=== PATIENT | female | born 1940 | race Caucasian/White ===

== ENCOUNTER 2017-08-13 09:12 | Inpatient (IN) | payer MEDICARE ==
[2017-08-13] MEDS ORDERED: METHYLPREDNISOLONE INJ 125 MG/2 ML SDV IV ONE (09:30)
[2017-08-13] MEDS ORDERED: IPRATROPIUM/ALBUTEROL 0.5-2.5 MG/3 ML AMPUL NEB ONE (09:30)
--- NOTE | 2017-08-13 09:30 | ER Document Report ---
ED General <CELINE GUERRA - Last Filed: 08/13/17 12:53> - General Mode of Arrival: Medic TRAVEL OUTSIDE OF THE [place] IN LAST 30 DAYS: No - HPI Onset: This morning Associated symptoms: Other - see above <JEFFRYROME CASPERVU - Last Filed: 08/13/17 12:55> - General Stated Complaint: SHORTNESS OF BREATH Time Seen by Provider: 08/13/17 09:19 Notes: Patient is a 77 year old female who presents to the ED via EMS with complaints of nausea and vomiting. When EMS arrived they state she appeared dyspneic, she was 70% on room air. She was placed on CPAP by EMS and was 90%. She is believed to have aspirated on her emesis causing the dyspnea. She denies any abdominal pain. She was placed on bipap upon arrival to the ED. (VU TERAN) - Related Data Allergies/Adverse Reactions: No Known Allergies Allergy (Unverified 08/13/17 09:54) Past Medical History - General Information source: Patient - Social History Smoking Status: Unknown if Ever Smoked Family History: Reviewed & Not Pertinent <VU TERAN - Last Filed: 08/13/17 12:55> Review of Systems - Review of Systems Constitutional: No symptoms reported EENT: No symptoms reported Cardiovascular: No symptoms reported Respiratory: See HPI, Short of breath Gastrointestinal: See HPI, Nausea, Vomiting. denies: Abdominal pain Genitourinary: No symptoms reported Female Genitourinary: No symptoms reported Musculoskeletal: No symptoms reported Skin: No symptoms reported Hematologic/Lymphatic: No symptoms reported Neurological/Psychological: No symptoms reported <VU TERAN - Last Filed: 08/13/17 12:55> Physical Exam - General General appearance: Alert - HEENT Head: Normocephalic, Atraumatic Eyes: Normal Extraocular movements intact: Yes Pupils: PERRL - Respiratory Respiratory status: Tachypnea, Other - improved on bipap Breath sounds: Rhonchi, Wheezing - Cardiovascular Rhythm: Regular Heart sounds: Normal auscultation Murmur: No - Abdominal Inspection: Normal Distension: No distension Bowel sounds: Normal Tenderness: Nontender - Back Back: Normal, Other - severe kyphosis - Extremities General upper extremity: Normal inspection, Normal ROM General lower extremity: Normal inspection, Edema - mild, Normal ROM - Neurological Neuro grossly intact: Yes - Psychological Associated symptoms: Normal affect, Normal mood - Skin Skin Temperature: Warm Skin Moisture: Dry Skin Color: Normal <ROME TERANANDRA - Last Filed: 08/13/17 12:55> - Vital signs Vitals: BP 134/80 H 08/13/17 09:17 Course - Laboratory Result Diagrams: 08/13/17 09:23 08/13/17 09:23 - Diagnostic Test Radiology reviewed: Image reviewed, Reports reviewed - Chest x-ray is quite rotated, but there is no acute process. - EKG Interpretation by Me EKG shows normal: Sinus rhythm, [place], Intervals, QRS Complexes, ST-T Waves Rate: Normal - 70 Rhythm: NSR When compared to previous EKG there are: Previous EKG unavailable - Consults Dr. Quesada Consulted provider: will see as inpatient <CELINE GUERRA - Last Filed: 08/13/17 12:53> - Laboratory Result Diagrams: 08/13/17 09:23 08/13/17 09:23 <JEFFRYVU - Last Filed: 08/13/17 12:55> - Vital Signs Vital signs: Temp Pulse Resp BP Pulse Ox 99.1 F 93 25 H 115/82 93 08/13/17 10:13 08/13/17 10:13 08/13/17 12:47 08/13/17 10:19 08/13/17 12:47 - Laboratory Laboratory results interpreted by mt: 08/13/17 08/13/17 08/13/17 09:23 09:23 09:23 MCHC 31.7 L RDW 16.1 H Seg Neutrophils % 85.9 H Lymphocytes % 6.3 L Absolute Neutrophils 8.6 H PT 17.1 H Carbonic Acid ABG pCO2 ABG pO2 ABG HCO3 ABG Total CO2 ABG O2 Saturation VBG pCO2 VBG HCO3 Chloride 95 L Carbon Dioxide 33 H BUN 42 H Creatinine 2.01 H Est GFR ( Amer) 29 L Est GFR (Non-Af Amer) 24 L Glucose 156 H Lactic Acid Direct Bilirubin 0.6 H AST 2309 H ALT 1599 H Creatine Kinase Urine Protein Urine Blood Urine Urobilinogen 08/13/17 08/13/17 08/13/17 09:23 09:25 09:25 MCHC RDW Seg Neutrophils % Lymphocytes % Absolute Neutrophils PT Carbonic Acid ABG pCO2 ABG pO2 ABG HCO3 ABG Total CO2 ABG O2 Saturation VBG pCO2 70.0 H* VBG HCO3 33.9 H Chloride Carbon Dioxide BUN Creatinine Est GFR ( Amer) Est GFR (Non-Af Amer) Glucose Lactic Acid 3.5 H Direct Bilirubin AST ALT Creatine Kinase 739 H Urine Protein Urine Blood Urine Urobilinogen 08/13/17 08/13/17 09:50 12:00 MCHC RDW Seg Neutrophils % Lymphocytes % Absolute Neutrophils PT Carbonic Acid 1.60 H ABG pCO2 53.3 H ABG pO2 57.2 L ABG HCO3 29.0 H ABG Total CO2 30.7 H ABG O2 Saturation 88.1 L VBG pCO2 VBG HCO3 Chloride Carbon Dioxide BUN Creatinine Est GFR ( Amer) Est GFR (Non-Af Amer) Glucose Lactic Acid Direct Bilirubin AST ALT Creatine Kinase Urine Protein 100 H Urine Blood SMALL H Urine Urobilinogen 2.0 H Critical Care Note - Critical Care Note Total time excluding time spent on procedures (mins): 40 <CELINE GUERRA - Last Filed: 08/13/17 12:53> Discharge - Discharge Admitting Provider: [facility] Unit Admitted: IMCU <CELINE GUERRA - Last Filed: 08/13/17 12:53> <VU TERAN - Last Filed: 08/13/17 12:55> - Discharge Clinical Impression: Acute exacerbation of chronic obstructive pulmonary disease (COPD), Hypoxemia, Hepatitis, Dehydration, Elevated liver enzymes Nausea & vomiting Qualifiers: Vomiting type: unspecified Vomiting Intractability: non-intractable Qualified Code(s): R11.2 - Nausea with vomiting, unspecified Rhabdomyolysis Qualifiers: Rhabdomyolysis type: non-traumatic Qualified Code(s): M62.82 - Rhabdomyolysis Condition: Fair Disposition: ADMITTED INPATIENT Referrals: EVANGELINA QUESADA MD [Primary Care Provider] - Follow up as needed Scribe Attestation: 08/13/17 11:27 I personally performed the services described in the documentation, reviewed and edited the documentation which was dictated to the scribe in my presence, and it accurately records my words and actions. (CELINE GUERRA) Scribe Documentation - Scribe Written by Scribe:: dashawn Padilla, 08/13/2017, 09 acting as scribe for :: Denys <VU TERAN - Last Filed: 08/13/17 12:55>
[2017-08-13 09:42] LABS: ABSOLUTE LYMPHOCYTES (AUTO) 0.6 10^3/uL (0.5-4.7); ABSOLUTE MONOCYTES (AUTO) 0.7 10^3/uL (0.1-1.4); ABSOLUTE NEUT (AUTO) 8.6 10^3/uL (1.7-8.2); BASOPHILS % (AUTO) 0.5 % (0-2); HEMATOCRIT 44.9 % (36.0-47.0); HEMOGLOBIN 14.2 g/dL (12.0-15.5); HGB HCT DIFFERENCE -2.3; LYMPHOCYTES % (AUTO) 6.3 % (13-45); MEAN CORPUSCULAR HEMOGLOBIN 29.2 pg (27.0-33.4); MEAN CORPUSCULAR HGB CONC 31.7 g/dL (32.0-36.0); MEAN CORPUSCULAR VOLUME 92 fl (80-97); MONOCYTES % (AUTO) 7.3 % (3-13); RED BLOOD COUNT 4.87 10^6/uL (3.72-5.28); RED CELL DISTRIBUTION WIDTH 16.1 % (11.5-14.0); SEGMENTED NEUTROPHILS % (AUTO) 85.9 % (42-78)
[2017-08-13 09:54] LABS: VENOUS BLOOD BASE EXCESS 5.1 mmol/L; VENOUS BLOOD HCO3 33.9 mmol/L (20-32); VENOUS BLOOD PH 7.3 (7.30-7.42)
[2017-08-13 10:13] LABS: AMORPHOUS SEDIMENT,URINE TRACE /HPF; APPEARANCE,URINE SLIGHTLY-CLOUDY; BILIRUBIN,URINE NEGATIVE (NEGATIVE); GLUCOSE, URINE NEGATIVE (NEGATIVE); KETONES,URINE NEGATIVE (NEGATIVE); LEUKOCYTE ESTERASE,URINE NEGATIVE (NEGATIVE); NITRITE,URINE NEGATIVE (NEGATIVE); PROTEIN,URINE 100 mg/dL (NEGATIVE); URINE SPECIFIC GRAVITY 1.027
[2017-08-13 10:22] LABS: ALBUMIN 3.8 g/dL (3.5-5.0); ALKALINE PHOSPHATASE 87 U/L (38-126); ANION GAP 15 (5-19); BILIRUBIN,DIRECT 0.6 mg/dL (0.0-0.4); BILIRUBIN,TOTAL 1.1 mg/dL (0.2-1.3); BLOOD UREA NITROGEN 42 mg/dL (7-20); CALCIUM 9.1 mg/dL (8.4-10.2); CARBON DIOXIDE 33 mmol/L (22-30); CHLORIDE 95 mmol/L (98-107); CREATININE RESULT 2.01 mg/dL (0.52-1.25); GLUCOSE 156 mg/dL (75-110); POTASSIUM 4.8 mmol/L (3.6-5.0); SODIUM 142.7 mmol/L (137-145); TOTAL PROTEIN 6.3 g/dL (6.3-8.2)
[2017-08-13 10:25] LABS: PROTHROMBIN TIME 17.1 SEC (11.4-15.4)
[2017-08-13] MEDS ORDERED: CEFTRIAXONE 1 GM/D5W RTU 1 GM/50 ML RTUPB IV ONE (10:33)
[2017-08-13] MEDS ORDERED: LEVOFLOXACIN 750 MG/D5W RTU 750 MG/150 ML RTUPB IV ONE (10:33)
[2017-08-13] MEDS ORDERED: ALBUTEROL SULFATE 0.083% NEB 2.5 MG/3 ML AMPUL NEB ONE ×2 (10:35→12:53)
[2017-08-13 10:45] LABS: ALANINE AMINOTRANSFERASE 1599 U/L (9-52)
--- NOTE | 2017-08-13 10:53 | RADIOLOGY REPORT (SQ) ---
EXAM DESCRIPTION: CHEST SINGLE VIEW COMPLETED DATE/TIME: 08/13/2017 10:43 am REASON FOR STUDY: bed 3 sepsis protocol COMPARISON: None. EXAM PARAMETERS: NUMBER OF VIEWS: One view. TECHNIQUE: Single frontal radiographic view of the chest acquired. RADIATION DOSE: NA LIMITATIONS: Limited portable view, patient rotated to the right. FINDINGS: LUNGS AND PLEURA: Lungs generally clear. No obvious confluent infiltrates or pleural effu stormy. MEDIASTINUM AND HILAR STRUCTURES: Distorted by rotation and ectatic aorta. HEART AND VASCULAR STRUCTURES: Cardiomegaly. No overt CHF. BONES: No acute findings. HARDWARE: None in the chest. OTHER: No other significant finding. IMPRESSION: Limited filming. Cardiomegaly. Lungs generally clear. TECHNICAL DOCUMENTATION: JOB ID: [id number]
[2017-08-13] MEDS ORDERED: NORMAL SALINE 1000 ML 1,000 ML IV ONE ×2 (10:58→12:53)
[2017-08-13 11:02] LABS: ASPARTATE AMINO TRANSFERASE 2309 U/L (14-36)
[2017-08-13 11:11] LABS: ADD ON TESTING BLD IN LAB ACKNOWLEDGE
[2017-08-13 11:24] LABS: CREATINE KINASE 739 U/L (30-135)
[2017-08-13 12:12] LABS: ARTERIAL BLOOD BASE EXCESS 2.3 mmol/L; ARTERIAL BLOOD O2 SATURATION 88.1 % (94-98)
--- NOTE | 2017-08-13 17:03 | RADIOLOGY REPORT (SQ) ---
EXAM DESCRIPTION: NM LUNG PERFUSION SCAN COMPLETED DATE/TIME: 08/13/2017 4:49 pm REASON FOR STUDY: HYPOXEMIA R/O PE COMPARISON: Radiographs from earlier today. RADIONUCLIDE AND DOSE: 5.2 millicuries TC-99m MAA The route of agent administration: Intravenous TECHNIQUE: Eight views of the lungs acquired following injection of MAA. LIMITATIONS: None. FINDINGS: PERFUSION: Perfusion images with normal homogenous activity and no wedge-shaped or segment al defects. OTHER: No other significant finding. IMPRESSION: NORMAL PERFUSION LUNG SCAN. TECHNICAL DOCUMENTATION: JOB ID: [id number] [employer]- All Rights Reserved
--- NOTE | 2017-08-13 17:23 | RADIOLOGY REPORT (SQ) ---
EXAM DESCRIPTION: U/S RETROPERITON LTD COMPLETED DATE/TIME: 08/13/2017 5:14 pm REASON FOR STUDY: ACUTE KIDNEY INJURY COMPARISON: None. TECHNIQUE: Dynamic and static grayscale images acquired of the kidneys and bladder and recorded on P ACS. Additional selected color Doppler and spectral images recorded. LIMITATIONS: None. FINDINGS: RIGHT KIDNEY: Normal size, 9.9 cm. Normal echogenicity. No solid or suspicious masses . No hydronephrosis. No calcifications. LEFT KIDNEY: Normal size, 10.4 cm. Normal echogenicity. No solid or suspicious masses. No hydr onephrosis. No calcifications. BLADDER: There is a small amount of slightly echogenic material in the dependent portion of the bladd er. OTHER FINDINGS: No other significant finding. IMPRESSION: The kidneys are normal. There appears to be a small amount debris in the bladder. Is t here manjinder hematuria? TECHNICAL DOCUMENTATION: JOB ID: [id number] [employer]- All Rights Reserved
--- NOTE | 2017-08-13 17:48 | RADIOLOGY REPORT (SQ) ---
EXAM DESCRIPTION: CT CHEST WITHOUT COMPLETED DATE/TIME: 08/13/2017 5:20 pm REASON FOR STUDY: PNEUMONIA COMPARISON: None. TECHNIQUE: CT scan performed of the chest without intravenous contrast. Images reviewed with lung, soft tissue and bone windows. Reconstructed coronal and sagittal MPR images reviewed. All images st ored on PACS. All CT scanners at this facility use dose modulation, iterative reconstruction, and/or weight based d osing when appropriate to reduce radiation dose to as low as reasonably achievable (ALARA). [facility]: Dose Right [facility]: CareDose [facility]: Dose Right [facility]: Teradose 4D [facility]: Smart [employer] RADIATION DOSE: Up-to-date CT equipment and radiation dose reduction techniques were employed. CTDIv ol: 7.3 mGy. DLP: 256 mGy-cm. mGy. LIMITATIONS: No technical limitations. FINDINGS: LUNGS AND PLEURA: There is significant right perihilar opacification and opacification in the right lower lobe. Is subsegmental atelectasis in the left lower lobe medially. HILAR AND MEDIASTINAL STRUCTURES: A right hilar mass cannot be excluded. Large hiatal hernia is pres ent. HEART AND VASCULAR STRUCTURES: No aneurysm. No pericardial effusion. Enlarged heart. Coronary athe rosclerosis. The descending aorta is quite tortuous. UPPER ABDOMEN: No significant findings. Limited exam. THYROID AND OTHER SOFT TISSUES: No masses. No adenopathy. BONES: There is markedly increased dorsal kyphosis. There appears to have been an old fracture of th e sternum. HARDWARE: None in the chest. OTHER: No other significant findings. IMPRESSION: 1. Cardiomegaly. 2. Questionable right hilar mass. 3. Right perihilar and right lower lobe atelectasis versus consolidation. 4. Left lower lobe subsegmental atelectasis. 5. Other findings are as described. TECHNICAL DOCUMENTATION: JOB ID: [id number] Quality ID # [id number]: Final reports with documentation of one or more dose reduction techniques (e.g., Au tomated exposure control, adjustment of the mA and/or kV according to patient size, use of iterative reconstruction technique) 2010 [employer]- All Rights Reserved
[2017-08-13] MEDS ORDERED: FUROSEMIDE INJ/PF 40 MG/4 ML SDV IV ONE (18:00)
[2017-08-13] MEDS ORDERED: NORMAL SALINE 1000 ML 1,000 ML IV PRN (18:26)
[2017-08-13] MEDS ORDERED: BUTALB/ACETAMINOPHEN/CAFFEINE 1 TAB EACH PO PRN (18:35)
[2017-08-13] MEDS ORDERED: (PENDING PHARMACY ID) (Omeprazole Magnesium [Prilosec Otc] 40 MG) PO SCH (18:45)
[2017-08-13] MEDS ORDERED: (PENDING PHARMACY ID) (Losartan/Hydrochlorothiazide [Hyzaar 50-12.5 Tablet] 1 TAB) PO SCH (18:45)
[2017-08-13] MEDS ORDERED: VANCOMYCIN HCL 0 MG in DEXTROSE 5%-WATER 250 ML IV NR (18:45)
[2017-08-13] MEDS ORDERED: LEVOFLOXACIN 500 MG/D5W RTU 500 MG/100 ML RTUPB IV SCH (19:00)
--- NOTE | 2017-08-13 19:09 | PDOC H&P ---
History of Present Illness Admission Date/PCP: 08/13/17 13:06 EVANGELINA QUESADA MD History of Present Illness: BRYAN MOY is a 77 year old female, Patient is a resident of [facility] assisted living facility, she was transferred from the facility to the emergency room for evaluation of nausea and vomiting EMS was called to the facility because patient was vomiting when EMS arrived it was stated that she appeared dyspneic the oxygen saturation was 70% on room air she was then started on a noninvasive positive pressure ventilation device, CPAP by EMS and the oxygen saturation increased to 90%. When she arrived in the emergency room she was evaluated, the initial blood pressure recorded was 134/80 the initial blood work showed serum creatinine 2.01, BUN 42, bicarbonate 33, chloride 95 she had grossly abnormal liver enzymes the aminotransaminases were elevated, AST 2309, ALT 1599, there was lactic acidosis the arterial blood gas that was done showed PO2 57.2, PCO2 33.3, bicarbonate 29.0 she had grossly abnormal lab data. Patient is well-known to me she was seen in the office back in May and at that time she had comprehensive blood work, the kidney function, the liver enzymes were all normal at the time so clearly she now have acute kidney injury and also acute liver injury. When I saw patient on the floor she could not tell me how her symptoms started all she said was that she did not remember what really happened but she remember vomiting. I requested for BNP it was elevated as well ,the initial chest x-ray that was done in the emergency room was a poor image was quite rotated but it was stated as negative chest x-ray I requested for CT chest without contrast,showed right perihilar opacification AND opacification in the right lower lobe and right hilar mass cannot be excluded. The CAT scan was done without contrast because of the acute kidney injury ,kidney ultrasound was done there was no hydronephrosis ,because of the hypoxemia a VQ scan was done it was a normal perfusion study. She also had elevated serum troponin. Past Medical History Pulmonary Medical History: Reports: Asthma, Chronic Obstructive Pulmonary Disease (COPD) Endocrine Medical History: Reports: Diabetes Mellitus Type 2 Musculoskeltal Medical History: Reports: Arthritis Social History Smoking Status: Current Every Day Smoker Cigarettes Packs Per Day: 0 Number of Years Smokin Frequency of Alcohol Use: None Hx Recreational Drug Use: No Hx Prescription Drug Abuse: No - Advance Directive Resuscitation Status: Full Code Family History Family History: Reviewed & Not Pertinent Parental Family History Reviewed: Yes Children Family History Reviewed: Yes Sibling(s) Family History Reviewed.: Yes Medication/Allergy Home Medications: Albuterol Sulfate [Ventolin Hfa] 2 puff IH Q4 PRN 08/13/17 Butalb/Acetaminophen/Caffeine [Fioricet (50-325-40 mg) Tablet] 1 tab PO Q4HP PRN 08/13/17 Dexamethasone [Dexpak] 1.5 mg PO ASDIR PRN 08/13/17 Eszopiclone [Lunesta] 3 mg PO QHS 08/13/17 Gabapentin [Neurontin 300 mg Capsule] 300 mg PO QHS 08/13/17 Insulin Lispro [Humalog Kwikpen] 0 unit SQ .SLIDING SCALE 08/13/17 Losartan/Hydrochlorothiazide [Hyzaar 50-12.5 Tablet] 1 tab PO DAILY 08/13/17 Mag Hydrox/Al Hydrox/Simeth [Maalox Plus Susp 30 Udcup] 10 ml PO Q6 PRN Metformin HCl [Glucophage] 1,000 mg PO BID 08/13/17 Metoprolol Tartrate [Lopressor 25 mg Tablet] 25 mg PO Q12 08/13/17 Omeprazole 40 mg PO DAILY 08/13/17 Omeprazole Magnesium [Prilosec Otc] 40 mg PO DAILY 08/13/17 Tramadol HCl [Ultram 50 mg Tablet] 50 mg PO Q8HP PRN 08/13/17 Allergies/Adverse Reactions: No Known Allergies Allergy (Unverified 08/13/17 09:54) Review of Systems Constitutional: PRESENT: anorexia, fever(s) Eyes: ABSENT: visual disturbances Ears: ABSENT: hearing changes Cardiovascular: PRESENT: dyspnea on exertion Respiratory: PRESENT: cough, dyspnea Gastrointestinal: PRESENT: nausea, vomiting Genitourinary: ABSENT: as per HPI, difficulty urinating, dysuria, hematuria, nocturia, other Musculoskeletal: ABSENT: joint swelling Integumentary: ABSENT: rash, wounds Neurological: ABSENT: abnormal gait, abnormal speech, confusion, dizziness, focal weakness, syncope Psychiatric: ABSENT: anxiety, depression, homidical ideation, suicidal ideation Endocrine: ABSENT: cold intolerance, heat intolerance, menstrual abnormalities, polydipsia, polyuria Hematologic/Lymphatic: ABSENT: easy bleeding, easy bruising, lymphadenopathy Physical Exam Vital Signs: Temp Pulse Resp BP Pulse Ox 98.7 F 79 30 H 188/90 H 97 08/13/17 14:39 08/13/17 14:39 08/13/17 14:39 08/13/17 14:39 08/13/17 14:39 Intake & Output 08/12/17 08/13/17 08/14/17 06:59 06:59 06:59 Intake Total 50 Balance 50 General appearance: PRESENT: severe distress Head exam: PRESENT: atraumatic, normocephalic Eye exam: PRESENT: PERRLA Mouth exam: PRESENT: moist, tongue midline Neck exam: PRESENT: full ROM Respiratory exam: PRESENT: wheezes, other - Dorsal kyphosis Cardiovascular exam: PRESENT: RRR, +S1, +S2 Vascular exam: PRESENT: normal capillary refill GI/Abdominal exam: PRESENT: normal bowel sounds, soft Rectal exam: PRESENT: deferred Neurological exam: PRESENT: alert, awake, oriented to person, oriented to place , oriented to time, oriented to situation, CN II-XII grossly intact Skin exam: PRESENT: dry, intact, warm. ABSENT: cyanosis, rash Results Laboratory Results: 08/13/17 13:57 Lactic Acid 2.1 08/13/17 15:50 NT-Pro-B Natriuret Pep 14114 H Impressions: Chest CT 08/13/17 00:00 IMPRESSION: 1. Cardiomegaly. 2. Questionable right hilar mass. 3. Right perihilar and right lower lobe atelectasis versus consolidation. 4. Left lower lobe subsegmental atelectasis. 5. Other findings are as described. Lung Scan-VQ NM 08/13/17 00:00 IMPRESSION: NORMAL PERFUSION LUNG SCAN. Renal Ultrasound 08/13/17 00:00 IMPRESSION: The kidneys are normal. There appears to be a small amount debris in the bladder. Is there manjinder hematuria? Chest X-Ray 08/13/17 09:14 IMPRESSION: Limited filming. Cardiomegaly. Lungs generally clear. Assessment & Plan - Diagnosis (1) Acute hypoxemic respiratory failure Is this a current diagnosis for this admission?: Yes Plan: The differential diagnoses include pneumonia, acute systolic heart failure, pulmonary embolism. The VQ scan showed a normal perfusion which virtually rule out pulmonary embolism a 2D echo was done, it showed preserved ejection fraction of left ventricle though the BNP was elevated suggesting acute diastolic heart failure. CT chest that was done suggest opacification in the right lower lobe and right hilar mass could not be ruled out unfortunately patient could not be given contrast because of the acute kidney injury she has risk factor for lung cancer, she smokes cigarettes. She is also requiring a noninvasive positive pressure ventilation with BiPAP this to be continued in IMCU floor she be treated with antibiotic (2) Right lower lobe pneumonia Qualifiers: Pneumonia type: due to unspecified organism Qualified Code(s): J18.1 - Lobar pneumonia, unspecified organism Is this a current diagnosis for this admission?: Yes Plan: The CAT scan showed right lower lobe opacification suggesting right lower lobe pneumonia she will be treated with antibiotic to cover community-acquired pathogen and also MRSA she is from assisted living facility she we meet the criteria for healthcare associated pneumonia the antibiotic will cover MRSA and gram-negative organisms and gram-positive organisms she will be treated with cefepime, vancomycin and Levaquin (3) Hilar mass Is this a current diagnosis for this admission?: Yes Plan: A right hilar mass cannot be excluded, patient be treated with antibiotic she may require CT scan of the lung with contrast once kidney function improves (4) Acute kidney injury Is this a current diagnosis for this admission?: Yes Plan: The kidney function was normal in May 2017, the kidney ultrasound did not show any hydronephrosis, this is rule out post renal etiology for the acute kidney injury the blood pressure is normal The urinalysis showed hyaline casts with positive proteinuria suggesting ATN (5) Elevated troponin Is this a current diagnosis for this admission?: Yes (6) Non-ST elevated myocardial infarction Is this a current diagnosis for this admission?: Yes Plan: The troponin is elevated as well as the BNP 2D echo is ordered (7) Elevated liver enzymes Is this a current diagnosis for this admission?: Yes Plan: CT scan of the abdomen and pelvis will be ordered to rule out metastatic disease
[2017-08-13] MEDS ORDERED: DEXTROSE 50%-WATER 25 GM/50 ML DISP.SYRIN IV PRN ×2 (19:13)
[2017-08-13] MEDS ORDERED: DEXTROSE 40% GEL 15 GM TUBE PO PRN ×2 (19:13)
[2017-08-13] MEDS ORDERED: GLUCAGON,HUMAN RECOMB 1 MG INJ IM PRN (19:13)
[2017-08-13 19:33] LABS: PARTIAL THROMBOPLASTIN TIME 28.1 SEC (23.5-35.8); PROTHROMBIN TIME 16.6 SEC (11.4-15.4)
[2017-08-13 19:44] LABS: LIPASE 58.5 U/L (23-300); PHOSPHORUS 3.3 mg/dL (2.5-4.5)
--- NOTE | 2017-08-13 19:50 | RADIOLOGY REPORT (SQ) ---
EXAM DESCRIPTION: CT ABD/PELVIS NO ORAL OR IV COMPLETED DATE/TIME: 08/13/2017 7:42 pm REASON FOR STUDY: ELEVATED LIVER ENZYMES,r/O METASTATIC DISEASE COMPARISON: None. TECHNIQUE: CT scan of the abdomen and pelvis performed without intravenous or oral contrast. Images reviewed with lung, soft tissue, and bone windows. Reconstructed coronal and sagittal MPR images revi ewed. All images stored on PACS. All CT scanners at this facility use dose modulation, iterative reconstruction, and/or weight based d osing when appropriate to reduce radiation dose to as low as reasonably achievable (ALARA). [facility]: Dose Right [facility]: CareDose [facility]: Dose Right [facility]: Teradose 4D [facility]: Smart [employer] RADIATION DOSE: Up-to-date CT equipment and radiation dose reduction techniques were employed. CTDIv ol: 9.1 mGy. DLP: 414 mGy-cm.mGy. LIMITATIONS: None. FINDINGS: LOWER CHEST: There is right lower lobe pneumonia and bibasilar pleural thickening. There is a moderate size hiatal hernia. NON-CONTRASTED LIVER, SPLEEN, ADRENALS: Evaluation limited by lack of IV contrast. No identified sign ificant masses. PANCREAS: No masses. No peripancreatic inflammatory changes. GALLBLADDER: There is a gallstone. No surrounding edema. RIGHT KIDNEY AND URETER: No suspicious masses. Assessment limited by lack of IV contrast. No signif icant calcifications. No hydronephrosis or hydroureter. LEFT KIDNEY AND URETER: No suspicious masses. Assessment limited by lack of IV contrast. No signifi cant calcifications. No hydronephrosis or hydroureter. AORTA AND RETROPERITONEUM: No aneurysm. No retroperitoneal masses or adenopathy. BOWEL AND PERITONEAL CAVITY: No obvious masses or inflammatory changes. No free fluid. APPENDIX: Not visualized. PELVIS, BLADDER, AND ABDOMINAL WALL:The bladder is distended. BONES: No significant findings. OTHER: No other significant finding. IMPRESSION: 1. No obvious hepatic lesions. The study is limited by lack of IV contrast. 2. Markedly distended bladder. 3. Right lower lobe pneumonia along with a small right pleural effusion. COMMENT: Quality ID # [id number]: Final reports with documentation of one or more dose reduction techniques (e.g., Automated exposure control, adjustment of the mA and/or kV according to patient size, use of iterative reconstruction technique) TECHNICAL DOCUMENTATION: JOB ID: [id number] [employer]- All Rights Reserved
[2017-08-13 19:54] LABS: CREATINE KINASE MB 18.6 ng/mL (<4.55)
[2017-08-13 19:57] LABS: MAGNESIUM 1.2 mg/dL (1.6-2.3)
[2017-08-13] MEDS ORDERED: ASPIRIN 81 MG TABLET, CHEWABLE PO ONE (20:00)
[2017-08-13] MEDS ORDERED: METOPROLOL TARTRATE 25 MG TABLET PO ONE (20:00)
[2017-08-13] MEDS ORDERED: CLOPIDOGREL BISULFATE 75 MG TABLET PO ONE (20:00)
[2017-08-13 20:03] LABS: TROPONIN I 1.79 ng/mL
[2017-08-13 20:12] LABS: THYROID STIMULATING HORMONE 0.7 uIU/mL (0.47-4.68)
[2017-08-13] MEDS: IPRATROPIUM/ALBUTEROL 0.5-2.5 MG/3 ML AMPUL NEB SCH ×2 (20:18→22:36)
[2017-08-13 20:36] LABS: APPEARANCE,URINE SLIGHTLY-CLOUDY; BILIRUBIN,URINE NEGATIVE (NEGATIVE); GLUCOSE, URINE NEGATIVE (NEGATIVE); KETONES,URINE NEGATIVE (NEGATIVE); LEUKOCYTE ESTERASE,URINE NEGATIVE (NEGATIVE); NITRITE,URINE NEGATIVE (NEGATIVE); PROTEIN,URINE NEGATIVE (NEGATIVE); URINE SPECIFIC GRAVITY 1.008; UROBILINOGEN,URINE NEGATIVE mg/dL (<2.0)
[2017-08-13 20:45] LABS: URINE BARBITURATES SCREEN NEGATIVE; URINE METHADONE SCREEN NEGATIVE; URINE OPIATES LOW NEGATIVE; URINE PHENCYCLIDINE SCREEN NEGATIVE
[2017-08-13] MEDS ORDERED: MAGNESIUM OXIDE 400 MG TABLET PO ONE (21:00)
[2017-08-13] MEDS ORDERED: CEFEPIME 1 GM/D5W RTU 1 GM/50 ML RTUPB IV SCH (21:00)
[2017-08-13] MEDS ORDERED: VANCOMYCIN HCL 500 MG in DEXTROSE 5%-WATER 100 ML IV SCH (22:00)
[2017-08-13] MEDS: HEPARIN SOD (PORCINE) 5,000 UNIT/ML 1 ML SYRINGE SUBCUT SCH (22:26)
--- NOTE | 2017-08-13 22:56 | EKG REPORT ---
SEVERITY:- ABNORMAL ECG - SINUS RHYTHM BIATRIAL ABNORMALITIES LVH WITH SECONDARY REPOLARIZATION ABNORMALITY CONSIDER INFERIOR INFARCT BORDERLINE PROLONGED QT INTERVAL : Confirmed by: Alice Warner 13-Aug-2017 22:55:14
--- NOTE | 2017-08-13 22:57 | EKG REPORT ---
SEVERITY:- ABNORMAL ECG - BASELINE ARTIFACTS PREVENTS ACCURATE INTERPRETATION NONSPECIFIC INTRAVENTRICULAR CONDUCTION DELAY PROBABLE LVH WITH SECONDARY REPOL ABNRM VS ISCHEMIA : Confirmed by: Alice Warner 13-Aug-2017 22:57:10
[2017-08-14 01:40] LABS: CREATINE KINASE MB 12.5 ng/mL (<4.55)
[2017-08-14 02:21] LABS: TROPONIN I 1.61 ng/mL
[2017-08-14] MEDS: IPRATROPIUM/ALBUTEROL 0.5-2.5 MG/3 ML AMPUL NEB SCH ×8 (02:32→23:13)
[2017-08-14] MEDS: HEPARIN SOD (PORCINE) 5,000 UNIT/ML 1 ML SYRINGE SUBCUT SCH ×3 (06:54→21:48)
[2017-08-14] MEDS: LANSOPRAZOLE 30 MG TAB.RAP.DR PO SCH (06:54)
[2017-08-14 07:43] LABS: ABSOLUTE LYMPHOCYTES (AUTO) 0.6 10^3/uL (0.5-4.7); ABSOLUTE MONOCYTES (AUTO) 0.8 10^3/uL (0.1-1.4); ABSOLUTE NEUT (AUTO) 9.3 10^3/uL (1.7-8.2); BASOPHILS % (AUTO) 0.4 % (0-2); HEMATOCRIT 40.6 % (36.0-47.0); HEMOGLOBIN 13.5 g/dL (12.0-15.5); HGB HCT DIFFERENCE -0.1; LYMPHOCYTES % (AUTO) 5.7 % (13-45); MEAN CORPUSCULAR HEMOGLOBIN 29.6 pg (27.0-33.4); MEAN CORPUSCULAR HGB CONC 33.3 g/dL (32.0-36.0); MEAN CORPUSCULAR VOLUME 89 fl (80-97); MONOCYTES % (AUTO) 7.4 % (3-13); RED BLOOD COUNT 4.56 10^6/uL (3.72-5.28); RED CELL DISTRIBUTION WIDTH 16.1 % (11.5-14.0); SEGMENTED NEUTROPHILS % (AUTO) 86.5 % (42-78); WHITE BLOOD COUNT 10.7 10^3/uL (4.0-10.5)
[2017-08-14 07:45] LABS: ALANINE AMINOTRANSFERASE 864 U/L (9-52); ALBUMIN 3.4 g/dL (3.5-5.0); ALKALINE PHOSPHATASE 80 U/L (38-126); ANION GAP 12 (5-19); ASPARTATE AMINO TRANSFERASE 375 U/L (14-36); BILIRUBIN,DIRECT 0.5 mg/dL (0.0-0.4); BILIRUBIN,TOTAL 0.9 mg/dL (0.2-1.3); BLOOD UREA NITROGEN 33 mg/dL (7-20); CALCIUM 8.2 mg/dL (8.4-10.2); CARBON DIOXIDE 31 mmol/L (22-30); CHLORIDE 100 mmol/L (98-107); CHOLESTEROL 133.54 mg/dL (0-200); CREATINE KINASE 1068 U/L (30-135); CREATININE RESULT 0.88 mg/dL (0.52-1.25); Direct HDL 25 mg/dL (>40); GLUCOSE 120 mg/dL (75-110); SODIUM 143.2 mmol/L (137-145); TOTAL PROTEIN 5.3 g/dL (6.3-8.2); TRIGLYCERIDES 160 mg/dL (<150)
[2017-08-14 07:56] LABS: DIRECT LDL 67 mg/dL (<100)
[2017-08-14 07:57] LABS: CREATINE KINASE MB 11.1 ng/mL (<4.55); TROPONIN I 1.28 ng/mL
[2017-08-14 08:06] LABS: POTASSIUM 3.5 mmol/L (3.6-5.0)
[2017-08-14] MEDS: FUROSEMIDE INJ/PF 40 MG/4 ML SDV IV SCH (08:34)
[2017-08-14] MEDS: HYDROCHLOROTHIAZIDE 12.5 MG CAPSULE PO SCH (09:42)
[2017-08-14] MEDS: ASPIRIN 81 MG TABLET, CHEWABLE PO SCH (09:42)
[2017-08-14] MEDS: CLOPIDOGREL BISULFATE 75 MG TABLET PO SCH (09:42)
[2017-08-14] MEDS: LOSARTAN POTASSIUM 50 MG TABLET PO SCH (09:43)
[2017-08-14] MEDS: METOPROLOL TARTRATE 25 MG TABLET PO SCH ×2 (09:43→21:54)
[2017-08-14] MEDS: MAGNESIUM OXIDE 400 MG TABLET PO SCH (09:44)
[2017-08-14] MEDS: VANCOMYCIN HCL 1,000 MG in DEXTROSE 5%-WATER 250 ML IV SCH (09:44)
--- NOTE | 2017-08-14 20:12 | PDOC PROGRESS REPORT ---
Subjective Progress Note for:: 08/14/17 Subjective:: Patient was admitted yesterday with multiple organ dysfunction including acute kidney injury, acute hypoxemic respiratory failure, left lower lobe pneumonia, a suspicious hilar mass, elevated liver enzymes, elevated troponin does suggest NON-ST elevated IL. She seems to be getting better today the kidney function is back to baseline, hopefully a CT scan of the lung with contrast will be obtained to further define the suspicious abnormalities that was found on a noncontrasted study Physical Exam Vital Signs: Temp Pulse Resp BP Pulse Ox 98.4 F 98 20 152/79 H 96 08/14/17 14:57 08/14/17 19:00 08/14/17 16:46 08/14/17 14:57 08/14/17 16:46 Intake & Output 08/13/17 08/14/17 08/15/17 06:59 06:59 06:59 Intake Total 840 1488 Output Total 200 600 Balance 640 888 Weight 56 kg General appearance: PRESENT: no acute distress Eye exam: PRESENT: PERRLA Respiratory exam: PRESENT: clear to auscultation jackson Cardiovascular exam: PRESENT: +S1, +S2 GI/Abdominal exam: PRESENT: soft Neurological exam: PRESENT: alert Results Laboratory Results: 08/14/17 07:17 08/14/17 07:17 08/13/17 08/13/17 08/14/17 19:15 20:12 07:17 WBC 10.7 H RBC 4.56 Hgb 13.5 Hct 40.6 MCV 89 MCH 29.6 MCHC 33.3 RDW 16.1 H Plt Count 119 L Seg Neutrophils % 86.5 H Lymphocytes % 5.7 L Monocytes % 7.4 Eosinophils % 0.0 Basophils % 0.4 Absolute Neutrophils 9.3 H Absolute Lymphocytes 0.6 Absolute Monocytes 0.8 Absolute Eosinophils 0.0 Absolute Basophils 0.0 Sodium Potassium Chloride Carbon Dioxide Anion Gap BUN Creatinine Est GFR ( Amer) Est GFR (Non-Af Amer) Glucose Calcium Total Bilirubin AST ALT Alkaline Phosphatase Total Protein Albumin Triglycerides Cholesterol LDL Cholesterol Direct VLDL Cholesterol HDL Cholesterol TSH 0.70 Free T4 1.57 Urine Color YELLOW Urine Appearance SLIGHTLY-CLOUDY Urine pH 5.0 Ur Specific Jarrell 1.008 Urine Protein NEGATIVE Urine Glucose (UA) NEGATIVE Urine Ketones NEGATIVE Urine Blood LARGE H Urine Nitrite NEGATIVE Ur Leukocyte Esterase NEGATIVE Urine WBC (Auto) 3 Urine RBC (Auto) 1 08/14/17 07:17 WBC RBC Hgb Hct MCV MCH MCHC RDW Plt Count Seg Neutrophils % Lymphocytes % Monocytes % Eosinophils % Basophils % Absolute Neutrophils Absolute Lymphocytes Absolute Monocytes Absolute Eosinophils Absolute Basophils Sodium 143.2 Potassium 3.5 L D Chloride 100 Carbon Dioxide 31 H Anion Gap 12 BUN 33 H Creatinine 0.88 Est GFR ( Amer) > 60 Est GFR (Non-Af Amer) > 60 Glucose 120 H Calcium 8.2 L Total Bilirubin 0.9 AST 375 H ALT 864 H Alkaline Phosphatase 80 Total Protein 5.3 L Albumin 3.4 L Triglycerides 160 H Cholesterol 133.54 LDL Cholesterol Direct 67 VLDL Cholesterol 32.0 H HDL Cholesterol 25 L TSH Free T4 Urine Color Urine Appearance Urine pH Ur Specific Jarrell Urine Protein Urine Glucose (UA) Urine Ketones Urine Blood Urine Nitrite Ur Leukocyte Esterase Urine WBC (Auto) Urine RBC (Auto) 08/13/17 08/13/17 08/14/17 19:15 19:15 01:05 Creatine Kinase 1548 H 1089 H CK-MB (CK-2) 18.60 H Troponin I 1.790 NT-Pro-B Natriuret Pep 08/14/17 08/14/17 08/14/17 01:05 07:17 07:17 Creatine Kinase 1068 H CK-MB (CK-2) 12.50 H 11.10 H Troponin I 1.610 1.280 NT-Pro-B Natriuret Pep 8820 H Impressions: Abdomen/Pelvis CT 08/13/17 00:00 IMPRESSION: 1. No obvious hepatic lesions. The study is limited by lack of IV contrast. 2. Markedly distended bladder. 3. Right lower lobe pneumonia along with a small right pleural effusion. Chest CT 08/13/17 00:00 IMPRESSION: 1. Cardiomegaly. 2. Questionable right hilar mass. 3. Right perihilar and right lower lobe atelectasis versus consolidation. 4. Left lower lobe subsegmental atelectasis. 5. Other findings are as described. Lung Scan-VQ NM 08/13/17 00:00 IMPRESSION: NORMAL PERFUSION LUNG SCAN. Renal Ultrasound 08/13/17 00:00 IMPRESSION: The kidneys are normal. There appears to be a small amount debris in the bladder. Is there manjinder hematuria? Chest X-Ray 09/13/17 09:14 IMPRESSION: Limited filming. Cardiomegaly. Lungs generally clear. Assessment & Plan - Diagnosis (1) Acute hypoxemic respiratory failure Is this a current diagnosis for this admission?: Yes (2) Right lower lobe pneumonia Qualifiers: Pneumonia type: due to unspecified organism Qualified Code(s): J18.1 - Lobar pneumonia, unspecified organism Is this a current diagnosis for this admission?: Yes (3) Hilar mass Is this a current diagnosis for this admission?: Yes Plan: CT chest with contrast is ordered (4) Acute kidney injury Is this a current diagnosis for this admission?: Yes Plan: The acute kidney injury is resolved (5) Elevated troponin Is this a current diagnosis for this admission?: Yes (6) Non-ST elevated myocardial infarction Is this a current diagnosis for this admission?: Yes (7) Elevated liver enzymes Is this a current diagnosis for this admission?: Yes
[2017-08-14] MEDS: CEFEPIME 2 GM/D5W RTU 2 GM/50 ML RTUPB IV SCH (20:39)
[2017-08-14] MEDS: NORMAL SALINE 1000 ML 1,000 ML IV PRN (20:40)
--- NOTE | 2017-08-14 20:53 | RADIOLOGY REPORT (SQ) ---
EXAM DESCRIPTION: CT CHEST WITH COMPLETED DATE/TIME: 08/14/2017 8:36 pm REASON FOR STUDY: suspicious hilar mass COMPARISON: CT chest dated 08/13/2017 TECHNIQUE: CT scan of the chest performed using helical scanning technique with dynamic intravenous contrast injection. Images reviewed with lung, soft tissue and bone windows. Reconstructed coronal and sagittal MPR images reviewed. All images stored on PACS. All CT scanners at this facility use dose modulation, iterative reconstruction, and/or weight based d osing when appropriate to reduce radiation dose to as low as reasonably achievable (ALARA). [facility]: Dose Right [facility]: CareDose [facility]: Dose Right [facility]: Teradose 4D [facility]: Specialty [employer] CONTRAST TYPE AND DOSE: contrast/concentration: Isovue 370.00 mg/ml; Total Contrast Delivered: 80.0 ml; Total Saline Delivered: 55.0 ml RENAL FUNCTION: BUN 33, creatinine 0.88 RADIATION DOSE: Up-to-date CT equipment and radiation dose reduction techniques were employed. CTDIv ol: 10.5 mGy. DLP: 332 mGy-cm. . LIMITATIONS: None. FINDINGS: LUNGS AND PLEURA: There is volume loss on the right. There is right lower lobe pneumonia. Overall this is slightly improved from prior study. There is a moderate size hiatal hernia. There is minimal lingular atelectasis. HILAR AND MEDIASTINAL STRUCTURES: There is right hilar adenopathy most likely reactive. No focal hil ar mass. HEART AND VASCULAR STRUCTURES: No aneurysm or dissection. No central pulmonary emboli. No pericardi al effusion. HARDWARE: None in the chest. UPPER ABDOMEN: No significant findings. Limited exam. THYROID AND OTHER SOFT TISSUES: No masses. No adenopathy. BONES: No significant finding. OTHER: No other significant finding. IMPRESSION: 1. Right lower lobe pneumonia slightly improved from prior study. 2. Right hilar adenopathy is noted most likely reactive. 3. Moderate size hiatal hernia grossly unchanged. TECHNICAL DOCUMENTATION: JOB ID: [id number] Quality ID # [id number]: Final reports with documentation of one or more dose reduction techniques (e.g., Au tomated exposure control, adjustment of the mA and/or kV according to patient size, use of iterative reconstruction technique) 2010 [employer]- All Rights Reserved
[2017-08-14] MEDS ORDERED: ALPRAZOLAM 0.5 MG TABLET PO ONE (23:15)
[2017-08-15] MEDS: TRAMADOL HCL 50 MG TABLET PO PRN (00:30)
[2017-08-15] MEDS: IPRATROPIUM/ALBUTEROL 0.5-2.5 MG/3 ML AMPUL NEB SCH ×7 (02:13→20:33)
[2017-08-15] MEDS: LANSOPRAZOLE 30 MG TAB.RAP.DR PO SCH (05:28)
[2017-08-15] MEDS: HEPARIN SOD (PORCINE) 5,000 UNIT/ML 1 ML SYRINGE SUBCUT SCH ×3 (05:28→22:33)
[2017-08-15 05:33] LABS: ABSOLUTE LYMPHOCYTES (AUTO) 0.6 10^3/uL (0.5-4.7); ABSOLUTE MONOCYTES (AUTO) 0.8 10^3/uL (0.1-1.4); ABSOLUTE NEUT (AUTO) 7.1 10^3/uL (1.7-8.2); BASOPHILS % (AUTO) 0.4 % (0-2); EOSINOPHILS % (AUTO) 0.2 % (0-6); HEMATOCRIT 40.1 % (36.0-47.0); HEMOGLOBIN 13.5 g/dL (12.0-15.5); HGB HCT DIFFERENCE 0.4; LYMPHOCYTES % (AUTO) 6.6 % (13-45); MEAN CORPUSCULAR HEMOGLOBIN 29.7 pg (27.0-33.4); MEAN CORPUSCULAR HGB CONC 33.6 g/dL (32.0-36.0); MEAN CORPUSCULAR VOLUME 88 fl (80-97); MONOCYTES % (AUTO) 9.3 % (3-13); RED BLOOD COUNT 4.54 10^6/uL (3.72-5.28); RED CELL DISTRIBUTION WIDTH 15.8 % (11.5-14.0); SEGMENTED NEUTROPHILS % (AUTO) 83.5 % (42-78); WHITE BLOOD COUNT 8.4 10^3/uL (4.0-10.5)
[2017-08-15 05:54] LABS: ALANINE AMINOTRANSFERASE 508 U/L (9-52); ALBUMIN 2.9 g/dL (3.5-5.0); ALKALINE PHOSPHATASE 67 U/L (38-126); ANION GAP 9 (5-19); ASPARTATE AMINO TRANSFERASE 136 U/L (14-36); BILIRUBIN,DIRECT 0.5 mg/dL (0.0-0.4); BLOOD UREA NITROGEN 28 mg/dL (7-20); CALCIUM 8.5 mg/dL (8.4-10.2); CARBON DIOXIDE 34 mmol/L (22-30); CHLORIDE 99 mmol/L (98-107); CREATININE RESULT 0.69 mg/dL (0.52-1.25); GLUCOSE 122 mg/dL (75-110); POTASSIUM 3.2 mmol/L (3.6-5.0); SODIUM 141.8 mmol/L (137-145); TOTAL PROTEIN 5.2 g/dL (6.3-8.2)
[2017-08-15] MEDS: FUROSEMIDE INJ/PF 40 MG/4 ML SDV IV SCH (07:47)
[2017-08-15] MEDS: CLOPIDOGREL BISULFATE 75 MG TABLET PO SCH (09:31)
[2017-08-15] MEDS: VANCOMYCIN HCL 1,000 MG in DEXTROSE 5%-WATER 250 ML IV SCH (09:31)
[2017-08-15] MEDS: ASPIRIN 81 MG TABLET, CHEWABLE PO SCH (09:32)
[2017-08-15] MEDS: HYDROCHLOROTHIAZIDE 12.5 MG CAPSULE PO SCH (09:32)
[2017-08-15] MEDS: MAGNESIUM OXIDE 400 MG TABLET PO SCH (09:32)
[2017-08-15] MEDS: LOSARTAN POTASSIUM 50 MG TABLET PO SCH (09:32)
[2017-08-15] MEDS: POTASSIUM CHLORIDE 10 MEQ TABLET.SA PO SCH (09:33)
[2017-08-15] MEDS: METOPROLOL TARTRATE 25 MG TABLET PO SCH ×2 (09:33→22:31)
[2017-08-15] MEDS ORDERED: LEVOFLOXACIN 250 MG/D5W RTU 250 MG/50 ML RTUPB IV SCH (10:00)
--- NOTE | 2017-08-15 10:02 | XCELERA REPORT ---
[address] [address] Transthoracic Echocardiogram Report Name: BRYAN MOY Age: 77 yrs Gender: Female : 1940 Patient Status: Inpatient Patient Location: [address] [place] [address] Study Date: 08/13/2017 03:43 PM Height: 62 in Weight: 120 lb BSA: 1.5 m2 Procedure: A complete two-dimensional transthoracic echocardiogram was performed (2D, M-mode, spectral and color flow Doppler). The study was technically difficult with many images being suboptimal in quality. Reason For Study: ELEVATED TROPONIN Ordering Physician: EVANGELINA QUESADA Performed By: Stephani East Interpretation Summary The study was technically difficult with many images being suboptimal in quality. Left ventricular systolic function is low normal. Doppler measurements suggest pseudonormalized left ventricular relaxation, which is associated with grade II/IV or mild to moderate diastolic dysfunction There is borderline concentric left ventricular hypertrophy. The left ventricle is grossly normal size. Not all wall segments were well visualized. Regional wall motion abnormalities cannot be excluded due to limited visualization. The right ventricular systolic function is normal. The right ventricle is mildly dilated. The right atrium is normal in size The left atrium is mildly dilated. There is no mitral valve stenosis. There is a mild to moderate amount of mitral regurgitation There is a mild amount of aortic regurgitation There is no aortic valve stenosis There is a trace or physiologic amount of tricuspid regurgitation Tricuspid regurgitation jet envelope not well defined to measure RV systolic pressure accurately. The aortic root is not well visualized. The inferior vena cava appeared normal and decreased < 50% with respiration (RAP 10-15 mmHg) There is no pericardial effusion. MMode/2D Measurements & Calculations RVDd: 3.4 cm LVIDd: 3.9 cm FS: 26.3 % Ao root diam: 3.0 cm IVSd: 1.2 cm LVIDs: 2.8 cm EDV(Teich): 64.5 ml LVPWd: 1.2 cm ESV(Teich): 30.8 ml Ao root area: 7.2 cm2 EF(Teich): 52.1 % LA dimension: 4.2 cm LVOT diam: 1.9 cm LVOT area: 2.7 cm2 Doppler Measurements & Calculations MV E max marlen: MV P1/2t max marlen: Ao V2 max: AI max marlen: 96.9 cm/sec 96.9 cm/sec 160.5 cm/sec 536.4 cm/sec MV A max marlen: MV P1/2t: 59.3 msec Ao max PG: AI max P.9 cm/sec MVA(P1/2t): 3.7 cm2 10.3 mmHg 115.1 mmHg MV E/A: 0.53 MV dec slope: ALEJA(V,D): 2.2 cm2 AI dec slope: 478.7 cm/sec2 261.5 cm/sec2 AI P1/2t: 600.9 msec LV V1 max PG: PA V2 max: TR max marlen: 7.1 mmHg 91.3 cm/sec 276.3 cm/sec LV V1 max: PA max P.3 mmHg TR max P.3 cm/sec 30.5 mmHg Left Ventricle The left ventricle is grossly normal size. There is borderline concentric left ventricular hypertrophy. Left ventricular systolic function is low normal. Doppler measurements suggest pseudonormalized left ventricular relaxation, which is associated with grade II/IV or mild to moderate diastolic dysfunction. Not all wall segments were well visualized. Regional wall motion abnormalities cannot be excluded due to limited visualization. Right Ventricle The right ventricle is mildly dilated. There is normal right ventricular wall thickness. The right ventricular systolic function is normal. Atria The right atrium is normal in size. The left atrium is mildly dilated. Interarterial septum not well visualized and not well dopplered. Cannot comment on ASD/PFO presence. Mitral Valve There is mild to moderate mitral annular calcification. There is no mitral valve stenosis. There is a mild to moderate amount of mitral regurgitation. Aortic Valve The aortic valve is not well visualized secondary to technical limitations. There is no aortic valve stenosis. There is a mild amount of aortic regurgitation. Tricuspid Valve The tricuspid valve is not well visualized secondary to technical limitations. There is no tricuspid stenosis. There is a trace or physiologic amount of tricuspid regurgitation. Tricuspid regurgitation jet envelope not well defined to measure RV systolic pressure accurately. Pulmonic Valve The pulmonic valve is not well visualized. Great Vessels The aortic root is not well visualized. The inferior vena cava appeared normal and decreased < 50% with respiration (RAP 10-15 mmHg). Effusions There is no pericardial effusion. : EVANGELINA QUESADA > Alice Warner
[2017-08-15] MEDS: LEVOFLOXACIN 750 MG/D5W RTU 750 MG/150 ML RTUPB IV SCH (12:18)
[2017-08-15] MEDS: NORMAL SALINE 1000 ML 1,000 ML IV PRN (15:00)
[2017-08-15] MEDS: CEFEPIME 2 GM/D5W RTU 2 GM/50 ML RTUPB IV SCH (17:52)
[2017-08-15] MEDS ORDERED: NA PHOS,M-B/NA PHOS,DI-BA (ADULT) 133 ML ENEMA PR ONE (19:00)
[2017-08-15] MEDS ORDERED: FUROSEMIDE INJ/PF 20 MG/2 ML SDV IV ONE (19:08)
[2017-08-15] MEDS ORDERED: NORMAL SALINE 1000 ML 1,000 ML IV PRN (19:08)
--- NOTE | 2017-08-15 19:14 | PDOC PROGRESS REPORT ---
Subjective Progress Note for:: 08/15/17 Subjective:: Patient was seen by the bedside, she is somewhat confused, she is requiring a sitter to watch over, she is obviously short of breath, yesterday she has CT chest with contrast because of a suspicious abnormalities the CT chest showed loss of volume on the right there is right lower lobe pneumonia overall this is slightly improved from prior study. There is a moderate size hiatal hernia, there is right hilar adenopathy most likely reactive no focal hilar mass was found. Yesterday she was treated with IV fluid to prevent contrast induced nephropathy, the isotonic saline to be reduced to 30 cc/h from 100 cc because that could also be contributing to the shortness of breath. Physical Exam Vital Signs: Temp Pulse Resp BP Pulse Ox 97.6 F 67 20 168/75 H 90 L 08/15/17 14:13 08/15/17 14:13 08/15/17 14:13 08/15/17 14:13 08/15/17 17:03 Intake & Output 08/14/17 08/15/17 08/16/17 06:59 06:59 06:59 Intake Total 840 3188 1851 Output Total 000 193 5264 Balance 640 2288 451 Weight 56 kg General appearance: PRESENT: other - Mild to moderate distress Eye exam: PRESENT: PERRLA Respiratory exam: PRESENT: accessory muscle use, rales, other - Kyphosis Cardiovascular exam: PRESENT: +S1, +S2 GI/Abdominal exam: PRESENT: soft Neurological exam: PRESENT: alert Results Laboratory Results: 08/15/17 05:00 08/15/17 05:00 08/15/17 08/15/17 05:00 05:00 WBC 8.4 RBC 4.54 Hgb 13.5 Hct 40.1 MCV 88 MCH 29.7 MCHC 33.6 RDW 15.8 H Plt Count 127 L Seg Neutrophils % 83.5 H Lymphocytes % 6.6 L Monocytes % 9.3 Eosinophils % 0.2 Basophils % 0.4 Absolute Neutrophils 7.1 Absolute Lymphocytes 0.6 Absolute Monocytes 0.8 Absolute Eosinophils 0.0 Absolute Basophils 0.0 Sodium 141.8 Potassium 3.2 L Chloride 99 Carbon Dioxide 34 H Anion Gap 9 BUN 28 H Creatinine 0.69 Est GFR ( Amer) > 60 Est GFR (Non-Af Amer) > 60 Glucose 122 H Calcium 8.5 Total Bilirubin 1.0 AST 136 H ALT 508 H Alkaline Phosphatase 67 Total Protein 5.2 L Albumin 2.9 L 08/13/17 08/13/17 08/14/17 19:15 19:15 01:05 Creatine Kinase 1548 H 1089 H CK-MB (CK-2) 18.60 H Troponin I 1.790 NT-Pro-B Natriuret Pep 08/14/17 08/14/17 08/14/17 01:05 07:17 07:17 Creatine Kinase 1068 H CK-MB (CK-2) 12.50 H 11.10 H Troponin I 1.610 1.280 NT-Pro-B Natriuret Pep 8820 H 08/15/17 05:00 Creatine Kinase CK-MB (CK-2) Troponin I NT-Pro-B Natriuret Pep 7910 H Impressions: Abdomen/Pelvis CT 08/13/17 00:00 IMPRESSION: 1. No obvious hepatic lesions. The study is limited by lack of IV contrast. 2. Markedly distended bladder. 3. Right lower lobe pneumonia along with a small right pleural effusion. Lung Scan-VQ NM 08/13/17 00:00 IMPRESSION: NORMAL PERFUSION LUNG SCAN. Renal Ultrasound 08/13/17 00:00 IMPRESSION: The kidneys are normal. There appears to be a small amount debris in the bladder. Is there manjinder hematuria? Chest X-Ray 08/13/17 09:14 IMPRESSION: Limited filming. Cardiomegaly. Lungs generally clear. Chest CT 08/14/17 00:00 IMPRESSION: 1. Right lower lobe pneumonia slightly improved from prior study. 2. Right hilar adenopathy is noted most likely reactive. 3. Moderate size hiatal hernia grossly unchanged. Assessment & Plan - Diagnosis (1) Acute hypoxemic respiratory failure Is this a current diagnosis for this admission?: Yes Plan: The acute hypoxemic respiratory failure is probably due to pneumonia,hiatal hernia and COPD (2) Right lower lobe pneumonia Qualifiers: Pneumonia type: due to unspecified organism Qualified Code(s): J18.1 - Lobar pneumonia, unspecified organism Is this a current diagnosis for this admission?: Yes Plan: She will continue IV antibiotic (3) Hilar mass Is this a current diagnosis for this admission?: Yes Plan: DLM mass is from hilar adenopathy not from neoplasm (4) Acute kidney injury Is this a current diagnosis for this admission?: Yes (5) Elevated troponin Is this a current diagnosis for this admission?: Yes (6) Non-ST elevated myocardial infarction Is this a current diagnosis for this admission?: Yes (7) Elevated liver enzymes Is this a current diagnosis for this admission?: Yes - Plan Summary Plan Summary: She will continue IV antibiotic, anti-ischemic drug, reduce IV fluids to KVO infusion rate continued device therapy with BiPAP machine.
[2017-08-15] MEDS: ALPRAZOLAM 0.5 MG TABLET PO PRN (22:31)
[2017-08-16] MEDS: IPRATROPIUM/ALBUTEROL 0.5-2.5 MG/3 ML AMPUL NEB SCH ×6 (00:20→14:29)
[2017-08-16 05:59] LABS: ABSOLUTE LYMPHOCYTES (AUTO) 0.6 10^3/uL (0.5-4.7); ABSOLUTE MONOCYTES (AUTO) 0.9 10^3/uL (0.1-1.4); ABSOLUTE NEUT (AUTO) 7.2 10^3/uL (1.7-8.2); BASOPHILS % (AUTO) 0.4 % (0-2); EOSINOPHILS % (AUTO) 0.5 % (0-6); LYMPHOCYTES % (AUTO) 7.2 % (13-45); MEAN CORPUSCULAR HEMOGLOBIN 29.6 pg (27.0-33.4); MEAN CORPUSCULAR HGB CONC 33.3 g/dL (32.0-36.0); MEAN CORPUSCULAR VOLUME 89 fl (80-97); MONOCYTES % (AUTO) 9.9 % (3-13); RED BLOOD COUNT 5.06 10^6/uL (3.72-5.28); RED CELL DISTRIBUTION WIDTH 15.5 % (11.5-14.0); WHITE BLOOD COUNT 8.8 10^3/uL (4.0-10.5)
[2017-08-16] MEDS: LANSOPRAZOLE 30 MG TAB.RAP.DR PO SCH (06:13)
[2017-08-16] MEDS: HEPARIN SOD (PORCINE) 5,000 UNIT/ML 1 ML SYRINGE SUBCUT SCH ×3 (06:14→21:47)
[2017-08-16 06:18] LABS: ALANINE AMINOTRANSFERASE 403 U/L (9-52); ALBUMIN 3.4 g/dL (3.5-5.0); ALKALINE PHOSPHATASE 80 U/L (38-126); ANION GAP 11 (5-19); ASPARTATE AMINO TRANSFERASE 98 U/L (14-36); BILIRUBIN,DIRECT 0.6 mg/dL (0.0-0.4); BILIRUBIN,TOTAL 1.3 mg/dL (0.2-1.3); BLOOD UREA NITROGEN 22 mg/dL (7-20); CALCIUM 9.3 mg/dL (8.4-10.2); CARBON DIOXIDE 36 mmol/L (22-30); CHLORIDE 96 mmol/L (98-107); CREATININE RESULT 0.78 mg/dL (0.52-1.25); GLUCOSE 132 mg/dL (75-110); POTASSIUM 3.8 mmol/L (3.6-5.0); SODIUM 143.4 mmol/L (137-145); TOTAL PROTEIN 5.8 g/dL (6.3-8.2)
[2017-08-16] MEDS: POTASSIUM CHLORIDE 10 MEQ TABLET.SA PO SCH (10:21)
[2017-08-16] MEDS: METOPROLOL TARTRATE 25 MG TABLET PO SCH ×2 (10:21→22:18)
[2017-08-16] MEDS: CLOPIDOGREL BISULFATE 75 MG TABLET PO SCH (10:22)
[2017-08-16] MEDS: LOSARTAN POTASSIUM 50 MG TABLET PO SCH (10:22)
[2017-08-16] MEDS: HYDROCHLOROTHIAZIDE 12.5 MG CAPSULE PO SCH (10:22)
[2017-08-16] MEDS: MAGNESIUM OXIDE 400 MG TABLET PO SCH (10:22)
[2017-08-16] MEDS: ASPIRIN 81 MG TABLET, CHEWABLE PO SCH (10:22)
[2017-08-16] MEDS: FUROSEMIDE INJ/PF 40 MG/4 ML SDV IV SCH (10:22)
[2017-08-16] MEDS: VANCOMYCIN HCL 1,000 MG in DEXTROSE 5%-WATER 250 ML IV SCH (10:28)
[2017-08-16] MEDS ORDERED: IPRATROPIUM/ALBUTEROL 0.5-2.5 MG/3 ML AMPUL NEB PRN (14:27)
--- NOTE | 2017-08-16 14:45 | PDOC PROGRESS REPORT ---
Subjective Progress Note for:: 08/16/17 Subjective:: Patient denied any chest pain or difficulty with breathing but there is some degree of baseline dementia and confusion with need for a sitter in her room to prevent fall. No observe chest pain. No reported vomiting, fever or chills. Physical Exam Vital Signs: Temp Pulse Resp BP Pulse Ox 97.9 F 84 22 H 162/98 H 99 08/16/17 11:16 08/16/17 11:16 08/16/17 11:16 08/16/17 11:16 08/16/17 11:16 Intake & Output 08/15/17 08/16/17 08/17/17 06:59 06:59 06:59 Intake Total 3188 2701 240 Output Total 900 3125 700 Balance 5418 -424 -425 Weight 52.6 kg General appearance: PRESENT: no acute distress, cooperative Head exam: PRESENT: atraumatic, normocephalic Mouth exam: PRESENT: moist Respiratory exam: PRESENT: clear to auscultation jackson, decreased breath sounds - at lung bases Cardiovascular exam: PRESENT: RRR. ABSENT: diastolic murmur, rubs, systolic murmur Vascular exam: PRESENT: normal capillary refill. ABSENT: pallor GI/Abdominal exam: PRESENT: normal bowel sounds. ABSENT: mass, tenderness Musculoskeletal exam: PRESENT: deformity - related to multiple joints involvement with arthritis Neurological exam: PRESENT: alert, awake Psychiatric exam: PRESENT: appropriate affect, normal mood. ABSENT: homicidal ideation, suicidal ideation Skin exam: PRESENT: dry, intact, warm. ABSENT: cyanosis, rash Results Laboratory Results: 08/16/17 05:13 08/16/17 05:13 08/16/17 08/16/17 05:13 05:13 WBC 8.8 RBC 5.06 Hgb 15.0 Hct 45.0 MCV 89 MCH 29.6 MCHC 33.3 RDW 15.5 H Plt Count 139 L Seg Neutrophils % 82.0 H Lymphocytes % 7.2 L Monocytes % 9.9 Eosinophils % 0.5 Basophils % 0.4 Absolute Neutrophils 7.2 Absolute Lymphocytes 0.6 Absolute Monocytes 0.9 Absolute Eosinophils 0.0 Absolute Basophils 0.0 Sodium 143.4 Potassium 3.8 Chloride 96 L Carbon Dioxide 36 H Anion Gap 11 BUN 22 H Creatinine 0.78 Est GFR ( Amer) > 60 Est GFR (Non-Af Amer) > 60 Glucose 132 H Calcium 9.3 Total Bilirubin 1.3 AST 98 H ALT 403 H Alkaline Phosphatase 80 Total Protein 5.8 L Albumin 3.4 L 08/13/17 08/13/17 08/14/17 19:15 19:15 01:05 Creatine Kinase 1548 H 1089 H CK-MB (CK-2) 18.60 H Troponin I 1.790 NT-Pro-B Natriuret Pep 08/14/17 08/14/17 08/14/17 01:05 07:17 07:17 Creatine Kinase 1068 H CK-MB (CK-2) 12.50 H 11.10 H Troponin I 1.610 1.280 NT-Pro-B Natriuret Pep 8820 H 08/15/17 08/16/17 05:00 05:13 Creatine Kinase CK-MB (CK-2) Troponin I NT-Pro-B Natriuret Pep 7910 H 4570 H Impressions: Abdomen/Pelvis CT 08/13/17 00:00 IMPRESSION: 1. No obvious hepatic lesions. The study is limited by lack of IV contrast. 2. Markedly distended bladder. 3. Right lower lobe pneumonia along with a small right pleural effusion. Lung Scan-VQ NM 08/13/17 00:00 IMPRESSION: NORMAL PERFUSION LUNG SCAN. Renal Ultrasound 08/13/17 00:00 IMPRESSION: The kidneys are normal. There appears to be a small amount debris in the bladder. Is there manjinder hematuria? Chest X-Ray 08/13/17 09:14 IMPRESSION: Limited filming. Cardiomegaly. Lungs generally clear. Chest CT 08/14/17 00:00 IMPRESSION: 1. Right lower lobe pneumonia slightly improved from prior study. 2. Right hilar adenopathy is noted most likely reactive. 3. Moderate size hiatal hernia grossly unchanged. Assessment & Plan - Diagnosis (1) Acute exacerbation of chronic obstructive pulmonary disease (COPD) Is this a current diagnosis for this admission?: Yes Plan: See covering attending physician orders. (2) Right lower lobe pneumonia Qualifiers: Pneumonia type: due to unspecified organism Qualified Code(s): J18.1 - Lobar pneumonia, unspecified organism Is this a current diagnosis for this admission?: Yes Plan: See covering attending physician orders. (3) Rhabdomyolysis Qualifiers: Rhabdomyolysis type: non-traumatic Qualified Code(s): M62.82 - Rhabdomyolysis Is this a current diagnosis for this admission?: Yes Plan: See covering attending physician orders. Probably related to her acute renal injury. (4) Acute kidney injury Is this a current diagnosis for this admission?: Yes Plan: See covering attending physician orders. Probable related to her rhabdomyolysis. (5) Elevated troponin Is this a current diagnosis for this admission?: Yes Plan: See covering attending physician orders. - Time Time Spent with patient: 25-34 minutes Medications reviewed and adjusted accordingly: Yes Anticipated discharge: Home with Homehealth Within: Other - Inpatient Certification Based on my medical assessment, after consideration of the patient's comorbidities, presenting symptoms, or acuity I expect that the services needed warrant INPATIENT care.: Yes I certify that my determination is in accordance with my understanding of Medicare's requirements for reasonable and necessary INPATIENT services [42 CFR 412.3e].: Yes Medical Necessity: Need Close Monitoring Due to Risk of Patient Decompensation, Need For IV Fluids, Need For Continuous Telemetry Monitoring, Need for Nebulizer Therapy and Monitoring of Response, Need for IV Antibiotics, Risk of Complication if Not Cared For in Hospital Post Hospital Care: D/C [facility]icker Documentation - Plan Summary Plan Summary: See covering attending physician orders.
[2017-08-16] MEDS: CEFEPIME 2 GM/D5W RTU 2 GM/50 ML RTUPB IV SCH (17:15)
[2017-08-16] MEDS: ALPRAZOLAM 0.5 MG TABLET PO PRN (20:08)
[2017-08-17] MEDS: LANSOPRAZOLE 30 MG TAB.RAP.DR PO SCH (06:33)
[2017-08-17] MEDS: HEPARIN SOD (PORCINE) 5,000 UNIT/ML 1 ML SYRINGE SUBCUT SCH ×3 (06:33→22:00)
[2017-08-17] MEDS: HYDROCHLOROTHIAZIDE 12.5 MG CAPSULE PO SCH (10:06)
[2017-08-17] MEDS: CLOPIDOGREL BISULFATE 75 MG TABLET PO SCH (10:06)
[2017-08-17] MEDS: POTASSIUM CHLORIDE 10 MEQ TABLET.SA PO SCH (10:06)
[2017-08-17] MEDS: METOPROLOL TARTRATE 25 MG TABLET PO SCH ×2 (10:07→22:00)
[2017-08-17] MEDS: ALPRAZOLAM 0.5 MG TABLET PO PRN ×2 (10:07→20:46)
[2017-08-17] MEDS: ASPIRIN 81 MG TABLET, CHEWABLE PO SCH (10:07)
[2017-08-17] MEDS: MAGNESIUM OXIDE 400 MG TABLET PO SCH (10:07)
[2017-08-17] MEDS: LOSARTAN POTASSIUM 50 MG TABLET PO SCH (10:07)
[2017-08-17] MEDS: FUROSEMIDE INJ/PF 40 MG/4 ML SDV IV SCH (10:07)
[2017-08-17] MEDS: VANCOMYCIN HCL 1,000 MG in DEXTROSE 5%-WATER 250 ML IV SCH (10:10)
[2017-08-17 10:36] LABS: CREATININE RESULT 0.63 mg/dL (0.52-1.25)
[2017-08-17] MEDS: LEVOFLOXACIN 750 MG/D5W RTU 750 MG/150 ML RTUPB IV SCH (12:49)
--- NOTE | 2017-08-17 13:55 | PDOC PROGRESS REPORT ---
Subjective Progress Note for:: 08/17/17 Subjective:: Patient denied any chest pain or difficulty with breathing. No reported vomiting , fever or chills. Out of bed in chair. Physical Exam Vital Signs: Temp Pulse Resp BP Pulse Ox 98.2 F 70 24 H 144/79 H 98 08/17/17 12:13 08/17/17 12:13 08/17/17 12:13 08/17/17 12:13 08/17/17 12:13 Intake & Output 08/16/17 08/17/17 08/18/17 06:59 06:59 06:59 Intake Total 2701 1533 120 Output Total 3125 1550 600 Balance -424 -80 -269 Weight 52.6 kg 52.1 kg Physical Exam: General appearance: PRESENT: no acute distress, cooperative Head exam: PRESENT: atraumatic, normocephalic Mouth exam: PRESENT: moist Respiratory exam: PRESENT: clear to auscultation jackson, decreased breath sounds - at lung bases Cardiovascular exam: PRESENT: RRR. ABSENT: diastolic murmur, rubs, systolic murmur Vascular exam: PRESENT: normal capillary refill. ABSENT: pallor GI/Abdominal exam: PRESENT: normal bowel sounds. ABSENT: mass, tenderness Musculoskeletal exam: PRESENT: deformity - related to multiple joints involvement with arthritis Neurological exam: PRESENT: alert, awake Psychiatric exam: PRESENT: appropriate affect, normal mood. ABSENT: homicidal ideation, suicidal ideation Skin exam: PRESENT: dry, intact, warm. ABSENT: cyanosis, rash Results Laboratory Results: 08/16/17 05:13 08/17/17 09:50 08/17/17 09:50 Creatinine 0.63 Est GFR ( Amer) > 60 Est GFR (Non-Af Amer) > 60 08/13/17 08/13/17 08/14/17 19:15 19:15 01:05 Creatine Kinase 1548 H 1089 H CK-MB (CK-2) 18.60 H Troponin I 1.790 NT-Pro-B Natriuret Pep 08/14/17 08/14/17 08/14/17 01:05 07:17 07:17 Creatine Kinase 1068 H CK-MB (CK-2) 12.50 H 11.10 H Troponin I 1.610 1.280 NT-Pro-B Natriuret Pep 8820 H 08/15/17 08/16/17 05:00 05:13 Creatine Kinase CK-MB (CK-2) Troponin I NT-Pro-B Natriuret Pep 7910 H 4570 H Impressions: Abdomen/Pelvis CT 08/13/17 00:00 IMPRESSION: 1. No obvious hepatic lesions. The study is limited by lack of IV contrast. 2. Markedly distended bladder. 3. Right lower lobe pneumonia along with a small right pleural effusion. Lung Scan-VQ NM 08/13/17 00:00 IMPRESSION: NORMAL PERFUSION LUNG SCAN. Renal Ultrasound 08/13/17 00:00 IMPRESSION: The kidneys are normal. There appears to be a small amount debris in the bladder. Is there manjinder hematuria? Chest X-Ray 08/13/17 09:14 IMPRESSION: Limited filming. Cardiomegaly. Lungs generally clear. Chest CT 08/14/17 00:00 IMPRESSION: 1. Right lower lobe pneumonia slightly improved from prior study. 2. Right hilar adenopathy is noted most likely reactive. 3. Moderate size hiatal hernia grossly unchanged. Assessment & Plan - Diagnosis (1) Acute exacerbation of chronic obstructive pulmonary disease (COPD) Is this a current diagnosis for this admission?: Yes (2) Right lower lobe pneumonia Qualifiers: Pneumonia type: due to unspecified organism Qualified Code(s): J18.1 - Lobar pneumonia, unspecified organism Is this a current diagnosis for this admission?: Yes (3) Rhabdomyolysis Qualifiers: Rhabdomyolysis type: non-traumatic Qualified Code(s): M62.82 - Rhabdomyolysis Is this a current diagnosis for this admission?: Yes (4) Acute kidney injury Is this a current diagnosis for this admission?: Yes (5) Elevated troponin Is this a current diagnosis for this admission?: Yes - Time Time Spent with patient: 25-34 minutes Anticipated discharge: SNF Within: Other - Inpatient Certification Based on my medical assessment, after consideration of the patient's comorbidities, presenting symptoms, or acuity I expect that the services needed warrant INPATIENT care.: Yes I certify that my determination is in accordance with my understanding of Medicare's requirements for reasonable and necessary INPATIENT services [42 CFR 412.3e].: Yes Medical Necessity: Need Close Monitoring Due to Risk of Patient Decompensation, Need For IV Fluids, Risk of Complication if Not Cared For in Hospital Post Hospital Care: D/C or Transfer Summary - Plan Summary Plan Summary: See covering physician orders.
[2017-08-17] MEDS: CEFEPIME 2 GM/D5W RTU 2 GM/50 ML RTUPB IV SCH (17:42)
[2017-08-17] MEDS ORDERED: VANCOMYCIN HCL 750 MG in DEXTROSE 5%-WATER 250 ML IV SCH (22:00)
[2017-08-18] MEDS: TRAMADOL HCL 50 MG TABLET PO PRN ×2 (02:02→22:19)
[2017-08-18] MEDS: HEPARIN SOD (PORCINE) 5,000 UNIT/ML 1 ML SYRINGE SUBCUT SCH ×3 (05:38→22:04)
[2017-08-18] MEDS: LANSOPRAZOLE 30 MG TAB.RAP.DR PO SCH (05:38)
[2017-08-18] MEDS: FUROSEMIDE INJ/PF 40 MG/4 ML SDV IV SCH (07:50)
[2017-08-18] MEDS: INSULIN LISPRO 100 UNIT/ML 3 ML VIAL SUBCUT PRN (07:52)
[2017-08-18] MEDS: LOSARTAN POTASSIUM 50 MG TABLET PO SCH (09:30)
[2017-08-18] MEDS: HYDROCHLOROTHIAZIDE 12.5 MG CAPSULE PO SCH (09:30)
[2017-08-18] MEDS: METOPROLOL TARTRATE 25 MG TABLET PO SCH ×2 (09:30→22:20)
[2017-08-18] MEDS: CLOPIDOGREL BISULFATE 75 MG TABLET PO SCH (09:30)
[2017-08-18] MEDS: ASPIRIN 81 MG TABLET, CHEWABLE PO SCH (09:30)
[2017-08-18] MEDS: MAGNESIUM OXIDE 400 MG TABLET PO SCH (09:30)
[2017-08-18] MEDS: POTASSIUM CHLORIDE 10 MEQ TABLET.SA PO SCH (09:30)
[2017-08-18] MEDS: ALPRAZOLAM 0.5 MG TABLET PO PRN ×2 (10:07→18:16)
[2017-08-18] MEDS: CEFEPIME 2 GM/D5W RTU 2 GM/50 ML RTUPB IV SCH (17:08)
--- NOTE | 2017-08-18 21:35 | PDOC PROGRESS REPORT ---
Subjective Progress Note for:: 08/18/17 Subjective:: Patient was seen by the bedside she is still continues to require a sitter because she experiences occasional confusion, she is otherwise doing well Physical Exam Vital Signs: Temp Pulse Resp BP Pulse Ox 98.2 F 77 16 111/58 L 94 08/18/17 15:11 08/18/17 15:11 08/18/17 15:11 08/18/17 15:11 08/18/17 15:11 Intake & Output 08/17/17 08/18/17 08/19/17 06:59 06:59 06:59 Intake Total 1533 2333 1658 Output Total 1550 1175 800 Balance -17 1158 858 Weight 52.1 kg 52.4 kg General appearance: PRESENT: no acute distress, well-developed, well-nourished Head exam: PRESENT: atraumatic, normocephalic Eye exam: PRESENT: conjunctiva pink, EOMI, PERRLA Mouth exam: PRESENT: moist, tongue midline Neck exam: PRESENT: full ROM Respiratory exam: PRESENT: clear to auscultation jackson Cardiovascular exam: PRESENT: RRR, +S1, +S2 Pulses: PRESENT: normal dorsalis pedis pul, +2 pedal pulses bilateral Vascular exam: PRESENT: normal capillary refill GI/Abdominal exam: PRESENT: normal bowel sounds, soft Rectal exam: PRESENT: deferred Neurological exam: PRESENT: alert Skin exam: PRESENT: dry, intact, warm Results Laboratory Results: 08/16/17 05:13 08/17/17 09:50 08/13/17 08/13/17 08/14/17 19:15 19:15 01:05 Creatine Kinase 1548 H 1089 H CK-MB (CK-2) 18.60 H Troponin I 1.790 NT-Pro-B Natriuret Pep 08/14/17 08/14/17 08/14/17 01:05 07:17 07:17 Creatine Kinase 1068 H CK-MB (CK-2) 12.50 H 11.10 H Troponin I 1.610 1.280 NT-Pro-B Natriuret Pep 8820 H 08/15/17 08/16/17 05:00 05:13 Creatine Kinase CK-MB (CK-2) Troponin I NT-Pro-B Natriuret Pep 7910 H 4570 H Impressions: Abdomen/Pelvis CT 08/13/17 00:00 IMPRESSION: 1. No obvious hepatic lesions. The study is limited by lack of IV contrast. 2. Markedly distended bladder. 3. Right lower lobe pneumonia along with a small right pleural effusion. Lung Scan-VQ NM 08/13/17 00:00 IMPRESSION: NORMAL PERFUSION LUNG SCAN. Renal Ultrasound 08/13/17 00:00 IMPRESSION: The kidneys are normal. There appears to be a small amount debris in the bladder. Is there manjinder hematuria? Chest X-Ray 08/13/17 09:14 IMPRESSION: Limited filming. Cardiomegaly. Lungs generally clear. Chest CT 08/14/17 00:00 IMPRESSION: 1. Right lower lobe pneumonia slightly improved from prior study. 2. Right hilar adenopathy is noted most likely reactive. 3. Moderate size hiatal hernia grossly unchanged. Assessment & Plan - Diagnosis (1) Acute hypoxemic respiratory failure Is this a current diagnosis for this admission?: Yes (2) Right lower lobe pneumonia Qualifiers: Pneumonia type: due to unspecified organism Qualified Code(s): J18.1 - Lobar pneumonia, unspecified organism Is this a current diagnosis for this admission?: Yes (3) Hilar mass Is this a current diagnosis for this admission?: Yes (4) Acute kidney injury Is this a current diagnosis for this admission?: Yes (5) Elevated troponin Is this a current diagnosis for this admission?: Yes (6) Non-ST elevated myocardial infarction Is this a current diagnosis for this admission?: Yes (7) Elevated liver enzymes Is this a current diagnosis for this admission?: Yes - Plan Summary Plan Summary: Continue IV antibiotic, discontinue IV fluids and Lasix
[2017-08-18] MEDS ORDERED: NICOTINE 21 MG/24 HR PATCH.TD24 TD ONE (22:00)
[2017-08-19] MEDS: ALPRAZOLAM 0.5 MG TABLET PO PRN (03:08)
[2017-08-19] MEDS: LANSOPRAZOLE 30 MG TAB.RAP.DR PO SCH (06:43)
[2017-08-19] MEDS: TRAMADOL HCL 50 MG TABLET PO PRN (06:43)
[2017-08-19] MEDS: HEPARIN SOD (PORCINE) 5,000 UNIT/ML 1 ML SYRINGE SUBCUT SCH ×3 (07:14→22:12)
[2017-08-19] MEDS: POTASSIUM CHLORIDE 10 MEQ TABLET.SA PO SCH (09:17)
[2017-08-19] MEDS: MAGNESIUM OXIDE 400 MG TABLET PO SCH (09:17)
[2017-08-19] MEDS: NICOTINE 21 MG/24 HR PATCH.TD24 TD SCH (09:18)
[2017-08-19] MEDS: LEVOFLOXACIN 750 MG TABLET PO SCH (09:18)
[2017-08-19] MEDS: ASPIRIN 81 MG TABLET, CHEWABLE PO SCH (09:18)
[2017-08-19] MEDS: CLOPIDOGREL BISULFATE 75 MG TABLET PO SCH (09:18)
[2017-08-19] MEDS: METOPROLOL TARTRATE 25 MG TABLET PO SCH ×2 (09:18→22:21)
[2017-08-19] MEDS: LOSARTAN POTASSIUM 50 MG TABLET PO SCH (11:51)
[2017-08-19] MEDS: HYDROCHLOROTHIAZIDE 12.5 MG CAPSULE PO SCH (11:51)
[2017-08-19] MEDS: CEFEPIME 2 GM/D5W RTU 2 GM/50 ML RTUPB IV SCH (19:12)
--- NOTE | 2017-08-19 20:40 | PDOC PROGRESS REPORT ---
Subjective Progress Note for:: 08/19/17 Subjective:: She was seen by the bedside she has episode of shortness of breath, confusion, the nurses said she gets more confused at night. She is a resident of assisted living facility, [facility], she probably need to go to a correction home for rehabilitation on discharge Physical Exam Vital Signs: Temp Pulse Resp BP Pulse Ox 97.7 F 65 24 H 116/55 L 99 08/19/17 15:16 08/19/17 15:16 08/19/17 15:16 08/19/17 15:16 08/19/17 15:16 Intake & Output 08/18/17 08/19/17 08/20/17 06:59 06:59 06:59 Intake Total 2333 2558 654 Output Total 1175 1150 450 Balance 1158 1408 204 Weight 52.4 kg 53 kg General appearance: PRESENT: no acute distress Eye exam: PRESENT: PERRLA Respiratory exam: PRESENT: rhonchi Cardiovascular exam: PRESENT: +S1, +S2 GI/Abdominal exam: PRESENT: soft Neurological exam: PRESENT: alert, CN II-XII grossly intact Results Laboratory Results: 08/16/17 05:13 08/17/17 09:50 08/13/17 08/13/17 08/14/17 19:15 19:15 01:05 Creatine Kinase 1548 H 1089 H CK-MB (CK-2) 18.60 H Troponin I 1.790 NT-Pro-B Natriuret Pep 08/14/17 08/14/17 08/14/17 01:05 07:17 07:17 Creatine Kinase 1068 H CK-MB (CK-2) 12.50 H 11.10 H Troponin I 1.610 1.280 NT-Pro-B Natriuret Pep 8820 H 08/15/17 08/16/17 05:00 05:13 Creatine Kinase CK-MB (CK-2) Troponin I NT-Pro-B Natriuret Pep 7910 H 4570 H Impressions: Abdomen/Pelvis CT 08/13/17 00:00 IMPRESSION: 1. No obvious hepatic lesions. The study is limited by lack of IV contrast. 2. Markedly distended bladder. 3. Right lower lobe pneumonia along with a small right pleural effusion. Lung Scan-VQ NM 08/13/17 00:00 IMPRESSION: NORMAL PERFUSION LUNG SCAN. Renal Ultrasound 08/13/17 00:00 IMPRESSION: The kidneys are normal. There appears to be a small amount debris in the bladder. Is there manjinder hematuria? Chest X-Ray 08/13/17 09:14 IMPRESSION: Limited filming. Cardiomegaly. Lungs generally clear. Chest CT 08/14/17 00:00 IMPRESSION: 1. Right lower lobe pneumonia slightly improved from prior study. 2. Right hilar adenopathy is noted most likely reactive. 3. Moderate size hiatal hernia grossly unchanged. Assessment & Plan - Diagnosis (1) Acute hypoxemic respiratory failure Is this a current diagnosis for this admission?: Yes (2) Right lower lobe pneumonia Qualifiers: Pneumonia type: due to unspecified organism Qualified Code(s): J18.1 - Lobar pneumonia, unspecified organism Is this a current diagnosis for this admission?: Yes (3) Hilar mass Is this a current diagnosis for this admission?: Yes (4) Acute kidney injury Is this a current diagnosis for this admission?: Yes (5) Elevated troponin Is this a current diagnosis for this admission?: Yes (6) Non-ST elevated myocardial infarction Is this a current diagnosis for this admission?: Yes (7) Elevated liver enzymes Is this a current diagnosis for this admission?: Yes - Plan Summary Plan Summary: continue present antibiotic,and present treatment
[2017-08-20] MEDS: ALPRAZOLAM 0.5 MG TABLET PO PRN ×2 (00:24→18:34)
[2017-08-20] MEDS: TRAMADOL HCL 50 MG TABLET PO PRN (01:09)
[2017-08-20] MEDS: HEPARIN SOD (PORCINE) 5,000 UNIT/ML 1 ML SYRINGE SUBCUT SCH ×3 (05:19→21:39)
[2017-08-20] MEDS: LANSOPRAZOLE 30 MG TAB.RAP.DR PO SCH (06:38)
[2017-08-20] MEDS: METOPROLOL TARTRATE 25 MG TABLET PO SCH ×2 (10:36→21:42)
[2017-08-20] MEDS: HYDROCHLOROTHIAZIDE 12.5 MG CAPSULE PO SCH (10:40)
[2017-08-20] MEDS: ASPIRIN 81 MG TABLET, CHEWABLE PO SCH (10:40)
[2017-08-20] MEDS: LOSARTAN POTASSIUM 50 MG TABLET PO SCH (10:40)
[2017-08-20] MEDS: MAGNESIUM OXIDE 400 MG TABLET PO SCH (10:40)
[2017-08-20] MEDS: CLOPIDOGREL BISULFATE 75 MG TABLET PO SCH (10:40)
[2017-08-20] MEDS: POTASSIUM CHLORIDE 10 MEQ TABLET.SA PO SCH (10:40)
[2017-08-20] MEDS: NICOTINE 21 MG/24 HR PATCH.TD24 TD SCH (10:41)
[2017-08-20 14:04] LABS: HEMATOCRIT 43.1 % (36.0-47.0); HEMOGLOBIN 14.1 g/dL (12.0-15.5); HGB HCT DIFFERENCE -0.8; MEAN CORPUSCULAR HEMOGLOBIN 29.2 pg (27.0-33.4); MEAN CORPUSCULAR HGB CONC 32.8 g/dL (32.0-36.0); MEAN CORPUSCULAR VOLUME 89 fl (80-97); RED BLOOD COUNT 4.84 10^6/uL (3.72-5.28); RED CELL DISTRIBUTION WIDTH 15.8 % (11.5-14.0); WHITE BLOOD COUNT 9.9 10^3/uL (4.0-10.5)
[2017-08-20 14:21] LABS: ALANINE AMINOTRANSFERASE 88 U/L (9-52); ALBUMIN 3.3 g/dL (3.5-5.0); ALKALINE PHOSPHATASE 59 U/L (38-126); ANION GAP 10 (5-19); ASPARTATE AMINO TRANSFERASE 21 U/L (14-36); BILIRUBIN,DIRECT 0.3 mg/dL (0.0-0.4); BILIRUBIN,TOTAL 0.8 mg/dL (0.2-1.3); BLOOD UREA NITROGEN 35 mg/dL (7-20); CARBON DIOXIDE 31 mmol/L (22-30); CHLORIDE 99 mmol/L (98-107); CREATININE RESULT 0.78 mg/dL (0.52-1.25); GLUCOSE 171 mg/dL (75-110); POTASSIUM 4.9 mmol/L (3.6-5.0); SODIUM 139.7 mmol/L (137-145); TOTAL PROTEIN 5.7 g/dL (6.3-8.2)
[2017-08-20 14:33] LABS: BASOPHILS % (MANUAL) 0 % (0-2); EOSINOPHILS % (MANUAL) 5 % (0-6); LYMPHOCYTES % (MANUAL) 13 % (13-45); TOTAL CELLS COUNTED 100
[2017-08-20 14:35] LABS: TOXIC GRANULATION SLIGHT; TOXIC VACUOLATION PRESENT
[2017-08-20 14:36] LABS: HYPOCHROMASIA SLIGHT; POLYCHROMASIA SLIGHT
--- NOTE | 2017-08-20 15:57 | PDOC PROGRESS REPORT ---
Subjective Progress Note for:: 08/20/17 Subjective:: Patient was seen by the bedside, she would need to go to a long term home for rehabilitation, the urinary catheter to be discontinued, consultation will be requested from discharge planning to arrange for rehabilitation in a long term home. Physical Exam Vital Signs: Temp Pulse Resp BP Pulse Ox 97.5 F 73 18 142/76 H 95 08/20/17 11:12 08/20/17 11:12 08/20/17 11:12 08/20/17 11:12 08/20/17 11:12 Intake & Output 08/19/17 08/20/17 08/21/17 06:59 06:59 06:59 Intake Total 2558 1328 Output Total 1150 1100 Balance 1408 228 Weight 53 kg 54.4 kg Head exam: PRESENT: atraumatic, normocephalic Eye exam: PRESENT: PERRLA Neck exam: PRESENT: full ROM Respiratory exam: PRESENT: clear to auscultation jackson Cardiovascular exam: PRESENT: RRR, +S1, +S2 Vascular exam: PRESENT: normal capillary refill Rectal exam: PRESENT: deferred Neurological exam: PRESENT: alert Psychiatric exam: PRESENT: appropriate affect, normal mood Results Laboratory Results: 08/20/17 13:53 08/20/17 13:53 08/20/17 08/20/17 13:53 13:53 WBC 9.9 RBC 4.84 Hgb 14.1 Hct 43.1 MCV 89 MCH 29.2 MCHC 32.8 RDW 15.8 H Plt Count 179 Seg Neutrophils % Not Reportable Lymphocytes % Not Reportable Monocytes % Not Reportable Eosinophils % Not Reportable Basophils % Not Reportable Absolute Neutrophils Not Reportable Absolute Lymphocytes Not Reportable Absolute Monocytes Not Reportable Absolute Eosinophils Not Reportable Absolute Basophils Not Reportable Sodium 139.7 Potassium 4.9 Chloride 99 Carbon Dioxide 31 H Anion Gap 10 BUN 35 H Creatinine 0.78 Est GFR ( Amer) > 60 Est GFR (Non-Af Amer) > 60 Glucose 171 H Calcium 10.0 Total Bilirubin 0.8 AST 21 ALT 88 H Alkaline Phosphatase 59 Total Protein 5.7 L Albumin 3.3 L 08/13/17 08/13/17 08/14/17 19:15 19:15 01:05 Creatine Kinase 1548 H 1089 H CK-MB (CK-2) 18.60 H Troponin I 1.790 NT-Pro-B Natriuret Pep 08/14/17 08/14/17 08/14/17 01:05 07:17 07:17 Creatine Kinase 1068 H CK-MB (CK-2) 12.50 H 11.10 H Troponin I 1.610 1.280 NT-Pro-B Natriuret Pep 8820 H 08/15/17 08/16/17 05:00 05:13 Creatine Kinase CK-MB (CK-2) Troponin I NT-Pro-B Natriuret Pep 7910 H 4570 H Impressions: Abdomen/Pelvis CT 08/13/17 00:00 IMPRESSION: 1. No obvious hepatic lesions. The study is limited by lack of IV contrast. 2. Markedly distended bladder. 3. Right lower lobe pneumonia along with a small right pleural effusion. Lung Scan-VQ NM 08/13/17 00:00 IMPRESSION: NORMAL PERFUSION LUNG SCAN. Renal Ultrasound 08/13/17 00:00 IMPRESSION: The kidneys are normal. There appears to be a small amount debris in the bladder. Is there manjinder hematuria? Chest X-Ray 08/13/17 09:14 IMPRESSION: Limited filming. Cardiomegaly. Lungs generally clear. Chest CT 08/14/17 00:00 IMPRESSION: 1. Right lower lobe pneumonia slightly improved from prior study. 2. Right hilar adenopathy is noted most likely reactive. 3. Moderate size hiatal hernia grossly unchanged. Assessment & Plan - Diagnosis (1) Acute hypoxemic respiratory failure Is this a current diagnosis for this admission?: Yes (2) Right lower lobe pneumonia Qualifiers: Pneumonia type: due to unspecified organism Qualified Code(s): J18.1 - Lobar pneumonia, unspecified organism Is this a current diagnosis for this admission?: Yes (3) Hilar mass Is this a current diagnosis for this admission?: Yes (4) Acute kidney injury Is this a current diagnosis for this admission?: Yes (5) Elevated troponin Is this a current diagnosis for this admission?: Yes (6) Non-ST elevated myocardial infarction Is this a current diagnosis for this admission?: Yes (7) Elevated liver enzymes Is this a current diagnosis for this admission?: Yes - Plan Summary Plan Summary: Continue present treatment
[2017-08-20] MEDS: CEFEPIME 2 GM/D5W RTU 2 GM/50 ML RTUPB IV SCH (17:10)
[2017-08-20] MEDS: DOXEPIN HCL 10 MG CAPSULE PO SCH (21:40)
[2017-08-21] MEDS: ALPRAZOLAM 0.5 MG TABLET PO PRN ×2 (03:22→23:57)
[2017-08-21] MEDS: HEPARIN SOD (PORCINE) 5,000 UNIT/ML 1 ML SYRINGE SUBCUT SCH ×3 (07:22→22:58)
[2017-08-21] MEDS: LANSOPRAZOLE 30 MG TAB.RAP.DR PO SCH (07:23)
[2017-08-21] MEDS: CLOPIDOGREL BISULFATE 75 MG TABLET PO SCH (09:48)
[2017-08-21] MEDS: METOPROLOL TARTRATE 25 MG TABLET PO SCH ×2 (09:48→22:59)
[2017-08-21] MEDS: HYDROCHLOROTHIAZIDE 12.5 MG CAPSULE PO SCH (09:48)
[2017-08-21] MEDS: LOSARTAN POTASSIUM 50 MG TABLET PO SCH (09:48)
[2017-08-21] MEDS: ASPIRIN 81 MG TABLET, CHEWABLE PO SCH (09:48)
[2017-08-21] MEDS: LEVOFLOXACIN 750 MG TABLET PO SCH (09:48)
[2017-08-21] MEDS: MAGNESIUM OXIDE 400 MG TABLET PO SCH (09:49)
[2017-08-21] MEDS: NICOTINE 21 MG/24 HR PATCH.TD24 TD SCH (09:49)
[2017-08-21] MEDS: POTASSIUM CHLORIDE 10 MEQ TABLET.SA PO SCH (09:56)
[2017-08-21] MEDS: CEFEPIME 2 GM/D5W RTU 2 GM/50 ML RTUPB IV SCH (18:07)
--- NOTE | 2017-08-21 20:55 | PDOC PROGRESS REPORT ---
Subjective Progress Note for:: 08/21/17 Subjective:: Patient was seen by the bedside, she has no new complaints, she is probably ready to be discharged Physical Exam Vital Signs: Temp Pulse Resp BP Pulse Ox 99.0 F 84 22 H 132/68 H 98 08/21/17 20:27 08/21/17 20:27 08/21/17 20:27 08/21/17 20:27 08/21/17 20:27 Intake & Output 08/20/17 08/21/17 08/22/17 06:59 06:59 06:59 Intake Total 1328 1911 724 Output Total 1100 600 700 Balance 228 1311 24 Weight 54.4 kg 53.6 kg General appearance: PRESENT: no acute distress Eye exam: PRESENT: PERRLA Respiratory exam: PRESENT: decreased breath sounds Cardiovascular exam: PRESENT: +S1, +S2 GI/Abdominal exam: PRESENT: soft Neurological exam: PRESENT: alert Results Laboratory Results: 08/20/17 13:53 08/20/17 13:53 08/13/17 08/13/17 08/14/17 19:15 19:15 01:05 Creatine Kinase 1548 H 1089 H CK-MB (CK-2) 18.60 H Troponin I 1.790 NT-Pro-B Natriuret Pep 08/14/17 08/14/17 08/14/17 01:05 07:17 07:17 Creatine Kinase 1068 H CK-MB (CK-2) 12.50 H 11.10 H Troponin I 1.610 1.280 NT-Pro-B Natriuret Pep 8820 H 08/15/17 08/16/17 05:00 05:13 Creatine Kinase CK-MB (CK-2) Troponin I NT-Pro-B Natriuret Pep 7910 H 4570 H Impressions: Abdomen/Pelvis CT 08/13/17 00:00 IMPRESSION: 1. No obvious hepatic lesions. The study is limited by lack of IV contrast. 2. Markedly distended bladder. 3. Right lower lobe pneumonia along with a small right pleural effusion. Lung Scan-VQ NM 08/13/17 00:00 IMPRESSION: NORMAL PERFUSION LUNG SCAN. Renal Ultrasound 08/13/17 00:00 IMPRESSION: The kidneys are normal. There appears to be a small amount debris in the bladder. Is there manjinder hematuria? Chest X-Ray 08/13/17 09:14 IMPRESSION: Limited filming. Cardiomegaly. Lungs generally clear. Chest CT 08/14/17 00:00 IMPRESSION: 1. Right lower lobe pneumonia slightly improved from prior study. 2. Right hilar adenopathy is noted most likely reactive. 3. Moderate size hiatal hernia grossly unchanged. Assessment & Plan - Diagnosis (1) Acute hypoxemic respiratory failure Is this a current diagnosis for this admission?: Yes (2) Right lower lobe pneumonia Qualifiers: Pneumonia type: due to unspecified organism Qualified Code(s): J18.1 - Lobar pneumonia, unspecified organism Is this a current diagnosis for this admission?: Yes (3) Hilar mass Is this a current diagnosis for this admission?: Yes (4) Acute kidney injury Is this a current diagnosis for this admission?: Yes (5) Elevated troponin Is this a current diagnosis for this admission?: Yes (6) Non-ST elevated myocardial infarction Is this a current diagnosis for this admission?: Yes (7) Elevated liver enzymes Is this a current diagnosis for this admission?: Yes
[2017-08-21] MEDS: DOXEPIN HCL 10 MG CAPSULE PO SCH (22:58)
[2017-08-21] MEDS: BUTALB/ACETAMINOPHEN/CAFFEINE 1 TAB EACH PO PRN (23:57)
[2017-08-22] MEDS: LANSOPRAZOLE 30 MG TAB.RAP.DR PO SCH (07:09)
[2017-08-22] MEDS: HEPARIN SOD (PORCINE) 5,000 UNIT/ML 1 ML SYRINGE SUBCUT SCH ×3 (07:10→23:06)
[2017-08-22] MEDS: POTASSIUM CHLORIDE 10 MEQ TABLET.SA PO SCH (11:27)
[2017-08-22] MEDS: NICOTINE 21 MG/24 HR PATCH.TD24 TD SCH (11:27)
[2017-08-22] MEDS: CLOPIDOGREL BISULFATE 75 MG TABLET PO SCH (11:28)
[2017-08-22] MEDS: ASPIRIN 81 MG TABLET, CHEWABLE PO SCH (11:28)
[2017-08-22] MEDS: HYDROCHLOROTHIAZIDE 12.5 MG CAPSULE PO SCH (11:28)
[2017-08-22] MEDS: LOSARTAN POTASSIUM 50 MG TABLET PO SCH (11:29)
[2017-08-22] MEDS: MAGNESIUM OXIDE 400 MG TABLET PO SCH (11:29)
[2017-08-22] MEDS: METOPROLOL TARTRATE 25 MG TABLET PO SCH ×2 (11:29→23:05)
--- NOTE | 2017-08-22 17:29 | PDOC TRANSFER SUMMARY ---
General - Admit/Disc Date/PCP Admission Date/Primary Care Provider: 08/13/17 18:26 EVANGELINA QUESADA MD Discharge Date: 08/22/17 - Discharge Diagnosis (1) Acute hypoxemic respiratory failure Is this a current diagnosis for this admission?: Yes (2) Right lower lobe pneumonia Is this a current diagnosis for this admission?: Yes (3) Acute kidney injury Is this a current diagnosis for this admission?: Yes (4) Elevated troponin Is this a current diagnosis for this admission?: Yes (5) Non-ST elevated myocardial infarction Is this a current diagnosis for this admission?: Yes (6) Elevated liver enzymes Is this a current diagnosis for this admission?: Yes (7) Sepsis Is this a current diagnosis for this admission?: Yes - Additional Information Resuscitation Status: Full Code Discharge Diet: Diabetic Home Medications: Albuterol Sulfate [Ventolin Hfa] 2 puff IH Q4 PRN 08/13/17 Butalb/Acetaminophen/Caffeine [Fioricet (50-325-40 mg) Tablet] 1 tab PO Q4HP PRN 08/13/17 Gabapentin [Neurontin 300 mg Capsule] 300 mg PO QHS 08/13/17 Insulin Lispro [Humalog Kwikpen U-100] 0 unit SQ .SLIDING SCALE 08/13/17 Losartan/Hydrochlorothiazide [Hyzaar 50-12.5 Tablet] 1 tab PO DAILY 08/13/17 Metformin HCl [Glucophage] 1,000 mg PO BID 08/13/17 Metoprolol Tartrate [Lopressor 25 mg Tablet] 25 mg PO Q12 08/13/17 Omeprazole 40 mg PO DAILY 08/13/17 Omeprazole Magnesium [Prilosec Otc] 40 mg PO DAILY 08/13/17 Alprazolam [Xanax 0.5 mg Tablet] 0.5 mg PO TID 08/14/17 Aspirin [Aspirin 81 mg Chewable Tablet] 81 mg PO DAILY tab.chew 08/22/17 Atorvastatin Calcium 10 mg PO DAILY #30 tablet 08/22/17 Hydrochlorothiazide [Hydrodiuril 12.5 mg Capsule] 12.5 mg PO DAILY capsule Levofloxacin [Levaquin 750 mg Tablet] 750 mg PO Q2D@1000 tablet 08/22/17 Losartan Potassium [Cozaar 50 mg Tablet] 50 mg PO DAILY tablet 08/22/17 Metoprolol Tartrate [Lopressor 25 mg Tablet] 25 mg PO Q12 tablet 08/22/17 History of Present Illness Admission Date/PCP: 08/13/17 18:26 EVANGELINA QUESADA MD History of Present Illness: BRYAN MOY is a 77 year old female, Patient is a resident of [facility], she was transferred from the facility to the emergency room for evaluation of nausea and vomiting EMS was called to the facility because patient was vomiting when EMS arrived it was stated that she appeared dyspneic the oxygen saturation was 70% on room air she was then started on a noninvasive positive pressure ventilation device, CPAP by EMS and the oxygen saturation increased to 90%. When she arrived in the emergency room she was evaluated, the initial blood pressure recorded was 134/80 the initial blood work showed serum creatinine 2.01, BUN 42, bicarbonate 33, chloride 95 she had grossly abnormal liver enzymes the aminotransaminases were elevated, AST 2309, ALT 1599, there was lactic acidosis the arterial blood gas that was done showed PO2 57.2, PCO2 33.3, bicarbonate 29.0 she had grossly abnormal lab data. Patient is well-known to me she was seen in the office back in May and at that time she had comprehensive blood work, the kidney function, the liver enzymes were all normal at the time so clearly she now have acute kidney injury and also acute liver injury. When I saw patient on the floor she could not tell me how her symptoms started all she said was that she did not remember what really happened but she remember vomiting. I requested for BNP it was elevated as well ,the initial chest x-ray that was done in the emergency room was a poor image was quite rotated but it was stated as negative chest x-ray I requested for CT chest without contrast,showed right perihilar opacification AND opacification in the right lower lobe and right hilar mass cannot be excluded. The CAT scan was done without contrast because of the acute kidney injury ,kidney ultrasound was done there was no hydronephrosis ,because of the hypoxemia a VQ scan was done it was a normal perfusion study. She also had elevated serum troponin. Hospital Course Hospital Course: Patient was admitted on 08/13/2017 when she presented with acute hypoxemic respiratory failure, right lower lobe pneumonia, acute kidney injury, non-ST elevated myocardial infarction. CT chest was done without contrast showed opacification in the right lower lobe consistent with pneumonia. It also showed a right hilar mass subsequent CT scan of the chest with contrast was done there was no mass in the area, it was enlarged hilar lymph nodes. She also had elevated liver enzymes, troponin in the setting of sepsis, a 2D echo was done today echo showed preserved ejection fraction of left ventricle there was no regional wall motion abnormalities, she was treated with anti-ischemic drug. She had acute kidney injury that respond very well to fluid suggesting that it is probably prerenal acute kidney injury. She was treated empirically with IV antibiotic including Levaquin and cefepime. She had episode of confusion in the hospital, she required a sitter to watch over on admission she had elevated liver enzymes but the liver enzymes have normalized Physical Exam Vital Signs: Temp Pulse Resp BP Pulse Ox 98.6 F 69 20 123/59 L 97 08/22/17 15:46 08/22/17 15:46 08/22/17 15:46 08/22/17 15:46 08/22/17 15:46 Intake & Output 08/21/17 08/22/17 08/23/17 06:59 06:59 06:59 Intake Total 1911 1382 300 Output Total 600 1350 Balance 1311 32 300 Weight 53.6 kg 53.1 kg General appearance: PRESENT: no acute distress Head exam: PRESENT: atraumatic, normocephalic Eye exam: PRESENT: conjunctiva pink, EOMI, PERRLA Ear exam: PRESENT: normal external ear exam Mouth exam: PRESENT: moist, tongue midline Respiratory exam: PRESENT: clear to auscultation jackson Cardiovascular exam: PRESENT: RRR, +S1, +S2 Pulses: PRESENT: normal dorsalis pedis pul Vascular exam: PRESENT: normal capillary refill GI/Abdominal exam: PRESENT: normal bowel sounds, soft Rectal exam: PRESENT: deferred Extremities exam: PRESENT: full ROM Neurological exam: PRESENT: alert, awake, oriented to person, oriented to place , oriented to time, oriented to situation, CN II-XII grossly intact Psychiatric exam: PRESENT: appropriate affect, normal mood Skin exam: PRESENT: dry, intact, warm Results Laboratory Results: 08/20/17 13:53 08/20/17 13:53 08/13/17 08/13/17 08/14/17 19:15 19:15 01:05 Creatine Kinase 1548 H 1089 H CK-MB (CK-2) 18.60 H Troponin I 1.790 NT-Pro-B Natriuret Pep 08/14/17 08/14/17 08/14/17 01:05 07:17 07:17 Creatine Kinase 1068 H CK-MB (CK-2) 12.50 H 11.10 H Troponin I 1.610 1.280 NT-Pro-B Natriuret Pep 8820 H 08/15/17 08/16/17 05:00 05:13 Creatine Kinase CK-MB (CK-2) Troponin I NT-Pro-B Natriuret Pep 7910 H 4570 H Impressions: Abdomen/Pelvis CT 08/13/17 00:00 IMPRESSION: 1. No obvious hepatic lesions. The study is limited by lack of IV contrast. 2. Markedly distended bladder. 3. Right lower lobe pneumonia along with a small right pleural effusion. Lung Scan-VQ NM 08/13/17 00:00 IMPRESSION: NORMAL PERFUSION LUNG SCAN. Renal Ultrasound 08/13/17 00:00 IMPRESSION: The kidneys are normal. There appears to be a small amount debris in the bladder. Is there manjinder hematuria? Chest X-Ray 08/13/17 09:14 IMPRESSION: Limited filming. Cardiomegaly. Lungs generally clear. Chest CT 08/14/17 00:00 IMPRESSION: 1. Right lower lobe pneumonia slightly improved from prior study. 2. Right hilar adenopathy is noted most likely reactive. 3. Moderate size hiatal hernia grossly unchanged.
[2017-08-22] MEDS: CEFEPIME 2 GM/D5W RTU 2 GM/50 ML RTUPB IV SCH (19:00)
[2017-08-22] MEDS: DOXEPIN HCL 10 MG CAPSULE PO SCH (23:05)
[2017-08-23] MEDS: LANSOPRAZOLE 30 MG TAB.RAP.DR PO SCH (06:26)
[2017-08-23] MEDS: HEPARIN SOD (PORCINE) 5,000 UNIT/ML 1 ML SYRINGE SUBCUT SCH ×3 (06:28→22:43)
[2017-08-23] MEDS: ASPIRIN 81 MG TABLET, CHEWABLE PO SCH (09:40)
[2017-08-23] MEDS: LOSARTAN POTASSIUM 50 MG TABLET PO SCH (09:41)
[2017-08-23] MEDS: CLOPIDOGREL BISULFATE 75 MG TABLET PO SCH (09:42)
[2017-08-23] MEDS: LEVOFLOXACIN 750 MG TABLET PO SCH (09:42)
[2017-08-23] MEDS: METOPROLOL TARTRATE 25 MG TABLET PO SCH ×2 (09:42→22:44)
[2017-08-23] MEDS: HYDROCHLOROTHIAZIDE 12.5 MG CAPSULE PO SCH (09:43)
[2017-08-23] MEDS: MAGNESIUM OXIDE 400 MG TABLET PO SCH (09:43)
[2017-08-23] MEDS: POTASSIUM CHLORIDE 10 MEQ TABLET.SA PO SCH (09:43)
[2017-08-23] MEDS: NICOTINE 21 MG/24 HR PATCH.TD24 TD SCH (09:44)
[2017-08-23] MEDS: BUTALB/ACETAMINOPHEN/CAFFEINE 1 TAB EACH PO PRN (17:25)
[2017-08-23] MEDS: CEFEPIME 2 GM/D5W RTU 2 GM/50 ML RTUPB IV SCH (18:29)
[2017-08-23] MEDS: DOXEPIN HCL 10 MG CAPSULE PO SCH (22:43)
[2017-08-24] MEDS: LANSOPRAZOLE 30 MG TAB.RAP.DR PO SCH (06:45)
[2017-08-24] MEDS: HEPARIN SOD (PORCINE) 5,000 UNIT/ML 1 ML SYRINGE SUBCUT SCH ×2 (06:45→15:13)
[2017-08-24] MEDS: BUTALB/ACETAMINOPHEN/CAFFEINE 1 TAB EACH PO PRN (06:58)
[2017-08-24] MEDS: INSULIN LISPRO 100 UNIT/ML 3 ML VIAL SUBCUT PRN (07:33)
[2017-08-24] MEDS: MAGNESIUM OXIDE 400 MG TABLET PO SCH (09:29)
[2017-08-24] MEDS: POTASSIUM CHLORIDE 10 MEQ TABLET.SA PO SCH (09:29)
[2017-08-24] MEDS: HYDROCHLOROTHIAZIDE 12.5 MG CAPSULE PO SCH (09:30)
[2017-08-24] MEDS: METOPROLOL TARTRATE 25 MG TABLET PO SCH (09:30)
[2017-08-24] MEDS: LOSARTAN POTASSIUM 50 MG TABLET PO SCH (09:30)
[2017-08-24] MEDS: CLOPIDOGREL BISULFATE 75 MG TABLET PO SCH (09:30)
[2017-08-24] MEDS: ASPIRIN 81 MG TABLET, CHEWABLE PO SCH (09:30)
[2017-08-24] MEDS: NICOTINE 21 MG/24 HR PATCH.TD24 TD SCH (09:31)
[2017-08-24 17:41] VITALS: BP 152/89
[2017-08-24] MEDS: CEFEPIME 2 GM/D5W RTU 2 GM/50 ML RTUPB IV SCH (17:51)
== END 2017-08-24 18:27 | DRG 189 ==
LOC: ER 09:12 → UNDOADMIN 13:06 → EH 13:06 → 3W 14:24 → EH 18:26
PROVIDERS: ADMIT Internal Medicine; ATTEND Internal Medicine
DX: J96.01 Acute respiratory failure with hypoxia (principal); J18.1 Lobar pneumonia, unspecified organism; I21.4 Non-ST elevation (NSTEMI) myocardial infarction; J44.0 Chronic obstructive pulmonary disease with (acute) lower respiratory infection; N17.9 Acute kidney failure, unspecified; M62.82 Rhabdomyolysis; E11.9 Type 2 diabetes mellitus without complications; R59.9 Enlarged lymph nodes, unspecified; Z79.899 Other long term (current) drug therapy; Z79.4 Long term (current) use of insulin; F17.200 Nicotine dependence, unspecified, uncomplicated
CPT/HCPCS: 36415; 71010; 71250; 71260; 74176; 76775; 78580; 80048; 80053; 80061; 80076; 80202; 80307; 81001; 82140; 82150; 82550; 82553; 82565; 82803; 82962; 83036; 83605; 83690; 83735; 83880; 84100; 84439; 84443; 84484; 85025; 85610; 85730; 87040; 87077; 87086; 87186; 93005; 93010; 93306; 94640; 94660; 96365; 96366; 96368; 96375; 99291; A9540; G8978-GP; G8979-GP; J0692; J0696; J1644; J1815; J1940; J1956; J2930; J3370; J3490; J7030; J7060; J7620; Q9969

== ENCOUNTER 2017-12-18 22:25 | Inpatient (IN) | payer MEDICARE ==
[2017-12-19] MEDS ORDERED: LIDOCAINE 5% (700 MG) TRANSDERMAL ADH..PATCH TP ONE (01:32)
[2017-12-19] MEDS ORDERED: MORPHINE SULFATE IR 15 MG TABLET PO ONE (01:32)
[2017-12-19] MEDS ORDERED: ACETAMINOPHEN 325 MG TABLET PO ONE (01:32)
--- NOTE | 2017-12-19 01:34 | ER Document Report ---
ED General - General Chief Complaint: Back Pain Stated Complaint: BACK PAIN Time Seen by Provider: 12/19/17 00:28 Notes: Patient is a 77 year old female who currently lives in [facility] who presents after having a fall out of bed 2 days ago landing onto her left ribs. The patient has had a constant, throbbing pain to the left lower ribs since that time. She denies hitting her head or neck or sustaining any other area of injury. She denies any other areas of pain. The pain to her left ribs is a constant, throbbing, aching pain that is worsened by deep breathing or coughing. Nothing improves the pain. She denies any history of similar symptoms in the past. She has staff at the facility wanted the patient evaluated as her pain was ongoing since that time. TRAVEL OUTSIDE OF THE [place] IN LAST 30 DAYS: No - Related Data Allergies/Adverse Reactions: No Known Allergies Allergy (Unverified 08/13/17 09:54) Past Medical History - General Information source: Patient - Social History Smoking Status: Never Smoker Frequency of alcohol use: None Drug Abuse: None Lives with: Detention Family History: Reviewed & Not Pertinent Patient has suicidal ideation: No Patient has homicidal ideation: No Pulmonary Medical History: Reports: Hx Asthma, Hx COPD Endocrine Medical History: Reports: Hx Diabetes Mellitus Type 2 Renal/ Medical History: Denies: Hx Peritoneal Dialysis Musculoskeltal Medical History: Reports Hx Arthritis - Immunizations Hx Diphtheria, Pertussis, Tetanus Vaccination: Yes Review of Systems - Review of Systems Notes: Constitutional: Negative for fever. Eyes: Negative for visual changes. ENT: Negative for facial injury Cardiovascular: Positive for chest wall injury Respiratory: Positive for shortness of breath. Gastrointestinal: Negative for abdominal injury. Genitourinary: Negative for genital injury Musculoskeletal: Negative for back injury. Skin: Negative for laceration/abrasions. Neurological: Negative for head injury. Physical Exam - Vital signs Vitals: Temp Pulse Resp BP Pulse Ox 98.6 F 67 20 159/88 H 96 12/18/17 22:37 12/18/17 22:37 12/18/17 22:37 12/18/17 22:37 12/18/17 22:37 Interpretation: Normal Notes: PHYSICAL EXAMINATION: GENERAL: Appears moderately uncomfortable but in no acute distress HEAD: Atraumatic, normocephalic. EYES: Pupils equal round and reactive to light, extraocular movements intact, sclera anicteric, conjunctiva are normal. ENT: nares patent, no oral pharyngeal trauma. No hemotympanum, no Ocampo's sign , no raccoon eyes. NECK: No midline cervical spine tenderness. Patient able to move their head to 45 bilaterally without any discomfort. LUNGS: Breath sounds clear to auscultation bilaterally and equal. No wheezes rales or rhonchi. HEART: Regular rate and rhythm without murmurs. CHEST WALL: N pain on palpation of the left lower ribs with palpable crunching with palpation ABDOMEN: Soft, nontender, normoactive bowel sounds. No guarding, no rebound. No abdominal bruising EXTREMITIES: Normal range of motion, no pitting or edema. No long bone deformities. BACK: No midline spinal tenderness, step-offs, or deformities. NEUROLOGICAL: Face symmetric. Tongue protrudes midline. Extraocular motions intact. Pupils are 2 mm and equally reactive. Normal speech. 5 out of 5 strength in both the distal and proximal upper and lower extremities bilaterally. Sensation is grossly intact throughout. PSYCH: Normal mood, normal affect. SKIN: Warm, Dry, normal turgor, no rashes or lesions noted. Course - Re-evaluation Re-evalutation: 12/19/17 01:33 Patient presents after having a mechanical fall 2 days ago landing onto her left ribs arriving complaining of ongoing left lower rib pain. There is a palpable crunch on palpation of this area. She has exquisite pain on palpation of the lower lateral and posterior ribs on the left. She denies any additional trauma to any other area of pain to any other location. She was saturating 91% on room air at time of EMS arrival per report. She has a history of COPD but does not normally use oxygen. Will proceed with x-rays, labs, pain control and reassess 12/19/17 03:13 Labs unremarkable. Chest x-ray without any evidence of an acute rib fracture. However patient continues to have an oxygen dependence saturating between 88 and 89% on room air. She does not normally have an oxygen dependency. I have discussed with her primary care doctor Dr. Quesada was agreed to accept her for admission to the hospital given her oxygen dependence and pain control needs at this time. - Vital Signs Vital signs: Temp Pulse Resp BP Pulse Ox 98.6 F 67 20 159/88 H 88 L 12/18/17 22:37 12/18/17 22:37 12/18/17 22:37 12/18/17 22:37 12/19/17 01:47 - Laboratory Result Diagrams: 12/19/17 01:35 12/19/17 01:35 Laboratory results interpreted by me: 12/19/17 12/19/17 01:35 01:35 RDW 15.7 H Carbon Dioxide 32 H BUN 24 H Glucose 116 H - Diagnostic Test Radiology reviewed: Image reviewed, Reports reviewed Radiology results interpreted by me: 12/19/17 03:02 CXR: No acute fractures visualized. No pulmonary contusions. Discharge - Discharge Clinical Impression: Hypoxemia, Left rib injury Fall Qualifiers: Encounter type: initial encounter Qualified Code(s): W19.XXXA - Unspecified fall, initial encounter Condition: Fair Disposition: ADMITTED INPATIENT Admitting Provider: [facility] Admitted: Telemetry Referrals: EVANGELINA QUESADA MD [Primary Care Provider] - Follow up as needed
[2017-12-19 01:49] LABS: ABSOLUTE BASOPHILS # (AUTO) 0.1 10^3/uL (0.0-0.2); ABSOLUTE EOSINOPHILS # (AUTO) 0.4 10^3/uL (0.0-0.6); ABSOLUTE LYMPHOCYTES (AUTO) 1.5 10^3/uL (0.5-4.7); ABSOLUTE MONOCYTES (AUTO) 0.7 10^3/uL (0.1-1.4); ABSOLUTE NEUT (AUTO) 4.5 10^3/uL (1.7-8.2); EOSINOPHILS % (AUTO) 5.1 % (0-6); HEMATOCRIT 41.4 % (36.0-47.0); HEMOGLOBIN 13.6 g/dL (12.0-15.5); LYMPHOCYTES % (AUTO) 21.3 % (13-45); MEAN CORPUSCULAR HEMOGLOBIN 29.2 pg (27.0-33.4); MEAN CORPUSCULAR VOLUME 89 fl (80-97); MONOCYTES % (AUTO) 9.7 % (3-13); PLATELET COUNT 180 10^3/uL (150-450); RED BLOOD COUNT 4.67 10^6/uL (3.72-5.28); RED CELL DISTRIBUTION WIDTH 15.7 % (11.5-14.0); SEGMENTED NEUTROPHILS % (AUTO) 62.9 % (42-78); TOTAL CELLS COUNTED % (AUTO) 100 %; WHITE BLOOD COUNT 7.1 10^3/uL (4.0-10.5)
[2017-12-19 02:01] LABS: ANION GAP 9 (5-19); BLOOD UREA NITROGEN 24 mg/dL (7-20); CARBON DIOXIDE 32 mmol/L (22-30); CHLORIDE 102 mmol/L (98-107); GLUCOSE 116 mg/dL (75-110); POTASSIUM 4.2 mmol/L (3.6-5.0); SODIUM 143.3 mmol/L (137-145)
--- NOTE | 2017-12-19 03:00 | RADIOLOGY REPORT (SQ) ---
EXAM DESCRIPTION: CHEST PA/LAT CLINICAL HISTORY: 77 years, Female, left lower rib injury COMPARISON: 08/13/2017. CT, 08/14/2017, report only. NUMBER OF VIEWS: 2 LIMITATIONS: None. FINDINGS: Right hilar opacity, moderate hiatal hernia/retrocardiac opacity, mild interstitial markings, moderate lung volume, and exaggerated kyphotic curvature of the thoracic spine, bony demineralization, chronic right rib deformity with nonspecific bony opacity overlying the right paracentral and upper mid hemithorax,, moderate dextroconvexity of the thoracic spine. Findings are consistent with CT report, 08/14/2017. IMPRESSION: Chronic abnormalities of the chest chest include right hilar fullness and retrocardiac opacity/hiatal hernia consistent with prior CT report, 08/14/2017. 2011 [employer]- All Rights Reserved
[2017-12-19] MEDS: OXYCODONE-ACETAMINOPHEN 5-325 MG TABLET PO PRN ×3 (09:12→19:35)
[2017-12-19 09:32] LABS: CREATINE KINASE MB 0.75 ng/mL (<4.55)
[2017-12-19 09:36] LABS: TROPONIN I < 0.012 ng/mL
[2017-12-19] MEDS: ENOXAPARIN SODIUM INJ 30 MG/0.3 ML DISP.SYRIN SUBCUT SCH (09:53)
[2017-12-19 10:11] LABS: ARTERIAL BLOOD BASE EXCESS 7.6 mmol/L; ARTERIAL BLOOD H2CO3 1.76 mmol/L (1.05-1.35); ARTERIAL BLOOD HCO3 34.6 mmol/L (20-26); ARTERIAL BLOOD O2 SATURATION 89.7 % (94-98); ARTERIAL BLOOD PCO2 58.6 mmHg (35-45); ARTERIAL BLOOD PH 7.39 (7.35-7.45); ARTERIAL BLOOD PO2 58.9 mmHg (80-100); ARTERIAL BLOOD TOTAL CO2 36.4 mmol/L (21-25)
[2017-12-19 10:13] LABS: ARTERIAL BLOOD FIO2 2L
[2017-12-19] MEDS ORDERED: LEVALBUTEROL HCL NEB 0.63 MG/3 ML AMPUL NEB SCH (11:00)
[2017-12-19] MEDS ORDERED: LEVALBUTEROL HCL NEB 0.63 MG/3 ML AMPUL NEB PRN (11:30)
[2017-12-19] MEDS ORDERED: DEXTROSE 40% GEL 15 GM TUBE X 2 PO PRN (13:58)
[2017-12-19] MEDS ORDERED: GLUCAGON,HUMAN RECOMB 1 MG INJ IM PRN (13:58)
[2017-12-19] MEDS ORDERED: DEXTROSE 50%-WATER SYRINGE 12.5 GM/25 ML DOSE IV PRN (13:58)
[2017-12-19] MEDS ORDERED: DEXTROSE 50%-WATER SYRINGE 25 GM/50 ML DOSE IV PRN (13:58)
[2017-12-19] MEDS ORDERED: DEXTROSE 40% GEL 15 GM TUBE PO PRN (13:58)
[2017-12-19 15:50] LABS: CREATINE KINASE MB 0.72 ng/mL (<4.55)
[2017-12-19 15:54] LABS: TROPONIN I < 0.012 ng/mL
--- NOTE | 2017-12-19 18:50 | RADIOLOGY REPORT (SQ) ---
EXAM DESCRIPTION: CT CHEST WITHOUT COMPLETED DATE/TIME: 12/19/2017 6:38 pm REASON FOR STUDY: hypoxemia J18.1 LOBAR PNEUMONIA, UNSPECIFIED ORGANISM COMPARISON: None. TECHNIQUE: CT scan performed of the chest without intravenous contrast. Images reviewed with lung, soft tissue and bone windows. Reconstructed coronal and sagittal MPR images reviewed. All images st ored on PACS. All CT scanners at this facility use dose modulation, iterative reconstruction, and/or weight based d osing when appropriate to reduce radiation dose to as low as reasonably achievable (ALARA). [facility]: Dose Right [facility]: CareDose [facility]: Dose Right [facility]: Teradose 4D [facility]: [employer] RADIATION DOSE: mGy. LIMITATIONS: No technical limitations. FINDINGS: LUNGS AND PLEURA: Right lower lobe consolidation and atelectasis with volume loss. Soft t issue density projecting within the distal right main stem bronchus 6 dancing into the bronchus inter medius. There is a trace left pleural effusion minimal subsegmental atelectasis. No pneumothorax. HILAR AND MEDIASTINAL STRUCTURES: No identified masses or abnormal nodes. No obvious aneurysm. HEART AND VASCULAR STRUCTURES: Stable cardiomegaly. Atherosclerotic calcifications including coronar y artery calcifications. No aneurysm. No pericardial effusion. UPPER ABDOMEN: Stable moderate to large hiatal hernia. No significant findings. Limited exam. THYROID AND OTHER SOFT TISSUES: No masses. No adenopathy. BONES: No significant finding. HARDWARE: None in the chest. OTHER: No other significant findings. IMPRESSION: RIGHT LOWER LOBE CONSOLIDATION WITH ATELECTASIS AND VOLUME LOSS WITH SOFT TISSUE ATTENUA TION IN THE DISTAL RIGHT MAIN STEM BRONCHUS EXTENDING INTO DISTAL BRANCHES. FINDINGS MAY REPRESENT P NEUMONIA IN THE SETTING OF ASPIRATION HOWEVER CENTRAL OBSTRUCTING LESION CANNOT BE EXCLUDED. RECOMME ND CORRELATION WITH BRONCHOSCOPY. TRACE PRIOR SMALL RIGHT PLEURAL EFFUSION AND TRACE LEFT PLEURAL EFFUSION LIKELY REACTIVE. STABLE HIATAL HERNIA. TECHNICAL DOCUMENTATION: JOB ID: [id number] Quality ID # [id number]: Final reports with documentation of one or more dose reduction techniques (e.g., Au tomated exposure control, adjustment of the mA and/or kV according to patient size, use of iterative reconstruction technique) 2010 [employer]- All Rights Reserved
[2017-12-19] MEDS ORDERED: ACETAMINOPHEN 325 MG TABLET PO PRN (19:18)
[2017-12-19] MEDS ORDERED: ATORVASTATIN CALCIUM 10 MG TABLET PO SCH (19:30)
[2017-12-19] MEDS ORDERED: (PENDING PHARMACY ID) (Losartan/Hydrochlorothiazide [Losartan-Hctz 50-12.5 Mg Tab] 1 TAB) PO SCH (19:30)
[2017-12-19] MEDS ORDERED: (PENDING PHARMACY ID) (Metformin Hcl [Metformin Hcl] 1,000 MG) PO SCH (19:30)
[2017-12-19] MEDS ORDERED: CEFEPIME 2 GM/D5W RTU 2 GM/50 ML RTUPB IV SCH (19:30)
--- NOTE | 2017-12-19 19:30 | PDOC H&P ---
History of Present Illness Admission Date/PCP: 12/19/17 03:19 EVANGELINA QUESADA MD History of Present Illness: BRYAN MOY is a 77 year old female, she has a history of chronic obstructive pulmonary disease, a recalcitrant smoker, resident of assisted living facility she fell off the bed onto the floor earlier this morning, she had severe chest pain and she was referred to the emergency room. In the emergency room she was evaluated, chest x-ray was done and there was no fracture of bones but the oxygen saturation was low in the 80s. The emergency room they could not get the oxygen saturation back to normal and they thought she needed to be admitted for observation for pain control. When I saw patient on the floor she was audibly wheezing, ABG was done that showed pH 7.39, PCO2 58.6, PO2 58.9, bicarbonate 34.9 on FiO2 of 2 L, the PO2/FiO2 ratio is less than 200 suggesting severe hypoxemia because of these findings CT chest was done without contrast, it showed a right lower lobe consolidation and atelectasis with volume loss. Soft tissue density projecting within the distal right mainstem bronchus into the bronchus intermedius because of this new findings patient is now been admitted into the hospital for management. Past Medical History Pulmonary Medical History: Reports: Asthma, Chronic Obstructive Pulmonary Disease (COPD) Endocrine Medical History: Reports: Diabetes Mellitus Type 2 Musculoskeltal Medical History: Reports: Arthritis Social History Lives with: Longterm Smoking Status: Current Every Day Smoker Frequency of Alcohol Use: None Hx Recreational Drug Use: No Hx Prescription Drug Abuse: No - Advance Directive Resuscitation Status: Full Code Family History Family History: Reviewed & Not Pertinent Parental Family History Reviewed: Yes Children Family History Reviewed: Yes Sibling(s) Family History Reviewed.: Yes Medication/Allergy Home Medications: Acetaminophen [Tylenol 325 mg Tablet] 650 mg PO Q4HP PRN 12/19/17 Albuterol Sulfate [Ventolin Hfa] 2 puff IH Q4HP PRN 12/19/17 Alprazolam [Xanax] 0.5 mg PO Q8 12/19/17 Aspirin [Aspirin 81 mg Chewable Tablet] 81 mg PO DAILY 12/19/17 Atorvastatin Calcium 10 mg PO DAILY 12/19/17 Butalb/Acetaminophen/Caffeine [Fioricet (50-325-40 mg) Tablet] 1 tab PO Q4HP PRN 12/19/17 Eszopiclone [Lunesta] 3 mg PO QHS 12/19/17 Losartan/Hydrochlorothiazide [Losartan-Hctz 50-12.5 mg Tab] 1 tab PO DAILY 12/19 Metformin HCl 1,000 mg PO Q12 12/19/17 Metoprolol Tartrate 25 mg PO Q12 12/19/17 Omeprazole 40 mg PO DAILY 12/19/17 Tramadol HCl 50 mg PO Q8HP PRN 12/19/17 Allergies/Adverse Reactions: No Known Allergies Allergy (Unverified 08/13/17 09:54) Review of Systems Eyes: ABSENT: visual disturbances Ears: ABSENT: hearing changes Cardiovascular: PRESENT: chest pain, dyspnea on exertion Respiratory: ABSENT: cough, hemoptysis Gastrointestinal: ABSENT: abdominal pain, constipation, diarrhea, hematemesis, hematochezia, nausea, vomiting Genitourinary: ABSENT: dysuria, hematuria Musculoskeletal: ABSENT: joint swelling Integumentary: ABSENT: rash, wounds Neurological: ABSENT: abnormal gait, abnormal speech, confusion, dizziness, focal weakness, syncope Psychiatric: ABSENT: anxiety, depression, homidical ideation, suicidal ideation Endocrine: ABSENT: cold intolerance, heat intolerance, menstrual abnormalities, polydipsia, polyuria Hematologic/Lymphatic: ABSENT: easy bleeding, easy bruising, lymphadenopathy Physical Exam Vital Signs: Temp Pulse Resp BP Pulse Ox 98.0 F 74 22 H 182/78 H 91 L 12/19/17 15:20 12/19/17 15:20 12/19/17 15:20 12/19/17 15:20 12/19/17 15:20 General appearance: PRESENT: severe distress Head exam: PRESENT: atraumatic, normocephalic Eye exam: PRESENT: conjunctiva pink, EOMI, PERRLA Ear exam: PRESENT: normal external ear exam Mouth exam: PRESENT: moist, tongue midline Neck exam: PRESENT: full ROM Respiratory exam: PRESENT: chest wall tenderness, wheezes Cardiovascular exam: PRESENT: RRR, +S1, +S2 Vascular exam: PRESENT: normal capillary refill GI/Abdominal exam: PRESENT: normal bowel sounds, soft Rectal exam: PRESENT: deferred Neurological exam: PRESENT: alert, CN II-XII grossly intact. ABSENT: motor sensory deficit Psychiatric exam: PRESENT: appropriate affect, normal mood Skin exam: PRESENT: dry, intact, warm. ABSENT: cyanosis, rash Results Laboratory Results: 12/19/17 09:46 Carbonic Acid 1.76 H HCO3/H2CO3 Ratio 19:1 ABG pH 7.39 ABG pCO2 58.6 H ABG pO2 58.9 L ABG HCO3 34.6 H ABG O2 Saturation 89.7 L ABG Base Excess 7.6 FiO2 2L 12/19/17 12/19/17 12/19/17 08:49 08:49 14:45 Creatine Kinase 23 L < 20 L CK-MB (CK-2) 0.75 Troponin I < 0.012 12/19/17 14:45 Creatine Kinase CK-MB (CK-2) 0.72 Troponin I < 0.012 Impressions: Chest CT 12/19/17 00:00 IMPRESSION: RIGHT LOWER LOBE CONSOLIDATION WITH ATELECTASIS AND VOLUME LOSS WITH SOFT TISSUE ATTENUATION IN THE DISTAL RIGHT MAIN STEM BRONCHUS EXTENDING INTO DISTAL BRANCHES. FINDINGS MAY REPRESENT PNEUMONIA IN THE SETTING OF ASPIRATION HOWEVER CENTRAL OBSTRUCTING LESION CANNOT BE EXCLUDED. RECOMMEND CORRELATION WITH BRONCHOSCOPY. TRACE PRIOR SMALL RIGHT PLEURAL EFFUSION AND TRACE LEFT PLEURAL EFFUSION LIKELY REACTIVE. STABLE HIATAL HERNIA. Chest X-Ray 12/19/17 01:32 IMPRESSION: Chronic abnormalities of the chest chest include right hilar fullness and retrocardiac opacity/hiatal hernia consistent with prior CT report, 08/14/2017. 2010 [employer]- All Rights Reserved Assessment & Plan - Diagnosis (1) Acute hypoxemic respiratory failure Is this a current diagnosis for this admission?: Yes Plan: Patient on 2 L not maintaining adequate oxygenation, with increase to 4 L with transferred to [facility] (2) Right lower lobe pneumonia Qualifiers: Pneumonia type: due to unspecified organism Qualified Code(s): J18.1 - Lobar pneumonia, unspecified organism Is this a current diagnosis for this admission?: Yes Plan: This could be postobstructive pneumonia, CT chest suggests endobronchial lesion , consultation will be obtained from pulmonary for bronchoscopy, she was started on antibiotic, cefepime and Levaquin
[2017-12-19] MEDS ORDERED: LEVOFLOXACIN 750 MG/D5W RTU 750 MG/150 ML RTUPB IV ONE (20:00)
[2017-12-19] MEDS ORDERED: ASPIRIN 81 MG TABLET, CHEWABLE PO ONE (20:00)
[2017-12-19 20:47] LABS: CREATINE KINASE MB 0.69 ng/mL (<4.55)
[2017-12-19 20:50] LABS: TROPONIN I < 0.012 ng/mL
[2017-12-19] MEDS: ALPRAZOLAM 0.5 MG TABLET PO SCH (21:41)
[2017-12-19] MEDS: ZOLPIDEM TARTRATE 5 MG TABLET PO SCH (21:41)
[2017-12-19] MEDS: METOPROLOL TARTRATE 25 MG TABLET PO SCH (21:41)
[2017-12-19] MEDS: TRAMADOL HCL 50 MG TABLET PO PRN (21:42)
[2017-12-19] MEDS: ATORVASTATIN CALCIUM 10 MG TABLET PO SCH (21:42)
[2017-12-20] MEDS: CEFEPIME HCL 2 GM in DEXTROSE 5%-WATER 50 ML IV SCH ×3 (00:16→22:20)
[2017-12-20] MEDS: OXYCODONE-ACETAMINOPHEN 5-325 MG TABLET PO PRN ×4 (00:33→22:21)
[2017-12-20] MEDS: ALPRAZOLAM 0.5 MG TABLET PO SCH ×3 (05:50→22:21)
[2017-12-20] MEDS: LANSOPRAZOLE 30 MG TAB.RAP.DR PO SCH (05:50)
[2017-12-20] MEDS ORDERED: INFLUENZA ADLT QUAD (36MOS+) 2017-18 VAC 0.5 ML SYR IM PRN (06:25)
[2017-12-20] MEDS: METFORMIN HCL 500 MG TABLET PO SCH ×3 (07:45→18:45)
[2017-12-20] MEDS: ENOXAPARIN SODIUM INJ 30 MG/0.3 ML DISP.SYRIN SUBCUT SCH (09:31)
[2017-12-20] MEDS: LOSARTAN POTASSIUM 50 MG TABLET PO SCH (09:31)
[2017-12-20] MEDS: HYDROCHLOROTHIAZIDE 12.5 MG CAPSULE PO SCH (09:32)
[2017-12-20] MEDS: ASPIRIN 81 MG TABLET, CHEWABLE PO SCH (09:32)
[2017-12-20] MEDS: METOPROLOL TARTRATE 25 MG TABLET PO SCH ×2 (09:32→22:21)
--- NOTE | 2017-12-20 17:49 | PDOC PROGRESS REPORT ---
Subjective Progress Note for:: 12/20/17 Subjective:: Nursing staff reported significant agitation. There is left lateral aspect chest wall pain s/p fall. Remain on supplemental oxygen. No observed chest pain. No nausea, vomiting, or abdominal pain. Reason For Visit: ACUTE HYPOXEMIC RESPIRATORY FAILURE, RT LOWER LOBE Physical Exam Vital Signs: Temp Pulse Resp BP Pulse Ox 97.4 F 77 22 H 138/63 H 95 12/20/17 16:30 12/20/17 16:30 12/20/17 16:30 12/20/17 16:30 12/20/17 16:30 Intake & Output 12/19/17 12/20/17 12/21/17 06:59 06:59 06:59 Intake Total 391 Balance 391 Weight 51.4 kg General appearance: PRESENT: no acute distress Head exam: PRESENT: atraumatic, normocephalic Mouth exam: PRESENT: moist Respiratory exam: PRESENT: clear to auscultation jackson, decreased breath sounds Cardiovascular exam: PRESENT: RRR. ABSENT: diastolic murmur, rubs, systolic murmur Vascular exam: PRESENT: normal capillary refill. ABSENT: pallor GI/Abdominal exam: PRESENT: normal bowel sounds, soft. ABSENT: distended, guarding, mass, organolmegaly, rebound, tenderness Extremities exam: ABSENT: pedal edema Musculoskeletal exam: PRESENT: deformity - related to multiple joints involvment with arthritis Neurological exam: PRESENT: alert, awake Psychiatric exam: PRESENT: agitated Skin exam: PRESENT: dry, warm Results Laboratory Results: 12/19/17 12/19/17 12/19/17 08:49 08:49 14:45 Creatine Kinase 23 L < 20 L CK-MB (CK-2) 0.75 Troponin I < 0.012 12/19/17 12/19/17 12/19/17 14:45 20:00 20:10 Creatine Kinase 24 L CK-MB (CK-2) 0.72 0.69 Troponin I < 0.012 < 0.012 Impressions: Chest CT 12/19/17 00:00 IMPRESSION: RIGHT LOWER LOBE CONSOLIDATION WITH ATELECTASIS AND VOLUME LOSS WITH SOFT TISSUE ATTENUATION IN THE DISTAL RIGHT MAIN STEM BRONCHUS EXTENDING INTO DISTAL BRANCHES. FINDINGS MAY REPRESENT PNEUMONIA IN THE SETTING OF ASPIRATION HOWEVER CENTRAL OBSTRUCTING LESION CANNOT BE EXCLUDED. RECOMMEND CORRELATION WITH BRONCHOSCOPY. TRACE PRIOR SMALL RIGHT PLEURAL EFFUSION AND TRACE LEFT PLEURAL EFFUSION LIKELY REACTIVE. STABLE HIATAL HERNIA. Chest X-Ray 12/19/17 01:32 IMPRESSION: Chronic abnormalities of the chest chest include right hilar fullness and retrocardiac opacity/hiatal hernia consistent with prior CT report, 08/14/2017. 2010 [employer]- All Rights Reserved Assessment & Plan - Diagnosis (1) Acute hypoxemic respiratory failure Is this a current diagnosis for this admission?: Yes Plan: See covering attending physician orders. (2) Right lower lobe pneumonia Qualifiers: Pneumonia type: due to unspecified organism Qualified Code(s): J18.1 - Lobar pneumonia, unspecified organism Is this a current diagnosis for this admission?: Yes Plan: See covering attending physician orders. (3) COPD (chronic obstructive pulmonary disease) Qualifiers: COPD type: unspecified COPD Qualified Code(s): J44.9 - Chronic obstructive pulmonary disease, unspecified Is this a current diagnosis for this admission?: Yes Plan: See covering attending physician orders. (4) Diabetes mellitus type 2 in nonobese Is this a current diagnosis for this admission?: Yes Plan: See covering attending physician orders. - Time Time Spent with patient: 25-34 minutes Medications reviewed and adjusted accordingly: Yes Anticipated discharge: Other Within: Other - Inpatient Certification Medical Necessity: Need Close Monitoring Due to Risk of Patient Decompensation, Need For IV Fluids, Need For Continuous Telemetry Monitoring, Need for Nebulizer Therapy and Monitoring of Response, Need for IV Antibiotics, Risk of Complication if Not Cared For in Hospital Post Hospital Care: D/C [employer] Documentation - Plan Summary Plan Summary: See covering attending physician orders.
[2017-12-20] MEDS: LEVOFLOXACIN 750 MG/D5W RTU 750 MG/150 ML RTUPB IV SCH (18:03)
[2017-12-20] MEDS: TRAMADOL HCL 50 MG TABLET PO PRN (18:45)
[2017-12-20] MEDS: ZOLPIDEM TARTRATE 5 MG TABLET PO SCH (22:21)
[2017-12-20] MEDS: ATORVASTATIN CALCIUM 10 MG TABLET PO SCH (22:21)
[2017-12-21] MEDS: OXYCODONE-ACETAMINOPHEN 5-325 MG TABLET PO PRN ×2 (03:30→13:42)
[2017-12-21] MEDS: LANSOPRAZOLE 30 MG TAB.RAP.DR PO SCH (05:29)
[2017-12-21] MEDS: ALPRAZOLAM 0.5 MG TABLET PO SCH ×3 (05:29→22:01)
[2017-12-21 05:31] LABS: ABSOLUTE BASOPHILS # (AUTO) 0.1 10^3/uL (0.0-0.2); ABSOLUTE EOSINOPHILS # (AUTO) 0.2 10^3/uL (0.0-0.6); ABSOLUTE LYMPHOCYTES (AUTO) 1.1 10^3/uL (0.5-4.7); ABSOLUTE MONOCYTES (AUTO) 0.7 10^3/uL (0.1-1.4); ABSOLUTE NEUT (AUTO) 7.2 10^3/uL (1.7-8.2); BASOPHILS % (AUTO) 0.6 % (0-2); EOSINOPHILS % (AUTO) 1.7 % (0-6); HEMATOCRIT 40.6 % (36.0-47.0); HEMOGLOBIN 13.4 g/dL (12.0-15.5); LYMPHOCYTES % (AUTO) 11.5 % (13-45); MEAN CORPUSCULAR HEMOGLOBIN 29.1 pg (27.0-33.4); MEAN CORPUSCULAR VOLUME 88 fl (80-97); MONOCYTES % (AUTO) 8.1 % (3-13); PLATELET COUNT 188 10^3/uL (150-450); RED BLOOD COUNT 4.59 10^6/uL (3.72-5.28); RED CELL DISTRIBUTION WIDTH 16.3 % (11.5-14.0); SEGMENTED NEUTROPHILS % (AUTO) 78.1 % (42-78); TOTAL CELLS COUNTED % (AUTO) 100 %; WHITE BLOOD COUNT 9.2 10^3/uL (4.0-10.5)
[2017-12-21 05:37] LABS: INTERNATIONAL RATION (INR) 1.06; PROTHROMBIN TIME 14.5 SEC (11.4-15.4)
[2017-12-21 05:50] LABS: ARTERIAL BLOOD BASE EXCESS 4.3 mmol/L; ARTERIAL BLOOD H2CO3 1.53 mmol/L (1.05-1.35); ARTERIAL BLOOD HCO3 30.3 mmol/L (20-26); ARTERIAL BLOOD O2 SATURATION 91.7 % (94-98); ARTERIAL BLOOD PCO2 50.8 mmHg (35-45); ARTERIAL BLOOD PH 7.39 (7.35-7.45); ARTERIAL BLOOD PO2 62.9 mmHg (80-100); ARTERIAL BLOOD TOTAL CO2 31.9 mmol/L (21-25)
[2017-12-21 05:52] LABS: ARTERIAL BLOOD FIO2 2L
[2017-12-21 05:55] LABS: ALANINE AMINOTRANSFERASE 29 U/L (9-52); ALBUMIN 3.6 g/dL (3.5-5.0); ALKALINE PHOSPHATASE 61 U/L (38-126); ANION GAP 10 (5-19); ASPARTATE AMINO TRANSFERASE 11 U/L (14-36); BILIRUBIN,DIRECT 0.2 mg/dL (0.0-0.4); BILIRUBIN,TOTAL 0.5 mg/dL (0.2-1.3); BLOOD UREA NITROGEN 31 mg/dL (7-20); CALCIUM 9.7 mg/dL (8.4-10.2); CARBON DIOXIDE 30 mmol/L (22-30); CHLORIDE 99 mmol/L (98-107); CHOLESTEROL 100.23 mg/dL (0-200); GLUCOSE 100 mg/dL (75-110); PHOSPHORUS 3.8 mg/dL (2.5-4.5); POTASSIUM 4.1 mmol/L (3.6-5.0); SODIUM 139.4 mmol/L (137-145); TOTAL PROTEIN 5.9 g/dL (6.3-8.2); TRIGLYCERIDES 90 mg/dL (<150)
[2017-12-21 06:32] LABS: DIRECT LDL 45 mg/dL (<100)
[2017-12-21 06:33] LABS: MAGNESIUM 1.3 mg/dL (1.6-2.3)
[2017-12-21] MEDS: CEFEPIME HCL 2 GM in DEXTROSE 5%-WATER 50 ML IV SCH (11:14)
[2017-12-21] MEDS: ENOXAPARIN SODIUM INJ 30 MG/0.3 ML DISP.SYRIN SUBCUT SCH (11:19)
[2017-12-21] MEDS: METFORMIN HCL 500 MG TABLET PO SCH ×2 (12:22→17:52)
[2017-12-21] MEDS: METOPROLOL TARTRATE 25 MG TABLET PO SCH ×2 (13:33→22:01)
[2017-12-21] MEDS: LOSARTAN POTASSIUM 50 MG TABLET PO SCH (13:42)
[2017-12-21] MEDS: HYDROCHLOROTHIAZIDE 12.5 MG CAPSULE PO SCH (13:42)
--- NOTE | 2017-12-21 13:50 | PDOC PROGRESS REPORT ---
Subjective Progress Note for:: 12/21/17 Subjective:: She denied chest pain. Remain on supplemental oxygen via nasal cannula. No nausea, vomiting, or abdominal pain. Tolerating oral feeding. Continue to demonstrate episodes of agitation and confusion with attempts at leaving the hospital last night as per nursing report. Reason For Visit: ACUTE HYPOXEMIC RESPIRATORY FAILURE, RT LOWER LOBE Physical Exam Vital Signs: Temp Pulse Resp BP Pulse Ox 98.7 F 79 22 H 145/68 H 97 12/21/17 11:38 12/21/17 11:38 12/21/17 11:38 12/21/17 11:38 12/21/17 11:38 Intake & Output 12/20/17 12/21/17 12/22/17 06:59 06:59 06:59 Intake Total 391 537 Balance 391 537 Weight 51.4 kg 55.2 kg Physical Exam: General appearance: PRESENT: no acute distress Head exam: PRESENT: atraumatic, normocephalic Mouth exam: PRESENT: moist Respiratory exam: PRESENT: clear to auscultation jackson, decreased breath sounds Cardiovascular exam: PRESENT: RRR. ABSENT: diastolic murmur, rubs, systolic murmur Vascular exam: PRESENT: normal capillary refill. ABSENT: pallor GI/Abdominal exam: PRESENT: normal bowel sounds, soft. ABSENT: distended, guarding, mass, organomegaly, rebound, tenderness Extremities exam: ABSENT: pedal edema Musculoskeletal exam: PRESENT: deformity - related to multiple joints involvement with arthritis Neurological exam: PRESENT: alert, awake Psychiatric exam: PRESENT: agitated Skin exam: PRESENT: dry, warm Results Laboratory Results: 12/21/17 05:00 12/21/17 05:00 12/21/17 12/21/17 12/21/17 05:00 05:00 05:24 WBC 9.2 RBC 4.59 Hgb 13.4 Hct 40.6 MCV 88 MCH 29.1 MCHC 33.0 RDW 16.3 H Plt Count 188 Seg Neutrophils % 78.1 H Lymphocytes % 11.5 L Monocytes % 8.1 Eosinophils % 1.7 Basophils % 0.6 Absolute Neutrophils 7.2 Absolute Lymphocytes 1.1 Absolute Monocytes 0.7 Absolute Eosinophils 0.2 Absolute Basophils 0.1 Carbonic Acid 1.53 H HCO3/H2CO3 Ratio 19:1 ABG pH 7.39 ABG pCO2 50.8 H ABG pO2 62.9 L ABG HCO3 30.3 H ABG O2 Saturation 91.7 L ABG Base Excess 4.3 FiO2 2L Sodium 139.4 Potassium 4.1 Chloride 99 Carbon Dioxide 30 Anion Gap 10 BUN 31 H Creatinine 1.13 Est GFR ( Amer) 57 L Est GFR (Non-Af Amer) 47 L Glucose 100 Calcium 9.7 Phosphorus 3.8 Magnesium 1.3 L Total Bilirubin 0.5 AST 11 L ALT 29 Alkaline Phosphatase 61 Total Protein 5.9 L Albumin 3.6 Triglycerides 90 Cholesterol 100.23 LDL Cholesterol Direct 45 VLDL Cholesterol 18.0 HDL Cholesterol 39 L 12/19/17 12/19/17 12/19/17 08:49 08:49 14:45 Creatine Kinase 23 L < 20 L CK-MB (CK-2) 0.75 Troponin I < 0.012 12/19/17 12/19/17 12/19/17 14:45 20:00 20:10 Creatine Kinase 24 L CK-MB (CK-2) 0.72 0.69 Troponin I < 0.012 < 0.012 Impressions: Chest CT 12/19/17 00:00 IMPRESSION: RIGHT LOWER LOBE CONSOLIDATION WITH ATELECTASIS AND VOLUME LOSS WITH SOFT TISSUE ATTENUATION IN THE DISTAL RIGHT MAIN STEM BRONCHUS EXTENDING INTO DISTAL BRANCHES. FINDINGS MAY REPRESENT PNEUMONIA IN THE SETTING OF ASPIRATION HOWEVER CENTRAL OBSTRUCTING LESION CANNOT BE EXCLUDED. RECOMMEND CORRELATION WITH BRONCHOSCOPY. TRACE PRIOR SMALL RIGHT PLEURAL EFFUSION AND TRACE LEFT PLEURAL EFFUSION LIKELY REACTIVE. STABLE HIATAL HERNIA. Chest X-Ray 12/19/17 01:32 IMPRESSION: Chronic abnormalities of the chest chest include right hilar fullness and retrocardiac opacity/hiatal hernia consistent with prior CT report, 08/14/2017. 2010 [employer]- All Rights Reserved Assessment & Plan - Diagnosis (1) Acute hypoxemic respiratory failure Is this a current diagnosis for this admission?: Yes (2) Right lower lobe pneumonia Qualifiers: Pneumonia type: due to unspecified organism Qualified Code(s): J18.1 - Lobar pneumonia, unspecified organism Is this a current diagnosis for this admission?: Yes (3) COPD (chronic obstructive pulmonary disease) Qualifiers: COPD type: unspecified COPD Qualified Code(s): J44.9 - Chronic obstructive pulmonary disease, unspecified Is this a current diagnosis for this admission?: Yes (4) Diabetes mellitus type 2 in nonobese Is this a current diagnosis for this admission?: Yes - Time Time Spent with patient: 25-34 minutes Medications reviewed and adjusted accordingly: Yes Anticipated discharge: Other Within: Other - Inpatient Certification Based on my medical assessment, after consideration of the patient's comorbidities, presenting symptoms, or acuity I expect that the services needed warrant INPATIENT care.: Yes I certify that my determination is in accordance with my understanding of Medicare's requirements for reasonable and necessary INPATIENT services [42 CFR 412.3e].: Yes Medical Necessity: Need Close Monitoring Due to Risk of Patient Decompensation, Need For Continuous Telemetry Monitoring, Need for Nebulizer Therapy and Monitoring of Response, Need for IV Antibiotics, Risk of Complication if Not Cared For in Hospital Post Hospital Care: D/C [employer] Documentation - Plan Summary Plan Summary: see covering attending physician orders.
[2017-12-21] MEDS: INSULIN LISPRO 100 UNIT/ML 3 ML VIAL SUBCUT PRN (17:52)
[2017-12-21] MEDS: LEVOFLOXACIN 750 MG/D5W RTU 750 MG/150 ML RTUPB IV SCH (17:52)
[2017-12-21] MEDS: TRAMADOL HCL 50 MG TABLET PO PRN (17:54)
[2017-12-21] MEDS: MAGNESIUM SULFATE/D5W 1 GM/100 ML RTUPB IV SCH ×3 (20:47→23:12)
[2017-12-21] MEDS: ATORVASTATIN CALCIUM 10 MG TABLET PO SCH (22:01)
[2017-12-21] MEDS: ZOLPIDEM TARTRATE 5 MG TABLET PO SCH (22:01)
[2017-12-22] MEDS: CEFEPIME HCL 2 GM in DEXTROSE 5%-WATER 50 ML IV SCH ×3 (00:53→21:26)
[2017-12-22] MEDS: OXYCODONE-ACETAMINOPHEN 5-325 MG TABLET PO PRN ×4 (02:42→18:34)
[2017-12-22] MEDS: LANSOPRAZOLE 30 MG TAB.RAP.DR PO SCH (05:14)
[2017-12-22] MEDS: TRAMADOL HCL 50 MG TABLET PO PRN ×2 (05:14→21:24)
[2017-12-22] MEDS: ALPRAZOLAM 0.5 MG TABLET PO SCH ×3 (05:14→21:20)
[2017-12-22 07:01] LABS: ANION GAP 10 (5-19); BLOOD UREA NITROGEN 30 mg/dL (7-20); CALCIUM 9.7 mg/dL (8.4-10.2); CARBON DIOXIDE 27 mmol/L (22-30); CHLORIDE 101 mmol/L (98-107); GLUCOSE 113 mg/dL (75-110); MAGNESIUM 2.2 mg/dL (1.6-2.3); POTASSIUM 3.9 mmol/L (3.6-5.0); SODIUM 137.8 mmol/L (137-145)
[2017-12-22] MEDS: METFORMIN HCL 500 MG TABLET PO SCH ×2 (08:08→15:05)
[2017-12-22] MEDS: METOPROLOL TARTRATE 25 MG TABLET PO SCH ×2 (10:20→21:19)
[2017-12-22] MEDS: HYDROCHLOROTHIAZIDE 12.5 MG CAPSULE PO SCH (10:21)
[2017-12-22] MEDS: LOSARTAN POTASSIUM 50 MG TABLET PO SCH (10:22)
[2017-12-22] MEDS: ENOXAPARIN SODIUM INJ 30 MG/0.3 ML DISP.SYRIN SUBCUT SCH (10:22)
[2017-12-22] MEDS ORDERED: GLUCAGON,HUMAN RECOMB 1 MG INJ SUBCUT PRN (11:37)
[2017-12-22] MEDS ORDERED: DEXTROSE 40% GEL 15 GM TUBE PO PRN (11:37)
[2017-12-22] MEDS ORDERED: DEXTROSE 50%-WATER 25 GM/50 ML DISP.SYRIN IV PRN ×2 (11:37)
--- NOTE | 2017-12-22 16:01 | PDOC CONSULTATION ---
Consultation Consult Date: 12/20/17 Attending physician:: EVANGELINA QUESADA Consult reason:: r lung mass copd hypoxia History of Present Illness Admission Date/PCP: 12/19/17 03:19 EVANGELINA QUESADA MD History of Present Illness: 77-year-old female presented to the emergency room due to shortness of breath after she fell and hurt her ribs however subsequent chest x-ray revealed a pneumonia as well as a right lower lobe density. She denies shortness of breath or dips and exertion at home. She does have occasional cough clear phlegm no hemoptysis her PPD was negative approximately 1 year ago. She denies any history of chronic lung disease as a child or adolescent. She admits to exposure to passive smoke as a child as well as an adult. She is smoked a pack a day for 54 years up until the time of admission. She denies any significant occupational exposure to potential respiratory toxins. She has 1 dog and denies any recent travel. She denies angina-like chest pain sleeps on 2 pillows admits to PND as well as occasional nocturnal cough and occasional edema. She is unaware of any snoring but admits to restless sleep nocturia 1-2 times per night unrestful sleep and excessive daytime somnolence. Past Medical History Cardiac Medical History: Reports: Hypertension Pulmonary Medical History: Reports: Asthma, Chronic Obstructive Pulmonary Disease (COPD) EENT Medical History: Denies: Cataracts, Ears, Nose, Throat Neurological Medical History: Denies: Multiple Sclerosis, Seizures Endocrine Medical History: Reports: Diabetes Mellitus Type 2 Denies: Hyperthyroidism, Hypothyroidism, Obesity Renal/ Medical History: Denies: Nephrolithiasis Malignancy Medical History: Reports: None GI Medical History: Reports: Gastroesophageal Reflux Disease Denies: Crohn's Disease, Peptic Ulcer Disease, Ulcerative Colitis Musculoskeltal Medical History: Reports: Arthritis Skin Medical History: Denies: Psoriasis Psychiatric Medical History: Reports: Tobacco Dependency Traumatic Medical History: Denies: Traumatic Brain Injury Hematology: Denies: Sickle Cell Disease Infectious Medical History: Denies: Hepatitis B, Hepatitis C Past Surgical History Past Surgical History: Reports: Appendectomy Social History Information Source: [facility] Records Lives with: Skilled Nursing Smoking Status: Current Every Day Smoker Cigarettes Packs Per Day: 1 Number of Years Smokin Passive smoke exposure as: Both Frequency of Alcohol Use: None Hx Recreational Drug Use: No Hx Prescription Drug Abuse: No Do you have pets?: No Have you had any respiratory illnesses as a child?: No Have you been exposed to any sick contacts recently?: No Have you had any recent respiratory illnesses?: Yes Have you travelled outside of [place] in the past 12 months?: No - Advance Directive Resuscitation Status: Full Code Family History Family History: CAD, DM, Hypertension, Malignancy Parental Family History Reviewed: Yes Children Family History Reviewed: Yes Sibling(s) Family History Reviewed.: Yes Medication/Allergy Home Medications: Acetaminophen [Tylenol 325 mg Tablet] 650 mg PO Q4HP PRN 12/19/17 Albuterol Sulfate [Ventolin Hfa] 2 puff IH Q4HP PRN 12/19/17 Alprazolam [Xanax] 0.5 mg PO Q8 12/19/17 Aspirin [Aspirin 81 mg Chewable Tablet] 81 mg PO DAILY 12/19/17 Atorvastatin Calcium 10 mg PO DAILY 12/19/17 Butalb/Acetaminophen/Caffeine [Fioricet (50-325-40 mg) Tablet] 1 tab PO Q4HP PRN 12/19/17 Eszopiclone [Lunesta] 3 mg PO QHS 12/19/17 Losartan/Hydrochlorothiazide [Losartan-Hctz 50-12.5 mg Tab] 1 tab PO DAILY 12/19 Metformin HCl 1,000 mg PO Q12 12/19/17 Metoprolol Tartrate 25 mg PO Q12 12/19/17 Omeprazole 40 mg PO DAILY 12/19/17 Tramadol HCl 50 mg PO Q8HP PRN 12/19/17 Allergies/Adverse Reactions: No Known Allergies Allergy (Unverified 08/13/17 09:54) Review of Systems Constitutional: PRESENT: anorexia, fatigue, weakness. ABSENT: chills, fever(s) , headache(s), night sweats Eyes: ABSENT: visual disturbances Ears: ABSENT: hearing changes Nose, Mouth, and Throat: ABSENT: mouth pain, sore throat Cardiovascular: PRESENT: orthropnea. ABSENT: chest pain, dyspnea on exertion, palpitations Respiratory: ABSENT: cough, hemoptysis Gastrointestinal: PRESENT: heartburn. ABSENT: abdominal pain, bloating, coffee ground emesis, dysphagia, hematemesis, hematochezia Genitourinary: ABSENT: difficulty urinating, dysuria, hematuria Musculoskeletal: ABSENT: deformity, joint swelling Integumentary: ABSENT: pruritus, rash Neurological: ABSENT: abnormal gait, abnormal movements, abnormal speech, confusion, convulsions, syncope Psychiatric: ABSENT: hallucinations, homidical ideation, suicidal ideation Endocrine: PRESENT: polydipsia, polyuria. ABSENT: cold intolerance, heat intolerance, menstrual abnormalities Hematologic/Lymphatic: ABSENT: easy bruising Physical Exam Vital Signs: Temp Pulse Resp BP Pulse Ox 97.4 F 90 22 H 138/63 H 95 12/20/17 16:30 12/20/17 19:00 12/20/17 16:30 12/20/17 16:30 12/20/17 16:30 Intake & Output 12/19/17 12/20/17 12/21/17 06:59 06:59 06:59 Intake Total 391 100 Balance 391 100 Weight 51.4 kg General appearance: PRESENT: no acute distress, cooperative, disheveled, thin, well-developed. ABSENT: mild distress, morbidly obese, obese, severe distress Head exam: PRESENT: atraumatic, normocephalic Eye exam: PRESENT: conjunctiva pale, EOMI. ABSENT: conjunctival injection, conjunctiva pink, nystagmus, periorbital swelling, scleral icterus Mouth exam: PRESENT: dry mucosa, neck supple, tongue midline. ABSENT: laceration, moist Teeth exam: PRESENT: poor dentation Neck exam: ABSENT: carotid bruit, JVD, lymphadenopathy, thyromegaly, tracheal deviation, tracheostomy Respiratory exam: PRESENT: decreased breath sounds, prolonged expiratory phas, rhonchi, symmetrical, unlabored, wheezes - scattered. ABSENT: accessory muscle use, chest wall tenderness, clear to auscultation jackson, crackles, rales, retraction, stridor, tachypnea Cardiovascular exam: PRESENT: RRR, +S1, +S2 Pulses: PRESENT: normal radial pulses GI/Abdominal exam: PRESENT: diminished bowel sounds, soft Extremities exam: ABSENT: calf tenderness, clubbing, joint swelling Musculoskeletal exam: ABSENT: deformity, dislocation Neurological exam: PRESENT: alert, awake Psychiatric exam: PRESENT: flat affect Skin exam: PRESENT: dry, warm Results Laboratory Results: 12/19/17 12/19/17 12/19/17 08:49 08:49 14:45 Creatine Kinase 23 L < 20 L CK-MB (CK-2) 0.75 Troponin I < 0.012 12/19/17 12/19/17 12/19/17 14:45 20:00 20:10 Creatine Kinase 24 L CK-MB (CK-2) 0.72 0.69 Troponin I < 0.012 < 0.012 Impressions: Chest CT 12/19/17 00:00 IMPRESSION: RIGHT LOWER LOBE CONSOLIDATION WITH ATELECTASIS AND VOLUME LOSS WITH SOFT TISSUE ATTENUATION IN THE DISTAL RIGHT MAIN STEM BRONCHUS EXTENDING INTO DISTAL BRANCHES. FINDINGS MAY REPRESENT PNEUMONIA IN THE SETTING OF ASPIRATION HOWEVER CENTRAL OBSTRUCTING LESION CANNOT BE EXCLUDED. RECOMMEND CORRELATION WITH BRONCHOSCOPY. TRACE PRIOR SMALL RIGHT PLEURAL EFFUSION AND TRACE LEFT PLEURAL EFFUSION LIKELY REACTIVE. STABLE HIATAL HERNIA. Chest X-Ray 12/19/17 01:32 IMPRESSION: Chronic abnormalities of the chest chest include right hilar fullness and retrocardiac opacity/hiatal hernia consistent with prior CT report, 08/14/2017. 2010 [employer]- All Rights Reserved Assessment & Plan - Diagnosis (1) Acute hypoxemic respiratory failure Is this a current diagnosis for this admission?: Yes Plan: Supplemental oxygen as needed (2) COPD (chronic obstructive pulmonary disease) Qualifiers: COPD type: unspecified COPD Qualified Code(s): J44.9 - Chronic obstructive pulmonary disease, unspecified Is this a current diagnosis for this admission?: Yes Plan: Clinically stable at this time Generic Name Dose Route Start Last Admin Trade Name Freq PRN Reason Stop Dose Admin Levalbuterol HCl 0.63 mg 12/19/17 11:30 Xopenex Neb 0.63 Mg/3 Ml Ampul NEB 01/18/18 10:59 [id number] PRN WHEEZING (3) Right lower lobe pneumonia Qualifiers: Pneumonia type: due to unspecified organism Qualified Code(s): J18.1 - Lobar pneumonia, unspecified organism Is this a current diagnosis for this admission?: Yes Plan: Antibiotics prescribed consistent with CAP (4) Hilar mass Is this a current diagnosis for this admission?: Yes Plan: Discussed fiberoptic bronchoscopy with bronchoalveolar lavage and transbronchial biopsy we discussed the risk as well as the benefits of this procedure patient has elected to proceed Bronchoscopy is scheduled for December 23 at 9:15 AM
[2017-12-22 17:02] LABS: SODIUM 138.7 mmol/L (137-145)
[2017-12-22] MEDS: LEVOFLOXACIN 750 MG TABLET PO SCH (18:34)
--- NOTE | 2017-12-22 20:04 | PDOC PROGRESS REPORT ---
Subjective Progress Note for:: 12/22/17 Subjective:: Patient was seen by the bedside, she was admitted for the management of pneumonia, there was a suspicious lesion in the bronchus, she is scheduled for bronchoscopy tomorrow, she is on antibiotic to cover community-acquired pathogens Reason For Visit: ACUTE HYPOXEMIC RESPIRATORY FAILURE, RT LOWER LOBE Physical Exam Vital Signs: Temp Pulse Resp BP Pulse Ox 98.4 F 66 19 132/63 H 95 12/22/17 16:59 12/22/17 16:59 12/22/17 16:59 12/22/17 16:59 12/22/17 17:04 Intake & Output 12/21/17 12/22/17 12/23/17 06:59 06:59 06:59 Intake Total 537 534 515 Balance 537 534 515 Weight 55.2 kg 55.3 kg General appearance: PRESENT: no acute distress Eye exam: PRESENT: PERRLA Respiratory exam: PRESENT: rhonchi Cardiovascular exam: PRESENT: +S1, +S2 GI/Abdominal exam: PRESENT: soft Neurological exam: PRESENT: alert Results Laboratory Results: 12/21/17 05:00 12/22/17 16:23 12/22/17 12/22/17 05:27 16:23 Sodium 137.8 138.7 Potassium 3.9 4.0 Chloride 101 102 Carbon Dioxide 27 24 Anion Gap 10 13 BUN 30 H Creatinine 0.81 Est GFR ( Amer) > 60 Est GFR (Non-Af Amer) > 60 Glucose 113 H Calcium 9.7 Magnesium 2.2 12/19/17 12/19/17 12/19/17 08:49 08:49 14:45 Creatine Kinase 23 L < 20 L CK-MB (CK-2) 0.75 Troponin I < 0.012 12/19/17 12/19/17 12/19/17 14:45 20:00 20:10 Creatine Kinase 24 L CK-MB (CK-2) 0.72 0.69 Troponin I < 0.012 < 0.012 Impressions: Chest CT 12/19/17 00:00 IMPRESSION: RIGHT LOWER LOBE CONSOLIDATION WITH ATELECTASIS AND VOLUME LOSS WITH SOFT TISSUE ATTENUATION IN THE DISTAL RIGHT MAIN STEM BRONCHUS EXTENDING INTO DISTAL BRANCHES. FINDINGS MAY REPRESENT PNEUMONIA IN THE SETTING OF ASPIRATION HOWEVER CENTRAL OBSTRUCTING LESION CANNOT BE EXCLUDED. RECOMMEND CORRELATION WITH BRONCHOSCOPY. TRACE PRIOR SMALL RIGHT PLEURAL EFFUSION AND TRACE LEFT PLEURAL EFFUSION LIKELY REACTIVE. STABLE HIATAL HERNIA. Chest X-Ray 12/19/17 01:32 IMPRESSION: Chronic abnormalities of the chest chest include right hilar fullness and retrocardiac opacity/hiatal hernia consistent with prior CT report, 08/14/2017. 2010 [employer]- All Rights Reserved Assessment & Plan - Diagnosis (1) Acute hypoxemic respiratory failure Is this a current diagnosis for this admission?: Yes (2) Right lower lobe pneumonia Qualifiers: Pneumonia type: due to unspecified organism Qualified Code(s): J18.1 - Lobar pneumonia, unspecified organism Is this a current diagnosis for this admission?: Yes - Plan Summary Plan Summary: She will continue IV antibiotic, oxygen through nasal cannula
[2017-12-22] MEDS: ATORVASTATIN CALCIUM 10 MG TABLET PO SCH (21:20)
[2017-12-22] MEDS: ZOLPIDEM TARTRATE 5 MG TABLET PO SCH (22:59)
[2017-12-23] MEDS: OXYCODONE-ACETAMINOPHEN 5-325 MG TABLET PO PRN ×4 (01:55→22:21)
[2017-12-23] MEDS: LANSOPRAZOLE 30 MG TAB.RAP.DR PO SCH (05:33)
[2017-12-23] MEDS: ALPRAZOLAM 0.5 MG TABLET PO SCH ×3 (05:33→22:21)
[2017-12-23] MEDS: METFORMIN HCL 500 MG TABLET PO SCH ×2 (08:39→15:24)
[2017-12-23] MEDS ORDERED: FENTANYL CITRATE INJ/PF 100 MCG/2 ML AMPUL ONE (08:41)
[2017-12-23] MEDS ORDERED: DEXMEDETOMIDINE INJ 80 MCG/20 ML VIAL IV ONE (08:41)
[2017-12-23] MEDS ORDERED: MIDAZOLAM 2 MG/2 ML INJ ONE (08:41)
[2017-12-23] MEDS ORDERED: PROPOFOL INJ 200 MG/20 ML VIAL IV ONE (08:41)
[2017-12-23] MEDS: ENOXAPARIN SODIUM INJ 30 MG/0.3 ML DISP.SYRIN SUBCUT SCH (09:29)
--- NOTE | 2017-12-23 11:21 | RADIOLOGY REPORT (SQ) ---
EXAM DESCRIPTION: CHEST SINGLE VIEW; NO CHG FLUORO COMPLETED DATE/TIME: 12/23/2017 10:53 am REASON FOR STUDY: RLL BX; RT LLL BX J18.1 LOBAR PNEUMONIA, UNSPECIFIED ORGANISM COMPARISON: CT chest 12/19/2017 Two-view chest 12/19/2017 FLUOROSCOPY TIME: 0.7 minutes 8 digital fluoroscopic radiographic images saved to PACS. TECHNIQUE: Intra-operative images acquired during surgical procedure to evaluate progress. NUMBER OF IMAGES: 8 digital radiographs LIMITATIONS: None. FINDINGS: Intra procedural imaging and fluoroscopy during bronchoscopic evaluation right lower lobe. Please see the operative report for further details IMPRESSION: Intra procedural imaging and fluoro COMMENT: Quality ID [id number]: Final reports for procedures using fluoroscopy that document radiation exp osure indices, or exposure time and number of fluorographic images (if radiation exposure indices are not available) Please consult full operative report of the attending physician for description of the procedure. TECHNICAL DOCUMENTATION: JOB ID: [id number] [employer]- All Rights Reserved
[2017-12-23] MEDS: CEFEPIME HCL 2 GM in DEXTROSE 5%-WATER 50 ML IV SCH ×2 (11:22→22:20)
--- NOTE | 2017-12-23 11:55 | RADIOLOGY REPORT (SQ) ---
EXAM DESCRIPTION: CHEST SINGLE VIEW COMPLETED DATE/TIME: 12/23/2017 11:26 am REASON FOR STUDY: S/P [facility] [employer] COMPARISON: CT chest 08/14/2017, 12/19/2017 Two-view chest 12/19/2017 EXAM PARAMETERS: NUMBER OF VIEWS: One view. TECHNIQUE: Single frontal radiographic view of the chest acquired. RADIATION DOSE: NA LIMITATIONS: None. FINDINGS: LUNGS AND PLEURA: Post right bronchoscopy. No pneumothorax. There is consolidation in the right lower lobe atelectasis versus pneumonia. Minimal left basilar and left perihilar atelectasis. No gross pleural effusions MEDIASTINUM AND HILAR STRUCTURES: No masses. Contour normal. HEART AND VASCULAR STRUCTURES: Stable cardiomegaly BONES: No acute findings. HARDWARE: None in the chest. OTHER: No other significant finding. IMPRESSION: No pneumothorax post bronchoscopy Stable consolidation right lung TECHNICAL DOCUMENTATION: JOB ID: [id number] [employer]- All Rights Reserved
[2017-12-23] MEDS: METOPROLOL TARTRATE 25 MG TABLET PO SCH ×2 (12:06→22:21)
[2017-12-23] MEDS: HYDROCHLOROTHIAZIDE 12.5 MG CAPSULE PO SCH (12:06)
[2017-12-23] MEDS: LOSARTAN POTASSIUM 50 MG TABLET PO SCH (12:06)
--- NOTE | 2017-12-23 17:15 | PDOC PROGRESS REPORT ---
Subjective Progress Note for:: 12/23/17 Subjective:: She was seen by the bedside, she had bronchoscopy done today, purulent secretion was found, Reason For Visit: ACUTE HYPOXEMIC RESPIRATORY FAILURE, RT LOWER LOBE Physical Exam Vital Signs: Temp Pulse Resp BP Pulse Ox 97.4 F 66 18 142/69 H 93 12/23/17 16:02 12/23/17 16:02 12/23/17 16:02 12/23/17 16:02 12/23/17 16:02 Intake & Output 12/22/17 12/23/17 12/24/17 06:59 06:59 06:59 Intake Total 534 1192 870 Balance 534 1192 870 Weight 55.3 kg 55.9 kg General appearance: PRESENT: no acute distress Eye exam: PRESENT: PERRLA Respiratory exam: PRESENT: decreased breath sounds Cardiovascular exam: PRESENT: +S1, +S2 GI/Abdominal exam: PRESENT: soft Neurological exam: PRESENT: alert, CN II-XII grossly intact Results Laboratory Results: 12/21/17 05:00 12/22/17 16:23 12/23/17 09:46 Fluid Type Cancelled Fluid Source Cancelled Fluid Color Cancelled Fluid Appearance Cancelled Fluid Viscosity Cancelled Fluid WBC Cancelled Fluid RBC Cancelled 12/19/17 12/19/17 12/19/17 08:49 08:49 14:45 Creatine Kinase 23 L < 20 L CK-MB (CK-2) 0.75 Troponin I < 0.012 12/19/17 12/19/17 12/19/17 14:45 20:00 20:10 Creatine Kinase 24 L CK-MB (CK-2) 0.72 0.69 Troponin I < 0.012 < 0.012 Impressions: Chest CT 12/19/17 00:00 IMPRESSION: RIGHT LOWER LOBE CONSOLIDATION WITH ATELECTASIS AND VOLUME LOSS WITH SOFT TISSUE ATTENUATION IN THE DISTAL RIGHT MAIN STEM BRONCHUS EXTENDING INTO DISTAL BRANCHES. FINDINGS MAY REPRESENT PNEUMONIA IN THE SETTING OF ASPIRATION HOWEVER CENTRAL OBSTRUCTING LESION CANNOT BE EXCLUDED. RECOMMEND CORRELATION WITH BRONCHOSCOPY. TRACE PRIOR SMALL RIGHT PLEURAL EFFUSION AND TRACE LEFT PLEURAL EFFUSION LIKELY REACTIVE. STABLE HIATAL HERNIA. Fluoroscopy 12/23/17 00:00 IMPRESSION: Intra procedural imaging and fluoro Chest X-Ray 12/23/17 10:00 IMPRESSION: No pneumothorax post bronchoscopy Stable consolidation right lung Assessment & Plan - Diagnosis (1) Acute hypoxemic respiratory failure Is this a current diagnosis for this admission?: Yes (2) Right lower lobe pneumonia Qualifiers: Pneumonia type: due to unspecified organism Qualified Code(s): J18.1 - Lobar pneumonia, unspecified organism Is this a current diagnosis for this admission?: Yes Plan: She will continue antibiotic
[2017-12-23] MEDS: LEVOFLOXACIN 750 MG TABLET PO SCH (17:30)
[2017-12-23] MEDS: TRAMADOL HCL 50 MG TABLET PO PRN (18:50)
[2017-12-23] MEDS: ZOLPIDEM TARTRATE 5 MG TABLET PO SCH (22:20)
[2017-12-23] MEDS: ATORVASTATIN CALCIUM 10 MG TABLET PO SCH (22:20)
[2017-12-24] MEDS: OXYCODONE-ACETAMINOPHEN 5-325 MG TABLET PO PRN ×4 (04:53→18:25)
[2017-12-24] MEDS: LANSOPRAZOLE 30 MG TAB.RAP.DR PO SCH (05:21)
[2017-12-24] MEDS: ALPRAZOLAM 0.5 MG TABLET PO SCH ×3 (05:21→21:47)
[2017-12-24] MEDS: METFORMIN HCL 500 MG TABLET PO SCH ×2 (08:19→18:26)
[2017-12-24] MEDS: HYDROCHLOROTHIAZIDE 12.5 MG CAPSULE PO SCH (10:22)
[2017-12-24] MEDS: METOPROLOL TARTRATE 25 MG TABLET PO SCH ×2 (10:22→21:47)
[2017-12-24] MEDS: LOSARTAN POTASSIUM 50 MG TABLET PO SCH (10:23)
[2017-12-24] MEDS: CEFEPIME HCL 2 GM in DEXTROSE 5%-WATER 50 ML IV SCH ×2 (10:24→21:48)
[2017-12-24] MEDS: ENOXAPARIN SODIUM INJ 30 MG/0.3 ML DISP.SYRIN SUBCUT SCH (10:24)
--- NOTE | 2017-12-24 16:06 | PDOC PROGRESS REPORT ---
Subjective Progress Note for:: 12/24/17 Subjective:: She was seen by the bedside, on IV antibiotic for pneumonia Reason For Visit: ACUTE HYPOXEMIC RESPIRATORY FAILURE, RT LOWER LOBE Physical Exam Vital Signs: Temp Pulse Resp BP Pulse Ox 97.8 F 70 18 148/60 H 94 12/24/17 11:51 12/24/17 11:51 12/24/17 11:51 12/24/17 11:51 12/24/17 12:21 Intake & Output 12/23/17 12/24/17 12/25/17 06:59 06:59 06:59 Intake Total 1192 1860 Balance 1192 1860 Weight 55.9 kg 60.3 kg General appearance: PRESENT: no acute distress Head exam: PRESENT: atraumatic, normocephalic Eye exam: PRESENT: PERRLA Neck exam: PRESENT: full ROM Respiratory exam: PRESENT: rhonchi Cardiovascular exam: PRESENT: RRR, +S1, +S2 Vascular exam: PRESENT: normal capillary refill GI/Abdominal exam: PRESENT: normal bowel sounds, soft Rectal exam: PRESENT: deferred Neurological exam: PRESENT: alert Psychiatric exam: PRESENT: appropriate affect, normal mood Skin exam: PRESENT: dry, intact, warm Results Laboratory Results: 12/21/17 05:00 12/22/17 16:23 12/19/17 12/19/17 12/19/17 08:49 08:49 14:45 Creatine Kinase 23 L < 20 L CK-MB (CK-2) 0.75 Troponin I < 0.012 12/19/17 12/19/17 12/19/17 14:45 20:00 20:10 Creatine Kinase 24 L CK-MB (CK-2) 0.72 0.69 Troponin I < 0.012 < 0.012 Impressions: Chest CT 12/19/17 00:00 IMPRESSION: RIGHT LOWER LOBE CONSOLIDATION WITH ATELECTASIS AND VOLUME LOSS WITH SOFT TISSUE ATTENUATION IN THE DISTAL RIGHT MAIN STEM BRONCHUS EXTENDING INTO DISTAL BRANCHES. FINDINGS MAY REPRESENT PNEUMONIA IN THE SETTING OF ASPIRATION HOWEVER CENTRAL OBSTRUCTING LESION CANNOT BE EXCLUDED. RECOMMEND CORRELATION WITH BRONCHOSCOPY. TRACE PRIOR SMALL RIGHT PLEURAL EFFUSION AND TRACE LEFT PLEURAL EFFUSION LIKELY REACTIVE. STABLE HIATAL HERNIA. Fluoroscopy 12/23/17 00:00 IMPRESSION: Intra procedural imaging and fluoro Chest X-Ray 12/23/17 10:00 IMPRESSION: No pneumothorax post bronchoscopy Stable consolidation right lung Assessment & Plan - Diagnosis (1) Acute hypoxemic respiratory failure Is this a current diagnosis for this admission?: Yes (2) Right lower lobe pneumonia Qualifiers: Pneumonia type: due to unspecified organism Qualified Code(s): J18.1 - Lobar pneumonia, unspecified organism Is this a current diagnosis for this admission?: Yes - Plan Summary Plan Summary: Continue IV antibiotic
[2017-12-24] MEDS: LEVOFLOXACIN 750 MG TABLET PO SCH (18:26)
[2017-12-24] MEDS: ZOLPIDEM TARTRATE 5 MG TABLET PO SCH (21:47)
[2017-12-24] MEDS: ATORVASTATIN CALCIUM 10 MG TABLET PO SCH (21:48)
[2017-12-25 01:18] LABS: APPEARANCE,URINE SLIGHTLY-CLOUDY; BILIRUBIN,URINE NEGATIVE (NEGATIVE); COLOR,URINE YELLOW; GLUCOSE, URINE NEGATIVE (NEGATIVE); KETONES,URINE NEGATIVE (NEGATIVE); LEUKOCYTE ESTERASE,URINE MODERATE (NEGATIVE); NITRITE,URINE NEGATIVE (NEGATIVE); PROTEIN,URINE NEGATIVE (NEGATIVE); URINE SPECIFIC GRAVITY 1.032; UROBILINOGEN,URINE NEGATIVE mg/dL (<2.0)
[2017-12-25] MEDS: LANSOPRAZOLE 30 MG TAB.RAP.DR PO SCH (05:06)
[2017-12-25] MEDS: ALPRAZOLAM 0.5 MG TABLET PO SCH ×3 (05:07→21:33)
[2017-12-25] MEDS: METFORMIN HCL 500 MG TABLET PO SCH ×2 (09:47→16:04)
[2017-12-25] MEDS: ENOXAPARIN SODIUM INJ 30 MG/0.3 ML DISP.SYRIN SUBCUT SCH (09:47)
[2017-12-25] MEDS: HYDROCHLOROTHIAZIDE 12.5 MG CAPSULE PO SCH (09:48)
[2017-12-25] MEDS: METOPROLOL TARTRATE 25 MG TABLET PO SCH ×2 (09:48→21:34)
[2017-12-25] MEDS: LOSARTAN POTASSIUM 50 MG TABLET PO SCH (09:49)
[2017-12-25] MEDS: ASPIRIN 81 MG TABLET, CHEWABLE PO SCH (09:49)
[2017-12-25] MEDS: OXYCODONE-ACETAMINOPHEN 5-325 MG TABLET PO PRN ×2 (09:50→19:30)
[2017-12-25] MEDS: CEFEPIME HCL 2 GM in DEXTROSE 5%-WATER 50 ML IV SCH ×2 (09:55→21:39)
--- NOTE | 2017-12-25 12:21 | RADIOLOGY REPORT (SQ) ---
EXAM DESCRIPTION: CHEST PA/LAT COMPLETED DATE/TIME: 12/25/2017 12:11 pm REASON FOR STUDY: pna COMPARISON: 12/23/2017. EXAM PARAMETERS: NUMBER OF VIEWS: two views TECHNIQUE: Digital Frontal and Lateral radiographic views of the chest acquired. RADIATION DOSE: NA LIMITATIONS: none FINDINGS: LUNGS AND PLEURA: Persistent airspace disease in both right and left lower lobes. Left pl eural effusion and probable right pleural effusion. MEDIASTINUM AND HILAR STRUCTURES: No masses or contour abnormalities. HEART AND VASCULAR STRUCTURES: Heart normal size. No evidence for failure. BONES: No acute findings. Chronic changes in the spine. HARDWARE: None in the chest. OTHER: No other significant finding. IMPRESSION: NO SIGNIFICANT CHANGE IN APPEARANCE OF THE CHEST. CONTINUED BASILAR DENSITIES AND LEFT PLEURAL EFFUSION. TECHNICAL DOCUMENTATION: JOB ID: [id number] [employer]- All Rights Reserved
[2017-12-25] MEDS: INSULIN LISPRO 100 UNIT/ML 3 ML VIAL SUBCUT PRN ×2 (13:48→21:34)
[2017-12-25] MEDS ORDERED: MAGNESIUM OXIDE 400 MG TABLET PO ONE (15:30)
--- NOTE | 2017-12-25 16:17 | Operative Report ---
Operative Report DATE OF SURGERY: 12/23/17 Operative Report: Patient was kept n.p.o. 12 hours prior to procedure taking the preop area where the consents were reviewed and IV access was established she was then taken to the bronchoscopy suite where she was intubated by anesthesiology. Then using a T size [place] scope her trachea bronchus she was explored there is a gross thick purulent material at the end of the tracheobronchial tree all the way into the right bronchus intermedius as well as down into the left mainstem bronchus and extended period time this was aspirated and his lung anatomy was reviewed there is no splaying of the prudencio is right upper lobe still some minimal erythema in the right mainstem bronchus within normal limits as was the right bronchus intermedius there was some submucosal holes swelling and in the right middle lobe orifices as well as the right lower lobe orifices these areas were biopsied and needle biopsies were taken as well patient tolerated these well left mainstem bronchus as stated above also had a large amount of purulent material which was aspirated and no there were no mucosal abnormalities noted in the left mainstem bronchus the left upper lobe lingula or left lower lobe the patient tolerated procedure well her postprocedure SaO2 was 99% lavage fluid and tissue has been sent for appropriate cultures and studies PREOPERATIVE DIAGNOSIS: Right lung mass POSTOPERATIVE DIAGNOSIS: Right middle and lower lobe pneumonia OPERATION: Fiberoptic bronchoscopy with bronchoalveolar lavage transbronchial biopsy and Guerrier needle biopsy SURGEON: KATE KRAMER ANESTHESIA: GA TISSUE REMOVED OR ALTERED: Transbronchial biopsies right lower lobe my needle biopsies right lower lobe right middle lobe bronchoalveolar lavage COMPLICATIONS: None ESTIMATED BLOOD LOSS: None
[2017-12-25] MEDS: MAGNESIUM SULFATE/D5W 1 GM/100 ML RTUPB IV SCH ×3 (17:22→20:59)
[2017-12-25] MEDS: LEVOFLOXACIN 750 MG TABLET PO SCH (17:54)
[2017-12-25] MEDS ORDERED: MAGNESIUM SULFATE/D5W 1 GM/100 ML RTUPB IV ONE ×3 (18:15→23:17)
[2017-12-25] MEDS ORDERED: MAGNESIUM SULFATE 1 GM in D5W 100 ML IV ONE (18:15)
[2017-12-25] MEDS: ZOLPIDEM TARTRATE 5 MG TABLET PO SCH (21:34)
[2017-12-25] MEDS: ATORVASTATIN CALCIUM 10 MG TABLET PO SCH (21:34)
--- NOTE | 2017-12-25 23:17 | PDOC PROGRESS REPORT ---
Subjective Progress Note for:: 12/25/17 Subjective:: Patient was admitted for the management of pneumonia. She has improved Reason For Visit: ACUTE HYPOXEMIC RESPIRATORY FAILURE, RT LOWER LOBE Physical Exam Vital Signs: Temp Pulse Resp BP Pulse Ox 98.0 F 82 18 142/58 H 93 12/25/17 20:29 12/25/17 20:29 12/25/17 20:29 12/25/17 20:29 12/25/17 20:29 Intake & Output 12/24/17 12/25/17 12/26/17 06:59 06:59 06:59 Intake Total 1860 1091 1065 Balance 1860 1091 1065 Weight 60.3 kg 56.1 kg General appearance: PRESENT: mild distress Head exam: PRESENT: atraumatic, normocephalic Eye exam: PRESENT: PERRLA Ear exam: PRESENT: normal external ear exam Mouth exam: PRESENT: moist, tongue midline Neck exam: PRESENT: full ROM Respiratory exam: PRESENT: wheezes Cardiovascular exam: PRESENT: RRR, +S1, +S2 Pulses: PRESENT: normal dorsalis pedis pul, +2 pedal pulses bilateral Vascular exam: PRESENT: normal capillary refill GI/Abdominal exam: PRESENT: normal bowel sounds, soft Rectal exam: PRESENT: deferred Neurological exam: PRESENT: alert Skin exam: PRESENT: dry, intact, warm. ABSENT: cyanosis, rash Results Laboratory Results: 12/21/17 05:00 12/22/17 16:23 12/25/17 12/25/17 00:40 13:57 Magnesium 1.2 L* Urine Color YELLOW Urine Appearance SLIGHTLY-CLOUDY Urine pH 5.0 Ur Specific [place] 1.032 Urine Protein NEGATIVE Urine Glucose (UA) NEGATIVE Urine Ketones NEGATIVE Urine Blood NEGATIVE Urine Nitrite NEGATIVE Ur Leukocyte Esterase MODERATE H Urine WBC (Auto) 2 Urine RBC (Auto) 2 12/23/17 09:46 Bronchial Washings AFB Smear Concentration - Final 12/23/17 09:46 Bronchial Washings Acid Fast Bacilli Smear - Final 12/23/17 09:46 Bronchial Washings Gram Stain - Final 12/23/17 09:46 Bronchial Washings Bronchial Washings Culture - Final NO GROWTH 2 DAYS 12/19/17 12/19/17 12/19/17 08:49 08:49 14:45 Creatine Kinase 23 L < 20 L CK-MB (CK-2) 0.75 Troponin I < 0.012 12/19/17 12/19/17 12/19/17 14:45 20:00 20:10 Creatine Kinase 24 L CK-MB (CK-2) 0.72 0.69 Troponin I < 0.012 < 0.012 Impressions: Chest CT 12/19/17 00:00 IMPRESSION: RIGHT LOWER LOBE CONSOLIDATION WITH ATELECTASIS AND VOLUME LOSS WITH SOFT TISSUE ATTENUATION IN THE DISTAL RIGHT MAIN STEM BRONCHUS EXTENDING INTO DISTAL BRANCHES. FINDINGS MAY REPRESENT PNEUMONIA IN THE SETTING OF ASPIRATION HOWEVER CENTRAL OBSTRUCTING LESION CANNOT BE EXCLUDED. RECOMMEND CORRELATION WITH BRONCHOSCOPY. TRACE PRIOR SMALL RIGHT PLEURAL EFFUSION AND TRACE LEFT PLEURAL EFFUSION LIKELY REACTIVE. STABLE HIATAL HERNIA. Fluoroscopy 12/23/17 00:00 IMPRESSION: Intra procedural imaging and fluoro Chest X-Ray 12/25/17 00:00 IMPRESSION: NO SIGNIFICANT CHANGE IN APPEARANCE OF THE CHEST. CONTINUED BASILAR DENSITIES AND LEFT PLEURAL EFFUSION. Assessment & Plan - Diagnosis (1) Acute hypoxemic respiratory failure Is this a current diagnosis for this admission?: Yes (2) Right lower lobe pneumonia Qualifiers: Pneumonia type: due to unspecified organism Qualified Code(s): J18.1 - Lobar pneumonia, unspecified organism Is this a current diagnosis for this admission?: Yes - Plan Summary Plan Summary: Continue present treatment
[2017-12-26 05:18] LABS: ABSOLUTE BASOPHILS # (AUTO) 0.1 10^3/uL (0.0-0.2); ABSOLUTE EOSINOPHILS # (AUTO) 0.4 10^3/uL (0.0-0.6); ABSOLUTE LYMPHOCYTES (AUTO) 1.5 10^3/uL (0.5-4.7); ABSOLUTE MONOCYTES (AUTO) 0.6 10^3/uL (0.1-1.4); ABSOLUTE NEUT (AUTO) 4.1 10^3/uL (1.7-8.2); BASOPHILS % (AUTO) 0.9 % (0-2); EOSINOPHILS % (AUTO) 6.2 % (0-6); HEMATOCRIT 39.5 % (36.0-47.0); HEMOGLOBIN 13.1 g/dL (12.0-15.5); LYMPHOCYTES % (AUTO) 22.1 % (13-45); MEAN CORPUSCULAR HEMOGLOBIN 29.3 pg (27.0-33.4); MEAN CORPUSCULAR HGB CONC 33.3 g/dL (32.0-36.0); MEAN CORPUSCULAR VOLUME 88 fl (80-97); MONOCYTES % (AUTO) 9.1 % (3-13); PLATELET COUNT 181 10^3/uL (150-450); RED BLOOD COUNT 4.49 10^6/uL (3.72-5.28); SEGMENTED NEUTROPHILS % (AUTO) 61.7 % (42-78); TOTAL CELLS COUNTED % (AUTO) 100 %; WHITE BLOOD COUNT 6.7 10^3/uL (4.0-10.5)
[2017-12-26] MEDS: LANSOPRAZOLE 30 MG TAB.RAP.DR PO SCH (05:28)
[2017-12-26] MEDS: ALPRAZOLAM 0.5 MG TABLET PO SCH ×3 (05:28→21:53)
[2017-12-26 05:50] LABS: ANION GAP 9 (5-19); BLOOD UREA NITROGEN 32 mg/dL (7-20); CALCIUM 9.7 mg/dL (8.4-10.2); CARBON DIOXIDE 28 mmol/L (22-30); CHLORIDE 104 mmol/L (98-107); GLUCOSE 95 mg/dL (75-110); MAGNESIUM 2.1 mg/dL (1.6-2.3); POTASSIUM 4.3 mmol/L (3.6-5.0); SODIUM 140.8 mmol/L (137-145)
[2017-12-26] MEDS: METFORMIN HCL 500 MG TABLET PO SCH ×2 (07:59→18:17)
[2017-12-26] MEDS: OXYCODONE-ACETAMINOPHEN 5-325 MG TABLET PO PRN ×3 (08:00→18:18)
[2017-12-26] MEDS: LOSARTAN POTASSIUM 50 MG TABLET PO SCH (09:44)
[2017-12-26] MEDS: HYDROCHLOROTHIAZIDE 12.5 MG CAPSULE PO SCH (09:44)
[2017-12-26] MEDS: ASPIRIN 81 MG TABLET, CHEWABLE PO SCH (09:44)
[2017-12-26] MEDS: MAGNESIUM OXIDE 400 MG TABLET PO SCH (09:45)
[2017-12-26] MEDS: METOPROLOL TARTRATE 25 MG TABLET PO SCH ×2 (09:45→21:52)
[2017-12-26] MEDS: ENOXAPARIN SODIUM INJ 30 MG/0.3 ML DISP.SYRIN SUBCUT SCH (09:45)
[2017-12-26] MEDS: CEFEPIME HCL 2 GM in DEXTROSE 5%-WATER 50 ML IV SCH (09:46)
[2017-12-26] MEDS: LEVOFLOXACIN 750 MG TABLET PO SCH (18:17)
--- NOTE | 2017-12-26 21:22 | PDOC PROGRESS REPORT ---
Subjective Progress Note for:: 12/26/17 Subjective:: Patient is much improved, resident of assisted living facility at [facility] Reason For Visit: ACUTE HYPOXEMIC RESPIRATORY FAILURE, RT LOWER LOBE Physical Exam Vital Signs: Temp Pulse Resp BP Pulse Ox 98.6 F 75 18 147/58 H 90 L 12/26/17 15:52 12/26/17 15:52 12/26/17 15:52 12/26/17 15:52 12/26/17 15:52 Intake & Output 12/25/17 12/26/17 12/27/17 06:59 06:59 06:59 Intake Total 1091 1765 900 Balance 1091 1765 900 Weight 56.1 kg 55.2 kg General appearance: PRESENT: no acute distress Head exam: PRESENT: atraumatic, normocephalic Eye exam: PRESENT: conjunctiva pink, EOMI, PERRLA Ear exam: PRESENT: normal external ear exam Mouth exam: PRESENT: moist, tongue midline Neck exam: PRESENT: full ROM Respiratory exam: PRESENT: rhonchi Cardiovascular exam: PRESENT: RRR, +S1, +S2 Vascular exam: PRESENT: normal capillary refill GI/Abdominal exam: PRESENT: normal bowel sounds, soft Rectal exam: PRESENT: deferred Neurological exam: PRESENT: alert. ABSENT: motor sensory deficit Psychiatric exam: PRESENT: appropriate affect, normal mood. ABSENT: homicidal ideation, suicidal ideation Skin exam: PRESENT: dry, intact, warm. ABSENT: cyanosis, rash Results Laboratory Results: 12/26/17 04:42 12/26/17 04:42 12/26/17 12/26/17 04:42 04:42 WBC 6.7 RBC 4.49 Hgb 13.1 Hct 39.5 MCV 88 MCH 29.3 MCHC 33.3 RDW 16.0 H Plt Count 181 Seg Neutrophils % 61.7 Lymphocytes % 22.1 Monocytes % 9.1 Eosinophils % 6.2 H Basophils % 0.9 Absolute Neutrophils 4.1 Absolute Lymphocytes 1.5 Absolute Monocytes 0.6 Absolute Eosinophils 0.4 Absolute Basophils 0.1 Sodium 140.8 Potassium 4.3 Chloride 104 Carbon Dioxide 28 Anion Gap 9 BUN 32 H Creatinine 0.72 Est GFR ( Amer) > 60 Est GFR (Non-Af Amer) > 60 Glucose 95 Calcium 9.7 Magnesium 2.1 12/23/17 09:46 Bronchial Washings Fungal Smear - Final 12/23/17 09:46 Bronchial Washings Fungal Smear - Final 12/19/17 12/19/17 12/19/17 08:49 08:49 14:45 Creatine Kinase 23 L < 20 L CK-MB (CK-2) 0.75 Troponin I < 0.012 12/19/17 12/19/17 12/19/17 14:45 20:00 20:10 Creatine Kinase 24 L CK-MB (CK-2) 0.72 0.69 Troponin I < 0.012 < 0.012 Impressions: Chest CT 12/19/17 00:00 IMPRESSION: RIGHT LOWER LOBE CONSOLIDATION WITH ATELECTASIS AND VOLUME LOSS WITH SOFT TISSUE ATTENUATION IN THE DISTAL RIGHT MAIN STEM BRONCHUS EXTENDING INTO DISTAL BRANCHES. FINDINGS MAY REPRESENT PNEUMONIA IN THE SETTING OF ASPIRATION HOWEVER CENTRAL OBSTRUCTING LESION CANNOT BE EXCLUDED. RECOMMEND CORRELATION WITH BRONCHOSCOPY. TRACE PRIOR SMALL RIGHT PLEURAL EFFUSION AND TRACE LEFT PLEURAL EFFUSION LIKELY REACTIVE. STABLE HIATAL HERNIA. Fluoroscopy 12/23/17 00:00 IMPRESSION: Intra procedural imaging and fluoro Chest X-Ray 12/25/17 00:00 IMPRESSION: NO SIGNIFICANT CHANGE IN APPEARANCE OF THE CHEST. CONTINUED BASILAR DENSITIES AND LEFT PLEURAL EFFUSION. Assessment & Plan - Diagnosis (1) Acute hypoxemic respiratory failure Is this a current diagnosis for this admission?: Yes (2) Right lower lobe pneumonia Qualifiers: Pneumonia type: due to unspecified organism Qualified Code(s): J18.1 - Lobar pneumonia, unspecified organism Is this a current diagnosis for this admission?: Yes (3) Diabetes mellitus type 2 in nonobese Is this a current diagnosis for this admission?: Yes
[2017-12-26] MEDS: ATORVASTATIN CALCIUM 10 MG TABLET PO SCH (21:52)
[2017-12-26] MEDS: ZOLPIDEM TARTRATE 5 MG TABLET PO SCH (21:53)
[2017-12-27] MEDS: ALPRAZOLAM 0.5 MG TABLET PO SCH (05:13)
[2017-12-27] MEDS: LANSOPRAZOLE 30 MG TAB.RAP.DR PO SCH (05:13)
[2017-12-27] MEDS ORDERED: CEFEPIME HCL 2 GM in DEXTROSE 5%-WATER 50 ML IV SCH (10:00)
[2017-12-27] MEDS: MAGNESIUM OXIDE 400 MG TABLET PO SCH (10:14)
[2017-12-27] MEDS: ASPIRIN 81 MG TABLET, CHEWABLE PO SCH (10:14)
[2017-12-27] MEDS: LOSARTAN POTASSIUM 50 MG TABLET PO SCH (10:15)
[2017-12-27] MEDS: METFORMIN HCL 500 MG TABLET PO SCH (10:15)
[2017-12-27] MEDS: HYDROCHLOROTHIAZIDE 12.5 MG CAPSULE PO SCH (10:15)
[2017-12-27] MEDS: ENOXAPARIN SODIUM INJ 30 MG/0.3 ML DISP.SYRIN SUBCUT SCH (10:16)
[2017-12-27] MEDS: METOPROLOL TARTRATE 25 MG TABLET PO SCH (10:16)
--- NOTE | 2017-12-27 12:44 | PDOC TRANSFER SUMMARY ---
General - Admit/Disc Date/PCP Admission Date/Primary Care Provider: 12/19/17 03:19 EVANGELINA QUESADA MD Discharge Date: 12/27/17 - Discharge Diagnosis (1) Acute hypoxemic respiratory failure Is this a current diagnosis for this admission?: Yes (2) Right lower lobe pneumonia Is this a current diagnosis for this admission?: Yes (3) Diabetes mellitus type 2 in nonobese Is this a current diagnosis for this admission?: Yes - Additional Information Resuscitation Status: Full Code Discharge Diet: Diabetic Prescriptions: Levofloxacin [Levaquin 750 mg Tablet] 750 mg PO QPM #14 tablet Varenicline Tartrate [Chantix 0.5 Mg Tablet] 0.5 mg PO BID #60 tablet Home Medications: Acetaminophen [Tylenol 325 mg Tablet] 650 mg PO Q4HP PRN 12/19/17 Albuterol Sulfate [Ventolin Hfa] 2 puff IH Q4HP PRN 12/19/17 Alprazolam [Xanax] 0.5 mg PO Q8 12/19/17 Aspirin [Aspirin 81 mg Chewable Tablet] 81 mg PO DAILY 12/19/17 Atorvastatin Calcium 10 mg PO DAILY 12/19/17 Butalb/Acetaminophen/Caffeine [Fioricet (50-325-40 mg) Tablet] 1 tab PO Q4HP PRN 12/19/17 Eszopiclone [Lunesta] 3 mg PO QHS 12/19/17 Losartan/Hydrochlorothiazide [Losartan-Hctz 50-12.5 mg Tab] 1 tab PO DAILY 12/19 Metformin HCl 1,000 mg PO Q12 12/19/17 Metoprolol Tartrate 25 mg PO Q12 12/19/17 Omeprazole 40 mg PO DAILY 12/19/17 Tramadol HCl 50 mg PO Q8HP PRN 12/19/17 Levofloxacin [Levaquin 750 mg Tablet] 750 mg PO QPM #14 tablet 12/26/17 Varenicline Tartrate [Chantix 0.5 Mg Tablet] 0.5 mg PO BID #60 tablet 12/26/17 History of Present Illness Admission Date/PCP: 12/19/17 03:19 EVANGELINA QUESADA MD History of Present Illness: Patient 77-year-old female with a history of chronic obstructive pulmonary disease she fell out of the bed she subsequently developed severe chest pain, she was referred to the emergency room from the assisted living facility. In the emergency room she was evaluated, chest x-ray was done there was no fracture bones but the oxygen saturation was low in the 80s she was admitted for further evaluation in the hospital. The blood gas on FiO2 of 2 L the PO2/ FiO2 ratio was less than 200 suggesting severe hypoxemia because of these findings CT chest was done without contrast is suggested a right lower lobe consolidation on a soft tissue density within the right mainstem bronchus into the bronchus intermedius Hospital Course Hospital Course: Patient was admitted and treated for pneumonia with IV antibiotic consultation was obtained from pulmonary because of concern for endobronchial lesion, malignancy was suspected she underwent bronchoscopy, she was found to have purulent secretion in the right main bronchus this was suctioned out she also had biopsy done, the pathology was negative for malignancy, no specific organism was cultured. She was empirically treated with IV antibiotic cefepime and Levaquin patient improved significantly, she is being discharged back to the assisted living facility this morning Physical Exam Vital Signs: Temp Pulse Resp BP Pulse Ox 98.2 F 62 16 118/81 92 12/27/17 11:34 12/27/17 11:34 12/27/17 11:34 12/27/17 11:34 12/27/17 11:34 Intake & Output 12/26/17 12/27/17 12/28/17 06:59 06:59 06:59 Intake Total 1765 1344 Output Total 0 Balance 1765 1344 Weight 55.2 kg 56.8 kg General appearance: PRESENT: no acute distress, well-developed, well-nourished Head exam: PRESENT: atraumatic, normocephalic Eye exam: PRESENT: conjunctiva pink, EOMI, PERRLA Ear exam: PRESENT: normal external ear exam Mouth exam: PRESENT: moist, tongue midline Respiratory exam: PRESENT: clear to auscultation [place]son Cardiovascular exam: PRESENT: RRR, +S1, +S2 Pulses: PRESENT: normal dorsalis pedis pul Vascular exam: PRESENT: normal capillary refill GI/Abdominal exam: PRESENT: normal bowel sounds, soft Rectal exam: PRESENT: deferred Extremities exam: PRESENT: full ROM Neurological exam: PRESENT: alert, awake, oriented to person, oriented to place , oriented to time, oriented to situation, CN II-XII grossly intact Psychiatric exam: PRESENT: appropriate affect, normal mood Skin exam: PRESENT: dry, intact, warm Results Laboratory Results: 12/26/17 04:42 12/26/17 04:42 12/23/17 09:46 Bronchial Washings Fungal Smear - Final 12/23/17 09:46 Bronchial Washings Fungal Smear - Final 12/19/17 12/19/17 12/19/17 08:49 08:49 14:45 Creatine Kinase 23 L < 20 L CK-MB (CK-2) 0.75 Troponin I < 0.012 12/19/17 12/19/17 12/19/17 14:45 20:00 20:10 Creatine Kinase 24 L CK-MB (CK-2) 0.72 0.69 Troponin I < 0.012 < 0.012 Impressions: Chest CT 12/19/17 00:00 IMPRESSION: RIGHT LOWER LOBE CONSOLIDATION WITH ATELECTASIS AND VOLUME LOSS WITH SOFT TISSUE ATTENUATION IN THE DISTAL RIGHT MAIN STEM BRONCHUS EXTENDING INTO DISTAL BRANCHES. FINDINGS MAY REPRESENT PNEUMONIA IN THE SETTING OF ASPIRATION HOWEVER CENTRAL OBSTRUCTING LESION CANNOT BE EXCLUDED. RECOMMEND CORRELATION WITH BRONCHOSCOPY. TRACE PRIOR SMALL RIGHT PLEURAL EFFUSION AND TRACE LEFT PLEURAL EFFUSION LIKELY REACTIVE. STABLE HIATAL HERNIA. Fluoroscopy 12/23/17 00:00 IMPRESSION: Intra procedural imaging and fluoro Chest X-Ray 12/25/17 00:00 IMPRESSION: NO SIGNIFICANT CHANGE IN APPEARANCE OF THE CHEST. CONTINUED BASILAR DENSITIES AND LEFT PLEURAL EFFUSION.
[2017-12-27 12:51] VITALS: BP 175/93
== END 2017-12-27 13:50 | DRG 166 ==
LOC: ER 22:25 → OBSVTOIN 12-19 03:19 → INTOOBSV 12-19 03:19 → EH 12-19 03:19 → 4S 12-19 11:02 → 3W 12-19 20:56
PROVIDERS: ADMIT Internal Medicine; ATTEND Internal Medicine
PROC: 0B9F8ZX Drainage of Right Lower Lung Lobe, Via Natural or Artificial Opening Endoscopic, Diagnostic (ICD-10-PCS; principal; 2017-12-23 09:15)
PROC: 0BD68ZX Extraction of Right Lower Lobe Bronchus, Via Natural or Artificial Opening Endoscopic, Diagnostic (ICD-10-PCS; 2017-12-23 09:15)
PROC: 0BD58ZX Extraction of Right Middle Lobe Bronchus, Via Natural or Artificial Opening Endoscopic, Diagnostic (ICD-10-PCS; 2017-12-23 09:15)
DX: J18.1 Lobar pneumonia, unspecified organism (principal); J96.01 Acute respiratory failure with hypoxia; J44.0 Chronic obstructive pulmonary disease with (acute) lower respiratory infection; J44.9 Chronic obstructive pulmonary disease, unspecified; I10 Essential (primary) hypertension; E11.9 Type 2 diabetes mellitus without complications; R91.8 Other nonspecific abnormal finding of lung field; K21.9 Gastro-esophageal reflux disease without esophagitis; F17.210 Nicotine dependence, cigarettes, uncomplicated; M19.90 Unspecified osteoarthritis, unspecified site; Z90.49 Acquired absence of other specified parts of digestive tract; Z82.49 Family history of ischemic heart disease and other diseases of the circulatory system; Z83.3 Family history of diabetes mellitus; Z80.9 Family history of malignant neoplasm, unspecified; Z79.82 Long term (current) use of aspirin; Z79.84 Long term (current) use of oral hypoglycemic drugs; Z79.899 Other long term (current) drug therapy; Z91.81 History of falling
CPT/HCPCS: 31624; 31625; 31629; 36415; 36600; 520; 71045; 71046; 71250; 80048; 80051; 80053; 80061; 81001; 82550; 82553; 82803; 82962; 83036; 83735; 84100; 84484; 85025; 85610; 85730; 87015; 87070; 87101; 87116; 87205; 87206; 88104; 88305; 94640; 99285; G0378; J0692; J1650; J1815; J1956; J2250; J2704; J3010; J3475; J3490; J7614

== ENCOUNTER 2019-02-10 10:53 | Inpatient (IN) | payer MEDICARE ==
[2019-02-10 11:32] LABS: VENOUS BLOOD BASE EXCESS 7.4 mmol/L; VENOUS BLOOD HCO3 34.7 mmol/L (20-32); VENOUS BLOOD PCO2 60.4 mmHg (35-63); VENOUS BLOOD PH 7.38 (7.30-7.42)
[2019-02-10 11:35] LABS: ABSOLUTE BASOPHILS # (AUTO) 0.1 10^3/uL (0.0-0.2); ABSOLUTE LYMPHOCYTES (AUTO) 0.9 10^3/uL (0.5-4.7); ABSOLUTE MONOCYTES (AUTO) 1.2 10^3/uL (0.1-1.4); ABSOLUTE NEUT (AUTO) 14.8 10^3/uL (1.7-8.2); BASOPHILS % (AUTO) 0.5 % (0-2); EOSINOPHILS % (AUTO) 0.2 % (0-6); HEMATOCRIT 42.3 % (36.0-47.0); HEMOGLOBIN 13.7 g/dL (12.0-15.5); LYMPHOCYTES % (AUTO) 5.2 % (13-45); MEAN CORPUSCULAR HGB CONC 32.5 g/dL (32.0-36.0); MEAN CORPUSCULAR VOLUME 89 fl (80-97); PLATELET COUNT 316 10^3/uL (150-450); RED BLOOD COUNT 4.74 10^6/uL (3.72-5.28); RED CELL DISTRIBUTION WIDTH 16.4 % (11.5-14.0); SEGMENTED NEUTROPHILS % (AUTO) 87.1 % (42-78); TOTAL CELLS COUNTED % (AUTO) 100 %
[2019-02-10 11:44] LABS: ALANINE AMINOTRANSFERASE 48 U/L (9-52); ALBUMIN 3.4 g/dL (3.5-5.0); ALKALINE PHOSPHATASE 146 U/L (38-126); ANION GAP 9 (5-19); ASPARTATE AMINO TRANSFERASE 28 U/L (14-36); BILIRUBIN,DIRECT 0.4 mg/dL (0.0-0.4); BILIRUBIN,TOTAL 0.9 mg/dL (0.2-1.3); BLOOD UREA NITROGEN 23 mg/dL (7-20); CALCIUM 9.2 mg/dL (8.4-10.2); CARBON DIOXIDE 32 mmol/L (22-30); CHLORIDE 98 mmol/L (98-107); CREATINE KINASE 96 U/L (30-135); GLUCOSE 120 mg/dL (75-110); SODIUM 139.4 mmol/L (137-145); TOTAL PROTEIN 5.4 g/dL (6.3-8.2)
--- NOTE | 2019-02-10 11:47 | ER Document Report ---
ED Cardiac - General Stated Complaint: SHORTNESS OF BREATH Time Seen by Provider: 02/10/19 11:10 Primary Care Provider: EVANGELINA QUESADA MD [Primary Care Provider] - Follow up as needed Notes: Patient brought in by EMS for difficulty breathing and shortness of breath. Patient says that she has been congested with a cough over the past week. Not producing a lot of phlegm. When EMS got to the scene, patient's O2 sat varied between 84 and 78% on room air. Patient has an albuterol inhaler, but is not on oxygen and does not use nebulizers. She lives at a assisted living facility, [facility]. Denies history of pulmonary disease such as asthma or COPD, even though, at the age of 79 years, patient is still a cigarette smoker. Not aware of any recent fever. EMS gave patient a nebulizer treatment with albuterol and Atrovent on the way here. TRAVEL OUTSIDE OF THE [place] IN LAST 30 DAYS: No - Related Data Allergies/Adverse Reactions: No Known Allergies Allergy (Unverified 08/13/17 09:54) Past Medical History - Social History Smoking Status: Current Every Day Smoker Chew tobacco use (# tins/day): No Frequency of alcohol use: None Drug Abuse: None Family History: Reviewed & Not Pertinent, CAD, DM, Hypertension, Malignancy Patient has suicidal ideation: No Patient has homicidal ideation: No - Past Medical History Cardiac Medical History: Reports: Hx Hypercholesterolemia, Hx Hypertension Denies: Hx Congestive Heart Failure Pulmonary Medical History: Reports: Hx Asthma, Hx COPD Neurological Medical History: Denies: Hx Seizures Endocrine Medical History: Reports: Hx Diabetes Mellitus Type 2. Denies: Hx Hyperthyroidism, Hx Hypothyroidism Renal/ Medical History: Denies: Hx Peritoneal Dialysis GI Medical History: Reports: Hx Gastroesophageal Reflux Disease Musculoskeletal Medical History: Reports Hx Arthritis Skin Medical History: Denies Hx Psoriasis Past Surgical History: Reports: Hx Appendectomy - Immunizations Hx Diphtheria, Pertussis, Tetanus Vaccination: Yes Review of Systems - Review of Systems Notes: REVIEW OF SYSTEMS: CONSTITUTIONAL : Denies fever. Vital signs are all essentially normal. Afebrile. EENT: Denies eye, ear, nose or mouth or throat pain or other symptoms. CARDIOVASCULAR: Denies chest pain. Some mild swelling of both lower extremities. RESPIRATORY: Has a cough and congestion, but not producing a lot of phlegm. See HPI. GASTROINTESTINAL: Denies abdominal pain or nausea, vomiting, or diarrhea. GENITOURINARY: Denies difficulty or painful urinating, urinary frequency, blood in urine. MUSCULOSKELETAL: Denies back or neck pain. Denies joint pain or swelling. SKIN: Denies rash or skin lesions. NEUROLOGICAL: Denies LOC or altered mental status. Denies headache. Denies sensory loss or motor deficits. ALL OTHER SYSTEMS REVIEWED AND NEGATIVE. Physical Exam - Vital signs Vitals: Resp Pulse Ox 21 H 91 L 02/10/19 11:08 02/10/19 11:08 Interpretation: No: Febrile Notes: PHYSICAL EXAMINATION: GENERAL: Well-appearing, in no acute distress. Patient seems to understand what is being said to her and answers questions appropriately. Vital signs are all essentially normal. O2 sat 91% on room air. HEAD: Atraumatic, normocephalic. EYES: Pupils equal round and reactive to light, extraocular movements intact. ENT: oropharynx clear without exudates. Moist mucous membranes. NECK: Normal range of motion, supple. LUNGS: Breath sounds decreased, but equal bilaterally. No wheezes heard at this time. HEART: Regular rate and rhythm without murmurs. ABDOMEN: Soft, nontender. No guarding or rebound. No masses. BACK: No tenderness throughout entire back. EXTREMITIES: Normal range of motion without pain. +1 to may be +2 pitting edema of the lower extremities. Possibly slightly more on the right side. No signs of DVT. NEUROLOGICAL: Normal speech, gait not tested. Patient normally walks with a walker. Normal sensory, motor, and reflex exams. Awake, alert, and oriented x3. PSYCH: Normal mood, normal affect. SKIN: Warm, dry, no rashes. Course - Re-evaluation Re-evalutation: 02/10/19 12:[address] Vazquez patient will be admitted to [facility]. She is been given a gram of Rocephin IV. Also an VICKI nebulizer to here. Also Solu-Medrol 125 mg IV. PCO2 is 60. Jamesbusarwat did not feel she needed to be on BiPAP at this time. - Vital Signs Vital signs: Temp Pulse Resp BP Pulse Ox 98.8 F 62 25 H 113/58 L 92 02/10/19 11:15 02/10/19 11:15 02/10/19 11:20 02/10/19 11:20 02/10/19 11:20 - Laboratory Result Diagrams: 02/10/19 11:15 02/10/19 11:15 Laboratory results interpreted by me: 02/10/19 02/10/19 02/10/19 11:15 11:15 11:15 WBC 17.0 H RDW 16.4 H Seg Neutrophils % 87.1 H Lymphocytes % 5.2 L Absolute Neutrophils 14.8 H VBG HCO3 Carbon Dioxide 32 H BUN 23 H Glucose 120 H Alkaline Phosphatase 146 H NT-Pro-B Natriuret Pep 7770 H Total Protein 5.4 L Albumin 3.4 L 02/10/19 11:15 WBC RDW Seg Neutrophils % Lymphocytes % Absolute Neutrophils VBG HCO3 34.7 H Carbon Dioxide BUN Glucose Alkaline Phosphatase NT-Pro-B Natriuret Pep Total Protein Albumin - Diagnostic Test Radiology reviewed: Image reviewed, Reports reviewed - Chest x-ray shows bilateral infiltrates - EKG Interpretation by Me EKG shows normal: Sinus rhythm Rate: Normal Voltage: Consistant with LVH Additional EKG results interpreted by me: 02/10/19 12:40 Patient's T waves across the precordium are inverted as is the QRS complex, unlike a prior EKG that was done in August,. However, her troponin is negative.. Discharge - Discharge Clinical Impression: Pneumonia, COPD exacerbation, Acute exacerbation of chronic obstructive pulmonary disease (COPD) Condition: Serious Disposition: ADMITTED INPATIENT Admitting Provider: [facility] Unit Admitted: IMCU Referrals: EVANGELINA QUESADA MD [Primary Care Provider] - Follow up as needed
[2019-02-10 11:56] LABS: CREATINE KINASE MB 1.73 ng/mL (<4.55); TROPONIN I 0.031 ng/mL
--- NOTE | 2019-02-10 12:12 | RADIOLOGY REPORT (SQ) ---
EXAM DESCRIPTION: CHEST SINGLE VIEW COMPLETED DATE/TIME: 02/10/2019 11:36 am REASON FOR STUDY: Short of breath COMPARISON: 12/25/2017 EXAM PARAMETERS: NUMBER OF VIEWS: One view. TECHNIQUE: Single frontal radiographic view of the chest acquired. RADIATION DOSE: NA LIMITATIONS: None. FINDINGS: LUNGS AND PLEURA: Since the previous chest x-ray there has been interval development of pa tchy airspace disease left mid lower lung zones as well as right upper lobe and to lesser degree righ t lung base. Possible small left pleural effusion. MEDIASTINUM AND HILAR STRUCTURES: No masses. Contour normal. HEART AND VASCULAR STRUCTURES: Heart normal in size. Normal vasculature. BONES: No acute findings. HARDWARE: None in the chest. OTHER: No other significant finding. IMPRESSION: Interval development of patchy bilateral infiltrates. Most likely infectious etiology. Possible small left pleural effusion. See above discussion. TECHNICAL DOCUMENTATION: JOB ID: [id number] [employer]- All Rights Reserved Reading location - IP/workstation name: [email or web address]
[2019-02-10] MEDS ORDERED: CEFTRIAXONE 1 GM/D5W RTU 1 GM/50 ML RTUPB IV ONE (12:17)
[2019-02-10] MEDS ORDERED: IPRATROPIUM/ALBUTEROL 0.5-2.5 MG/3 ML AMPUL NEB ONE (12:29)
[2019-02-10] MEDS ORDERED: METHYLPREDNISOLONE INJ 125 MG/2 ML SDV IV ONE (12:29)
[2019-02-10 12:41] LABS: APPEARANCE,URINE SLIGHTLY-CLOUDY; BILIRUBIN,URINE NEGATIVE (NEGATIVE); COLOR,URINE YELLOW; GLUCOSE, URINE NEGATIVE (NEGATIVE); KETONES,URINE NEGATIVE (NEGATIVE); LEUKOCYTE ESTERASE,URINE NEGATIVE (NEGATIVE); NITRITE,URINE NEGATIVE (NEGATIVE); PROTEIN,URINE 100 mg/dL (NEGATIVE); URINE SPECIFIC GRAVITY 1.025; UROBILINOGEN,URINE NEGATIVE mg/dL (<2.0)
[2019-02-10] MEDS ORDERED: NORMAL SALINE 500 ML IV ONE (12:59)
--- NOTE | 2019-02-10 13:18 | EKG REPORT ---
SEVERITY:- ABNORMAL ECG - SINUS RHYTHM LEFT VENTRICULAR HYPERTROPHY INFERIOR INFARCT, AGE INDETERMINATE CONSIDER ANTERIOR INFARCT , NEW SINCE 08/13/17 : Confirmed by: Lowell Stratton MD 10-Feb-2019 13:17:17
[2019-02-10] MEDS ORDERED: CEFEPIME 2 GM/D5W RTU 50 ML IV SCH (16:30)
[2019-02-10 16:53] LABS: ARTERIAL BLOOD BASE EXCESS 5.7 mmol/L; ARTERIAL BLOOD FIO2 35%; ARTERIAL BLOOD H2CO3 1.39 mmol/L (1.05-1.35); ARTERIAL BLOOD HCO3 30.7 mmol/L (20-24); ARTERIAL BLOOD O2 SATURATION 92.7 % (94-98); ARTERIAL BLOOD PCO2 46.3 mmHg (35-45); ARTERIAL BLOOD PH 7.44 (7.35-7.45); ARTERIAL BLOOD PO2 62.9 mmHg (80-100); ARTERIAL BLOOD TOTAL CO2 32.2 mmol/L (21-25)
--- NOTE | 2019-02-10 17:28 | PDOC H&P ---
History of Present Illness Admission Date/PCP: 02/10/19 13:26 EVANGELINA QUESADA MD History of Present Illness: BRYAN MOY is a 79 year old female,She has a history of very severe chronic obstructive lung disease, resident of [facility] assisted living facility she was transferred from the assisted living facility to the hospital for evaluation of shortness of breath, cough. A chest x-ray was done that suggest pneumonia subsequent CT chest was done that demonstrated diffuse opacity in both lung field consistent with pneumonia. The blood gas that was done demonstrated hypoxemia.She was treated in the emergency room with noninvasive positive pressure ventilation, BiPAP Past Medical History Cardiac Medical History: Reports: Hyperlipidema, Hypertension Pulmonary Medical History: Reports: Asthma, Chronic Obstructive Pulmonary Disease (COPD) Endocrine Medical History: Reports: Diabetes Mellitus Type 2 GI Medical History: Reports: Gastroesophageal Reflux Disease Musculoskeltal Medical History: Reports: Arthritis Past Surgical History Past Surgical History: Reports: Appendectomy Social History Smoking Status: Current Every Day Smoker Frequency of Alcohol Use: None Hx Recreational Drug Use: No Hx Prescription Drug Abuse: No - Advance Directive Resuscitation Status: Full Code Family History Family History: Reviewed & Not Pertinent, CAD, DM, Hypertension, Malignancy Parental Family History Reviewed: Yes Children Family History Reviewed: Yes Sibling(s) Family History Reviewed.: Yes Medication/Allergy Home Medications: Acetaminophen [Tylenol] 650 mg PO Q4HP PRN 02/11/19 Albuterol Sulfate [Ventolin Hfa 8 gm Mdi (1 Mdi/ER Disp)] 2 puff IH ASDIR PRN 02/11/19 Aspirin [Aspirin 81 mg Chewable Tablet] 81 mg PO DAILY 02/11/19 Atorvastatin Calcium [Lipitor 10 mg Tablet] 10 mg PO QHS 02/11/19 Butalb/Acetaminophen/Caffeine [Fioricet (50-325-40 mg) Tablet] 1 tab PO Q4HP PRN 02/11/19 Cyanocobalamin (Vitamin B-12) [Vitamin B-12] 500 mcg SL MOFR@1000 02/11/19 Melatonin [Melatonin 3 mg Tablet] 6 mg PO QHS 02/11/19 Metformin HCl [Glucophage] 1,000 mg PO Q12 02/11/19 Metoprolol Tartrate [Lopressor 25 mg Tablet] 25 mg PO Q12 02/11/19 Mylanta Liquid 30 ml PO Q4HP PRN 02/11/19 Omeprazole 40 mg PO DAILY 02/11/19 Polymyxin B Sulf/Trimethoprim [Polytrim Eye Drops] 2 drop OU BID 02/11/19 Tramadol HCl [Ultram 50 mg Tablet] 50 mg PO Q8HP PRN 02/11/19 Allergies/Adverse Reactions: No Known Allergies Allergy (Unverified 08/13/17 09:54) Review of Systems Eyes: ABSENT: visual disturbances Ears: ABSENT: hearing changes Cardiovascular: PRESENT: dyspnea on exertion Respiratory: PRESENT: cough, dyspnea Gastrointestinal: ABSENT: abdominal pain, constipation, diarrhea, hematemesis, hematochezia, nausea, vomiting Genitourinary: ABSENT: dysuria, hematuria Musculoskeletal: ABSENT: joint swelling Integumentary: ABSENT: rash, wounds Neurological: ABSENT: abnormal gait, abnormal speech, confusion, dizziness, focal weakness, syncope Psychiatric: ABSENT: anxiety, depression, homidical ideation, suicidal ideation Endocrine: ABSENT: cold intolerance, heat intolerance, menstrual abnormalities, polydipsia, polyuria Hematologic/Lymphatic: ABSENT: easy bleeding, easy bruising, lymphadenopathy Physical Exam Vital Signs: Temp Pulse Resp BP Pulse Ox 98.8 F 62 23 H 102/58 L 93 02/10/19 11:15 02/10/19 11:15 02/10/19 13:52 02/10/19 13:01 02/10/19 17:03 Intake & Output 02/09/19 02/10/19 02/11/19 06:59 06:59 06:59 Intake Total 550 Output Total 75 Balance 475 Weight 56.699 kg General appearance: PRESENT: severe distress Head exam: PRESENT: atraumatic, normocephalic Eye exam: PRESENT: PERRLA Ear exam: PRESENT: normal external ear exam Mouth exam: PRESENT: moist, tongue midline Neck exam: PRESENT: full ROM Respiratory exam: PRESENT: wheezes Cardiovascular exam: PRESENT: irregular rhythm, RRR, +S1, +S2 Vascular exam: PRESENT: normal capillary refill GI/Abdominal exam: PRESENT: normal bowel sounds, soft Rectal exam: PRESENT: deferred Neurological exam: PRESENT: alert, CN II-XII grossly intact Psychiatric exam: PRESENT: appropriate affect, normal mood Skin exam: PRESENT: dry, intact, warm Results Laboratory Results: 02/10/19 11:15 02/10/19 11:15 03/02/10/19 02/10/19 11:15 11:15 11:15 WBC 17.0 H RBC 4.74 Hgb 13.7 Hct 42.3 MCV 89 MCH 29.0 MCHC 32.5 RDW 16.4 H Plt Count 316 Seg Neutrophils % 87.1 H Lymphocytes % 5.2 L Monocytes % 7.0 Eosinophils % 0.2 Basophils % 0.5 Absolute Neutrophils 14.8 H Absolute Lymphocytes 0.9 Absolute Monocytes 1.2 Absolute Eosinophils 0.0 Absolute Basophils 0.1 Carbonic Acid HCO3/H2CO3 Ratio ABG pH ABG pCO2 ABG pO2 ABG HCO3 ABG O2 Saturation ABG Base Excess VBG pH 7.38 VBG pCO2 60.4 VBG HCO3 34.7 H VBG Base Excess 7.4 FiO2 Sodium 139.4 Potassium 4.0 Chloride 98 Carbon Dioxide 32 H Anion Gap 9 BUN 23 H Creatinine 0.78 Est GFR ( Amer) > 60 Est GFR (Non-Af Amer) > 60 Glucose 120 H Calcium 9.2 Total Bilirubin 0.9 AST 28 ALT 48 Alkaline Phosphatase 146 H Total Protein 5.4 L Albumin 3.4 L Urine Color Urine Appearance Urine pH Ur Specific [place] Urine Protein Urine Glucose (UA) Urine Ketones Urine Blood Urine Nitrite Ur Leukocyte Esterase Urine WBC (Auto) Urine RBC (Auto) 02/10/19 02/10/19 12:20 16:34 WBC RBC Hgb Hct MCV MCH MCHC RDW Plt Count Seg Neutrophils % Lymphocytes % Monocytes % Eosinophils % Basophils % Absolute Neutrophils Absolute Lymphocytes Absolute Monocytes Absolute Eosinophils Absolute Basophils Carbonic Acid 1.39 H HCO3/H2CO3 Ratio 22:1 ABG pH 7.44 ABG pCO2 46.3 H ABG pO2 62.9 L ABG HCO3 30.7 H ABG O2 Saturation 92.7 L ABG Base Excess 5.7 VBG pH VBG pCO2 VBG HCO3 VBG Base Excess FiO2 35% Sodium Potassium Chloride Carbon Dioxide Anion Gap BUN Creatinine Est GFR ( Amer) Est GFR (Non-Af Amer) Glucose Calcium Total Bilirubin AST ALT Alkaline Phosphatase Total Protein Albumin Urine Color YELLOW Urine Appearance SLIGHTLY-CLOUDY Urine pH 5.0 Ur Specific [place] 1.025 Urine Protein 100 H Urine Glucose (UA) NEGATIVE Urine Ketones NEGATIVE Urine Blood NEGATIVE Urine Nitrite NEGATIVE Ur Leukocyte Esterase NEGATIVE Urine WBC (Auto) 1 Urine RBC (Auto) 1 02/10/19 02/10/19 11:15 11:15 Creatine Kinase 96 CK-MB (CK-2) 1.73 Troponin I 0.031 NT-Pro-B Natriuret Pep 7770 H Impressions: Chest X-Ray 02/10/19 11:11 IMPRESSION: Interval development of patchy bilateral infiltrates. Most likely infectious etiology. Possible small left pleural effusion. See above discussion. Assessment & Plan - Diagnosis (1) Acute hypoxemic respiratory failure Is this a current diagnosis for this admission?: Yes Plan: Patient was treated with noninvasive positive pressure ventilation, BiPAP she will continue the device. (2) Bilateral pneumonia Qualifiers: Pneumonia type: due to unspecified organism Lung location: unspecified part of lung Qualified Code(s): J18.9 - Pneumonia, unspecified organism Is this a current diagnosis for this admission?: Yes Plan: Start IV antibiotic to cover potential pathology including Pseudomonas especially in the patient with very severe COPD, will start patient on IV cefepime and Levaquin (3) COPD (chronic obstructive pulmonary disease) Qualifiers: COPD type: unspecified COPD Qualified Code(s): J44.9 - Chronic obstructive pulmonary disease, unspecified Is this a current diagnosis for this admission?: Yes Plan: She has diffuse bilateral wheezing, history of COPD, she will be treated with bronchodilators, I would not initiate corticosteroids at this time because of the diffuse infiltrate that suggest pneumonia
[2019-02-10] MEDS ORDERED: CEFEPIME HCL 2 GM in DEXTROSE 5%-WATER 50 ML IV SCH (18:00)
--- NOTE | 2019-02-10 18:21 | RADIOLOGY REPORT (SQ) ---
EXAM DESCRIPTION: CT CHEST WITHOUT COMPLETED DATE/TIME: 02/10/2019 5:07 pm REASON FOR STUDY: pneumonia COMPARISON: CT 10/19/2018 chest x-ray 02/10/2019 TECHNIQUE: CT scan performed of the chest without intravenous contrast. Images reviewed with lung, soft tissue and bone windows. Reconstructed coronal and sagittal MPR images reviewed. All images st ored on PACS. All CT scanners at this facility use dose modulation, iterative reconstruction, and/or weight based d osing when appropriate to reduce radiation dose to as low as reasonably achievable (ALARA). [facility]: Dose Right [facility]: CareDose [facility]: Dose Right [facility]: Teradose 4D [facility]: [employer] RADIATION DOSE: CT Rad equipment meets quality standard of care and radiation dose reduction techniq ues were employed. CTDIvol: 8.7 mGy. DLP: 319 mGy-cm. mGy. LIMITATIONS: No technical limitations. FINDINGS: LUNGS AND PLEURA: There is scattered patchy opacification the left upper lobe, right upper lobe inferiorly, right middle lobe, right lower lobe, left lower lobe. HILAR AND MEDIASTINAL STRUCTURES: No identified masses or abnormal nodes. No obvious aneurysm. Hiat al hernia. HEART AND VASCULAR STRUCTURES: Cardiomegaly. No aneurysm. No pericardial effusion. UPPER ABDOMEN: No significant findings. Limited exam. THYROID AND OTHER SOFT TISSUES: No masses. No adenopathy. BONES: Scoliosis. Increased dorsal kyphosis. Motion artifact creates the illusion of sternal fractu re. HARDWARE: None in the chest. OTHER: No other significant findings. IMPRESSION: 1. Multicentric pneumonias. 2. Cardiomegaly. 3. Hiatal hernia. 4. Cannot entirely exclude sternal fractures. Correlate clinically. TECHNICAL DOCUMENTATION: JOB ID: [id number] Quality ID # [id number]: Final reports with documentation of one or more dose reduction techniques (e.g., Au tomated exposure control, adjustment of the mA and/or kV according to patient size, use of iterative reconstruction technique) 2010 [email or web address]- All Rights Reserved Reading location - IP/workstation name: [email or web address]
[2019-02-10 18:56] LABS: CREATINE KINASE MB 1.27 ng/mL (<4.55); TROPONIN I 0.017 ng/mL
--- NOTE | 2019-02-10 19:31 | EKG REPORT ---
SEVERITY:- ABNORMAL ECG - SINUS RHYTHM LEFT VENTRICULAR HYPERTROPHY PROBABLE INFERIOR INFARCT, AGE INDETERMINATE : Confirmed by: Lwoell Stratton MD 10-Feb-2019 19:30:44
[2019-02-10] MEDS: ENOXAPARIN SODIUM INJ 40 MG/0.4 ML DISP.SYRIN SUBCUT SCH (20:04)
[2019-02-10] MEDS: LEVOFLOXACIN 750 MG/D5W RTU 750 MG/150 ML RTUPB IV SCH (20:10)
[2019-02-10] MEDS: LEVALBUTEROL HCL NEB 1.25 MG/3 ML AMPUL NEB SCH (20:28)
[2019-02-10 21:06] LABS: APPEARANCE,URINE SLIGHTLY-CLOUDY; BILIRUBIN,URINE NEGATIVE (NEGATIVE); COLOR,URINE YELLOW; GLUCOSE, URINE NEGATIVE (NEGATIVE); KETONES,URINE TRACE mg/dL (NEGATIVE); LEUKOCYTE ESTERASE,URINE NEGATIVE (NEGATIVE); NITRITE,URINE NEGATIVE (NEGATIVE); PROTEIN,URINE 100 mg/dL (NEGATIVE); URINE SPECIFIC GRAVITY 1.027; UROBILINOGEN,URINE NEGATIVE mg/dL (<2.0)
[2019-02-10] MEDS: CEFEPIME HCL 2 GM in DEXTROSE 5%-WATER 50 ML IV SCH (21:48)
[2019-02-10] MEDS ORDERED: DEXTROSE 50%-WATER SYRINGE 25 GM/50 ML DOSE IV PRN (23:00)
[2019-02-10] MEDS ORDERED: DEXTROSE 40% GEL 15 GM TUBE X 2 PO PRN (23:00)
[2019-02-10] MEDS ORDERED: DEXTROSE 40% GEL 15 GM TUBE PO PRN (23:00)
[2019-02-10] MEDS ORDERED: DEXTROSE 50%-WATER SYRINGE 12.5 GM/25 ML DOSE IV PRN (23:00)
[2019-02-10] MEDS ORDERED: GLUCAGON,HUMAN RECOMB 1 MG INJ IM PRN (23:00)
[2019-02-10] MEDS ORDERED: INSULIN LISPRO 100 UNIT/ML 3 ML VIAL SUBCUT ONE (23:30)
[2019-02-11] MEDS: LEVALBUTEROL HCL NEB 1.25 MG/3 ML AMPUL NEB SCH ×6 (00:28→20:25)
[2019-02-11] MEDS: ACETAMINOPHEN 325 MG TABLET PO PRN (00:36)
--- NOTE | 2019-02-11 02:55 | RADIOLOGY REPORT (SQ) ---
EXAM DESCRIPTION: CT HEAD WITHOUT IV CONTRAST COMPLETED DATE/TME: 02/11/2019 00:00 CLINICAL HISTORY: 79 years Female, 5/5 headache pain COMPARISON: None. TECHNIQUE: No contrast. Coronal and sagittal reformat. This exam was performed according to our departmental dose-optimization program, which includes automated exposure control, adjustment of the mA and/or kV according to patient size and/or use of iterative reconstruction technique. FINDINGS: No hemorrhage. Small right frontoparietal encephalomalacia/infarct. No mass, mass effect, or midline shift. White matter microangiopathy. Parenchymal volume loss. Moderate left maxillary and left sphenoid fluid. Moderate right maxillary mucosal thickening. Mild ethmoid mucus. Brain and extra-axial structures appear otherwise intact. IMPRESSION: Moderate left maxillary and left sphenoid sinusitis with acute inflammatory component. Small right frontoparietal infarct/encephalomalacia. Else, no acute findings.
[2019-02-11] MEDS: BUTALB/ACETAMINOPHEN/CAFFEINE 1 TAB EACH PO PRN (03:05)
[2019-02-11 06:52] LABS: HEMATOCRIT 37.6 % (36.0-47.0); HEMOGLOBIN 12.4 g/dL (12.0-15.5); MEAN CORPUSCULAR HEMOGLOBIN 29.3 pg (27.0-33.4); MEAN CORPUSCULAR VOLUME 89 fl (80-97); PLATELET COUNT 269 10^3/uL (150-450); RED BLOOD COUNT 4.24 10^6/uL (3.72-5.28); RED CELL DISTRIBUTION WIDTH 16.6 % (11.5-14.0); WHITE BLOOD COUNT 16.1 10^3/uL (4.0-10.5)
[2019-02-11 07:20] LABS: ALANINE AMINOTRANSFERASE 40 U/L (9-52); ALKALINE PHOSPHATASE 122 U/L (38-126); ANION GAP 14 (5-19); ASPARTATE AMINO TRANSFERASE 21 U/L (14-36); BILIRUBIN,DIRECT 0.3 mg/dL (0.0-0.4); BILIRUBIN,TOTAL 0.6 mg/dL (0.2-1.3); BLOOD UREA NITROGEN 29 mg/dL (7-20); CALCIUM 8.6 mg/dL (8.4-10.2); CARBON DIOXIDE 28 mmol/L (22-30); CHLORIDE 98 mmol/L (98-107); GLUCOSE 231 mg/dL (75-110); POTASSIUM 3.5 mmol/L (3.6-5.0); SODIUM 140.3 mmol/L (137-145); TOTAL PROTEIN 5.6 g/dL (6.3-8.2)
[2019-02-11 07:53] LABS: ABSOLUTE LYMPHOCYTES# (MANUAL) 1.1 10^3/uL (0.5-4.7); ABSOLUTE MONOCYTES # (MANUAL) 1.1 10^3/uL (0.1-1.4); ABSOLUTE NEUTROPHILS# (MANUAL) 13.8 10^3/uL (1.7-8.2); BASOPHILS % (MANUAL) 0 % (0-2); EOSINOPHILS % (MANUAL) 0 % (0-6); LYMPHOCYTES % (MANUAL) 7 % (13-45); MONOCYTES % (MANUAL) 7 % (3-13); SEGMENTED NEUTROPHILS % (MAN) 86 % (42-78); TOTAL CELLS COUNTED 100
[2019-02-11 07:54] LABS: OVALOCYTES SLIGHT; PLATELET COMMENT ADEQUATE; POIKILOCYTOSIS SLIGHT; POLYCHROMASIA SLIGHT
[2019-02-11] MEDS: INSULIN LISPRO 100 UNIT/ML 3 ML VIAL SUBCUT SCH ×4 (09:24→21:12)
[2019-02-11] MEDS: ENOXAPARIN SODIUM INJ 40 MG/0.4 ML DISP.SYRIN SUBCUT SCH (09:24)
[2019-02-11] MEDS ORDERED: ASPIRIN 81 MG TABLET, CHEWABLE PO SCH (18:15)
[2019-02-11] MEDS ORDERED: METOPROLOL TARTRATE 25 MG TABLET PO SCH (18:15)
--- NOTE | 2019-02-11 20:22 | PDOC PROGRESS REPORT ---
Subjective Progress Note for:: 02/11/19 Subjective:: Patient was seen today by the bedside, she is presently not requiring noninvasive positive pressure ventilation, BiPAP she is on oxygen via nasal cannula Reason For Visit: BILATERAL PLEURAL EFFUSION,ACUTE HYPOXEMIA, Physical Exam Vital Signs: Temp Pulse Resp BP Pulse Ox 98.0 F 84 18 153/79 H 99 02/11/19 19:47 02/11/19 19:47 02/11/19 19:47 02/11/19 19:47 02/11/19 19:47 Intake & Output 02/10/19 02/11/19 02/12/19 06:59 06:59 06:59 Intake Total 750 1260 Output Total 435 600 Balance 315 660 Weight 55.2 kg General appearance: PRESENT: no acute distress Eye exam: PRESENT: PERRLA Respiratory exam: PRESENT: wheezes Cardiovascular exam: PRESENT: +S1, +S2 GI/Abdominal exam: PRESENT: soft Neurological exam: PRESENT: alert Results Laboratory Results: 02/11/19 05:55 02/11/19 05:55 02/10/19 02/11/19 02/11/19 20:43 05:55 05:55 WBC 16.1 H RBC 4.24 Hgb 12.4 Hct 37.6 MCV 89 MCH 29.3 MCHC 33.0 RDW 16.6 H Plt Count 269 Seg Neutrophils % Not Reportable Lymphocytes % Not Reportable Monocytes % Not Reportable Eosinophils % Not Reportable Basophils % Not Reportable Absolute Neutrophils Not Reportable Absolute Lymphocytes Not Reportable Absolute Monocytes Not Reportable Absolute Eosinophils Not Reportable Absolute Basophils Not Reportable Sodium 140.3 Potassium 3.5 L Chloride 98 Carbon Dioxide 28 Anion Gap 14 BUN 29 H Creatinine 0.73 Est GFR ( Amer) > 60 Est GFR (Non-Af Amer) > 60 Glucose 231 H Calcium 8.6 Total Bilirubin 0.6 AST 21 ALT 40 Alkaline Phosphatase 122 Total Protein 5.6 L Albumin 3.0 L Urine Color YELLOW Urine Appearance SLIGHTLY-CLOUDY Urine pH 5.0 Ur Specific [place] 1.027 Urine Protein 100 H Urine Glucose (UA) NEGATIVE Urine Ketones TRACE H Urine Blood MODERATE H Urine Nitrite NEGATIVE Ur Leukocyte Esterase NEGATIVE Urine WBC (Auto) 5 Urine RBC (Auto) 41 02/10/19 02/10/19 02/10/19 11:15 11:15 18:13 Creatine Kinase 96 77 CK-MB (CK-2) 1.73 Troponin I 0.031 NT-Pro-B Natriuret Pep 7770 H 02/10/19 18:13 Creatine Kinase CK-MB (CK-2) 1.27 Troponin I 0.017 NT-Pro-B Natriuret Pep Impressions: Chest CT 02/10/19 00:00 IMPRESSION: 1. Multicentric pneumonias. 2. Cardiomegaly. 3. Hiatal hernia. 4. Cannot entirely exclude sternal fractures. Correlate clinically. Chest X-Ray 02/10/19 11:11 IMPRESSION: Interval development of patchy bilateral infiltrates. Most likely infectious etiology. Possible small left pleural effusion. See above discussion. Head CT 02/11/19 00:00 IMPRESSION: Moderate left maxillary and left sphenoid sinusitis with acute inflammatory component. Small right frontoparietal infarct/encephalomalacia. Else, no acute findings. Assessment & Plan - Diagnosis (1) Acute hypoxemic respiratory failure Is this a current diagnosis for this admission?: Yes Plan: Continue oxygen via nasal cannula (2) Bilateral pneumonia Qualifiers: Pneumonia type: due to unspecified organism Lung location: unspecified part of lung Qualified Code(s): J18.9 - Pneumonia, unspecified organism Is this a current diagnosis for this admission?: Yes Plan: Continue antibiotic (3) COPD (chronic obstructive pulmonary disease) Qualifiers: COPD type: unspecified COPD Qualified Code(s): J44.9 - Chronic obstructive pulmonary disease, unspecified Is this a current diagnosis for this admission?: Yes Plan: Continue bronchodilators
[2019-02-11] MEDS: ASPIRIN 81 MG TABLET, CHEWABLE PO SCH (21:06)
[2019-02-11] MEDS: METOPROLOL TARTRATE 25 MG TABLET PO SCH (21:06)
[2019-02-11] MEDS: ATORVASTATIN CALCIUM 10 MG TABLET PO SCH (21:06)
[2019-02-11] MEDS: MELATONIN 3 MG TABLET PO SCH (21:06)
[2019-02-11] MEDS: METFORMIN HCL 500 MG TABLET PO SCH (21:06)
[2019-02-11] MEDS: CEFEPIME HCL 2 GM in DEXTROSE 5%-WATER 50 ML IV SCH (21:08)
[2019-02-11] MEDS: POLYMYXIN B SULFATE/TMP OPH SOLN 10 ML OU SCH (21:45)
[2019-02-11] MEDS ORDERED: (PENDING PHARMACY ID) (Cyanocobalamin (Vitamin B-12) [Vitamin B-12] 500 MCG) SL SCH (22:00)
[2019-02-12] MEDS: LEVALBUTEROL HCL NEB 1.25 MG/3 ML AMPUL NEB SCH ×6 (00:18→21:17)
[2019-02-12] MEDS: PANTOPRAZOLE SODIUM 40 MG TABLET.DR PO SCH (05:21)
[2019-02-12 06:11] LABS: ABSOLUTE EOSINOPHILS # (AUTO) 0.1 10^3/uL (0.0-0.6); ABSOLUTE LYMPHOCYTES (AUTO) 0.8 10^3/uL (0.5-4.7); ABSOLUTE MONOCYTES (AUTO) 0.7 10^3/uL (0.1-1.4); ABSOLUTE NEUT (AUTO) 8.3 10^3/uL (1.7-8.2); BASOPHILS % (AUTO) 0.4 % (0-2); EOSINOPHILS % (AUTO) 0.5 % (0-6); HEMATOCRIT 37.4 % (36.0-47.0); HEMOGLOBIN 12.2 g/dL (12.0-15.5); LYMPHOCYTES % (AUTO) 8.6 % (13-45); MEAN CORPUSCULAR HGB CONC 32.7 g/dL (32.0-36.0); MEAN CORPUSCULAR VOLUME 89 fl (80-97); MONOCYTES % (AUTO) 6.8 % (3-13); PLATELET COUNT 255 10^3/uL (150-450); RED BLOOD COUNT 4.22 10^6/uL (3.72-5.28); RED CELL DISTRIBUTION WIDTH 16.3 % (11.5-14.0); SEGMENTED NEUTROPHILS % (AUTO) 83.7 % (42-78); TOTAL CELLS COUNTED % (AUTO) 100 %; WHITE BLOOD COUNT 9.9 10^3/uL (4.0-10.5)
[2019-02-12 06:35] LABS: ALANINE AMINOTRANSFERASE 35 U/L (9-52); ALBUMIN 2.8 g/dL (3.5-5.0); ALKALINE PHOSPHATASE 100 U/L (38-126); ANION GAP 10 (5-19); ASPARTATE AMINO TRANSFERASE 19 U/L (14-36); BILIRUBIN,DIRECT 0.3 mg/dL (0.0-0.4); BILIRUBIN,TOTAL 0.6 mg/dL (0.2-1.3); BLOOD UREA NITROGEN 24 mg/dL (7-20); CALCIUM 8.8 mg/dL (8.4-10.2); CARBON DIOXIDE 31 mmol/L (22-30); CHLORIDE 103 mmol/L (98-107); GLUCOSE 127 mg/dL (75-110); POTASSIUM 3.7 mmol/L (3.6-5.0); SODIUM 143.6 mmol/L (137-145); TOTAL PROTEIN 5.2 g/dL (6.3-8.2)
[2019-02-12] MEDS: INSULIN LISPRO 100 UNIT/ML 3 ML VIAL SUBCUT SCH ×4 (09:01→21:44)
[2019-02-12] MEDS: METOPROLOL TARTRATE 25 MG TABLET PO SCH ×2 (09:02→21:43)
[2019-02-12] MEDS: ASPIRIN 81 MG TABLET, CHEWABLE PO SCH (09:02)
[2019-02-12] MEDS: ENOXAPARIN SODIUM INJ 40 MG/0.4 ML DISP.SYRIN SUBCUT SCH (09:02)
[2019-02-12] MEDS: METFORMIN HCL 500 MG TABLET PO SCH ×2 (09:02→21:43)
[2019-02-12] MEDS: LEVOFLOXACIN 750 MG/D5W RTU 750 MG/150 ML RTUPB IV SCH (09:06)
[2019-02-12] MEDS ORDERED: (PENDING PHARMACY ID) (Cyanocobalamin (Vitamin B-12) [Vitamin B-12] 500 MCG) SL SCH (10:00)
[2019-02-12] MEDS: POLYMYXIN B SULFATE/TMP OPH SOLN 10 ML OU SCH ×2 (10:54→21:45)
[2019-02-12] MEDS: CYANOCOBALAMIN (VITAMIN B-12) 1,000 MCG TABLET PO SCH (10:55)
[2019-02-12] MEDS: ACETAMINOPHEN 325 MG TABLET PO PRN (19:57)
[2019-02-12] MEDS: CEFEPIME HCL 2 GM in DEXTROSE 5%-WATER 50 ML IV SCH (21:44)
[2019-02-12] MEDS: MELATONIN 3 MG TABLET PO SCH (21:44)
[2019-02-12] MEDS: ATORVASTATIN CALCIUM 10 MG TABLET PO SCH (21:44)
[2019-02-12] MEDS ORDERED: ZOLPIDEM TARTRATE 5 MG TABLET PO SCH (22:00)
--- NOTE | 2019-02-12 22:05 | PDOC PROGRESS REPORT ---
Subjective Progress Note for:: 02/12/19 Subjective:: She complains of insomnia she is unable to sleep, she is improving from respiratory standpoint Reason For Visit: BILATERAL PLEURAL EFFUSION,ACUTE HYPOXEMIA, Physical Exam Vital Signs: Temp Pulse Resp BP Pulse Ox 97.2 F 81 28 H 151/74 H 90 L 02/12/19 19:44 02/12/19 19:44 02/12/19 19:44 02/12/19 19:44 02/12/19 19:44 Intake & Output 02/11/19 02/12/19 02/13/19 06:59 06:59 06:59 Intake Total 750 1310 530 Output Total 435 900 600 Balance 315 410 -70 Weight 55.2 kg 55 kg General appearance: PRESENT: no acute distress Eye exam: PRESENT: PERRLA Respiratory exam: PRESENT: rhonchi, wheezes Cardiovascular exam: PRESENT: +S1, +S2 GI/Abdominal exam: PRESENT: soft Neurological exam: PRESENT: alert Results Laboratory Results: 02/12/19 05:27 02/12/19 05:27 02/12/19 02/12/19 05:27 05:27 WBC 9.9 RBC 4.22 Hgb 12.2 Hct 37.4 MCV 89 MCH 29.0 MCHC 32.7 RDW 16.3 H Plt Count 255 Seg Neutrophils % 83.7 H Lymphocytes % 8.6 L Monocytes % 6.8 Eosinophils % 0.5 Basophils % 0.4 Absolute Neutrophils 8.3 H Absolute Lymphocytes 0.8 Absolute Monocytes 0.7 Absolute Eosinophils 0.1 Absolute Basophils 0.0 Sodium 143.6 Potassium 3.7 Chloride 103 Carbon Dioxide 31 H Anion Gap 10 BUN 24 H Creatinine 0.63 Est GFR ( Amer) > 60 Est GFR (Non-Af Amer) > 60 Glucose 127 H Calcium 8.8 Total Bilirubin 0.6 AST 19 ALT 35 Alkaline Phosphatase 100 Total Protein 5.2 L Albumin 2.8 L 02/10/19 02/10/19 02/10/19 11:15 11:15 18:13 Creatine Kinase 96 77 CK-MB (CK-2) 1.73 Troponin I 0.031 NT-Pro-B Natriuret Pep 7770 H 02/10/19 18:13 Creatine Kinase CK-MB (CK-2) 1.27 Troponin I 0.017 NT-Pro-B Natriuret Pep Impressions: Chest CT 02/10/19 00:00 IMPRESSION: 1. Multicentric pneumonias. 2. Cardiomegaly. 3. Hiatal hernia. 4. Cannot entirely exclude sternal fractures. Correlate clinically. Chest X-Ray 02/10/19 11:11 IMPRESSION: Interval development of patchy bilateral infiltrates. Most likely infectious etiology. Possible small left pleural effusion. See above discussion. Head CT 02/11/19 00:00 IMPRESSION: Moderate left maxillary and left sphenoid sinusitis with acute inflammatory component. Small right frontoparietal infarct/encephalomalacia. Else, no acute findings. Assessment & Plan - Diagnosis (1) Acute hypoxemic respiratory failure Is this a current diagnosis for this admission?: Yes (2) Bilateral pneumonia Qualifiers: Pneumonia type: due to unspecified organism Lung location: unspecified part of lung Qualified Code(s): J18.9 - Pneumonia, unspecified organism Is this a current diagnosis for this admission?: Yes Plan: Continue antibiotic (3) COPD (chronic obstructive pulmonary disease) Qualifiers: COPD type: unspecified COPD Qualified Code(s): J44.9 - Chronic obstructive pulmonary disease, unspecified Is this a current diagnosis for this admission?: Yes (4) Insomnia Qualifiers: Insomnia type: unspecified Qualified Code(s): G47.00 - Insomnia, unspecified Is this a current diagnosis for this admission?: Yes Plan: Start Ambien 5 mg p.o. nightly
[2019-02-12] MEDS ORDERED: ZOLPIDEM TARTRATE 5 MG TABLET PO ONE (23:15)
[2019-02-12] MEDS ORDERED: LORAZEPAM INJ 2 MG/1 ML VIAL IV ONE (23:30)
[2019-02-13] MEDS: LEVALBUTEROL HCL NEB 1.25 MG/3 ML AMPUL NEB SCH ×6 (00:22→20:42)
[2019-02-13 05:01] LABS: ABSOLUTE EOSINOPHILS # (AUTO) 0.1 10^3/uL (0.0-0.6); ABSOLUTE LYMPHOCYTES (AUTO) 0.8 10^3/uL (0.5-4.7); ABSOLUTE MONOCYTES (AUTO) 0.6 10^3/uL (0.1-1.4); ABSOLUTE NEUT (AUTO) 5.4 10^3/uL (1.7-8.2); BASOPHILS % (AUTO) 0.5 % (0-2); EOSINOPHILS % (AUTO) 1.6 % (0-6); HEMOGLOBIN 12.1 g/dL (12.0-15.5); LYMPHOCYTES % (AUTO) 11.2 % (13-45); MEAN CORPUSCULAR HEMOGLOBIN 28.9 pg (27.0-33.4); MEAN CORPUSCULAR HGB CONC 32.6 g/dL (32.0-36.0); MEAN CORPUSCULAR VOLUME 89 fl (80-97); MONOCYTES % (AUTO) 8.4 % (3-13); PLATELET COUNT 248 10^3/uL (150-450); RED BLOOD COUNT 4.18 10^6/uL (3.72-5.28); RED CELL DISTRIBUTION WIDTH 16.7 % (11.5-14.0); SEGMENTED NEUTROPHILS % (AUTO) 78.3 % (42-78); TOTAL CELLS COUNTED % (AUTO) 100 %; WHITE BLOOD COUNT 6.9 10^3/uL (4.0-10.5)
[2019-02-13 05:21] LABS: ALANINE AMINOTRANSFERASE 24 U/L (9-52); ALBUMIN 2.9 g/dL (3.5-5.0); ALKALINE PHOSPHATASE 89 U/L (38-126); ANION GAP 9 (5-19); ASPARTATE AMINO TRANSFERASE 19 U/L (14-36); BILIRUBIN,DIRECT 0.4 mg/dL (0.0-0.4); BILIRUBIN,TOTAL 0.7 mg/dL (0.2-1.3); BLOOD UREA NITROGEN 21 mg/dL (7-20); CALCIUM 9.1 mg/dL (8.4-10.2); CARBON DIOXIDE 32 mmol/L (22-30); CHLORIDE 103 mmol/L (98-107); GLUCOSE 101 mg/dL (75-110); POTASSIUM 3.8 mmol/L (3.6-5.0); SODIUM 144.2 mmol/L (137-145); TOTAL PROTEIN 5.2 g/dL (6.3-8.2)
[2019-02-13] MEDS: PANTOPRAZOLE SODIUM 40 MG TABLET.DR PO SCH (05:45)
[2019-02-13] MEDS: INSULIN LISPRO 100 UNIT/ML 3 ML VIAL SUBCUT SCH ×4 (08:10→21:35)
[2019-02-13] MEDS: METOPROLOL TARTRATE 25 MG TABLET PO SCH ×2 (10:43→21:35)
[2019-02-13] MEDS: ASPIRIN 81 MG TABLET, CHEWABLE PO SCH (10:43)
[2019-02-13] MEDS: ENOXAPARIN SODIUM INJ 40 MG/0.4 ML DISP.SYRIN SUBCUT SCH (10:43)
[2019-02-13] MEDS: METFORMIN HCL 500 MG TABLET PO SCH ×2 (10:43→21:35)
[2019-02-13] MEDS: POLYMYXIN B SULFATE/TMP OPH SOLN 10 ML OU SCH ×2 (10:44→21:38)
--- NOTE | 2019-02-13 11:28 | PDOC PROGRESS REPORT ---
Subjective Progress Note for:: 02/13/19 Subjective:: Patients currently doing fair no chest pain no short of breath except the same complaint unable to sleep Patient was given Ambien and Ativan last night still not helping No fever no chills Reason For Visit: BILATERAL PLEURAL EFFUSION,ACUTE HYPOXEMIA, Physical Exam Vital Signs: Temp Pulse Resp BP Pulse Ox 97.6 F 80 18 145/84 H 91 L 02/13/19 07:32 02/13/19 09:36 02/13/19 09:36 02/13/19 07:32 02/13/19 09:36 Intake & Output 02/12/19 02/13/19 02/14/19 06:59 06:59 06:59 Intake Total 1310 580 Output Total 900 925 Balance 410 -345 Weight 55 kg 56.1 kg General appearance: PRESENT: no acute distress, well-developed, well-nourished Head exam: PRESENT: atraumatic, normocephalic Eye exam: PRESENT: conjunctiva pink, EOMI, PERRLA. ABSENT: scleral icterus Ear exam: PRESENT: normal external ear exam Mouth exam: PRESENT: moist, tongue midline Neck exam: PRESENT: full ROM. ABSENT: carotid bruit, JVD, lymphadenopathy, thyromegaly Respiratory exam: PRESENT: clear to auscultation jackson Cardiovascular exam: PRESENT: RRR. ABSENT: diastolic murmur, rubs, systolic murmur Vascular exam: PRESENT: normal capillary refill GI/Abdominal exam: PRESENT: normal bowel sounds, soft. ABSENT: distended, guarding, mass, organolmegaly, rebound, tenderness Rectal exam: PRESENT: deferred Neurological exam: PRESENT: alert, awake, oriented to person, oriented to place, oriented to time, oriented to situation, CN II-XII grossly intact. ABSENT: mot or sensory deficit Psychiatric exam: PRESENT: appropriate affect, normal mood. ABSENT: homicidal ideation, suicidal ideation Skin exam: PRESENT: dry, intact, warm. ABSENT: cyanosis, rash Results Laboratory Results: 02/13/19 04:36 02/13/19 04:36 02/13/19 02/13/19 04:36 04:36 WBC 6.9 RBC 4.18 Hgb 12.1 Hct 37.0 MCV 89 MCH 28.9 MCHC 32.6 RDW 16.7 H Plt Count 248 Seg Neutrophils % 78.3 H Lymphocytes % 11.2 L Monocytes % 8.4 Eosinophils % 1.6 Basophils % 0.5 Absolute Neutrophils 5.4 Absolute Lymphocytes 0.8 Absolute Monocytes 0.6 Absolute Eosinophils 0.1 Absolute Basophils 0.0 Sodium 144.2 Potassium 3.8 Chloride 103 Carbon Dioxide 32 H Anion Gap 9 BUN 21 H Creatinine 0.60 Est GFR ( Amer) > 60 Est GFR (Non-Af Amer) > 60 Glucose 101 Calcium 9.1 Total Bilirubin 0.7 AST 19 ALT 24 Alkaline Phosphatase 89 Total Protein 5.2 L Albumin 2.9 L 02/11/19 09:27 Catheterized Urine Urine Culture - Final NO GROWTH 2 DAYS 02/10/19 02/10/19 02/10/19 11:15 11:15 18:13 Creatine Kinase 96 77 CK-MB (CK-2) 1.73 Troponin I 0.031 NT-Pro-B Natriuret Pep 7770 H 02/10/19 18:13 Creatine Kinase CK-MB (CK-2) 1.27 Troponin I 0.017 NT-Pro-B Natriuret Pep Impressions: Chest CT 02/10/19 00:00 IMPRESSION: 1. Multicentric pneumonias. 2. Cardiomegaly. 3. Hiatal hernia. 4. Cannot entirely exclude sternal fractures. Correlate clinically. Chest X-Ray 02/10/19 11:11 IMPRESSION: Interval development of patchy bilateral infiltrates. Most likely infectious etiology. Possible small left pleural effusion. See above discussion. Head CT 02/11/19 00:00 IMPRESSION: Moderate left maxillary and left sphenoid sinusitis with acute inflammatory component. Small right frontoparietal infarct/encephalomalacia. Else, no acute findings. Assessment & Plan - Diagnosis (1) Acute exacerbation of chronic obstructive pulmonary disease (COPD) Is this a current diagnosis for this admission?: Yes Plan: Continues to nebulizer treatments (2) Acute hypoxemic respiratory failure Is this a current diagnosis for this admission?: Yes Plan: Currently getting improved stable (3) Bilateral pneumonia Qualifiers: Pneumonia type: due to unspecified organism Lung location: unspecified part of lung Qualified Code(s): J18.9 - Pneumonia, unspecified organism Is this a current diagnosis for this admission?: Yes Plan: Continues to antibiotic (4) Insomnia Qualifiers: Insomnia type: unspecified Qualified Code(s): G47.00 - Insomnia, unspecified Is this a current diagnosis for this admission?: Yes Plan: Will try the trazodone 50 mg p.o. daily - Time Time Spent with patient: 15-24 minutes Medications reviewed and adjusted accordingly: Yes Anticipated discharge: Other Within: Other - Plan Summary Plan Summary: Continues to current medications
[2019-02-13] MEDS: ATORVASTATIN CALCIUM 10 MG TABLET PO SCH (21:35)
[2019-02-13] MEDS: TRAZODONE HCL 50 MG TABLET PO SCH (21:35)
[2019-02-13] MEDS: MELATONIN 3 MG TABLET PO SCH (21:38)
[2019-02-13] MEDS: CEFEPIME HCL 2 GM in DEXTROSE 5%-WATER 50 ML IV SCH (21:38)
[2019-02-13] MEDS: TRAMADOL HCL 50 MG TABLET PO PRN (23:22)
[2019-02-14] MEDS: LEVALBUTEROL HCL NEB 1.25 MG/3 ML AMPUL NEB SCH ×4 (00:27→12:24)
[2019-02-14] MEDS: PANTOPRAZOLE SODIUM 40 MG TABLET.DR PO SCH (06:47)
[2019-02-14] MEDS: INSULIN LISPRO 100 UNIT/ML 3 ML VIAL SUBCUT SCH ×4 (09:01→22:00)
[2019-02-14] MEDS: METFORMIN HCL 500 MG TABLET PO SCH ×2 (09:06→21:58)
[2019-02-14] MEDS: ENOXAPARIN SODIUM INJ 40 MG/0.4 ML DISP.SYRIN SUBCUT SCH (09:06)
[2019-02-14] MEDS: LEVOFLOXACIN 750 MG/D5W RTU 750 MG/150 ML RTUPB IV SCH (09:06)
[2019-02-14] MEDS: ASPIRIN 81 MG TABLET, CHEWABLE PO SCH (09:07)
[2019-02-14] MEDS: METOPROLOL TARTRATE 25 MG TABLET PO SCH ×2 (09:07→21:58)
[2019-02-14] MEDS: POLYMYXIN B SULFATE/TMP OPH SOLN 10 ML OU SCH ×2 (09:08→22:04)
--- NOTE | 2019-02-14 10:19 | PDOC PROGRESS REPORT ---
Subjective Progress Note for:: 02/14/19 Subjective:: Patient slept with the trazodone last night patient is denied any chest pain to than any shortness of the breath Patient's wants to take the Escalante catheter out Reason For Visit: BILATERAL PLEURAL EFFUSION,ACUTE HYPOXEMIA, Physical Exam Vital Signs: Temp Pulse Resp BP Pulse Ox 97.9 F 81 16 155/75 H 89 L 02/14/19 07:12 02/14/19 08:43 02/14/19 08:43 02/14/19 07:12 02/14/19 08:43 Intake & Output 02/13/19 02/14/19 02/15/19 06:59 06:59 06:59 Intake Total 580 550 Output Total 925 900 Balance -345 -350 Weight 56.1 kg 56.9 kg General appearance: PRESENT: no acute distress, well-developed, well-nourished Head exam: PRESENT: atraumatic, normocephalic Eye exam: PRESENT: conjunctiva pink, EOMI, PERRLA. ABSENT: scleral icterus Ear exam: PRESENT: normal external ear exam Mouth exam: PRESENT: moist, tongue midline Neck exam: PRESENT: full ROM. ABSENT: carotid bruit, JVD, lymphadenopathy, thyromegaly Respiratory exam: PRESENT: clear to auscultation jackson Cardiovascular exam: ABSENT: diastolic murmur, rubs, systolic murmur Vascular exam: PRESENT: normal capillary refill GI/Abdominal exam: PRESENT: normal bowel sounds, soft. ABSENT: distended, guarding, mass, organolmegaly, rebound, tenderness Rectal exam: PRESENT: deferred Extremities exam: ABSENT: pedal edema Neurological exam: PRESENT: alert, awake, oriented to person, oriented to place, oriented to time, oriented to situation, CN II-XII grossly intact. ABSENT: motor sensory deficit Psychiatric exam: PRESENT: appropriate affect, normal mood. ABSENT: homicidal ideation, suicidal ideation Skin exam: PRESENT: dry, intact, warm. ABSENT: cyanosis, rash Results Laboratory Results: 02/13/19 04:36 02/13/19 04:36 02/11/19 09:27 Catheterized Urine Urine Culture - Final NO GROWTH 2 DAYS 02/10/19 02/10/19 02/10/19 11:15 11:15 18:13 Creatine Kinase 96 77 CK-MB (CK-2) 1.73 Troponin I 0.031 NT-Pro-B Natriuret Pep 7770 H 02/10/19 18:13 Creatine Kinase CK-MB (CK-2) 1.27 Troponin I 0.017 NT-Pro-B Natriuret Pep Impressions: Chest CT 02/10/19 00:00 IMPRESSION: 1. Multicentric pneumonias. 2. Cardiomegaly. 3. Hiatal hernia. 4. Cannot entirely exclude sternal fractures. Correlate clinically. Chest X-Ray 02/10/19 11:11 IMPRESSION: Interval development of patchy bilateral infiltrates. Most likely infectious etiology. Possible small left pleural effusion. See above discussion. Head CT 02/11/19 00:00 IMPRESSION: Moderate left maxillary and left sphenoid sinusitis with acute inflammatory component. Small right frontoparietal infarct/encephalomalacia. Else, no acute findings. Assessment & Plan - Diagnosis (1) Acute exacerbation of chronic obstructive pulmonary disease (COPD) Is this a current diagnosis for this admission?: Yes Plan: Continues to nebulizer treatments (2) Acute hypoxemic respiratory failure Is this a current diagnosis for this admission?: Yes Plan: Currently getting improved stable (3) Bilateral pneumonia Qualifiers: Pneumonia type: due to unspecified organism Lung location: unspecified part of lung Qualified Code(s): J18.9 - Pneumonia, unspecified organism Is this a current diagnosis for this admission?: Yes Plan: Continues to antibiotic (4) Insomnia Qualifiers: Insomnia type: unspecified Qualified Code(s): G47.00 - Insomnia, unspecified Is this a current diagnosis for this admission?: Yes Plan: Continues with trazodone - Time Time Spent with patient: 15-24 minutes Medications reviewed and adjusted accordingly: Yes Anticipated discharge: Home Within: Other - Plan Summary Plan Summary: We will take the Escalante catheter out
[2019-02-14] MEDS ORDERED: LEVALBUTEROL HCL NEB 1.25 MG/3 ML AMPUL NEB PRN (12:39)
[2019-02-14] MEDS: TRAMADOL HCL 50 MG TABLET PO PRN (13:18)
[2019-02-14] MEDS: MELATONIN 3 MG TABLET PO SCH (21:57)
[2019-02-14] MEDS: TRAZODONE HCL 50 MG TABLET PO SCH (21:57)
[2019-02-14] MEDS: CEFEPIME 2 GM/D5W RTU 2 GM/50 ML RTUPB IV SCH (22:00)
[2019-02-14] MEDS: ATORVASTATIN CALCIUM 10 MG TABLET PO SCH (22:04)
[2019-02-15] MEDS: BUTALB/ACETAMINOPHEN/CAFFEINE 1 TAB EACH PO PRN (01:40)
[2019-02-15] MEDS: PANTOPRAZOLE SODIUM 40 MG TABLET.DR PO SCH (06:08)
[2019-02-15] MEDS: INSULIN LISPRO 100 UNIT/ML 3 ML VIAL SUBCUT SCH ×4 (08:20→22:50)
[2019-02-15] MEDS: ASPIRIN 81 MG TABLET, CHEWABLE PO SCH (10:47)
[2019-02-15] MEDS: CYANOCOBALAMIN (VITAMIN B-12) 1,000 MCG TABLET PO SCH (10:47)
[2019-02-15] MEDS: METOPROLOL TARTRATE 25 MG TABLET PO SCH ×2 (10:48→22:55)
[2019-02-15] MEDS: ENOXAPARIN SODIUM INJ 40 MG/0.4 ML DISP.SYRIN SUBCUT SCH (10:48)
[2019-02-15] MEDS: METFORMIN HCL 500 MG TABLET PO SCH ×2 (10:48→22:49)
[2019-02-15] MEDS: POLYMYXIN B SULFATE/TMP OPH SOLN 10 ML OU SCH ×2 (10:48→22:55)
--- NOTE | 2019-02-15 19:48 | PDOC PROGRESS REPORT ---
Subjective Progress Note for:: 02/15/19 Subjective:: Patient was seen by the bedside, she has bilateral pneumonia with hypoxemia, she continues to require oxygen in the hospital, she will need oxygen therapy on discharge to assisted living facility, [facility]. I am not sure that [facility] will allow oxygen therapy, discharge planning need to inquire about getting oxygen therapy in the facility and also needs to arrange for oxygen therapy on discharge all this was explained to the patient. She is very eager to go home, so she wants to go home and smoke again Reason For Visit: BILATERAL PLEURAL EFFUSION,ACUTE HYPOXEMIA, Physical Exam Vital Signs: Temp Pulse Resp BP Pulse Ox 98.9 F 70 18 187/90 H 93 02/15/19 10:48 02/15/19 18:15 02/15/19 18:15 02/15/19 10:48 02/15/19 18:15 Intake & Output 02/14/19 02/15/19 02/16/19 06:59 06:59 06:59 Intake Total 550 855 681 Output Total 900 275 Balance -350 580 681 Weight 56.9 kg 55.7 kg 55 kg General appearance: PRESENT: mild distress Eye exam: PRESENT: PERRLA Respiratory exam: PRESENT: wheezes, other - Kyphosis Cardiovascular exam: PRESENT: +S1, +S2 GI/Abdominal exam: PRESENT: soft Neurological exam: PRESENT: alert Results Laboratory Results: 02/13/19 04:36 02/13/19 04:36 02/10/19 13:36 Blood Blood Culture - Final NO GROWTH IN 5 DAYS 02/10/19 11:15 Blood Blood Culture - Final NO GROWTH IN 5 DAYS 02/10/19 02/10/19 02/10/19 11:15 11:15 18:13 Creatine Kinase 96 77 CK-MB (CK-2) 1.73 Troponin I 0.031 NT-Pro-B Natriuret Pep 7770 H 02/10/19 18:13 Creatine Kinase CK-MB (CK-2) 1.27 Troponin I 0.017 NT-Pro-B Natriuret Pep Impressions: Chest CT 02/10/19 00:00 IMPRESSION: 1. Multicentric pneumonias. 2. Cardiomegaly. 3. Hiatal hernia. 4. Cannot entirely exclude sternal fractures. Correlate clinically. Chest X-Ray 03/13/19 11:11 IMPRESSION: Interval development of patchy bilateral infiltrates. Most likely infectious etiology. Possible small left pleural effusion. See above discussion. Head CT 02/11/19 00:00 IMPRESSION: Moderate left maxillary and left sphenoid sinusitis with acute inflammatory component. Small right frontoparietal infarct/encephalomalacia. Else, no acute findings. Assessment & Plan - Diagnosis (1) Acute hypoxemic respiratory failure Is this a current diagnosis for this admission?: Yes (2) Bilateral pneumonia Qualifiers: Pneumonia type: due to unspecified organism Lung location: unspecified part of lung Qualified Code(s): J18.9 - Pneumonia, unspecified organism Is this a current diagnosis for this admission?: Yes Plan: Continue antibiotic (3) COPD (chronic obstructive pulmonary disease) Qualifiers: COPD type: unspecified COPD Qualified Code(s): J44.9 - Chronic obstructive pulmonary disease, unspecified Is this a current diagnosis for this admission?: Yes (4) Insomnia Qualifiers: Insomnia type: unspecified Qualified Code(s): G47.00 - Insomnia, unspecifi ed Is this a current diagnosis for this admission?: Yes
--- NOTE | 2019-02-15 21:24 | RADIOLOGY REPORT (SQ) ---
EXAM DESCRIPTION: XR CHEST 2 VIEWS COMPLETED DATE/TME: 02/15/2019 00:00 CLINICAL HISTORY: 79 years, Female, pneumonia Findings: Heart is moderately enlarged. Mild to moderate bilateral pleural effusions. No pneumothorax. Bilateral lower lobe airspace consolidations are noted. Findings appear worse than the prior study. IMPRESSION: Findings consistent with worsening bilateral lower lobe pneumonia.
[2019-02-15] MEDS: CEFEPIME 2 GM/D5W RTU 2 GM/50 ML RTUPB IV SCH (22:49)
[2019-02-15] MEDS: TRAZODONE HCL 50 MG TABLET PO SCH (22:50)
[2019-02-15] MEDS: ATORVASTATIN CALCIUM 10 MG TABLET PO SCH (22:50)
[2019-02-15] MEDS: MELATONIN 3 MG TABLET PO SCH (22:50)
[2019-02-16] MEDS: TRAMADOL HCL 50 MG TABLET PO PRN (02:54)
[2019-02-16 03:13] LABS: APPEARANCE,URINE SLIGHTLY-CLOUDY; BILIRUBIN,URINE SMALL (NEGATIVE); COLOR,URINE YELLOW; GLUCOSE, URINE NEGATIVE (NEGATIVE); KETONES,URINE NEGATIVE (NEGATIVE); LEUKOCYTE ESTERASE,URINE TRACE (NEGATIVE); NITRITE,URINE NEGATIVE (NEGATIVE); PROTEIN,URINE NEGATIVE (NEGATIVE); URINE SPECIFIC GRAVITY 1.031; UROBILINOGEN,URINE NEGATIVE mg/dL (<2.0)
[2019-02-16] MEDS: PANTOPRAZOLE SODIUM 40 MG TABLET.DR PO SCH (05:05)
[2019-02-16] MEDS: INSULIN LISPRO 100 UNIT/ML 3 ML VIAL SUBCUT SCH ×4 (08:47→21:22)
[2019-02-16] MEDS: METOPROLOL TARTRATE 25 MG TABLET PO SCH ×2 (10:01→21:25)
[2019-02-16] MEDS: ASPIRIN 81 MG TABLET, CHEWABLE PO SCH (10:01)
[2019-02-16] MEDS: METFORMIN HCL 500 MG TABLET PO SCH ×2 (10:01→21:25)
[2019-02-16] MEDS: LEVOFLOXACIN 750 MG/D5W RTU 750 MG/150 ML RTUPB IV SCH (10:02)
[2019-02-16] MEDS: ENOXAPARIN SODIUM INJ 40 MG/0.4 ML DISP.SYRIN SUBCUT SCH (10:02)
[2019-02-16] MEDS: POLYMYXIN B SULFATE/TMP OPH SOLN 10 ML OU SCH ×2 (10:03→21:26)
--- NOTE | 2019-02-16 20:39 | PDOC PROGRESS REPORT ---
Subjective Progress Note for:: 02/16/19 Subjective:: Patient was seen by the bedside today, she has increased work of breathing the initial plan was for her to be discharged back to assisted living facility tomorrow because she showed improve clinical improvement since admission, a chest x-ray that was done today demonstrated moderate bilateral pleural effusion with lower lobe airspace consolidation bilaterally. She obviously cannot be transferred to the facility tomorrow because of worsening clinical status, this was explained to the patient, she is in agreement. Ultrasound-guided thoracentesis will be ordered Reason For Visit: BILATERAL PLEURAL EFFUSION,ACUTE HYPOXEMIA, Physical Exam Vital Signs: Temp Pulse Resp BP Pulse Ox 97.5 F 73 16 166/71 H 90 L 02/16/19 19:19 02/16/19 19:19 02/16/19 19:19 02/16/19 19:19 02/16/19 19:19 Intake & Output 02/15/19 02/16/19 02/17/19 06:59 06:59 06:59 Intake Total 855 953 808 Output Total 275 Balance 580 953 808 Weight 55.7 kg 56 kg General appearance: PRESENT: mild distress Eye exam: PRESENT: PERRLA Respiratory exam: PRESENT: retraction, wheezes, other - Thoracic kyphosis Cardiovascular exam: PRESENT: +S1, +S2 GI/Abdominal exam: PRESENT: soft Neurological exam: PRESENT: alert Results Laboratory Results: 02/13/19 04:36 02/13/19 04:36 02/16/19 01:40 Urine Color YELLOW Urine Appearance SLIGHTLY-CLOUDY Urine pH 5.0 Ur Specific [place] 1.031 Urine Protein NEGATIVE Urine Glucose (UA) NEGATIVE Urine Ketones NEGATIVE Urine Blood MODERATE H Urine Nitrite NEGATIVE Ur Leukocyte Esterase TRACE H Urine WBC (Auto) 20 Urine RBC (Auto) 31 02/10/19 02/10/19 02/10/19 11:15 11:15 18:13 Creatine Kinase 96 77 CK-MB (CK-2) 1.73 Troponin I 0.031 NT-Pro-B Natriuret Pep 7770 H 02/10/19 18:13 Creatine Kinase CK-MB (CK-2) 1.27 Troponin I 0.017 NT-Pro-B Natriuret Pep Impressions: Chest CT 02/10/19 00:00 IMPRESSION: 1. Multicentric pneumonias. 2. Cardiomegaly. 3. Hiatal hernia. 4. Cannot entirely exclude sternal fractures. Correlate clinically. Head CT 02/11/19 00:00 IMPRESSION: Moderate left maxillary and left sphenoid sinusitis with acute inflammatory component. Small right frontoparietal infarct/encephalomalacia. Else, no acute findings. Chest X-Ray 02/15/19 00:00 IMPRESSION: Findings consistent with worsening bilateral lower lobe pneumonia. Assessment & Plan - Diagnosis (1) Acute hypoxemic respiratory failure Is this a current diagnosis for this admission?: Yes Plan: She continues to require oxygen (2) Bilateral pneumonia Qualifiers: Pneumonia type: due to unspecified organism Lung location: unspecified part of lung Qualified Code(s): J18.9 - Pneumonia, unspecified organism Is this a current diagnosis for this admission?: Yes (3) COPD (chronic obstructive pulmonary disease) Qualifiers: COPD type: unspecified COPD Qualified Code(s): J44.9 - Chronic obstructive pulmonary disease, unspecified Is this a current diagnosis for this admission?: Yes (4) Insomnia Qualifiers: Insomnia type: unspecified Qualified Code(s): G47.00 - Insomnia, unspecified Is this a current diagnosis for this admission?: Yes (5) Bilateral pleural effusion Is this a current diagnosis for this admission?: Yes Plan: Thoracentesis will be ordered to differentiate between transudate or exudative pleural effusion
[2019-02-16 21:02] LABS: INTERNATIONAL RATION (INR) 1.02; PARTIAL THROMBOPLASTIN TIME 27.8 SEC (23.5-35.8); PROTHROMBIN TIME 13.9 SEC (11.4-15.4)
[2019-02-16 21:13] LABS: TOTAL PROTEIN 5.4 g/dL (6.3-8.2)
[2019-02-16] MEDS: CEFEPIME 2 GM/D5W RTU 2 GM/50 ML RTUPB IV SCH (21:24)
[2019-02-16] MEDS: ATORVASTATIN CALCIUM 10 MG TABLET PO SCH (21:25)
[2019-02-16] MEDS: TRAZODONE HCL 50 MG TABLET PO SCH (21:25)
[2019-02-16] MEDS: MELATONIN 3 MG TABLET PO SCH (21:26)
[2019-02-17] MEDS: PANTOPRAZOLE SODIUM 40 MG TABLET.DR PO SCH (05:20)
[2019-02-17] MEDS: TRAMADOL HCL 50 MG TABLET PO PRN (05:21)
[2019-02-17 06:41] LABS: INTERNATIONAL RATION (INR) 1.01; PROTHROMBIN TIME 13.8 SEC (11.4-15.4)
[2019-02-17] MEDS: INSULIN LISPRO 100 UNIT/ML 3 ML VIAL SUBCUT SCH ×4 (07:28→21:40)
[2019-02-17] MEDS: ENOXAPARIN SODIUM INJ 40 MG/0.4 ML DISP.SYRIN SUBCUT SCH (10:14)
[2019-02-17] MEDS: ASPIRIN 81 MG TABLET, CHEWABLE PO SCH (10:14)
[2019-02-17] MEDS: METOPROLOL TARTRATE 25 MG TABLET PO SCH ×2 (10:36→21:20)
[2019-02-17] MEDS: METFORMIN HCL 500 MG TABLET PO SCH ×2 (10:36→21:20)
[2019-02-17] MEDS: POLYMYXIN B SULFATE/TMP OPH SOLN 10 ML OU SCH ×2 (10:38→21:21)
--- NOTE | 2019-02-17 11:07 | RADIOLOGY REPORT (SQ) ---
EXAM DESCRIPTION: U/S CHEST COMPLETED DATE/TIME: 02/17/2019 10:52 am REASON FOR STUDY: pleural effusion COMPARISON: None. TECHNIQUE: Dynamic and static grayscale images acquired of the localized site of clinical concern an d recorded on PACS. Additional selected color Doppler and spectral images recorded. SITE OF CONCERN: Bilateral pleural space. LIMITATIONS: None. FINDINGS: No significant pleural fluid. IMPRESSION: No significant pleural effusion. TECHNICAL DOCUMENTATION: JOB ID: [id number] [email or web address]- All Rights Reserved Reading location - IP/workstation name: [email or web address]
--- NOTE | 2019-02-17 17:39 | PDOC PROGRESS REPORT ---
Subjective Progress Note for:: 02/17/19 Subjective:: Patient was seen by the bedside, she went to radiology for ultrasound-guided thoracentesis but Minimal pleural fluid was found Reason For Visit: BILATERAL PLEURAL EFFUSION,ACUTE HYPOXEMIA, Physical Exam Vital Signs: Temp Pulse Resp BP Pulse Ox 97.8 F 64 20 164/80 H 92 02/17/19 11:18 02/17/19 15:17 02/17/19 15:17 02/17/19 15:17 02/17/19 15:17 Intake & Output 02/16/19 02/17/19 02/18/19 06:59 06:59 06:59 Intake Total 953 1095 Balance 953 1095 Weight 56 kg General appearance: PRESENT: mild distress Eye exam: PRESENT: PERRLA Respiratory exam: PRESENT: rhonchi, wheezes Cardiovascular exam: PRESENT: +S1, +S2 GI/Abdominal exam: PRESENT: soft Neurological exam: PRESENT: alert Results Laboratory Results: 02/13/19 04:36 02/13/19 04:36 02/16/19 20:40 Total Protein 5.4 L 02/10/19 02/10/19 02/10/19 11:15 11:15 18:13 Creatine Kinase 96 77 CK-MB (CK-2) 1.73 Troponin I 0.031 NT-Pro-B Natriuret Pep 7770 H 02/10/19 18:13 Creatine Kinase CK-MB (CK-2) 1.27 Troponin I 0.017 NT-Pro-B Natriuret Pep Impressions: Chest CT 02/10/19 00:00 IMPRESSION: 1. Multicentric pneumonias. 2. Cardiomegaly. 3. Hiatal hernia. 4. Cannot entirely exclude sternal fractures. Correlate clinically. Head CT 02/11/19 00:00 IMPRESSION: Moderate left maxillary and left sphenoid sinusitis with acute inflammatory component. Small right frontoparietal infarct/encephalomalacia. Else, no acute findings. Chest X-Ray 02/15/19 00:00 IMPRESSION: Findings consistent with worsening bilateral lower lobe pneumonia. Chest Ultrasound 02/17/19 00:00 IMPRESSION: No significant pleural effusion. Assessment & Plan - Diagnosis (1) Acute hypoxemic respiratory failure Is this a current diagnosis for this admission?: Yes Plan: She continues to require high volume oxygen (2) Bilateral pneumonia Qualifiers: Pneumonia type: due to unspecified organism Lung location: unspecified part of lung Qualified Code(s): J18.9 - Pneumonia, unspecified organism Is this a current diagnosis for this admission?: Yes Plan: Continue antibiotic (3) COPD (chronic obstructive pulmonary disease) Qualifiers: COPD type: unspecified COPD Qualified Code(s): J44.9 - Chronic obstructive pulmonary disease, unspecified Is this a current diagnosis for this admission?: Yes Plan: Continue bronchodilators (4) Insomnia Qualifiers: Insomnia type: unspecified Qualified Code(s): G47.00 - Insomnia, unspecified Is this a current diagnosis for this admission?: Yes (5) Bilateral pleural effusion Is this a current diagnosis for this admission?: Yes
[2019-02-17] MEDS: MELATONIN 3 MG TABLET PO SCH (21:20)
[2019-02-17] MEDS: TRAZODONE HCL 50 MG TABLET PO SCH (21:20)
[2019-02-17] MEDS: ATORVASTATIN CALCIUM 10 MG TABLET PO SCH (21:21)
[2019-02-17] MEDS: CEFEPIME 2 GM/D5W RTU 2 GM/50 ML RTUPB IV SCH (21:27)
[2019-02-18] MEDS: TRAMADOL HCL 50 MG TABLET PO PRN (00:16)
[2019-02-18] MEDS: PANTOPRAZOLE SODIUM 40 MG TABLET.DR PO SCH (05:00)
[2019-02-18] MEDS: INSULIN LISPRO 100 UNIT/ML 3 ML VIAL SUBCUT SCH ×4 (07:47→21:42)
[2019-02-18] MEDS: METFORMIN HCL 500 MG TABLET PO SCH ×2 (10:07→21:42)
[2019-02-18] MEDS: ASPIRIN 81 MG TABLET, CHEWABLE PO SCH (10:15)
[2019-02-18] MEDS: ENOXAPARIN SODIUM INJ 40 MG/0.4 ML DISP.SYRIN SUBCUT SCH (10:15)
[2019-02-18] MEDS: METOPROLOL TARTRATE 25 MG TABLET PO SCH ×2 (10:15→21:41)
[2019-02-18] MEDS: POLYMYXIN B SULFATE/TMP OPH SOLN 10 ML OU SCH (10:15)
[2019-02-18] MEDS ORDERED: AMLODIPINE BESYLATE 5 MG TABLET PO ONE (13:00)
--- NOTE | 2019-02-18 18:03 | PDOC TRANSFER SUMMARY ---
General - Admit/Disc Date/PCP Admission Date/Primary Care Provider: 02/10/19 13:26 EVANGELINA QUESADA MD Discharge Date: 02/19/19 - Discharge Diagnosis (1) Acute hypoxemic respiratory failure Is this a current diagnosis for this admission?: Yes (2) Bilateral pneumonia Is this a current diagnosis for this admission?: Yes (3) COPD (chronic obstructive pulmonary disease) Is this a current diagnosis for this admission?: Yes (4) Insomnia Is this a current diagnosis for this admission?: Yes (5) Bilateral pleural effusion Is this a current diagnosis for this admission?: Yes (6) Respiratory failure with hypoxia and hypercapnia Is this a current diagnosis for this admission?: Yes - Additional Information Resuscitation Status: Full Code Prescriptions: Levofloxacin [Levaquin 750 mg Tablet] 750 mg PO DAILY #10 tab Home Medications: Acetaminophen [Tylenol] 650 mg PO Q4HP PRN 02/11/19 Albuterol Sulfate [Ventolin Hfa 8 gm Mdi (1 Mdi/ER Disp)] 2 puff IH ASDIR PRN 02/11/19 Aspirin [Aspirin 81 mg Chewable Tablet] 81 mg PO DAILY 02/11/19 Atorvastatin Calcium [Lipitor 10 mg Tablet] 10 mg PO QHS 02/11/19 Butalb/Acetaminophen/Caffeine [Fioricet (50-325-40 mg) Tablet] 1 tab PO Q4HP PRN 02/11/19 Cyanocobalamin (Vitamin B-12) [Vitamin B-12] 500 mcg SL MOFR@1000 02/11/19 Melatonin [Melatonin 3 mg Tablet] 6 mg PO QHS 02/11/19 Metformin HCl [Glucophage] 1,000 mg PO Q12 02/11/19 Metoprolol Tartrate [Lopressor 25 mg Tablet] 25 mg PO Q12 02/11/19 Mylanta Liquid 30 ml PO Q4HP PRN 02/11/19 Omeprazole 40 mg PO DAILY 02/11/19 Polymyxin B Sulf/Trimethoprim [Polytrim Eye Drops] 2 drop OU BID 02/11/19 Tramadol HCl [Ultram 50 mg Tablet] 50 mg PO Q8HP PRN 02/11/19 Acetaminophen [Tylenol 325 mg Tablet] 650 mg PO Q6HP PRN tablet 02/18/19 Levofloxacin [Levaquin 750 mg Tablet] 750 mg PO DAILY #10 tab 02/18/19 Trazodone HCl [Desyrel 50 mg Tablet] 50 mg PO QHS #0 tablet 02/18/19 History of Present Illness Admission Date/PCP: 02/10/19 13:26 EVANGELINA QUESADA MD History of Present Illness: BRYAN MOY is a 79 year old female,She has a history of very severe chronic obstructive lung disease, resident of [facility] assisted living facility she was transferred from the assisted living facility to the hospital for evaluation of shortness of breath, cough. A chest x-ray was done that suggest pneumonia subsequent CT chest was done that demonstrated diffuse opacity in both lung field consistent with pneumonia. The blood gas that was done demonstrated hypoxemia.She was treated in the emergency room with noninvasive positive pressure ventilation, BiPAP Hospital Course Hospital Course: Patient was admitted for the management of bilateral pneumonia associated with hypoxemia and hypercapnia, she required noninvasive positive pressure ventilation, BiPAP. She has underlying COPD she is a vivid smoker, she was treated with IV antibiotic cefepime and Levaquin. She is a resident of assisted living facility, she will requires oxygen at least temporarily because she is not able to maintain adequate oxygenation without supplemental oxygen the oxygen saturation is in the low 80s without supplemental oxygen Physical Exam Vital Signs: Temp Pulse Resp BP Pulse Ox 98.1 F 63 18 148/74 H 88 L 02/18/19 15:01 02/18/19 15:01 02/18/19 15:01 02/18/19 15:01 02/18/19 15:01 Intake & Output 02/17/19 02/18/19 02/19/19 06:59 06:59 06:59 Intake Total 1095 250 Balance 1095 250 Weight 55.6 kg General appearance: PRESENT: no acute distress Eye exam: PRESENT: PERRLA Respiratory exam: PRESENT: wheezes Cardiovascular exam: PRESENT: +S1, +S2 GI/Abdominal exam: PRESENT: soft Neurological exam: PRESENT: alert Results Laboratory Results: 02/13/19 04:36 02/13/19 04:36 02/16/19 01:40 Clean Catch Midstream Urine Culture - Final NO GROWTH 2 DAYS 02/10/19 02/10/19 02/10/19 11:15 11:15 18:13 Creatine Kinase 96 77 CK-MB (CK-2) 1.73 Troponin I 0.031 NT-Pro-B Natriuret Pep 7770 H 02/10/19 18:13 Creatine Kinase CK-MB (CK-2) 1.27 Troponin I 0.017 NT-Pro-B Natriuret Pep Impressions: Chest CT 02/10/19 00:00 IMPRESSION: 1. Multicentric pneumonias. 2. Cardiomegaly. 3. Hiatal hernia. 4. Cannot entirely exclude sternal fractures. Correlate clinically. Head CT 02/11/19 00:00 IMPRESSION: Moderate left maxillary and left sphenoid sinusitis with acute inflammatory component. Small right frontoparietal infarct/encephalomalacia. Else, no acute findings. Chest X-Ray 02/15/19 00:00 IMPRESSION: Findings consistent with worsening bilateral lower lobe pneumonia. Chest Ultrasound 02/17/19 00:00 IMPRESSION: No significant pleural effusion. Qualifiers - * PATIENT BEING DISCHARGED WITH ANY OF THE FOLLOWING DIAGNOSIS: No
[2019-02-18] MEDS: TRAZODONE HCL 50 MG TABLET PO SCH (21:41)
[2019-02-18] MEDS: CEFEPIME 2 GM/D5W RTU 2 GM/50 ML RTUPB IV SCH (21:42)
[2019-02-18] MEDS: ATORVASTATIN CALCIUM 10 MG TABLET PO SCH (21:42)
[2019-02-18] MEDS: MELATONIN 3 MG TABLET PO SCH (21:42)
[2019-02-18] MEDS: ACETAMINOPHEN 325 MG TABLET PO PRN (23:38)
[2019-02-19] MEDS: PANTOPRAZOLE SODIUM 40 MG TABLET.DR PO SCH (06:17)
[2019-02-19] MEDS: INSULIN LISPRO 100 UNIT/ML 3 ML VIAL SUBCUT SCH ×2 (09:07→12:56)
[2019-02-19] MEDS: METFORMIN HCL 500 MG TABLET PO SCH (09:26)
[2019-02-19] MEDS: ENOXAPARIN SODIUM INJ 40 MG/0.4 ML DISP.SYRIN SUBCUT SCH (09:27)
[2019-02-19] MEDS: CYANOCOBALAMIN (VITAMIN B-12) 1,000 MCG TABLET PO SCH (09:27)
[2019-02-19] MEDS: ASPIRIN 81 MG TABLET, CHEWABLE PO SCH (09:27)
[2019-02-19] MEDS: METOPROLOL TARTRATE 25 MG TABLET PO SCH (09:27)
[2019-02-19 13:39] VITALS: BP 150/66
[2019-02-19] MEDS ORDERED: NICOTINE 21 MG/24 HR PATCH.TD24 TD SCH (15:00)
[2019-02-20] MEDS ORDERED: NICOTINE 21 MG/24 HR PATCH.TD24 TD SCH (10:00)
== END 2019-02-19 15:10 | DRG 193 ==
LOC: ER 10:53 → EH 13:26 → 3S 17:41
PROVIDERS: ADMIT Internal Medicine; ATTEND Internal Medicine
PROC: 5A09557 Assistance with Respiratory Ventilation, Greater than 96 Consecutive Hours, Continuous Positive Airway Pressure (ICD-10-PCS; principal; 2019-02-10)
DX: J18.9 Pneumonia, unspecified organism (principal); J96.01 Acute respiratory failure with hypoxia; J44.0 Chronic obstructive pulmonary disease with (acute) lower respiratory infection; J44.1 Chronic obstructive pulmonary disease with (acute) exacerbation; J90 Pleural effusion, not elsewhere classified; K21.9 Gastro-esophageal reflux disease without esophagitis; E78.5 Hyperlipidemia, unspecified; I10 Essential (primary) hypertension; G47.00 Insomnia, unspecified; E11.9 Type 2 diabetes mellitus without complications; M19.90 Unspecified osteoarthritis, unspecified site; F17.210 Nicotine dependence, cigarettes, uncomplicated; Z90.49 Acquired absence of other specified parts of digestive tract; Z82.49 Family history of ischemic heart disease and other diseases of the circulatory system; Z83.3 Family history of diabetes mellitus; Z79.82 Long term (current) use of aspirin; Z79.51 Long term (current) use of inhaled steroids; Z79.84 Long term (current) use of oral hypoglycemic drugs
CPT/HCPCS: 36415; 51702; 70450; 71045; 71046; 71250; 76604; 80053; 81001; 82550; 82553; 82803; 82962; 83036; 83615; 83880; 84155; 84484; 85025; 85610; 85730; 87040; 87086; 93005; 93010; 94640; 94660; 96365; 96375; 99285; J0692; J0696; J1650; J1815; J1956; J2060; J2930; J3490; J7040; J7620

== ENCOUNTER → 2020-04-05 | Outpatient (CLI) | payer MEDICARE ==
--- NOTE | 2020-04-05 13:51 | RADIOLOGY REPORT (SQ) ---
EXAM DESCRIPTION: CT HEAD WITHOUT IMAGES COMPLETED DATE/TIME: 04/05/2020 1:06 pm REASON FOR STUDY: R51 HEADACHE, S00.83XA CONTUSION OF OTHER PART OF HEAD, INITIAL ENCOUNTER R51 MADELINE RODRIGUEZ S00.83XA CONTUSION OF OTHER PART OF HEAD, INITIAL ENCOUNTER COMPARISON: 02/11/2019. TECHNIQUE: Axial images acquired through the brain without intravenous contrast. Images reviewed wi th bone, brain and subdural windows. Images stored on PACS. All CT scanners at this facility use dose modulation, iterative reconstruction, and/or weight based d osing when appropriate to reduce radiation dose to as low as reasonably achievable (ALARA). [facility]: Dose Right [facility]: CareDose [facility]: Dose Right [facility]: Teradose 4D [facility]: Smart AA Party RADIATION DOSE: CT Rad equipment meets quality standard of care and radiation dose reduction techniq ues were employed. CTDIvol: 48.5 mGy. DLP: 854 mGy-cm. mGy. LIMITATIONS: None. FINDINGS: VENTRICLES: Normal size and contour for patient age. CEREBRUM: No masses. No hemorrhage. No midline shift. No evidence for acute infarction. Few scatte red areas of low density in the white matter most likely chronic small vessel ischemic changes. CEREBELLUM: No masses. No hemorrhage. No alteration of density. No evidence for acute infarction. EXTRAAXIAL SPACES: Small amount of increased attenuation along the anterior left frontal lobe and wit hin the sulci along the temporal lobe and insula (series 2, image 15 and series 500, image 26 most co mpatible subarachnoid blood products. No significant mass effect. Node soft tissue masses. Mild pr ominence of the CSF space compatible with parenchymal volume loss. ORBITS AND GLOBE: No intra- or extraconal masses. Normal contour of globe without masses. CALVARIUM: No fracture. PARANASAL SINUSES: No fluid or mucosal thickening. SOFT TISSUES: No mass or hematoma. OTHER: No other significant finding. IMPRESSION: 1. Small amount of subarachnoid blood products along the anterior left frontal lobe and temporal lobe. No significant mass effect. 2. No fracture or other evidence of acute intracranial process. EVIDENCE OF ACUTE STROKE: Small amount of left frontal and temporal subarachnoid blood products. Findings conveyed to Aruna Shelby at 1336 hours on 04/05/2020. COMMENT: Quality ID # [id number]: Final reports with documentation of one or more dose reduction techniques (e.g., Automated exposure control, adjustment of the mA and/or kV according to patient size, use of iterative reconstruction technique) TECHNICAL DOCUMENTATION: JOB ID: [id number] 2010 [employer]- All Rights Reserved Reading location - IP/workstation name: [email or web address]
== END ==
LOC: RAD 12:33
PROVIDERS: ATTEND Clinical Nurse Specialist Adult Health
DX: S00.83XA Contusion of other part of head, initial encounter (principal); X58.XXXA Exposure to other specified factors, initial encounter; R51 Headache
CPT/HCPCS: 70450

== ENCOUNTER 2020-05-27 15:10 | Emergency (ER) | payer MEDICARE ==
[2020-05-27 15:54] LABS: ABSOLUTE BASOPHILS # (AUTO) 0.1 10^3/uL (0.0-0.2); ABSOLUTE EOSINOPHILS # (AUTO) 0.2 10^3/uL (0.0-0.6); ABSOLUTE LYMPHOCYTES (AUTO) 1.2 10^3/uL (0.5-4.7); ABSOLUTE MONOCYTES (AUTO) 0.7 10^3/uL (0.1-1.4); ABSOLUTE NEUT (AUTO) 4.9 10^3/uL (1.7-8.2); EOSINOPHILS % (AUTO) 3.4 % (0-6); HEMATOCRIT 36.5 % (36.0-47.0); HEMOGLOBIN 12.2 g/dL (12.0-15.5); LYMPHOCYTES % (AUTO) 16.8 % (13-45); MEAN CORPUSCULAR HGB CONC 33.4 g/dL (32.0-36.0); MEAN CORPUSCULAR VOLUME 93 fl (80-97); MONOCYTES % (AUTO) 9.4 % (3-13); PLATELET COUNT 232 10^3/uL (150-450); RED BLOOD COUNT 3.94 10^6/uL (3.72-5.28); RED CELL DISTRIBUTION WIDTH 15.5 % (11.5-14.0); SEGMENTED NEUTROPHILS % (AUTO) 69.4 % (42-78); TOTAL CELLS COUNTED % (AUTO) 100 %
[2020-05-27 16:02] LABS: ALBUMIN 3.7 g/dL (3.5-5.0); ALKALINE PHOSPHATASE 53 U/L (38-126); ANION GAP 8 (5-19); ASPARTATE AMINO TRANSFERASE 19 U/L (14-36); BILIRUBIN,TOTAL 0.6 mg/dL (0.2-1.3); BLOOD UREA NITROGEN 28 mg/dL (7-20); CALCIUM 9.3 mg/dL (8.4-10.2); CARBON DIOXIDE 28 mmol/L (22-30); CHLORIDE 104 mmol/L (98-107); CREATINE KINASE 72 U/L (30-135); GLUCOSE 123 mg/dL (75-110); POTASSIUM 3.6 mmol/L (3.6-5.0); TOTAL PROTEIN 6.1 g/dL (6.3-8.2)
[2020-05-27 16:14] LABS: CREATINE KINASE MB 0.92 ng/mL (<4.55)
[2020-05-27 16:17] LABS: TROPONIN I < 0.012 ng/mL
[2020-05-27] MEDS ORDERED: NORMAL SALINE 1000 ML 1,000 ML IV ONE (17:56)
--- NOTE | 2020-05-27 18:39 | RADIOLOGY REPORT (SQ) ---
EXAM DESCRIPTION: CHEST 2 VIEWS IMAGES COMPLETED DATE/TIME: 05/27/2020 5:17 pm REASON FOR STUDY: hypotension COMPARISON: CT chest, 02/11/2020. Chest radiograph, 02/16/2020. EXAM PARAMETERS: NUMBER OF VIEWS: two views TECHNIQUE: Digital Frontal and Lateral radiographic views of the chest acquired. RADIATION DOSE: NA LIMITATIONS: none FINDINGS: LUNGS AND PLEURA: There is improved aeration at the lung bases with no residual pleural ef fusions. Lungs are hyperinflated. Pleural and parenchymal scarring at the left mid lung. No focal consolidation. No pneumothorax. MEDIASTINUM AND HILAR STRUCTURES: Large hiatal hernia is unchanged. HEART AND VASCULAR STRUCTURES: Marked cardiomegaly, stable. BONES: No acute findings. HARDWARE: None in the chest. OTHER: No other significant finding. IMPRESSION: No acute cardiopulmonary disease. Hyperinflated lungs which can be seen with obstructiv e lung disease. Marked cardiomegaly. TECHNICAL DOCUMENTATION: JOB ID: [id number] 2010 [employer]- All Rights Reserved Reading location - IP/workstation name: [email or web address]
[2020-05-27 21:10] LABS: APPEARANCE,URINE CLEAR; BILIRUBIN,URINE NEGATIVE (NEGATIVE); COLOR,URINE YELLOW; GLUCOSE, URINE NEGATIVE (NEGATIVE); KETONES,URINE NEGATIVE (NEGATIVE); LEUKOCYTE ESTERASE,URINE NEGATIVE (NEGATIVE); NITRITE,URINE NEGATIVE (NEGATIVE); PROTEIN,URINE 30 mg/dL (NEGATIVE); URINE SPECIFIC GRAVITY 1.018; UROBILINOGEN,URINE NEGATIVE mg/dL (<2.0)
--- NOTE | 2020-05-27 21:22 | ER Document Report ---
ED General - General Chief Complaint: General Weakness Stated Complaint: HYPOTENSION Time Seen by Provider: 05/27/20 17:53 Primary Care Provider: EHSAN AG ANP [Primary Care Provider] - Follow up as needed TRAVEL OUTSIDE OF THE [place] IN LAST 30 DAYS: No - HPI Notes: Patient is a 80-year-old female, sent in from the [facility], for evaluation of dizziness and low blood pressure. Evidently the patient seemed jittery per staff, they checked her blood pressure and it was low. EMS found her systolic to be in the 80s. The patient states she really does not have any symptoms at all. She states she might of felt more weak, but that is not something that is abnormal for her. She has a chronic cough secondary to COPD, states is not worse than normal. She denies any fevers and chills. She is had a normal appetite. She is eating and drinking normally. Normal urination, normal bowel movements. She denies any cuts or rashes. - Related Data Allergies/Adverse Reactions: No Known Allergies Allergy (Unverified 08/13/17 09:54) Home Medications: Atorvastatin. dilacor. hydralazine. HCTZ. omeprazole. metoporol. metformin. trazadone. lisinopril. melatonin Past Medical History - General Information source: Patient - Social History Smoking Status: Former Smoker Family History: Reviewed & Not Pertinent, CAD, DM, Hypertension, Malignancy - Past Medical History Cardiac Medical History: Reports: Hx Hypercholesterolemia, Hx Hypertension Denies: Hx Congestive Heart Failure Pulmonary Medical History: Reports: Hx Asthma, Hx COPD Neurological Medical History: Denies: Hx Seizures Endocrine Medical History: Reports: Hx Diabetes Mellitus Type 2. Denies: Hx Hyperthyroidism, Hx Hypothyroidism Renal/ Medical History: Denies: Hx Peritoneal Dialysis GI Medical History: Reports: Hx Gastroesophageal Reflux Disease. Denies: Hx Crohn's Disease, Hx Ulcerative Colitis Musculoskeletal Medical History: Reports Hx Arthritis Skin Medical History: Denies Hx Psoriasis Traumatic Medical History: Denies: Hx Traumatic Brain Injury Past Surgical History: Reports: Hx Appendectomy - Immunizations Hx Diphtheria, Pertussis, Tetanus Vaccination: Yes Review of Systems - Review of Systems Constitutional: See HPI -: Yes All other systems reviewed and negative Physical Exam - Vital signs Vitals: Resp BP Pulse Ox 25 H 99/52 L 96 05/27/20 15:11 05/27/20 15:11 05/27/20 15:11 - Notes Notes: This is a frail-appearing 80-year-old female who appears her stated age, no acute distress. Vital signs reviewed, please refer to chart. Head is normocephalic, atraumatic. Pupils equal round, reactive to light. Neck is supple without meningismus. Heart is regular rate and rhythm. Lungs revealed mildly diminished breath sounds, prolonged expiratory phase. Anterior rhonchi that cleared with coughing. Abdomen is soft, nontender, normoactive bowel soun ds throughout. Extremities without cyanosis, clubbing. Posterior calves are nontender. Peripheral pulses are equal. Skin is warm and dry. Patient is awake, alert, cooperative with examiner. No gross facial asymmetry. Moves all 4 extremities spontaneously. Course - Re-evaluation Re-evalutation: 05/27/20 21:22 Patient presents to the emergency department for evaluation. She had laboratory investigations as ordered through nursing protocol. I did order a septic work- up. No clear source of infection is identified. Patient was given IV fluids prior to arrival, she did not have any further hypotensive episodes. Cultures are pending. I do not see any clear source of infection at this time. They are to keep a close eye on her blood pressure, follow-up with primary care, return to the ER with worsening or new concerning symptoms of any sort. - Vital Signs Vital signs: Temp Pulse Resp BP Pulse Ox 98.2 F 64 14 118/58 L 94 05/28/20 01:34 05/28/20 01:34 05/28/20 01:34 05/28/20 01:34 05/28/20 01:34 - Laboratory Result Diagrams: 05/27/20 15:19 05/27/20 15:19 Laboratory results interpreted by me: 05/27/20 05/27/20 05/27/20 15:19 15:19 20:30 RDW 15.5 H BUN 28 H Est GFR (MDRD) Non-Af 52 L Glucose 123 H Total Protein 6.1 L Urine Protein 30 H - Diagnostic Test Radiology reviewed: Reports reviewed Radiology results interpreted by me: 05/27/20 21:24 Chest X-Ray 05/27/20 17:54 IMPRESSION: No acute cardiopulmonary disease. Hyperinflated lungs which can be seen with obstructive lung disease. Marked cardiomegaly. Discharge - Discharge Clinical Impression: Transient hypotension Condition: Stable Disposition: HOME-SNF (ED ONLY) Additional Instructions: No clear cause was identified for leg or low blood pressure today. Cultures are still pending. Rest. [facility]. Hypertensive medication should be held for a blood pressure less than 100 sys tolic. Follow-up closely with primary care. Return to the emergency department with worsening or new concerning symptoms of any sort. Referrals: EHSAN AG ANP [Primary Care Provider] - Follow up as needed
--- NOTE | 2020-05-27 22:14 | EKG REPORT ---
SEVERITY:- ABNORMAL ECG - SINUS RHYTHM LEFT ATRIAL ABNORMALITY PROBABLE LEFT VENTRICULAR HYPERTROPHY INFERIOR INFARCT, OLD : Confirmed by: Alice Warner 27-May-2020 22:13:06
[2020-05-28 01:35] VITALS: BP 118/58
== END 2020-05-28 01:35 ==
LOC: ER 15:10
DX: I95.89 Other hypotension (principal); J44.9 Chronic obstructive pulmonary disease, unspecified; E78.00 Pure hypercholesterolemia, unspecified; I10 Essential (primary) hypertension; E11.9 Type 2 diabetes mellitus without complications; Z79.84 Long term (current) use of oral hypoglycemic drugs
CPT/HCPCS: 93005; 99285; 96360; 96361; 36415; 87040; 87086; 82553; 82550; 85025; 80053; 81001; 84484; 71046; 93010; J7030

== ENCOUNTER → 2020-09-19 | Outpatient (CLI) | payer MEDICARE ==
--- NOTE | 2020-09-19 14:25 | RADIOLOGY REPORT (SQ) ---
EXAM DESCRIPTION: CT HEAD WITHOUT IMAGES COMPLETED DATE/TIME: 09/19/2020 1:53 pm REASON FOR STUDY: HEADACHE R51.9 HEADACHE, UNSPECIFIED COMPARISON: 04/05/2020 and 02/11/2019. TECHNIQUE: Axial images acquired through the brain without intravenous contrast. Images reviewed wi th bone, brain and subdural windows. Additional sagittal and coronal reconstructions were generated. Images stored on PACS. All CT scanners at this facility use dose modulation, iterative reconstruction, and/or weight based d osing when appropriate to reduce radiation dose to as low as reasonably achievable (ALARA). [facility]: Dose Right [facility]: CareDose [facility]: Dose Right [facility]: Teradose 4D [facility]: Offline Media RADIATION DOSE: CT Rad equipment meets quality standard of care and radiation dose reduction techniq ues were employed. CTDIvol: 48.5 mGy. DLP: 879 mGy-cm.mGy. LIMITATIONS: None. FINDINGS: VENTRICLES: Prominent. CEREBRUM: No masses. No hemorrhage. No midline shift. Areas of low density in the white matter mos t likely due to chronic micro-vascular ischemic change. 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 N No evidence for acute infarction. CEREBELLUM: No masses. No hemorrhage. No alteration of density. No evidence for acute infarction. EXTRAAXIAL SPACES: Age-related involutional change. No fluid collections. No masses. ORBITS AND GLOBE: No intra- or extraconal masses. Normal contour of globe without masses. CALVARIUM: No fracture. PARANASAL SINUSES: No fluid or mucosal thickening. SOFT TISSUES: No mass or hematoma. OTHER: No other significant finding. IMPRESSION: CHRONIC CHANGES OF ATROPHY AND MICROVASCULAR ISCHEMIA. STABLE OLD INFARCTS. NO ACUTE P ROCESS. EVIDENCE OF ACUTE STROKE: NO. TECHNICAL DOCUMENTATION: JOB ID: [id number] Quality ID # 436: Final reports with documentation of one or more dose reduction techniques (e.g., Au tomated exposure control, adjustment of the mA and/or kV according to patient size, use of iterative reconstruction technique) 2010 [employer]- All Rights Reserved Reading location - IP/workstation name: [email or web address]
== END ==
LOC: RAD 13:32
PROVIDERS: ATTEND Clinical Nurse Specialist Adult Health
DX: R51.9 Headache, unspecified (principal)
CPT/HCPCS: 70450

== ENCOUNTER 2020-10-25 21:16 | Inpatient (IN) | payer MEDICARE ==
--- NOTE | 2020-10-25 22:46 | ER Document Report ---
ED General - General Chief Complaint: dizzy,chest pain,fall Stated Complaint: DIZZY Time Seen by Provider: 10/25/20 22:30 Primary Care Provider: EHSAN AG ANP [Primary Care Provider] - Follow up as needed Notes: Patient is a 80-year-old female comes by EMS from [facility] for chief complaint of an episode where she was complaining of feeling dizzy, short of breath, and discomfort in her chest. Patient reportedly fell against a wall when she got up, staff became concerned and called EMS. Patient was not noted to be febrile, however she was noted to be hypoxic "in the 80s" per nursing report. Patient was placed on 4 L nasal cannula and on arrival was 94% oxygen saturation. Patient states that she feels "kind of like it is hard to catch my breath", she denies chest pain, she denies cough, she denies any other symptoms or complaints at this time. History is limited given patient's history of some dementia. Past medical history includes COPD, hypertension, type 2 diabetes, GERD. TRAVEL OUTSIDE OF THE [place] IN LAST 30 DAYS: No - Related Data Allergies/Adverse Reactions: No Known Allergies Allergy (Unverified 08/13/17 09:54) Home Medications: copy in chart Past Medical History - General Information source: Patient, Transfer Record, Emergency Med Personnel - Social History Smoking Status: Former Smoker Frequency of alcohol use: None Drug Abuse: None Lives with: Prison Family History: Reviewed & Not Pertinent, CAD, DM, Hypertension, Malignancy - Past Medical History Cardiac Medical History: Reports: Hx Congestive Heart Failure, Hx Hypercholesterolemia, Hx Hypertension Pulmonary Medical History: Reports: Hx Asthma, Hx COPD Neurological Medical History: Denies: Hx Seizures Endocrine Medical History: Reports: Hx Diabetes Mellitus Type 2. Denies: Hx Hyperthyroidism, Hx Hypothyroidism Renal/ Medical History: Denies: Hx Peritoneal Dialysis GI Medical History: Reports: Hx Gastroesophageal Reflux Disease. Denies: Hx Crohn's Disease, Hx Ulcerative Colitis Musculoskeletal Medical History: Reports Hx Arthritis Skin Medical History: Denies Hx Psoriasis Traumatic Medical History: Denies: Hx Traumatic Brain Injury Past Surgical History: Reports: Hx Appendectomy - Immunizations Hx Diphtheria, Pertussis, Tetanus Vaccination: Yes Review of Systems - Review of Systems Constitutional: See HPI EENT: No symptoms reported Cardiovascular: See HPI Respiratory: See HPI Gastrointestinal: No symptoms reported Genitourinary: No symptoms reported Female Genitourinary: No symptoms reported Musculoskeletal: No symptoms reported Skin: No symptoms reported Hematologic/Lymphatic: No symptoms reported Neurological/Psychological: No symptoms reported Physical Exam - Vital signs Vitals: Temp Resp BP Pulse Ox 98.3 F 22 H 104/58 L 90 L 10/25/20 21:16 10/25/20 21:16 10/25/20 21:16 10/25/20 21:16 - Notes Notes: GENERAL: Patient is alert and does not appear to be in distress, chronically ill-appearing HEAD: Normocephalic, atraumatic. EYES: Pupils equal, round, and reactive to light. Extraocular movements intact. ENT: Oral mucosa dry, tongue midline. Oropharynx unremarkable. Airway patent. NECK: Full range of motion. Supple. Trachea midline. No lymphadenopathy. LUNGS: Rales heard in bilateral lower lung spaces. No tachypnea, cough, wheezing, or labored breathing. Otherwise unremarkable. HEART: Regular rate and rhythm. No murmur ABDOMEN: Soft, non-tender. Non-distended. EXTREMITIES: 1+ pitting edema bilaterally, normal radial and dorsalis pulses bilaterally, normal distal neurovascular exam, otherwise unremarkable BACK: no cervical, thoracic, lumbar midline tenderness. No saddle anesthesia, n ormal distal neurovascular exam. Moves all extremities in full range of motion. NEUROLOGICAL: Oriented to place and some events, intermittently confused. Normal speech. Cranial nerves II through XII grossly intact. Strength 5/5 in all extremities. PSYCH: Normal affect, normal mood. SKIN: Warm, dry, normal turgor. No rashes or lesions noted. Course - Re-evaluation Re-evalutation: Patient is hypoxic in the 80s without oxygen, on oxygen at 4 L she is in the mid to low 90s. She has no tachypnea although she does have rales on exam. No fever. Clinical picture is uncertain, this could be CHF exacerbation versus pneumonia, this also could be COVID-19. Patient was tested for COVID-19 and this is pending. Chest x-ray also is uncertain with possible vascular congestion versus pneumonia, possibly both. BNP is elevated but not significantly changed from prior. Troponin is significantly elevated at 1.3. Patient will be given aspirin. However EKG is nonischemic, patient denies chest pain. Patient is intermittently very oriented as well, I did have a conversation with her about her results, she states she absolutely would not want any intervention, specifically no invasive procedures such as a cardiac catheterization. I discussed with Dr. Sargent. CTA will be performed to clarify patient's picture. CTA shows both vascular congestion and likely pneumonia. Patient is being covered for hospital-acquired pneumonia because of the location she came from (long-term care facility), given diuresis, Escalante will be placed because when she ambulates she is a fall risk and she becomes significantly hypoxic. Patient did consent to this. I called and spoke with Dr. Cristobal. He states that the patient has been loc ated at a different facility now, because she has a lighthouse he no longer follows there and he is not the admitting provider for the patient anymore. 10/26/[address] Garduno, patient accepted to Telemetry full admission. Patient states agreement. - Vital Signs Vital signs: Temp Pulse Resp BP Pulse Ox 98.3 F 17 151/89 H 96 10/25/20 21:16 10/26/20 07:01 10/26/20 07:01 10/26/20 07:01 - Laboratory Result Diagrams: 10/26/20 00:00 10/26/20 00:00 Laboratory results interpreted by me: 10/26/20 10/26/20 10/26/20 00:00 00:00 00:00 Hgb 10.0 L Hct 31.8 L MCH 26.2 L MCHC 31.4 L RDW 16.2 H Carbon Dioxide 33 H BUN 41 H Est GFR (MDRD) Non-Af 54 L Glucose 123 H ALT 38 H NT-Pro-B Natriuret Pep 8030 H Total Protein 4.9 L Albumin 3.0 L - EKG Interpretation by Me Additional EKG results interpreted by me: EKG shows sinus rhythm at a rate of 71, LVH with left axis deviation, QTC 413, no T wave inversions or ST segment changes in consecutive leads. Discharge - Discharge Clinical Impression: Hypoxia, Shortness of breath, Elevated troponin, Person under investigation for COVID-19 CHF exacerbation Qualifiers: Heart failure type: unspecified Qualified Code(s): I50.9 - Heart failure, unspecified Pneumonia Qualifiers: Pneumonia type: due to unspecified organism Laterality: bilateral Lung location: unspecified part of lung Qualified Code(s): J18.9 - Pneumonia, unspeci fied organism Condition: Stable Disposition: ADMITTED INPATIENT Admitting Provider: Shaan (Hospitalist) Unit Admitted: Telemetry Referrals: EHSAN AG ANP [Primary Care Provider] - Follow up as needed
--- NOTE | 2020-10-25 23:45 | RADIOLOGY REPORT (SQ) ---
EXAM DESCRIPTION: CHEST SINGLE VIEW CLINICAL HISTORY: 80 years Female, hypoxia COMPARISON: Two views of the chest May 27, 2020 FINDINGS: Lungs: Lung volumes are low and there has been development of abnormality of the lung interstitium probably in the mid and lower lung zone with septal lines. Probable bilateral pleural effusions. More focal consolidation is present in the infrahilar regions bilaterally. Mediastinum: Heart size is enlarged and the mediastinum is widened Bones: Osseous structures are unchanged. IMPRESSION: Interval development of changes of increased intravascular volume with bilateral pleural effusions. More focal consolidation in the lower lobes is also present superimposed pneumonia cannot be excluded.
[2020-10-26 00:50] LABS: VENOUS BLOOD BASE EXCESS 2.1 mmol/L; VENOUS BLOOD HCO3 28.1 mmol/L (20-32); VENOUS BLOOD PCO2 49.1 mmHg (35-63); VENOUS BLOOD PH 7.38 (7.30-7.42)
[2020-10-26 00:52] LABS: ABSOLUTE BASOPHILS # (AUTO) 0.1 10^3/uL (0.0-0.2); ABSOLUTE LYMPHOCYTES (AUTO) 0.7 10^3/uL (0.5-4.7); ABSOLUTE MONOCYTES (AUTO) 0.5 10^3/uL (0.1-1.4); BASOPHILS % (AUTO) 1.1 % (0-2); EOSINOPHILS % (AUTO) 0.8 % (0-6); HEMATOCRIT 31.8 % (36.0-47.0); LYMPHOCYTES % (AUTO) 13.3 % (13-45); MEAN CORPUSCULAR HEMOGLOBIN 26.2 pg (27.0-33.4); MEAN CORPUSCULAR HGB CONC 31.4 g/dL (32.0-36.0); MEAN CORPUSCULAR VOLUME 83 fl (80-97); PLATELET COUNT 191 10^3/uL (150-450); RED BLOOD COUNT 3.81 10^6/uL (3.72-5.28); RED CELL DISTRIBUTION WIDTH 16.2 % (11.5-14.0); SEGMENTED NEUTROPHILS % (AUTO) 75.8 % (42-78); TOTAL CELLS COUNTED % (AUTO) 100 %; WHITE BLOOD COUNT 5.2 10^3/uL (4.0-10.5)
[2020-10-26 01:08] LABS: ALKALINE PHOSPHATASE 48 U/L (38-126); ANION GAP 5 (5-19); ASPARTATE AMINO TRANSFERASE 34 U/L (14-36); BILIRUBIN,DIRECT 0.2 mg/dL (0.0-0.4); BILIRUBIN,TOTAL 0.5 mg/dL (0.2-1.3); BLOOD UREA NITROGEN 41 mg/dL (7-20); CALCIUM 8.7 mg/dL (8.4-10.2); CARBON DIOXIDE 33 mmol/L (22-30); CHLORIDE 100 mmol/L (98-107); GLUCOSE 123 mg/dL (75-110); POTASSIUM 3.8 mmol/L (3.6-5.0); TOTAL PROTEIN 4.9 g/dL (6.3-8.2)
[2020-10-26 01:23] LABS: TROPONIN I 1.35 ng/mL
--- NOTE | 2020-10-26 04:28 | RADIOLOGY REPORT (SQ) ---
CT ANGIOGRAM CHEST WITH IV CONTRAST: 10/26/2020 3:23 AM OPHTHALMIC DISPENSER HISTORY: 80-year old patient with hypoxia, elevated and abnormal troponin level. TECHNIQUE: Postcontrast CT through the chest was performed per protocol for CT angiography. 3D Multiplanar reformations were performed at the workstation. Reconstructed sagittal and coronal images were also obtained through the chest. This exam was performed according to our departmental dose-optimization program, which includes automated exposure control, adjustment of the mA and/or KV according to the patient's size and/or use of iterative reconstruction technique. COMPARISON: None available FINDINGS: The heart size is significantly enlarged. No large pericardial effusion is seen. No significant mediastinal, supraclavicular, or axillary lymphadenopathy is seen. The thoracic aorta is within normal limits of size. The visualized esophagus is patulous. No filling defects are seen within the pulmonary arteries to suggest a pulmonary artery embolism. The main pulmonary artery is enlarged and measures at least 3.5 cm in transverse dimension. The thyroid gland is unremarkable. The central tracheobronchial tree is patent. There are bibasilar space opacities with a small left and moderate right effusion. There are diffuse groundglass opacities with interlobular septal thickening, likely reflecting some background edema. There is a large hiatal hernia containing a large portion of the stomach. No discrete pleural effusion is seen. There is no evidence of a pneumothorax. The bones demonstrate no suspicious lytic or blastic lesion. There are several remote right-sided rib fractures present. Multilevel degenerative changes are seen within the thoracic spine. There is an overall increased thoracic kyphosis noted. There is also scoliotic curvature of the thoracolumbar spine, convex to the left side. The upper to mid thoracic spine is convex to the right side. The visualized portions of the upper abdomen appear grossly unremarkable. IMPRESSION: There are diffuse bilateral groundglass airspace opacities with interlobular septal thickening likely reflecting edema. There are bibasilar airspace opacities with trace effusions, left greater than right. These may reflect atelectasis or infection. No filling defect is seen to suggest a pulmonary artery embolism. The main pulmonary artery is enlarged, which can be seen with pulmonary artery hypertension.
[2020-10-26] MEDS ORDERED: FUROSEMIDE INJ/PF 40 MG/4 ML SDV IV ONE (04:30)
[2020-10-26] MEDS ORDERED: CEFEPIME 2 GM/D5W RTU 2 GM/50 ML RTUPB IV ONE (04:30)
[2020-10-26] MEDS ORDERED: VANCOMYCIN HCL INJ 1000 MG VIAL IV ONE (04:31)
[2020-10-26] MEDS ORDERED: ASPIRIN 81 MG TABLET, CHEWABLE PO ONE (06:14)
[2020-10-26] MEDS ORDERED: ONDANSETRON 4 MG TAB.RAPDIS PO PRN (08:38)
[2020-10-26] MEDS ORDERED: ACETAMINOPHEN 325 MG TABLET PO PRN ×2 (08:38→15:12)
[2020-10-26] MEDS ORDERED: GLUCAGON,HUMAN RECOMB 1 MG INJ IM PRN (08:43)
[2020-10-26] MEDS ORDERED: DEXTROSE 50%-WATER 25 GM/50 ML DISP.SYRIN IV PRN ×2 (08:43)
[2020-10-26] MEDS ORDERED: DEXTROSE 40% GEL 15 GM TUBE PO PRN ×2 (08:43)
--- NOTE | 2020-10-26 09:22 | EKG REPORT ---
SEVERITY:- ABNORMAL ECG - SINUS RHYTHM ATRIAL PREMATURE COMPLEX PROBABLE LEFT ATRIAL ABNORMALITY LEFT ANT FASCICULAR BLOCK LVH WITH SECONDARY REPOLARIZATION ABNORMALITY : Confirmed by: Lowell Stratton MD 26-Oct-2020 09:22:03
[2020-10-26] MEDS: ENOXAPARIN SODIUM INJ 40 MG/0.4 ML DISP.SYRIN SUBCUT SCH (10:51)
[2020-10-26] MEDS: INSULIN LISPRO 100 UNIT/ML 3 ML VIAL SUBCUT SCH ×3 (12:47→21:39)
[2020-10-26] MEDS ORDERED: MYLANTA PO PRN (15:12)
[2020-10-26] MEDS ORDERED: ALBUTEROL SULFATE HFA (90 MCG/PUFF) 8 GM MDI IH PRN (15:18)
--- NOTE | 2020-10-26 15:28 | PDOC H&P ---
History of Present Illness Admission Date/PCP: 10/26/20 08:03 PRAVEENA CABEZAS Patient complains of: Shortness of breath History of Present Illness: BRYAN MOY is a 80 year old female who lives in a longterm. She has dementia and cannot provide much history. All of the history was provided by the ER staff. Apparently she comes by EMS from [facility] for chief complaint of an episode where she was complaining of f eeling dizzy, short of breath, and discomfort in her chest. Patient reportedly fell against a wall when she got up, staff became concerned and called EMS. Patient was not noted to be febrile, however she was noted to be hypoxic "in the 80s" per nursing report. Patient was placed on 4 L nasal cannula and on arrival was 94% oxygen saturation. Patient states that she feels "kind of like it is hard to catch my breath", she denies chest pain, she denies cough, she denies any other symptoms or complaints at this time. History is limited given patient's history of some dementia. Past medical history includes COPD, hypertension, type 2 diabetes, GERD. Past Medical History Cardiac Medical History: Reports: Congestive Heart Failure, Hyperlipidema, Hype rtension Pulmonary Medical History: Reports: Asthma, Chronic Obstructive Pulmonary Disease (COPD) Endocrine Medical History: Reports: Diabetes Mellitus Type 2 GI Medical History: Reports: Gastroesophageal Reflux Disease Musculoskeltal Medical History: Reports: Arthritis Past Surgical History Past Surgical History: Reports: Appendectomy Social History Lives with: Skilled Nursing Smoking Status: Former Smoker Frequency of Alcohol Use: None Hx Recreational Drug Use: No Drugs: None Hx Prescription Drug Abuse: No Family History Family History: Reviewed & Not Pertinent, CAD, DM, Hypertension, Malignancy Parental Family History Reviewed: No - demented Children Family History Reviewed: NA Sibling(s) Family History Reviewed.: NA Medication/Allergy Home Medications: Acetaminophen [Tylenol] 650 mg PO Q4HP PRN 02/11/19 Albuterol Sulfate [Ventolin Hfa 8 gm Mdi (1 Mdi/ER Disp)] 2 puff IH Q4HP PRN 02/11/19 Aspirin [Aspirin 81 mg Chewable Tablet] 81 mg PO DAILY 02/11/19 Melatonin [Melatonin 3 mg Tablet] 3 mg PO QHS 02/11/19 Metoprolol Tartrate [Lopressor 25 mg Tablet] 50 mg PO Q12 02/11/19 Mylanta Liquid 30 ml PO Q4HP PRN 02/11/19 Omeprazole 40 mg PO Q6AM 02/11/19 Budesonide/Formoterol Fumarate [Symbicort HFA 160-4.5 mcg Inhaler 6 gm] 2 puff IH BID 10/26/20 Cyanocobalamin (Vitamin B-12) [Vitamin B-12 1000 mcg Tablet] 500 mcg PO DAILY 10/26/20 Diltiazem HCl [Dilt-Xr] 240 mg PO DAILY 10/26/20 Hydralazine HCl [Apresoline 25 mg Tablet] 25 mg PO Q8 10/26/20 Hydrochlorothiazide [Hydrodiuril 25 mg Tablet] 25 mg PO DAILY 10/26/20 Lisinopril [Zestril] 40 mg PO DAILY 10/26/20 Metformin HCl [Metformin HCl ER] 500 mg PO BID 10/26/20 Olopatadine HCl [Pataday] 1 drop OU DAILY 10/26/20 Sertraline HCl [Zoloft 50 mg Tablet] 12.5 mg PO DAILY 10/26/20 Trazodone HCl [Desyrel 50 mg Tablet] 100 mg PO QHS 10/26/20 Allergies/Adverse Reactions: No Known Allergies Allergy (Unverified 08/13/17 09:54) Review of Systems ROS unobtainable: Due to mental status Physical Exam Vital Signs: Temp Pulse Resp BP Pulse Ox 98.7 F 100 22 H 156/72 H 97 10/26/20 10:26 10/26/20 14:00 10/26/20 10:26 10/26/20 10:26 10/26/20 10:26 Intake & Output 10/25/20 10/26/20 10/27/20 06:59 06:59 06:59 Intake Total 50 Output Total 1287 Balance 50 -1287 Weight 124 lb 8.979 oz General appearance: PRESENT: no acute distress Head exam: PRESENT: atraumatic, normocephalic Eye exam: PRESENT: EOMI Ear exam: ABSENT: bleeding, drainage Mouth exam: PRESENT: moist, neck supple Neck exam: ABSENT: meningismus, tenderness Respiratory exam: PRESENT: crackles, decreased breath sounds. ABSENT: accessory muscle use Cardiovascular exam: PRESENT: RRR, +S1, +S2 Pulses: PRESENT: +1 pedal pulses bilateral GI/Abdominal exam: PRESENT: normal bowel sounds, soft Rectal exam: PRESENT: deferred Extremities exam: PRESENT: +1 edema. ABSENT: joint swelling Neurological exam: PRESENT: altered, awake, CN II-XII grossly intact Psychiatric exam: PRESENT: normal mood Results Laboratory Results: 10/26/20 00:00 10/26/20 00:00 10/26/20 10/26/20 10/26/20 00:00 00:00 00:00 WBC 5.2 RBC 3.81 Hgb 10.0 L Hct 31.8 L MCV 83 MCH 26.2 L MCHC 31.4 L RDW 16.2 H Plt Count 191 Seg Neutrophils % 75.8 VBG pH 7.38 VBG pCO2 49.1 VBG HCO3 28.1 VBG Base Excess 2.1 Sodium 138.2 Potassium 3.8 Chloride 100 Carbon Dioxide 33 H Anion Gap 5 BUN 41 H Creatinine 1.00 Est GFR ( Amer) > 60 Glucose 123 H Calcium 8.7 Total Bilirubin 0.5 AST 34 Alkaline Phosphatase 48 Total Protein 4.9 L Albumin 3.0 L TSH 10/26/20 00:00 WBC RBC Hgb Hct MCV MCH MCHC RDW Plt Count Seg Neutrophils % VBG pH VBG pCO2 VBG HCO3 VBG Base Excess Sodium Potassium Chloride Carbon Dioxide Anion Gap BUN Creatinine Est GFR ( Amer) Glucose Calcium Total Bilirubin AST Alkaline Phosphatase Total Protein Albumin TSH 1.06 10/26/20 10/26/20 00:00 03:20 Troponin I 1.350 1.160 NT-Pro-B Natriuret Pep 8030 H Impressions: Chest X-Ray 10/25/20 22:43 IMPRESSION: Interval development of changes of increased intravascular volume with bilateral pleural effusions. More focal consolidation in the lower lobes is also present superimposed pneumonia cannot be excluded. Chest/Abdomen CTA 10/26/20 01:38 IMPRESSION: There are diffuse bilateral groundglass airspace opacities with interlobular septal thickening likely reflecting edema. There are bibasilar airspace opacities with trace effusions, left greater than right. These may reflect atelectasis or infection. No filling defect is seen to suggest a pulmonary artery embolism. The main pulmonary artery is enlarged, which can be seen with pulmonary artery hypertension. Assessment and Plan - Diagnosis (1) CHF exacerbation Qualifiers: Heart failure type: unspecified Qualified Code(s): I50.9 - Heart failure, unspecified Is this a current diagnosis for this admission?: Yes Plan: Start IV Lasix. Daily weights. Strict I&O. Continue telemetry. Check echoc ardiogram. (2) Elevated troponin Is this a current diagnosis for this admission?: Yes Plan: Continue aspirin. Patient declined any invasive interventions. (3) Hypoxia Is this a current diagnosis for this admission?: Yes Plan: Due to CHF. (4) COPD (chronic obstructive pulmonary disease) Qualifiers: COPD type: unspecified COPD Qualified Code(s): J44.9 - Chronic obstructive pulmonary disease, unspecified Is this a current diagnosis for this admission?: Yes Plan: Continue inhaled treatments (5) Diabetes mellitus type 2 in nonobese Is this a current diagnosis for this admission?: Yes Plan: Hold Metformin for now. Start insulin scale. Check volume A1c. - Time Anticipated Discharge Disposition: Snf Facility Anticipated Discharge Timeframe: within 72 hours
[2020-10-26] MEDS ORDERED: MAG HYDROX/AL HYDROX/SIMETH SUSP 30 ML UDCUP PO PRN (16:01)
[2020-10-26] MEDS ORDERED: (PENDING PHARMACY ID) (Budesonide/Formoterol Fumarate 60 PUFF/6 GM Inhaler) IH SCH (18:00)
[2020-10-26] MEDS: FUROSEMIDE INJ/PF 20 MG/2 ML SDV IV SCH (21:38)
[2020-10-26] MEDS: HYDRALAZINE HCL 25 MG TABLET PO SCH (21:38)
[2020-10-26] MEDS: TRAZODONE HCL 50 MG TABLET PO SCH (21:38)
[2020-10-26] MEDS: MELATONIN 3 MG TABLET PO SCH (21:38)
[2020-10-26] MEDS: METOPROLOL TARTRATE 25 MG TABLET PO SCH (21:38)
[2020-10-26] MEDS: TEMAZEPAM 7.5 MG CAPSULE PO PRN (22:56)
[2020-10-27] MEDS: HYDRALAZINE HCL 25 MG TABLET PO SCH ×3 (05:11→21:38)
[2020-10-27] MEDS: PANTOPRAZOLE SODIUM 40 MG TABLET.DR PO SCH (05:12)
[2020-10-27] MEDS ORDERED: (PENDING PHARMACY ID) (Omeprazole [Omeprazole] 40 MG Capsule.Dr) PO SCH (06:00)
[2020-10-27 06:13] LABS: HEMATOCRIT 32.2 % (36.0-47.0); HEMOGLOBIN 10.1 g/dL (12.0-15.5); MEAN CORPUSCULAR HGB CONC 31.5 g/dL (32.0-36.0); MEAN CORPUSCULAR VOLUME 83 fl (80-97); PLATELET COUNT 177 10^3/uL (150-450); RED CELL DISTRIBUTION WIDTH 15.4 % (11.5-14.0); WHITE BLOOD COUNT 4.5 10^3/uL (4.0-10.5)
[2020-10-27 06:44] LABS: ANION GAP 7 (5-19); BLOOD UREA NITROGEN 33 mg/dL (7-20); CARBON DIOXIDE 36 mmol/L (22-30); CHLORIDE 96 mmol/L (98-107); GLUCOSE 111 mg/dL (75-110); POTASSIUM 3.4 mmol/L (3.6-5.0)
[2020-10-27] MEDS: INSULIN LISPRO 100 UNIT/ML 3 ML VIAL SUBCUT SCH ×4 (08:42→21:37)
[2020-10-27] MEDS: OLOPATADINE HCL 0.1% OPH SOLN 5 ML OU SCH (09:02)
[2020-10-27] MEDS: FLUTICASONE/VILANTEROL 200-25 MCG/DOSE IH SCH (09:03)
[2020-10-27] MEDS: ENOXAPARIN SODIUM INJ 40 MG/0.4 ML DISP.SYRIN SUBCUT SCH (09:03)
[2020-10-27] MEDS: CYANOCOBALAMIN (VITAMIN B-12) 1,000 MCG TABLET PO SCH (09:04)
[2020-10-27] MEDS: SERTRALINE HCL 50 MG TABLET PO SCH (09:04)
[2020-10-27] MEDS: FUROSEMIDE INJ/PF 20 MG/2 ML SDV IV SCH ×2 (09:05→21:39)
[2020-10-27] MEDS: DILTIAZEM HCL 240 MG CAPSULE.CR PO SCH (09:05)
[2020-10-27] MEDS: ASPIRIN 81 MG TABLET, CHEWABLE PO SCH (09:05)
[2020-10-27] MEDS: METOPROLOL TARTRATE 25 MG TABLET PO SCH ×2 (10:38→21:39)
--- NOTE | 2020-10-27 11:46 | PDOC PROGRESS REPORT ---
Subjective Date:: 10/27/20 Subjective:: History of Present Illness: BRYAN MOY is a 80 year old female who lives in a half-way. She has dementia and cannot provide much history. All of the history was provided by the ER staff. Apparently she comes by EMS from [facility] for chief complaint of an episode where she was complaining of feeling dizzy, short of breath, and discomfort in her chest. Patient reportedly fell against a wall when she got up, staff became concerned and called EMS. Patient was not noted to be febrile, however she was noted to be hypoxic "in the 80s" per nursing report. Patient was placed on 4 L nasal cannula and on arrival was 94% oxygen saturation. Patient states that she feels "kind of like it is hard to catch my breath", she denies chest pain, she denies cough, she denies any other symptoms or complaints at this time. History is limited given patient's history of some dementia. Past medical history includes COPD, hypertension, type 2 diabetes, GERD. Interval history: 10/27/2020: Patient was seen and examined. She was sitting in a chair more comfortable. She is on 4 L of nasal cannula oxygen. She states she is feeling better. Edema has improved. BNP is better. Reason For Visit: HYPOXIA,SHORTNESS OF BREATH,CHF EXACERBATION, Physical Exam Vital Signs: Temp Pulse Resp BP Pulse Ox 97.8 F 57 L 20 138/73 H 100 10/27/20 07:18 10/27/20 07:00 10/27/20 03:35 10/27/20 03:35 10/27/20 03:35 Intake & Output 10/26/20 10/27/20 10/28/20 06:59 06:59 06:59 Intake Total 50 222 Output Total 2912 Balance 50 -2690 Weight 125 lb 7.088 oz Exam: General appearance: PRESENT: no acute distress Head exam: PRESENT: atraumatic, normocephalic Eye exam: PRESENT: EOMI Ear exam: ABSENT: bleeding, drainage Mouth exam: PRESENT: moist, neck supple Neck exam: ABSENT: meningismus, tenderness Respiratory exam: PRESENT: crackles, decreased breath sounds. ABSENT: accessory muscle use Cardiovascular exam: PRESENT: RRR, +S1, +S2 Pulses: PRESENT: +1 pedal pulses bilateral GI/Abdominal exam: PRESENT: normal bowel sounds, soft Rectal exam: PRESENT: deferred Extremities exam: PRESENT: +1 edema. ABSENT: joint swelling Neurological exam: PRESENT: altered, awake, CN II-XII grossly intact Psychiatric exam: PRESENT: normal mood Results Laboratory Results: 10/27/20 05:17 10/27/20 05:17 10/27/20 10/27/20 05:17 05:17 WBC 4.5 RBC 3.90 Hgb 10.1 L Hct 32.2 L MCV 83 MCH 26.0 L MCHC 31.5 L RDW 15.4 H Plt Count 177 Sodium 138.6 Potassium 3.4 L Chloride 96 L Carbon Dioxide 36 H Anion Gap 7 BUN 33 H Creatinine 0.87 Est GFR ( Amer) > 60 Glucose 111 H Calcium 9.0 10/26/20 10/26/20 10/27/20 00:00 03:20 05:17 Troponin I 1.350 1.160 NT-Pro-B Natriuret Pep 8030 H 4850 H Impressions: Chest X-Ray 10/25/20 22:43 IMPRESSION: Interval development of changes of increased intravascular volume with bilateral pleural effusions. More focal consolidation in the lower lobes is also present superimposed pneumonia cannot be excluded. Chest/Abdomen CTA 10/26/20 01:38 IMPRESSION: There are diffuse bilateral groundglass airspace opacities with interlobular septal thickening likely reflecting edema. There are bibasilar airspace opacities with trace effusions, left greater than right. These may reflect atelectasis or infection. No filling defect is seen to suggest a pulmonary artery embolism. The main pulmonary artery is enlarged, which can be seen with pulmonary artery hypertension. Assessment and Plan - Diagnosis (1) CHF exacerbation Qualifiers: Heart failure type: unspecified Qualified Code(s): I50.9 - Heart failure, unspecified Is this a current diagnosis for this admission?: Yes (2) Elevated troponin Is this a current diagnosis for this admission?: Yes (3) Hypoxia Is this a current diagnosis for this admission?: Yes (4) COPD (chronic obstructive pulmonary disease) Qualifiers: COPD type: unspecified COPD Qualified Code(s): J44.9 - Chronic obstructive pulmonary disease, unspecified Is this a current diagnosis for this admission?: Yes (5) Diabetes mellitus type 2 in nonobese Is this a current diagnosis for this admission?: Yes - Plan Summary Summary: (1) CHF exacerbation Continue IV Lasix. Daily weights. Strict I&O. Continue telemetry. Follow-up echocardiogram. (2) Elevated troponin Continue aspirin. Patient declined any invasive interventions. (3) Hypoxia Due to CHF. (4) COPD (chronic obstructive pulmonary disease) Continue inhaled treatments (5) Diabetes mellitus type 2 in nonobese Hold Metformin for now. Continue insulin scale. Hemoglobin A1c 6.5. - Time Anticipated Discharge Disposition: Home, Self Care Anticipated Discharge Timeframe: within 72 hours
[2020-10-27] MEDS ORDERED: POTASSIUM CHLORIDE 10 MEQ TABLET.ER PO ONE (12:15)
--- NOTE | 2020-10-27 12:31 | RADIOLOGY REPORT (SQ) ---
EXAM DESCRIPTION: CHEST SINGLE VIEW IMAGES COMPLETED DATE/TIME: 10/27/2020 12:04 pm REASON FOR STUDY: CHF COMPARISON: 10/25/2020 EXAM PARAMETERS: NUMBER OF VIEWS: One view. TECHNIQUE: Single frontal radiographic view of the chest acquired. RADIATION DOSE: NA LIMITATIONS: None. FINDINGS: LUNGS AND PLEURA: Improved aeration of the lungs. Bilateral pleural effusions. Minimal b asilar opacities. MEDIASTINUM AND HILAR STRUCTURES: No masses. Contour normal. HEART AND VASCULAR STRUCTURES: Heart remains enlarged but significant improvement in the vascular con gestion. BONES: No acute findings. HARDWARE: None in the chest. OTHER: No other significant finding. IMPRESSION: Improvement in the vascular congestion. Small bilateral pleural effusions with mild basilar opacities. TECHNICAL DOCUMENTATION: JOB ID: [id number] 2010 [employer]- All Rights Reserved Reading location - IP/workstation name: ACE
--- NOTE | 2020-10-27 17:01 | XCELERA REPORT ---
[address] [address] Transthoracic Echocardiogram Report Name: BRYAN MOY Age: 80 yrs Gender: Female : 1940 Patient Status: Inpatient Patient Location: [address] [place], [place] [address] Study Date: 10/27/2020 02:56 PM History: CHF Height: 65 in Weight: 125 lb BSA: 1.6 m2 Procedure: A complete two-dimensional transthoracic echocardiogram was performed (2D, M-mode, spectral and color flow Doppler). The study was technically difficult with many images being suboptimal in quality. Reason For Study: chf Previous Evaluation: A previous study was performed on 08/13/2017 Low normal LVEF. History: CHF. Ordering Physician: RICHMOND WEBBER Performed By: Breanna Hall Interpretation Summary Left ventricular systolic function is normal. The Ejection Fraction estimate is 55-60% The right ventricle is normal in size and function. There is a mild amount of mitral regurgitation There is a mild amount of tricuspid regurgitation There is mild pulmonary hypertension by echo There is no pericardial effusion. MMode/2D Measurements & Calculations RVDd: 3.5 cm LVIDd: 4.3 cm FS: 39.6 % Ao root diam: 2.8 cm IVSd: 1.3 cm LVIDs: 2.6 cm EDV(Teich): 84.1 ml Ao root area: 6.0 cm2 LVPWd: 1.4 cm ESV(Teich): 24.8 ml LA dimension: 5.0 cm EF(Teich): 70.5 % Doppler Measurements & Calculations MV E max marlen: MV P1/2t max marlen: Ao V2 max: AI max marlen: 113.5 cm/sec 139.0 cm/sec 159.9 cm/sec 295.4 cm/sec MV A max marlen: MV P1/2t: 105.8 msec Ao max PG: AI max P.2 cm/sec MVA(P1/2t): 2.1 cm2 10.2 mmHg 34.9 mmHg MV E/A: 0.80 MV dec slope: AI dec slope: 181.8 cm/sec2 384.9 cm/sec2 AI P1/2t: MV dec time: 475.9 msec 0.37 sec LV V1 max PG: PA V2 max: PI end-d marlen: TR max marlen: 9.8 mmHg 109.5 cm/sec 174.6 cm/sec 254.5 cm/sec LV V1 max: PA max P.8 mmHg TR max P.3 cm/sec 25.9 mmHg AV P1/2t-pr_phl: MV P1/2t-pr_phl: 475.9 msec 105.8 msec Left Ventricle The left ventricle is normal in size. There is moderate to severe concentric left ventricular hypertrophy. Left ventricular systolic function is normal. The Ejection Fraction estimate is 55-60%. Doppler measurements suggest impaired left ventricular relaxation, which is associated with grade I/IV or mild diastolic dysfunction. Regional wall motion abnormalities cannot be excluded due to limited visualization. Right Ventricle The right ventricle is normal in size and function. Atria The right atrium is mildly dilated. The left atrium is severely dilated. Mitral Valve There is mild to moderate mitral annular calcification. The mitral valve leaflets appear thickened, but open well. There is no mitral valve stenosis. There is a mild amount of mitral regurgitation. Aortic Valve The aortic valve is sclerotic and shows some degree of functional abnormality. The aortic valve is mildly calcified. There is no aortic valve stenosis. There is a mild to moderate amount of aortic regurgitation. Tricuspid Valve The tricuspid valve is not well visualized, but is grossly normal. There is no tricuspid stenosis. There is a mild amount of tricuspid regurgitation. Right ventricular systolic pressure is estimated to be elevated at 30-40mmHg. There is mild pulmonary hypertension by echo. Pulmonic Valve The pulmonic valve is not well visualized. There is no pulmonic valvular stenosis. There is a mild amount of pulmonic regurgitation. Great Vessels The aortic root is normal size. The inferior vena cava appeared dilated and decreased < 50% with respiration (RAP 15-20 mmHg). Effusions There is no pericardial effusion. : RICHMOND WEBBER Anil
[2020-10-27] MEDS: TRAZODONE HCL 50 MG TABLET PO SCH (21:39)
[2020-10-27] MEDS: MELATONIN 3 MG TABLET PO SCH (21:39)
--- NOTE | 2020-10-27 22:19 | CDI QUERY ---
<DEEPAK WILLOUGHBY - Last Filed: 10/27/20 22:18> CDI Query CDI Review: We are seeking further clarification of documentation to reflect the severity of illness of your patient. Per H&P: CHF exacerbation Qualifiers: Heart failure type: unspecified Qualified Code(s): I50.9 - Heart failure, unspecified Is this a current diagnosis for this admission?: Yes Plan: Start IV Lasix. Daily weights. Strict I&O. Continue telemetry. Check echocardiogram. Hypoxia Is this a current diagnosis for this admission?: Yes Plan: Due to CHF BNP: 8030 Based on your medical judgement, can you further clarify in the Progress Notes and carry the documentation through the Discharge Summary: Type of heart failure: Systolic Diastolic Combined systolic/diastolic Other (please specify) None of the above / Not applicable - AND Severity of heart failure Acute, exacerbation, or decompensation Chronic Acute on chronic Other (please specify) None of the above / Not applicable Thank you for your consideration. CARLA Caicedo RN Clinical Air Brakes Inspector Physician Advisor <RICHMOND WEBBER - Last Filed: 10/28/20 08:47> CDI Query CDI Review: Acute diastolic CHF Agree with Query: Yes
--- NOTE | 2020-10-27 22:30 | CDI QUERY ---
<DEEPAK WILLOUGHBY - Last Filed: 10/27/20 22:29> CDI Query CDI Review: We are seeking further clarification of documentation to reflect the severity of illness of your patient. Per H&P: . . . Apparently she comes by EMS from [facility] for chief complaint of an episode where she was complaining of feeling dizzy, short of breath, and discomfort in her chest . . . Patient was not noted to be febrile, however she was noted to be hypoxic "in the 80s" per nursing report. Patient was placed on 4 L nasal cannula and on arrival was 94% oxygen saturation. Patient states that she feels "kind of like it is hard to catch my breath", she denies chest pain, she denies cough, she denies any other symptoms or complaints at this time. . . Past medical history includes COPD, hypertension, type 2 diabetes, GERD. COPD (chronic obstructive pulmonary disease) Continue inhaled treatments Based on your medical judgement, can you further clarify in the Progress Notes and carry documentation through the Discharge Summary: Acute COPD exacerbation COPD without acute exacerbation Unable to determine Other Thank you for your consideration. KIT CaicedoN RN Clinical Oil Burner Physician Advisor [email or web address] <RICHMOND WEBBER - Last Filed: 10/28/20 07:42> CDI Query Agree with Query: No
[2020-10-28] MEDS: TEMAZEPAM 7.5 MG CAPSULE PO PRN ×2 (00:01→21:59)
[2020-10-28 05:37] LABS: ANION GAP 6 (5-19); BLOOD UREA NITROGEN 28 mg/dL (7-20); CALCIUM 8.7 mg/dL (8.4-10.2); CARBON DIOXIDE 38 mmol/L (22-30); CHLORIDE 96 mmol/L (98-107); GLUCOSE 147 mg/dL (75-110); POTASSIUM 3.5 mmol/L (3.6-5.0)
[2020-10-28] MEDS: HYDRALAZINE HCL 25 MG TABLET PO SCH ×3 (06:07→21:59)
[2020-10-28] MEDS: PANTOPRAZOLE SODIUM 40 MG TABLET.DR PO SCH (06:07)
[2020-10-28 07:06] LABS: HEMATOCRIT 30.3 % (36.0-47.0); HEMOGLOBIN 9.5 g/dL (12.0-15.5); MEAN CORPUSCULAR HEMOGLOBIN 25.8 pg (27.0-33.4); MEAN CORPUSCULAR HGB CONC 31.5 g/dL (32.0-36.0); MEAN CORPUSCULAR VOLUME 82 fl (80-97); PLATELET COUNT 158 10^3/uL (150-450); RED CELL DISTRIBUTION WIDTH 15.8 % (11.5-14.0); WHITE BLOOD COUNT 5.3 10^3/uL (4.0-10.5)
[2020-10-28] MEDS: INSULIN LISPRO 100 UNIT/ML 3 ML VIAL SUBCUT SCH ×4 (07:33→22:00)
[2020-10-28] MEDS: CYANOCOBALAMIN (VITAMIN B-12) 1,000 MCG TABLET PO SCH (11:33)
[2020-10-28] MEDS: ASPIRIN 81 MG TABLET, CHEWABLE PO SCH (11:33)
[2020-10-28] MEDS: FUROSEMIDE INJ/PF 20 MG/2 ML SDV IV SCH (11:33)
[2020-10-28] MEDS: METOPROLOL TARTRATE 25 MG TABLET PO SCH ×2 (11:33→21:59)
[2020-10-28] MEDS: SERTRALINE HCL 50 MG TABLET PO SCH (11:34)
[2020-10-28] MEDS: ENOXAPARIN SODIUM INJ 40 MG/0.4 ML DISP.SYRIN SUBCUT SCH (11:34)
[2020-10-28] MEDS: DILTIAZEM HCL 240 MG CAPSULE.CR PO SCH (11:39)
[2020-10-28] MEDS: OLOPATADINE HCL 0.1% OPH SOLN 5 ML OU SCH (11:44)
[2020-10-28] MEDS: FLUTICASONE/VILANTEROL 200-25 MCG/DOSE IH SCH (11:44)
--- NOTE | 2020-10-28 15:38 | PDOC PROGRESS REPORT ---
Subjective Date:: 10/28/20 Subjective:: History of Present Illness: BRYAN MOY is a 80 year old female who lives in a shelter. She has dementia and cannot provide much history. All of the history was provided by the ER staff. Apparently she comes by EMS from [facility] for chief complaint of an episode where she was complaining of feeling dizzy, short of breath, and discomfort in her chest. Patient reportedly fell against a wall when she got up, staff became concerned and called EMS. Patient was not noted to be febrile, however she was noted to be hypoxic "in the 80s" per nursing report. Patient was placed on 4 L nasal cannula and on arrival was 94% oxygen saturation. Patient states that she feels "kind of like it is hard to catch my breath", she denies chest pain, she denies cough, she denies any other symptoms or complaints at this time. History is limited given patient's history of some dementia. Past medical history includes COPD, hypertension, type 2 diabetes, GERD. Interval history: 10/27/2020: Patient was seen and examined. She was sitting in a chair more comfortable. She is on 4 L of nasal cannula oxygen. She states she is feeling better. Edema has improved. BNP is better. 10/28/2020: Patient was seen and examined. She is stable and comfortable on no nasal cannula oxygen. Edema almost resolved. Cardiogram shows normal EF. BNP is again better today. Reason For Visit: HYPOXIA,SHORTNESS OF BREATH,CHF EXACERBATION, Physical Exam Vital Signs: Temp Pulse Resp BP Pulse Ox 98.0 F 60 16 160/68 H 95 10/28/20 11:16 10/28/20 11:16 10/28/20 11:16 10/28/20 11:16 10/28/20 11:16 Intake & Output 10/27/20 10/28/20 10/29/20 06:59 06:59 06:59 Intake Total 222 620 240 Output Total 2912 1020 250 Balance -2690 -400 -10 Weight 125 lb 7.088 oz 126 lb 1.671 oz Exam: General appearance: PRESENT: no acute distress Head exam: PRESENT: atraumatic, normocephalic Eye exam: PRESENT: EOMI Ear exam: ABSENT: bleeding, drainage Mouth exam: PRESENT: moist, neck supple Neck exam: ABSENT: meningismus, tenderness Respiratory exam: PRESENT: crackles, decreased breath sounds. ABSENT: accessory muscle use Cardiovascular exam: PRESENT: RRR, +S1, +S2 Pulses: PRESENT: +1 pedal pulses bilateral GI/Abdominal exam: PRESENT: normal bowel sounds, soft Rectal exam: PRESENT: deferred Extremities exam: PRESENT: +1 edema. ABSENT: joint swelling Neurological exam: PRESENT: altered, awake, CN II-XII grossly intact Psychiatric exam: PRESENT: normal mood Results Laboratory Results: 10/28/20 04:03 10/28/20 04:03 10/28/20 10/28/20 04:03 04:03 WBC 5.3 RBC 3.70 L Hgb 9.5 L Hct 30.3 L MCV 82 MCH 25.8 L MCHC 31.5 L RDW 15.8 H Plt Count 158 Sodium 139.5 Potassium 3.5 L Chloride 96 L Carbon Dioxide 38 H Anion Gap 6 BUN 28 H Creatinine 0.79 Est GFR ( Amer) > 60 Glucose 147 H Calcium 8.7 10/26/20 10/26/20 10/27/20 00:00 03:20 05:17 Troponin I 1.350 1.160 NT-Pro-B Natriuret Pep 8030 H 4850 H 10/28/20 04:03 Troponin I NT-Pro-B Natriuret Pep 2140 H Impressions: Chest/Abdomen CTA 10/26/20 01:38 IMPRESSION: There are diffuse bilateral groundglass airspace opacities with interlobular septal thickening likely reflecting edema. There are bibasilar airspace opacities with trace effusions, left greater than right. These may reflect atelectasis or infection. No filling defect is seen to suggest a pulmonary artery embolism. The main pulmonary artery is enlarged, which can be seen with pulmonary artery hypertension. Chest X-Ray 10/27/20 00:00 IMPRESSION: Improvement in the vascular congestion. Small bilateral pleural effusions with mild basilar opacities. Assessment and Plan - Diagnosis (1) CHF exacerbation Qualifiers: Heart failure type: unspecified Qualified Code(s): I50.9 - Heart failure, unspecified Is this a current diagnosis for this admission?: Yes (2) Elevated troponin Is this a current diagnosis for this admission?: Yes (3) Hypoxia Is this a current diagnosis for this admission?: Yes (4) COPD (chronic obstructive pulmonary disease) Qualifiers: COPD type: unspecified COPD Qualified Code(s): J44.9 - Chronic obstructive pulmonary disease, unspecified Is this a current diagnosis for this admission?: Yes (5) Diabetes mellitus type 2 in nonobese Is this a current diagnosis for this admission?: Yes - Plan Summary Summary: (1) CHF exacerbation Acute diastolic CHF. Switch to oral Lasix from IV Lasix. Daily weights. Strict I&O. Continue telemetry. Normal EF on echocardiogram. (2) Elevated troponin Continue aspirin. Patient declined any invasive interventions. (3) Hypoxia Due to CHF. (4) COPD (chronic obstructive pulmonary disease) Continue inhaled treatments (5) Diabetes mellitus type 2 in nonobese Hold Metformin for now. Continue insulin scale. Hemoglobin A1c 6.5. Possible discharge tomorrow if stable. - Time Anticipated Discharge Disposition: Home, Self Care Anticipated Discharge Timeframe: within 72 hours
[2020-10-28] MEDS: POTASSIUM CHLORIDE 10 MEQ TABLET.ER PO SCH (18:14)
[2020-10-28] MEDS: FUROSEMIDE 20 MG TABLET PO SCH (18:14)
[2020-10-28] MEDS: MELATONIN 3 MG TABLET PO SCH (21:59)
[2020-10-28] MEDS: TRAZODONE HCL 50 MG TABLET PO SCH (21:59)
[2020-10-29 04:27] LABS: HEMATOCRIT 32.7 % (36.0-47.0); HEMOGLOBIN 10.2 g/dL (12.0-15.5); MEAN CORPUSCULAR HEMOGLOBIN 25.4 pg (27.0-33.4); MEAN CORPUSCULAR HGB CONC 31.1 g/dL (32.0-36.0); MEAN CORPUSCULAR VOLUME 82 fl (80-97); PLATELET COUNT 167 10^3/uL (150-450); RED BLOOD COUNT 4.02 10^6/uL (3.72-5.28); RED CELL DISTRIBUTION WIDTH 15.9 % (11.5-14.0); WHITE BLOOD COUNT 4.3 10^3/uL (4.0-10.5)
[2020-10-29 04:41] LABS: BLOOD UREA NITROGEN 23 mg/dL (7-20); CALCIUM 9.2 mg/dL (8.4-10.2); CHLORIDE 99 mmol/L (98-107); GLUCOSE 120 mg/dL (75-110); POTASSIUM 4.1 mmol/L (3.6-5.0)
[2020-10-29 04:47] LABS: CARBON DIOXIDE 38 mmol/L (22-30)
[2020-10-29 05:05] LABS: ANION GAP 2 (5-19)
[2020-10-29] MEDS: PANTOPRAZOLE SODIUM 40 MG TABLET.DR PO SCH (05:42)
[2020-10-29] MEDS: HYDRALAZINE HCL 25 MG TABLET PO SCH ×3 (05:42→21:08)
[2020-10-29] MEDS: INSULIN LISPRO 100 UNIT/ML 3 ML VIAL SUBCUT SCH ×4 (08:49→21:09)
[2020-10-29] MEDS: FLUTICASONE/VILANTEROL 200-25 MCG/DOSE IH SCH (09:12)
[2020-10-29] MEDS: DILTIAZEM HCL 240 MG CAPSULE.CR PO SCH (09:12)
[2020-10-29] MEDS: FUROSEMIDE 20 MG TABLET PO SCH ×2 (09:13→17:28)
[2020-10-29] MEDS: ASPIRIN 81 MG TABLET, CHEWABLE PO SCH (09:13)
[2020-10-29] MEDS: ENOXAPARIN SODIUM INJ 40 MG/0.4 ML DISP.SYRIN SUBCUT SCH (09:13)
[2020-10-29] MEDS: OLOPATADINE HCL 0.1% OPH SOLN 5 ML OU SCH (09:13)
[2020-10-29] MEDS: POTASSIUM CHLORIDE 10 MEQ TABLET.ER PO SCH (09:13)
[2020-10-29] MEDS: CYANOCOBALAMIN (VITAMIN B-12) 1,000 MCG TABLET PO SCH (09:14)
[2020-10-29] MEDS: METOPROLOL TARTRATE 25 MG TABLET PO SCH ×2 (09:14→21:08)
[2020-10-29] MEDS: SERTRALINE HCL 50 MG TABLET PO SCH (09:14)
--- NOTE | 2020-10-29 11:36 | PDOC PROGRESS REPORT ---
Subjective Date:: 10/29/20 Subjective:: History of Present Illness: BRYAN MOY is a 80 year old female who lives in a assisted. She has dementia and cannot provide much history. All of the history was provided by the ER staff. Apparently she comes by EMS from [facility] for chief complaint of an episode where she was complaining of feeling dizzy, short of breath, and discomfort in her chest. Patient reportedly fell against a wall when she got up, staff became concerned and called EMS. Patient was not noted to be febrile, however she was noted to be hypoxic "in the 80s" per nursing report. Patient was placed on 4 L nasal cannula and on arrival was 94% oxygen saturation. Patient states that she feels "kind of like it is hard to catch my breath", she denies chest pain, she denies cough, she denies any other symptoms or complaints at this time. History is limited given patient's history of some dementia. Past medical history includes COPD, hypertension, type 2 diabetes, GERD. Interval history: 10/27/2020: Patient was seen and examined. She was sitting in a chair more comfortable. She is on 4 L of nasal cannula oxygen. She states she is feeling better. Edema has improved. BNP is better. 10/28/2020: Patient was seen and examined. She is stable and comfortable on no nasal cannula oxygen. Edema almost resolved. Cardiogram shows normal EF. BNP is again better today. 10/29/2020: Patient was seen and examined. Stable nasal cannula oxygen. Edema resolved. Feels better. Reason For Visit: HYPOXIA,SHORTNESS OF BREATH,CHF EXACERBATION, Physical Exam Vital Signs: Temp Pulse Resp BP Pulse Ox 97.6 F 68 20 131/65 H 95 10/28/20 22:00 10/29/20 02:00 10/28/20 20:00 10/28/20 20:00 10/29/20 02:35 Intake & Output 10/28/20 10/29/20 10/30/20 06:59 06:59 06:59 Intake Total 620 1000 Output Total 1020 980 Balance -400 20 Weight 126 lb 1.671 oz 121 lb 11.123 oz Exam: General appearance: PRESENT: no acute distress, cooperative Head exam: PRESENT: normocephalic Eye exam: PRESENT: EOMI Neck exam: ABSENT: JVD Respiratory exam: PRESENT: clear to auscultation jackson, symmetrical, unlabored. ABSENT: crackles, tachypnea, wheezes Cardiovascular exam: PRESENT: +S1, +S2, tachycardia. ABSENT: RRR GI/Abdominal exam: PRESENT: diminished bowel sounds, soft, tenderness - Diffuse all over her abdomen. ABSENT: ascites, distended, firm, guarding, hernia, mass, organolmegaly, rebound, rigid Extremities exam: ABSENT: calf tenderness Neurological exam: PRESENT: alert, awake, oriented to person, oriented to place, oriented to time, oriented to situation Psychiatric exam: PRESENT: anxious. ABSENT: agitated Results Laboratory Results: 10/29/20 04:10 10/29/20 04:10 10/28/20 10/29/20 10/29/20 16:02 04:10 04:10 WBC 4.3 RBC 4.02 Hgb 10.2 L Hct 32.7 L MCV 82 MCH 25.4 L MCHC 31.1 L RDW 15.9 H Plt Count 167 Sodium 138.8 Potassium 4.1 Chloride 99 Carbon Dioxide 38 H Anion Gap 2 L BUN 23 H Creatinine 0.77 Est GFR ( Amer) > 60 Glucose 120 H Calcium 9.2 Magnesium 1.4 L 10/26/20 10/26/20 10/27/20 00:00 03:20 05:17 Troponin I 1.350 1.160 NT-Pro-B Natriuret Pep 8030 H 4850 H 10/28/20 04:03 Troponin I NT-Pro-B Natriuret Pep 2140 H Impressions: Chest/Abdomen CTA 10/26/20 01:38 IMPRESSION: There are diffuse bilateral groundglass airspace opacities with interlobular septal thickening likely reflecting edema. There are bibasilar airspace opacities with trace effusions, left greater than right. These may reflect atelectasis or infection. No filling defect is seen to suggest a pulmonary artery embolism. The main pulmonary artery is enlarged, which can be seen with pulmonary artery hypertension. Chest X-Ray 10/27/20 00:00 IMPRESSION: Improvement in the vascular congestion. Small bilateral pleural effusions with mild basilar opacities. Assessment and Plan - Diagnosis (1) CHF exacerbation Qualifiers: Heart failure type: unspecified Qualified Code(s): I50.9 - Heart failure, unspecified Is this a current diagnosis for this admission?: Yes (2) Elevated troponin Is this a current diagnosis for this admission?: Yes (3) Hypoxia Is this a current diagnosis for this admission?: Yes (4) COPD (chronic obstructive pulmonary disease) Qualifiers: COPD type: unspecified COPD Qualified Code(s): J44.9 - Chronic obstructive pulmonary disease, unspecified Is this a current diagnosis for this admission?: Yes (5) Diabetes mellitus type 2 in nonobese Is this a current diagnosis for this admission?: Yes - Plan Summary Summary: (1) CHF exacerbation Acute diastolic CHF. Switched to oral Lasix from IV Lasix. Daily weights. Strict I&O. Continue telemetry. Normal EF on echocardiogram. (2) Elevated troponin Continue aspirin. Patient declined any invasive interventions. (3) Hypoxia Due to CHF. (4) COPD (chronic obstructive pulmonary disease) Continue inhaled treatments (5) Diabetes mellitus type 2 in nonobese Hold Metformin for now. Continue insulin scale. Hemoglobin A1c 6.5. Can be discharged tomorrow if continues to be stable and there is a bed available for her at the assisted. - Time Anticipated Discharge Disposition: Home, Self Care Anticipated Discharge Timeframe: within 72 hours
[2020-10-29] MEDS: TEMAZEPAM 7.5 MG CAPSULE PO PRN ×2 (21:08→23:54)
[2020-10-29] MEDS: MELATONIN 3 MG TABLET PO SCH (21:08)
[2020-10-29] MEDS: TRAZODONE HCL 50 MG TABLET PO SCH (21:09)
[2020-10-30] MEDS: HYDRALAZINE HCL 25 MG TABLET PO SCH ×3 (06:33→21:18)
[2020-10-30] MEDS: PANTOPRAZOLE SODIUM 40 MG TABLET.DR PO SCH (06:34)
[2020-10-30] MEDS: INSULIN LISPRO 100 UNIT/ML 3 ML VIAL SUBCUT SCH ×4 (08:07→21:22)
[2020-10-30] MEDS: FUROSEMIDE 20 MG TABLET PO SCH ×2 (11:12→17:30)
[2020-10-30] MEDS: ENOXAPARIN SODIUM INJ 40 MG/0.4 ML DISP.SYRIN SUBCUT SCH (11:12)
[2020-10-30] MEDS: ASPIRIN 81 MG TABLET, CHEWABLE PO SCH (11:13)
[2020-10-30] MEDS: SERTRALINE HCL 50 MG TABLET PO SCH (11:13)
[2020-10-30] MEDS: CYANOCOBALAMIN (VITAMIN B-12) 1,000 MCG TABLET PO SCH (11:13)
[2020-10-30] MEDS: METOPROLOL TARTRATE 25 MG TABLET PO SCH ×2 (11:13→21:22)
[2020-10-30] MEDS: DILTIAZEM HCL 240 MG CAPSULE.CR PO SCH (11:14)
[2020-10-30] MEDS: POTASSIUM CHLORIDE 10 MEQ TABLET.ER PO SCH (11:14)
[2020-10-30] MEDS: OLOPATADINE HCL 0.1% OPH SOLN 5 ML OU SCH (11:15)
[2020-10-30] MEDS: FLUTICASONE/VILANTEROL 200-25 MCG/DOSE IH SCH (11:15)
--- NOTE | 2020-10-30 15:10 | PDOC TRANSFER SUMMARY ---
Impression - Admit/DC Date/PCP Admission Date/Primary Care Provider: 10/26/20 08:03 PRAVEENA CABEZAS Discharge Date: 10/30/20 - Discharge Diagnosis (1) Acute on chronic diastolic CHF (congestive heart failure) Is this a current diagnosis for this admission?: Yes (2) Acute hypoxemic respiratory failure Is this a current diagnosis for this admission?: Yes (3) Chronic obstructive pulmonary disease Is this a current diagnosis for this admission?: Yes (4) Diabetes mellitus type 2 in nonobese Is this a current diagnosis for this admission?: Yes - Assessment Summary: Per admitting physician: "BRYAN MOY is a 80 year old female who lives in a shelter. She has dementia and cannot provide much history. All of the history was provided by the ER staff. Apparently she comes by EMS from [facility] for chief complaint of an episode where she was complaining of feeling dizzy, short of breath, and discomfort in her chest. Patient reportedly fell against a wall when she got up, staff became concerned and called EMS. Patient was not noted to be febrile, however she was noted to be hypoxic "in the 80s" per nursing report. Patient was placed on 4 L nasal cannula and on arrival was 94% oxygen saturation. Patient states that she feels "kind of like it is hard to catch my breath", she denies chest pain, she denies cough, she denies any other symptoms or complaints at this time. History is limited given patient's history of some dementia. Past medical history includes COPD, hypertension, type 2 diabetes, GERD. Interval history: 10/27/2020: Patient was seen and examined. She was sitting in a chair more comfortable. She is on 4 L of nasal cannula oxygen. She states she is feeling better. Edema has improved. BNP is better. 10/28/2020: Patient was seen and examined. She is stable and comfortable on no nasal cannula oxygen. Edema almost resolved. Cardiogram shows normal EF. BNP is again better today. 10/29/2020: Patient was seen and examined. Stable nasal cannula oxygen. Edema resolved. Feels better." (1) Acute on chronic diastolic CHF exacerbation Per Previous Physician: "Acute diastolic CHF. Switched to oral Lasix from IV Lasix. Daily weights. Strict I&O. Continue telemetry. Normal EF on echocardiogram." Resolved Home medications Repeat chest x-ray showed significant improvement in pulmonary vascular congestion Continue home cardiac medications including Lasix, supplement potassium (2) Elevated troponin Likely due to cardiac strain from fall and respiratory failure Continue aspirin. Patient declined any invasive interventions per previous physician. (3) Hypoxia Due to CHF as above, resolving (4) COPD (chronic obstructive pulmonary disease) Continue inhaled treatments No acute exacerbation Oxygen saturation goal 89 to 92% in setting of chronic CO2 retention, wean oxygen as appropriate (5) Diabetes mellitus type 2 in nonobese Restart Metformin. Continue sliding insulin scale. Hemoglobin A1c 6.5. Discharge back to nursing facility - Additional Information Discharge Diet: Cardiac, Diabetic Discharge Activity: Activity As Tolerated, Balance Activity w/Rest, Weigh Daily Referrals: EHSAN AG, ANP [Primary Care Provider] - Follow up as needed Home Medications: Acetaminophen [Tylenol] 650 mg PO Q4HP PRN 02/11/19 Albuterol Sulfate [Ventolin Hfa 8 gm Mdi (1 Mdi/ER Disp)] 2 puff IH Q4HP PRN 02/11/19 Aspirin [Aspirin 81 mg Chewable Tablet] 81 mg PO DAILY 02/11/19 Melatonin [Melatonin 3 mg Tablet] 3 mg PO QHS 02/11/19 Metoprolol Tartrate [Lopressor 25 mg Tablet] 50 mg PO Q12 02/11/19 Mylanta Liquid 30 ml PO Q4HP PRN 02/11/19 Omeprazole 40 mg PO Q6AM 02/11/19 Budesonide/Formoterol Fumarate [Symbicort HFA 160-4.5 mcg Inhaler 6 gm] 2 puff IH BID 10/26/20 Cyanocobalamin (Vitamin B-12) [Vitamin B-12 1000 mcg Tablet] 500 mcg PO DAILY 10/26/20 Diltiazem HCl [Dilt-Xr] 240 mg PO DAILY 10/26/20 Hydralazine HCl [Apresoline 25 mg Tablet] 25 mg PO Q8 10/26/20 Metformin HCl [Metformin HCl ER] 500 mg PO BID 10/26/20 Olopatadine HCl [Pataday] 1 drop OU DAILY 10/26/20 Sertraline HCl [Zoloft 50 mg Tablet] 12.5 mg PO DAILY 10/26/20 Trazodone HCl [Desyrel 50 mg Tablet] 100 mg PO QHS 10/26/20 Furosemide [Lasix 20 mg Tablet] 20 mg PO BID tablet 10/30/20 Potassium Chloride [Klor-Con 10 Meq Tablet ER] 20 meq PO DAILY #0 tablet.er 10/30/20 History of Present Illiness History of Present Illness: BRYAN MOY is a 80 year old female Physical Exam Vital Signs: Temp Pulse Resp BP Pulse Ox 98.3 F 60 16 106/62 92 10/30/20 12:00 10/30/20 12:00 10/30/20 12:00 10/30/20 12:00 10/30/20 12:19 Intake & Output 10/29/20 10/30/20 10/31/20 06:59 06:59 06:59 Intake Total 1000 791 236 Output Total 980 1450 500 Balance 31 -700 -710 Weight 55.2 kg 54.6 kg Exam: General appearance: PRESENT: no acute distress, frail and chronically ill- appearing elderly female Head exam: PRESENT: atraumatic, normocephalic Eye exam: PRESENT: conjunctiva pink. ABSENT: scleral icterus Mouth exam: PRESENT: moist Respiratory exam: PRESENT: clear to auscultation jackson. ABSENT: rales, rhonchi, wheezes Cardiovascular exam: PRESENT: RRR. ABSENT: diastolic murmur, rubs, systolic murmur GI/Abdominal exam: PRESENT: normal bowel sounds, soft. ABSENT: distended, guarding, mass, organolmegaly, rebound, tenderness Neurological exam: PRESENT: alert, awake, oriented to self Psychiatric exam: PRESENT: appropriate affect, normal mood Skin exam: PRESENT: dry, intact, warm Results Laboratory Results: WBC 4.3 10^3/uL (4.0-10.5) 10/29/20 04:10 RBC 4.02 10^6/uL (3.72-5.28) 10/29/20 04:10 Hgb 10.2 g/dL (12.0-15.5) L 10/29/20 04:10 Hct 32.7 % (36.0-47.0) L 10/29/20 04:10 MCV 82 fl (80-97) 10/29/20 04:10 MCH 25.4 pg (27.0-33.4) L 10/29/20 04:10 MCHC 31.1 g/dL (32.0-36.0) L 10/29/20 04:10 RDW 15.9 % (11.5-14.0) H 10/29/20 04:10 Plt Count 167 10^3/uL (150-450) 10/29/20 04:10 Lymph % (Auto) 13.3 % (13-45) 10/26/20 00:00 [place] % (Auto) 9.0 % (3-13) 10/26/20 00:00 Eos % (Auto) 0.8 % (0-6) 10/26/20 00:00 Baso % (Auto) 1.1 % (0-2) 10/26/20 00:00 Absolute Neuts (auto) 4.0 10^3/uL (1.7-8.2) 10/26/20 00:00 Absolute Lymphs (auto) 0.7 10^3/uL (0.5-4.7) 10/26/20 00:00 Absolute Monos (auto) 0.5 10^3/uL (0.1-1.4) 10/26/20 00:00 Absolute Eos (auto) 0.0 10^3/uL (0.0-0.6) 10/26/20 00:00 Absolute Basos (auto) 0.1 10^3/uL (0.0-0.2) 10/26/20 00:00 Seg Neutrophils % 75.8 % (42-78) 10/26/20 00:00 VBG pH 7.38 (7.30-7.42) 10/26/20 00:00 VBG pCO2 49.1 mmHg (35-63) 10/26/20 00:00 VBG HCO3 28.1 mmol/L (20-32) 10/26/20 00:00 VBG Base Excess 2.1 mmol/L 10/26/20 00:00 Sodium 138.8 mmol/L (137-145) 10/29/20 04:10 Potassium 4.1 mmol/L (3.6-5.0) 10/29/20 04:10 Chloride 99 mmol/L (98-107) 10/29/20 04:10 Carbon Dioxide 38 mmol/L (22-30) H 10/29/20 04:10 Anion Gap 2 (5-19) L 10/29/20 04:10 BUN 23 mg/dL (7-20) H 10/29/20 04:10 Creatinine 0.77 mg/dL (0.52-1.25) 10/29/20 04:10 Est GFR ( Amer) > 60 (>60) 10/29/20 04:10 Est GFR (MDRD) Non-Af > 60 (>60) 10/29/20 04:10 Glucose 120 mg/dL (75-110) H 10/29/20 04:10 POC Glucose 162 mg/dL (70-110) H 10/30/20 10:44 Hemoglobin A1c % 6.5 % (4.7-6.0) H 10/26/20 00:00 Calcium 9.2 mg/dL (8.4-10.2) 10/29/20 04:10 Magnesium 1.4 mg/dL (1.6-2.3) L 10/28/20 16:02 Total Bilirubin 0.5 mg/dL (0.2-1.3) 10/26/20 00:00 Direct Bilirubin 0.2 mg/dL (0.0-0.4) 10/26/20 00:00 Neonat Total Bilirubin Not Reportable 10/26/20 00:00 Neonat Direct Bilirubin Not Reportable 10/26/20 00:00 Neonat Indirect Bili Not Reportable 10/26/20 00:00 AST 34 U/L (14-36) 10/26/20 00:00 ALT 38 U/L (<35) H 10/26/20 00:00 Alkaline Phosphatase 48 U/L (38-126) 10/26/20 00:00 Troponin I 1.160 ng/mL 10/26/20 03:20 NT-Pro-B Natriuret Pep 2140 pg/mL (<450) H 10/28/20 04:03 Total Protein 4.9 g/dL (6.3-8.2) L 10/26/20 00:00 Albumin 3.0 g/dL (3.5-5.0) L 10/26/20 00:00 TSH 1.06 uIU/mL (0.47-4.68) 10/26/20 00:00 COVID-19 Source See comment 10/26/20 03:30 COVID-19 (PING) Not Detected (Not Detect) 10/26/20 03:30 10/26/20 10/26/20 10/27/20 00:00 03:20 05:17 Troponin I 1.350 1.160 NT-Pro-B Natriuret Pep 8030 H 4850 H 10/28/20 04:03 Troponin I NT-Pro-B Natriuret Pep 2140 H Impressions: Chest X-Ray 10/25/20 22:43 IMPRESSION: Interval development of changes of increased intravascular volume with bilateral pleural effusions. More focal consolidation in the lower lobes is also present superimposed pneumonia cannot be excluded. Chest/Abdomen CTA 10/26/20 01:38 IMPRESSION: There are diffuse bilateral groundglass airspace opacities with interlobular septal thickening likely reflecting edema. There are bibasilar airspace opacities with trace effusions, left greater than right. These may reflect atelectasis or infection. No filling defect is seen to suggest a pulmonary artery embolism. The main pulmonary artery is enlarged, which can be seen with pulmonary artery hypertension. Chest X-Ray 10/27/20 00:00 IMPRESSION: Improvement in the vascular congestion. Small bilateral pleural effusions with mild basilar opacities. Plan Plan of Treatment: Follow-up with PCP Follow-up with cardiology Time Spent: Greater than 30 Minutes Stroke Is this a Stroke Patient?: No Acute Heart Failure Is this a Heart Failure Patient?: Yes Documentation of LVEF assessment?: Yes LVEF: LVEF Greater Than 40% Anticoagulant Therapy: N/A
--- NOTE | 2020-10-30 16:00 | Progress Note ---
Provider Note Provider Note: Patient requires portable supplemental oxygen with concentrators at 2 L nasal cannula
[2020-10-30] MEDS: TRAZODONE HCL 50 MG TABLET PO SCH (21:22)
[2020-10-30] MEDS: MELATONIN 3 MG TABLET PO SCH (21:22)
[2020-10-30] MEDS: TEMAZEPAM 7.5 MG CAPSULE PO PRN (23:58)
[2020-10-31] MEDS: HYDRALAZINE HCL 25 MG TABLET PO SCH ×3 (05:19→21:22)
[2020-10-31] MEDS: PANTOPRAZOLE SODIUM 40 MG TABLET.DR PO SCH (05:19)
[2020-10-31] MEDS: INSULIN LISPRO 100 UNIT/ML 3 ML VIAL SUBCUT SCH ×4 (07:35→21:20)
[2020-10-31] MEDS: FLUTICASONE/VILANTEROL 200-25 MCG/DOSE IH SCH (11:57)
[2020-10-31] MEDS: OLOPATADINE HCL 0.1% OPH SOLN 5 ML OU SCH (11:58)
[2020-10-31] MEDS: ENOXAPARIN SODIUM INJ 40 MG/0.4 ML DISP.SYRIN SUBCUT SCH (11:58)
[2020-10-31] MEDS: ASPIRIN 81 MG TABLET, CHEWABLE PO SCH (11:59)
[2020-10-31] MEDS: METOPROLOL TARTRATE 25 MG TABLET PO SCH (11:59)
[2020-10-31] MEDS: DILTIAZEM HCL 240 MG CAPSULE.CR PO SCH (11:59)
[2020-10-31] MEDS: POTASSIUM CHLORIDE 10 MEQ TABLET.ER PO SCH (11:59)
[2020-10-31] MEDS: CYANOCOBALAMIN (VITAMIN B-12) 1,000 MCG TABLET PO SCH (11:59)
[2020-10-31] MEDS: FUROSEMIDE 20 MG TABLET PO SCH (12:00)
[2020-10-31] MEDS: SERTRALINE HCL 50 MG TABLET PO SCH (12:00)
--- NOTE | 2020-10-31 15:43 | PDOC PROGRESS REPORT ---
Subjective Subjective:: "BRYAN MOY is a 80 year old female who lives in a fci. She has dementia and cannot provide much history. All of the history was provided by the ER staff. Apparently she comes by EMS from [facility] for chief complaint of an episode where she was complaining of feeling dizzy, short of breath, and discomfort in her chest. Patient reportedly fell against a wall when she got up, staff became concerned and called EMS. Patient was not noted to be febrile, however she was noted to be hypoxic "in the 80s" per nursing report. Patient was placed on 4 L nasal cannula and on arrival was 94% oxygen saturation. Patient states that she feels "kind of like it is hard to catch my breath", she denies chest pain, she denies cough, she denies any other symptoms or complaints at this time. History is limited given patient's history of some dementia. Past medical history includes COPD, hypertension, type 2 diabetes, GERD. Interval history: 10/27/2020: Patient was seen and examined. She was sitting in a chair more comfortable. She is on 4 L of nasal cannula oxygen. She states she is feeling better. Edema has improved. BNP is better. 10/28/2020: Patient was seen and examined. She is stable and comfortable on no nasal cannula oxygen. Edema almost resolved. Cardiogram shows normal EF. BNP is again better today. 10/29/2020: Patient was seen and examined. Stable nasal cannula oxygen. Edema resolved. Feels better." 10/31/2020 Patient stable, oxygen requirements at rest down to 1 L nasal cannula. I do believe she will continue to require up to 2 L nasal cannula on exertion. Discharge to nursing facility. Patient has no new complaints. Reason For Visit: HYPOXIA,SHORTNESS OF BREATH,CHF EXACERBATION, Physical Exam Vital Signs: Temp Pulse Resp BP Pulse Ox 97.1 F 52 L 16 129/56 H 91 L 10/31/20 10:43 10/31/20 10:43 10/31/20 10:43 10/31/20 10:43 10/31/20 10:43 Intake & Output 10/30/20 10/31/20 11/01/20 06:59 06:59 06:59 Intake Total 791 572 472 Output Total 1450 500 Balance -659 72 472 Weight 54.6 kg 54.6 kg Exam: General appearance: PRESENT: no acute distress, frail and chronically ill- appearing elderly female, states she wants to leave the hospital and go to her nursing facility today Head exam: PRESENT: atraumatic, normocephalic Eye exam: PRESENT: conjunctiva pink. ABSENT: scleral icterus Mouth exam: PRESENT: moist Respiratory exam: PRESENT: clear to auscultation jackson. ABSENT: rales, rhonchi, wheezes Cardiovascular exam: PRESENT: RRR. ABSENT: diastolic murmur, rubs, systolic murmur GI/Abdominal exam: PRESENT: normal bowel sounds, soft. ABSENT: distended, guarding, mass, organolmegaly, rebound, tenderness Neurological exam: PRESENT: alert, awake, oriented to self Psychiatric exam: PRESENT: appropriate affect, normal mood Skin exam: PRESENT: dry, intact, warm Results Laboratory Results: 10/29/20 04:10 10/29/20 04:10 10/26/20 01:29 Blood Blood Culture - Final NO GROWTH IN 5 DAYS 10/26/20 00:00 Blood Blood Culture - Final NO GROWTH IN 5 DAYS 10/26/20 10/26/20 10/27/20 00:00 03:20 05:17 Troponin I 1.350 1.160 NT-Pro-B Natriuret Pep 8030 H 4850 H 10/28/20 04:03 Troponin I NT-Pro-B Natriuret Pep 2140 H Impressions: Chest/Abdomen CTA 10/26/20 01:38 IMPRESSION: There are diffuse bilateral groundglass airspace opacities with interlobular septal thickening likely reflecting edema. There are bibasilar airspace opacities with trace effusions, left greater than right. These may reflect atelectasis or infection. No filling defect is seen to suggest a pulmonary artery embolism. The main pulmonary artery is enlarged, which can be seen with pulmonary artery hypertension. Chest X-Ray 10/27/20 00:00 IMPRESSION: Improvement in the vascular congestion. Small bilateral pleural effusions with mild basilar opacities. Assessment and Plan - Diagnosis (1) Acute on chronic diastolic CHF (congestive heart failure) Is this a current diagnosis for this admission?: Yes (2) Acute hypoxemic respiratory failure Is this a current diagnosis for this admission?: Yes (3) Chronic obstructive pulmonary disease Is this a current diagnosis for this admission?: Yes (4) Diabetes mellitus type 2 in nonobese Is this a current diagnosis for this admission?: Yes - Plan Summary Summary: Per admitting physician: "BRYAN MOY is a 80 year old female who lives in a fci. She has dementia and cannot provide much history. All of the history was provided by the ER staff. Apparently she comes by EMS from [facility] for chief complaint of an episode where she was complaining of feeling dizzy, short of breath, and discomfort in her chest. Patient reportedly fell against a wall when she got up, staff became concerned and called EMS. Patient was not noted to be febrile, however she was noted to be hypoxic "in the 80s" per nursing report. Patient was placed on 4 L nasal cannula and on arrival was 94% oxygen saturation. Patient states that she feels "kind of like it is hard to catch my breath", she denies chest pain, she denies cough, she denies an y other symptoms or complaints at this time. History is limited given patient's history of some dementia. Past medical history includes COPD, hypertension, type 2 diabetes, GERD. Interval history: 10/27/2020: Patient was seen and examined. She was sitting in a chair more comfortable. She is on 4 L of nasal cannula oxygen. She states she is feeling better. Edema has improved. BNP is better. 10/28/2020: Patient was seen and examined. She is stable and comfortable on no nasal cannula oxygen. Edema almost resolved. Cardiogram shows normal EF. BNP is again better today. 10/29/2020: Patient was seen and examined. Stable nasal cannula oxygen. Edema resolved. Feels better." (1) Acute on chronic diastolic CHF exacerbation Per Previous Physician: "Acute diastolic CHF. Switched to oral Lasix from IV Lasix. Daily weights. Strict I&O. Continue telemetry. Normal EF on echocardiogram." Resolved Home medications Repeat chest x-ray showed significant improvement in pulmonary vascular congestion Continue home cardiac medications including Lasix, supplement potassium (2) Elevated troponin Likely due to cardiac strain from fall and respiratory failure Continue aspirin. Patient declined any invasive interventions per previous physician. (3) Hypoxia Due to CHF as above, resolving (4) COPD (chronic obstructive pulmonary disease) Continue inhaled treatments No acute exacerbation Oxygen saturation goal 89 to 92% in setting of chronic CO2 retention, wean oxygen as appropriate (5) Diabetes mellitus type 2 in nonobese Restart Metformin. Continue sliding insulin scale. Hemoglobin A1c 6.5. Discharge back to nursing facility - Time Time Spent with patient: 15-24 minutes Medications reviewed and adjusted accordingly: Yes Anticipated Discharge Disposition: Custodial Facility Anticipated Discharge Timeframe: within 24 hours
[2020-10-31 20:34] VITALS: BP 125/55
[2020-10-31] MEDS: MELATONIN 3 MG TABLET PO SCH (21:21)
[2020-10-31] MEDS: TRAZODONE HCL 50 MG TABLET PO SCH (21:21)
[2020-10-31] MEDS ORDERED: METOPROLOL TARTRATE 25 MG TABLET PO SCH (22:00)
== END 2020-10-31 21:50 | DRG 292 ==
LOC: ER 21:16 → EH 10-26 08:03 → 3W 10-26 09:55 → 4N 10-27 14:55
PROVIDERS: ADMIT Family Medicine; ATTEND Internal Medicine
PROC: B24BZZ4 Ultrasonography of Heart with Aorta, Transesophageal (ICD-10-PCS; principal; 2020-10-27)
DX: I11.0 Hypertensive heart disease with heart failure (principal); J44.1 Chronic obstructive pulmonary disease with (acute) exacerbation; I50.33 Acute on chronic diastolic (congestive) heart failure; E11.9 Type 2 diabetes mellitus without complications; Z20.828 Contact with and (suspected) exposure to other viral communicable diseases; F03.90 Unspecified dementia, unspecified severity, without behavioral disturbance, psychotic disturbance, mood disturbance, and anxiety; K21.9 Gastro-esophageal reflux disease without esophagitis; E78.5 Hyperlipidemia, unspecified; W01.198A Fall on same level from slipping, tripping and stumbling with subsequent striking against other object, initial encounter; R09.02 Hypoxemia; Z79.84 Long term (current) use of oral hypoglycemic drugs; Z79.82 Long term (current) use of aspirin; Z79.899 Other long term (current) drug therapy; Z87.891 Personal history of nicotine dependence
CPT/HCPCS: 36415; 71045; 71275; 80048; 80053; 82803; 82962; 83036; 83735; 83880; 84443; 84484; 85025; 85027; 87040; 87635; 93005; 93010; 93306; C9803; J0692; J1650; J1815; J1940; J3370; J3490

== ENCOUNTER 2020-11-01 15:02 | Inpatient (IN) | payer MEDICARE ==
--- NOTE | 2020-11-01 16:37 | RADIOLOGY REPORT (SQ) ---
EXAM DESCRIPTION: CT HEAD WITHOUT IMAGES COMPLETED DATE/TIME: 11/01/2020 4:21 pm REASON FOR STUDY: sob COMPARISON: CT of the head without contrast from 09/19/2020. TECHNIQUE: Axial images acquired through the brain without intravenous contrast. Images reviewed wi th bone, brain and subdural windows. Additional sagittal and coronal reconstructions were generated. Images stored on PACS. All CT scanners at this facility use dose modulation, iterative reconstruction, and/or weight based d osing when appropriate to reduce radiation dose to as low as reasonably achievable (ALARA). [facility]: Dose Right [facility]: CareDose [facility]: Dose Right [facility]: Teradose 4D [facility]: Instacover RADIATION DOSE: CT Rad equipment meets quality standard of care and radiation dose reduction techniq ues were employed. CTDIvol: 53.2 - 55.2 mGy. DLP: 1360 mGy-cm. LIMITATIONS: None. 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 The areas of low-attenuation in the supratentorial periventricular and subcortical white matter are unchanged and likely represent the sequela of chronic microvascular ischemia. There is no acute intracranial hemorrhage, extra-axial fluid collection, mass effect or midline shift . The alexis-white matter differentiation outside the areas of chronic infarction is preserved. The c aliber of the ventricles is concordant with the degree of sulcation and age-appropriate. There is no effacement of the basal subarachnoid cisterns. The orbits and globes are intact. The paranasal sinuses and the mastoid air cells are clear. There is no fracture of the calvarium. IMPRESSION: Sequela of chronic ischemia without a superimposed acute intracranial abnormality. EVIDENCE OF ACUTE STROKE: NO. COMMENT: Quality ID # [id number]: Final reports with documentation of one or more dose reduction techniques (e.g., Automated exposure control, adjustment of the mA and/or kV according to patient size, use of iterative reconstruction technique) TECHNICAL DOCUMENTATION: JOB ID: [id number] 2010 [employer]- All Rights Reserved Reading location - IP/workstation name: [email or web address]
[2020-11-01 16:40] LABS: ARTERIAL BLOOD BASE EXCESS 11.1 mmol/L; ARTERIAL BLOOD H2CO3 1.46 mmol/L (1.05-1.35); ARTERIAL BLOOD HCO3 35.9 mmol/L (20-24); ARTERIAL BLOOD O2 SATURATION 93.5 % (94-98); ARTERIAL BLOOD PCO2 48.5 mmHg (35-45); ARTERIAL BLOOD PH 7.49 (7.35-7.45); ARTERIAL BLOOD PO2 63.5 mmHg (80-100); ARTERIAL BLOOD TOTAL CO2 37.4 mmol/L (21-25)
[2020-11-01 16:41] LABS: ARTERIAL BLOOD FIO2 4L
--- NOTE | 2020-11-01 16:41 | RADIOLOGY REPORT (SQ) ---
EXAM DESCRIPTION: CHEST SINGLE VIEW IMAGES COMPLETED DATE/TIME: 11/01/2020 4:31 pm REASON FOR STUDY: sob COMPARISON: AP view of the chest from 10/27/2020. EXAM PARAMETERS: NUMBER OF VIEWS: One view. TECHNIQUE: An AP view of the chest was obtained. RADIATION DOSE: NA LIMITATIONS: None. FINDINGS: LUNGS AND PLEURA: The amount of fluid in the left pleural space has decreased. The dense opacity in the left retrocardiac space that obscures the contour of the descending thoracic aorta and medial contour of the left hemidiaphragm is unchanged. The interstitium is prominent. The costophr enic sulci are blunted. MEDIASTINUM AND HILAR STRUCTURES: Stable mediastinal and hilar contours. HEART AND VASCULAR STRUCTURES: Stable enlarged cardiac silhouette. BONES: S shaped scoliotic curvature of the thoracolumbar spine. HARDWARE: None in the chest. OTHER: No other finding. IMPRESSION: The amount of fluid in the left pleural space has decreased. The dense opacity in the l eft retrocardiac space that obscures the contour of the descending thoracic aorta and medial contour of the left hemidiaphragm is unchanged and could represent a combination of residual pleural fluid, a telectasis and/or in the proper clinical setting consolidation. The heart is enlarged and the inters titium is prominent - correlation with clinical findings for signs and symptoms of volume overload is recommended. TECHNICAL DOCUMENTATION: JOB ID: [id number] 2010 [employer]- All Rights Reserved Reading location - IP/workstation name: [email or web address]
--- NOTE | 2020-11-01 16:47 | RADIOLOGY REPORT (SQ) ---
EXAM DESCRIPTION: HIP LEFT AP/LATERAL IMAGES COMPLETED DATE/TIME: 11/01/2020 4:31 pm REASON FOR STUDY: sob COMPARISON: None. NUMBER OF VIEWS: Two views. TECHNIQUE: AP pelvis and additional frog legview of the left hip. LIMITATIONS: None. FINDINGS: MINERALIZATION: Osteopenia. LEFT HIP: Acute displaced and comminuted intertrochanteric fracture of the left femur with superior d isplacement of the distal fracture fragment. There is no associated dislocation of the femoroacetabu lar joint. RIGHT HIP: Osteoarthrosis of the femoroacetabular joint. There is no acute fracture or dislocation. PUBIS AND ISCHIUM: The ilioischial and iliopectineal lines are intact. There is no diastasis of the pubic symphysis. PELVIS: No fracture. SACRUM: The sacrum is obscured by overlying bowel. LOWER LUMBAR SPINE: Degenerative spondylosis. SOFT TISSUES: No findings. OTHER: No other findings. IMPRESSION: Acute displaced and comminuted intertrochanteric fracture of the left femur with superio r displacement of the distal fracture fragment. There is no associated dislocation of the femoroacet abular joint. TECHNICAL DOCUMENTATION: JOB ID: [id number] 2010 [employer]- All Rights Reserved Reading location - IP/workstation name: [email or web address]
--- NOTE | 2020-11-01 17:13 | ER Document Report ---
ED Dizziness/Weakness - General Chief Complaint: Altered Mental Status Stated Complaint: ALTERED MENTAL STATUS Time Seen by Provider: 11/01/20 15:29 Primary Care Provider: EHSAN AG ANP [Primary Care Provider] - Follow up as needed Mode of Arrival: Medic Information source: Patient, Emergency Med Personnel TRAVEL OUTSIDE OF THE [place] IN LAST 30 DAYS: No - HPI Notes: Patient was brought in by ambulance secondary to a fall at a alf. Patient had an unwitnessed fall at the alf and was unable to stand back up. She is also unable to bear weight after the fall apparently. In addition patient was found to have an O2 saturation of 55%. She apparently removed her oxygen herself per the extended care facility staff. Patient here has dementia and cannot contribute significantly to history. When I see her she is on 4 L of oxygen and does not complain of shortness of breath. She has no complaints of any recent persistent cough. She does complain of left hip pain. It is apparently constant. It is obviously worse with movement and better with rest. She does not describe any type of radiation. She is never describe the characteristics or the severity of the pain. - Related Data Allergies/Adverse Reactions: No Known Allergies Allergy (Unverified 08/13/17 09:54) Past Medical History - General Information source: Patient - Social History Smoking Status: Former Smoker Chew tobacco use (# tins/day): No Frequency of alcohol use: None Drug Abuse: None Family History: Reviewed & Not Pertinent, CAD, DM, Hypertension, Malignancy - Past Medical History Cardiac Medical History: Reports: Hx Congestive Heart Failure, Hx Hypercholesterolemia, Hx Hypertension Pulmonary Medical History: Reports: Hx Asthma, Hx COPD Neurological Medical History: Denies: Hx Seizures Endocrine Medical History: Reports: Hx Diabetes Mellitus Type 2. Denies: Hx Hyperthyroidism, Hx Hypothyroidism Renal/ Medical History: Denies: Hx Peritoneal Dialysis GI Medical History: Reports: Hx Gastroesophageal Reflux Disease. Denies: Hx Crohn's Disease, Hx Ulcerative Colitis Musculoskeletal Medical History: Reports Hx Arthritis Skin Medical History: Denies Hx Psoriasis Psychiatric Medical History: Denies: Hx Depression Traumatic Medical History: Denies: Hx Traumatic Brain Injury Past Surgical History: Reports: Hx Appendectomy - Immunizations Hx Diphtheria, Pertussis, Tetanus Vaccination: Yes Review of Systems - Review of Systems -: Yes ROS unobtainable due to patient's medical condition - Unable to get review of symptoms secondary to dementia. Physical Exam - Vital signs Vitals: Temp 98.8 F 11/01/20 15:03 Interpretation: Normal - General General appearance: Alert In distress: None - HEENT Head: Normocephalic, Atraumatic Eyes: Normal Pupils: PERRL - Respiratory Respiratory status: No respiratory distress Chest status: Nontender Breath sounds: Decreased air movement, Rales, Rhonchi Chest palpation: Normal - Cardiovascular Rhythm: Regular Heart sounds: Normal auscultation Murmur: No - Abdominal Inspection: Normal Distension: No distension Bowel sounds: Normal Tenderness: Nontender Organomegaly: No organomegaly - Back Back: Normal, Nontender - Extremities General upper extremity: Normal inspection, Nontender, Normal color, Normal ROM, Normal temperature General lower extremity: Normal inspection, Normal color, Normal temperature, Other - Left hip is tender to palpation. She also has a tender range of motion of the left hip. There does appear to be some shortening of the left lower extremity. She is neurovascular intact distal to the left hip.. No: Jalil's sign - Neurological Cognition: Confused Orientation: AAOx4 [place] Coma Scale Eye Opening: Spontaneous [place] Coma Scale Verbal: Confused Gracie Coma Scale Motor: Obeys Commands Gracie Coma Scale Total: 14 Speech: Normal Sensory: Normal - Psychological Associated symptoms: Normal affect, Normal mood - Skin Skin Temperature: Warm Skin Moisture: Dry Skin Color: Normal Course - Re-evaluation Re-evalutation: 11/01/20 17:21 Patient is brought in after a fall the alf. She was also found to be hypoxic. Apparently patient was supposed to be on 4 L the alf and removed her own oxygen which is why she was hypoxic. Here she has a normal saturation on 4 L. She has some evidence on x-ray of some mild fluid overload but is not in any distress. Laboratories at this time are still pending. Patient's x-ray of her hip shows an acute left intertrochanteric hip fracture. Orthopedics has been notified. Patient will be admitted to the hospital for fur ther evaluation and treatment. - Vital Signs Vital signs: Temp Pulse Resp BP Pulse Ox 98.8 F 11/01/20 15:03 - Laboratory Laboratory results interpreted by me: 11/01/20 16:05 Carbonic Acid 1.46 H ABG pH 7.49 H ABG pCO2 48.5 H ABG pO2 63.5 L ABG HCO3 35.9 H ABG Total CO2 37.4 H ABG O2 Saturation 93.5 L Discharge - Discharge Clinical Impression: Fracture, intertrochanteric, left femur Qualifiers: Encounter type: initial encounter Fracture type: closed Fracture alignment: displaced Qualified Code(s): S72.142A - Displaced intertrochanteric fracture of left femur, initial encounter for closed fracture Condition: Serious Disposition: ADMITTED INPATIENT Unit Admitted: Telemetry Referrals: EHSAN AG, ANP [Primary Care Provider] - Follow up as needed
[2020-11-01 17:57] LABS: HEMATOCRIT 33.1 % (36.0-47.0); HEMOGLOBIN 10.4 g/dL (12.0-15.5); MEAN CORPUSCULAR HEMOGLOBIN 25.6 pg (27.0-33.4); MEAN CORPUSCULAR HGB CONC 31.4 g/dL (32.0-36.0); MEAN CORPUSCULAR VOLUME 82 fl (80-97); PLATELET COUNT 157 10^3/uL (150-450); RED BLOOD COUNT 4.05 10^6/uL (3.72-5.28); RED CELL DISTRIBUTION WIDTH 17.1 % (11.5-14.0); WHITE BLOOD COUNT 8.5 10^3/uL (4.0-10.5)
[2020-11-01 18:09] LABS: ALBUMIN 3.7 g/dL (3.5-5.0); ALKALINE PHOSPHATASE 57 U/L (38-126); ANION GAP 7 (5-19); ASPARTATE AMINO TRANSFERASE 26 U/L (14-36); BILIRUBIN,DIRECT 0.2 mg/dL (0.0-0.4); BLOOD UREA NITROGEN 36 mg/dL (7-20); CALCIUM 9.6 mg/dL (8.4-10.2); CARBON DIOXIDE 37 mmol/L (22-30); CHLORIDE 96 mmol/L (98-107); GLUCOSE 143 mg/dL (75-110)
[2020-11-01 18:16] LABS: ABSOLUTE LYMPHOCYTES# (MANUAL) 0.4 10^3/uL (0.5-4.7); ABSOLUTE MONOCYTES # (MANUAL) 0.5 10^3/uL (0.1-1.4); BASOPHILS % (MANUAL) 1 % (0-2); EOSINOPHILS % (MANUAL) 0 % (0-6); LYMPHOCYTES % (MANUAL) 5 % (13-45); MONOCYTES % (MANUAL) 6 % (3-13); SEGMENTED NEUTROPHILS % (MAN) 88 % (42-78); TOTAL CELLS COUNTED 100
[2020-11-01 18:17] LABS: ANISOCYTOSIS 1+; PLATELET COMMENT ADEQUATE
[2020-11-01 18:26] LABS: TROPONIN I 0.066 ng/mL
[2020-11-01] MEDS ORDERED: DEXTROSE 50%-WATER 25 GM/50 ML DISP.SYRIN IV PRN ×2 (18:52)
[2020-11-01] MEDS ORDERED: GLUCAGON,HUMAN RECOMB 1 MG INJ SUBCUT PRN (18:52)
[2020-11-01] MEDS ORDERED: ONDANSETRON 4 MG TAB.RAPDIS PO PRN (18:52)
[2020-11-01] MEDS ORDERED: DEXTROSE 40% GEL 15 GM TUBE PO PRN ×2 (18:52)
[2020-11-01] MEDS ORDERED: MORPHINE SULFATE 10 MG/ML INJ IV PRN (18:52)
[2020-11-01] MEDS ORDERED: ONDANSETRON HCL INJ/PF 4 MG/2 ML SDV IV PRN (18:52)
[2020-11-01] MEDS ORDERED: MYLANTA PO PRN (19:02)
[2020-11-01] MEDS ORDERED: ALBUTEROL SULFATE HFA (90 MCG/PUFF) 8 GM MDI (1 MDI/ER DISP) IH PRN (19:02)
--- NOTE | 2020-11-01 19:09 | EKG REPORT ---
SEVERITY:- ABNORMAL ECG - SINUS RHYTHM EXCESSIVE BASELINE ARTEFACT. : Confirmed by: Gerber Plummer MD 01-Nov-2020 19:08:09
[2020-11-01] MEDS ORDERED: ALBUTEROL SULFATE HFA (90 MCG/PUFF) 8 GM MDI IH PRN (19:12)
--- NOTE | 2020-11-01 19:13 | PDOC H&P ---
History of Present Illness Admission Date/PCP: 11/01/20 17:51 PRAVEENA CABEZAS History of Present Illness: BRYAN MOY is a 80 year old female with past medical history significant for chronic diastolic CHF, chronic hypoxemic respiratory failure, COPD, T2DM who presents to the ED after having a fall at her nursing facility where she was discharged from this hospital yesterday. Reportedly, patient took off her oxygen and attempted to walk across her room, subsequently became hypoxemic and dizzy, falling to the floor and fracturing her left hip. Imaging done in ED was consistent with left intertrochanteric closed hip fracture. Dr. Lewis in orthopedic surgery has been contacted and plans to take the patient to the OR in the morning. She will need to be n.p.o. at midnight tonight. Pain management is started. Labs and imaging reviewed. Patient denies any syncope, fever, productive cough or any other new symptoms prior to falling and breaking her hip. Past Medical History Cardiac Medical History: Reports: Congestive Heart Failure, Hyperlipidema, Hypertension Pulmonary Medical History: Reports: Asthma, Chronic Obstructive Pulmonary Disease (COPD) Neurological Medical History: Denies: Seizures Endocrine Medical History: Reports: Diabetes Mellitus Type 2 Denies: Hyperthyroidism, Hypothyroidism GI Medical History: Reports: Gastroesophageal Reflux Disease Denies: Crohn's Disease, Ulcerative Colitis Musculoskeltal Medical History: Reports: Arthritis Skin Medical History: Denies: Psoriasis Psychiatric Medical History: Denies: Depression Traumatic Medical History: Denies: Traumatic Brain Injury Past Surgical History Past Surgical History: Reports: Appendectomy Social History Information Source: Patient, Emergency Med Personnel Smoking Status: Former Smoker Electronic Cigarette use?: No Frequency of Alcohol Use: None Hx Recreational Drug Use: No Drugs: None Hx Prescription Drug Abuse: No - Advance Directive Resuscitation Status: Do Not Resuscitate Surrogate healthcare decision maker:: Admitting diagnosis: Left hip fracture All aspects of code status discussed with patient/POA including cardioversion, chest compressions, and intubation and the patient/POA indicated they wish to be DNR/DNI MPOA is designated as: Nito De Souza Time spent: Greater than 16 minutes Family History Family History: Reviewed & Not Pertinent, CAD, DM, Hypertension, Malignancy Parental Family History Reviewed: Yes Children Family History Reviewed: Yes Sibling(s) Family History Reviewed.: Yes Medication/Allergy Home Medications: Acetaminophen [Tylenol] 650 mg PO Q4HP PRN 02/11/19 Albuterol Sulfate [Ventolin Hfa 8 gm Mdi (1 Mdi/ER Disp)] 2 puff IH Q4HP PRN 02/11/19 Aspirin [Aspirin 81 mg Chewable Tablet] 81 mg PO DAILY 02/11/19 Melatonin [Melatonin 3 mg Tablet] 3 mg PO QHS 02/11/19 Mylanta Liquid 30 ml PO Q4HP PRN 02/11/19 Omeprazole 40 mg PO Q6AM 02/11/19 Budesonide/Formoterol Fumarate [Symbicort HFA 160-4.5 mcg Inhaler 6 gm] 2 puff IH BID 10/26/20 Cyanocobalamin (Vitamin B-12) [Vitamin B-12 1000 mcg Tablet] 500 mcg PO DAILY 10/26/20 Diltiazem HCl [Dilt-Xr] 240 mg PO DAILY 10/26/20 Hydralazine HCl [Apresoline 25 mg Tablet] 25 mg PO Q8 10/26/20 Metformin HCl [Metformin HCl ER] 500 mg PO BID 10/26/20 Olopatadine HCl [Pataday] 1 drop OU DAILY 10/26/20 Sertraline HCl [Zoloft 50 mg Tablet] 12.5 mg PO DAILY 10/26/20 Trazodone HCl [Desyrel 50 mg Tablet] 100 mg PO QHS 10/26/20 Furosemide [Lasix 20 mg Tablet] 30 mg PO BID tablet 10/30/20 Potassium Chloride [Klor-Con 10 Meq Tablet ER] 20 meq PO DAILY #0 tablet.er 10/30/20 Metoprolol Tartrate [Lopressor 25 mg Tablet] 25 mg PO Q12 tablet 10/31/20 Allergies/Adverse Reactions: No Known Allergies Allergy (Unverified 08/13/17 09:54) Review of Systems All systems: reviewed and no additional remarkable complaints except as stated - For HPI otherwise negative Physical Exam Vital Signs: Temp Pulse Resp BP Pulse Ox 98.8 F 11/01/20 15:03 Intake & Output 10/31/20 11/01/20 11/02/20 06:59 06:59 06:59 Weight 55.9 kg Exam: General appearance: PRESENT: no acute distress, frail and chronically ill- appearing elderly female Head exam: PRESENT: atraumatic, normocephalic Eye exam: PRESENT: conjunctiva pink. ABSENT: scleral icterus Mouth exam: PRESENT: moist Respiratory exam: PRESENT: clear to auscultation jackson. ABSENT: rales, rhonchi, wheezes Cardiovascular exam: PRESENT: RRR. ABSENT: diastolic murmur, rubs, systolic murmur GI/Abdominal exam: PRESENT: normal bowel sounds, soft. ABSENT: distended, guarding, mass, organolmegaly, rebound, tenderness Neurological exam: PRESENT: alert, awake, oriented to self Psychiatric exam: PRESENT: appropriate affect, normal mood Skin exam: PRESENT: dry, intact, warm Musculoskeletal: Left leg externally rotated and extremely tender lateral aspect near her hip Results Laboratory Results: 11/01/20 17:20 11/01/20 17:20 11/01/20 11/01/20 11/01/20 16:05 17:20 17:20 WBC 8.5 RBC 4.05 Hgb 10.4 L Hct 33.1 L MCV 82 MCH 25.6 L MCHC 31.4 L RDW 17.1 H Plt Count 157 Seg Neutrophils % Not Reportable Carbonic Acid 1.46 H HCO3/H2CO3 Ratio 24:1 ABG pH 7.49 H ABG pCO2 48.5 H ABG pO2 63.5 L ABG HCO3 35.9 H ABG O2 Saturation 93.5 L ABG Base Excess 11.1 FiO2 4L Sodium 140.1 Potassium 4.0 Chloride 96 L Carbon Dioxide 37 H Anion Gap 7 BUN 36 H Creatinine 1.06 Est GFR ( Amer) > 60 Glucose 143 H Calcium 9.6 Total Bilirubin 1.0 AST 26 Alkaline Phosphatase 57 Total Protein 6.0 L Albumin 3.7 11/01/20 17:20 Troponin I 0.066 NT-Pro-B Natriuret Pep 2049 H Impressions: Chest X-Ray 11/01/20 15:37 IMPRESSION: The amount of fluid in the left pleural space has decreased. The dense opacity in the left retrocardiac space that obscures the contour of the descending thoracic aorta and medial contour of the left hemidiaphragm is unchanged and could represent a combination of residual pleural fluid, atelectasis and/or in the proper clinical setting consolidation. The heart is enlarged and the interstitium is prominent - correlation with clinical findings for signs and symptoms of volume overload is recommended. Head CT 12/02/20 15:37 IMPRESSION: Sequela of chronic ischemia without a superimposed acute intracranial abnormality. EVIDENCE OF ACUTE STROKE: NO. Hip X-Ray 11/01/20 15:37 IMPRESSION: Acute displaced and comminuted intertrochanteric fracture of the left femur with superior displacement of the distal fracture fragment. There is no associated dislocation of the femoroacetabular joint. Assessment and Plan - Diagnosis (1) Fracture, intertrochanteric, left femur Qualifiers: Encounter type: initial encounter Fracture type: closed Fracture align ment: displaced Qualified Code(s): S72.142A - Displaced intertrochanteric fracture of left femur, initial encounter for closed fracture Is this a current diagnosis for this admission?: Yes Plan: Took off her oxygen at her nursing facility and subsequently became dizzy and fell, fracturing left hip Imaging reviewed, consistent with left intertrochanteric closed hip fracture Orthopedic surgery consulted: Dr. Lewis following Plan for OR 11/02, n.p.o. at midnight on 11/01 Pain management DVT prophylaxis PT/OT, case management (2) Acute on chronic respiratory failure with hypoxemia Is this a current diagnosis for this admission?: Yes Plan: Due to taking off oxygen, subsequently caused to fall Continue submental oxygen as was prescribed at discharge from previous admission (3) COPD (chronic obstructive pulmonary disease) Qualifiers: Is this a current diagnosis for this admission?: Yes Plan: Chronic COPD -Supplemental O2 to maintain sat of 89-94% -duonebs as needed -bronchial hygiene -no smoking (4) Diabetes mellitus type 2 in nonobese Is this a current diagnosis for this admission?: Yes Plan: T2DM -accucheks, sliding scale insulin -long acting insulin indicated for HgA1C of 10 or greater -diet counseling -outpt FU with PCP (5) Fall Is this a current diagnosis for this admission?: Yes - Time Time Spent with patient: 35 or more minutes Medications reviewed and adjusted accordingly: Yes Anticipated Discharge Disposition: Snf Facility Anticipated Discharge Timeframe: within 72 hours - Inpatient Certification Based on my medical assessment, after consideration of the patient's comorbidities, presenting symptoms, or acuity I expect that the services needed warrant INPATIENT care.: Yes I certify that my determination is in accordance with my understanding of Medicare's requirements for reasonable and necessary INPATIENT services [42 CFR 412.3e].: Yes Medical Necessity: Significant Comorbidiites Make Outpatient Treatment Too Risky, Need Close Monitoring Due to Risk of Patient Decompensation, Need for Pain Control, Risk of Complication if Not Cared For in Hospital, Risk of Diagnosis Which Will Require Inpatient Eval/Care/Monitoring
[2020-11-01] MEDS ORDERED: MAG HYDROX/AL HYDROX/SIMETH SUSP 30 ML UDCUP PO PRN (19:15)
[2020-11-01] MEDS: METOPROLOL TARTRATE 25 MG TABLET PO SCH (23:17)
[2020-11-01] MEDS: HYDRALAZINE HCL 25 MG TABLET PO SCH (23:17)
[2020-11-01] MEDS: MELATONIN 3 MG TABLET PO SCH (23:17)
[2020-11-01] MEDS: ENOXAPARIN SODIUM INJ 40 MG/0.4 ML DISP.SYRIN SUBCUT SCH (23:18)
[2020-11-01] MEDS: TRAZODONE HCL 50 MG TABLET PO SCH (23:18)
[2020-11-01] MEDS: INSULIN LISPRO 100 UNIT/ML 3 ML VIAL SUBCUT SCH (23:19)
[2020-11-02] MEDS: PANTOPRAZOLE SODIUM 40 MG TABLET.DR PO SCH (05:38)
[2020-11-02] MEDS: HYDRALAZINE HCL 25 MG TABLET PO SCH ×3 (05:38→22:56)
[2020-11-02] MEDS ORDERED: (PENDING PHARMACY ID) (Omeprazole [Omeprazole] 40 MG Capsule.Dr) PO SCH (06:00)
[2020-11-02 07:07] LABS: INTERNATIONAL RATION (INR) 1.16; PARTIAL THROMBOPLASTIN TIME 27.4 SEC (23.5-35.8)
[2020-11-02 07:09] LABS: ABSOLUTE LYMPHOCYTES (AUTO) 0.5 10^3/uL (0.5-4.7); ABSOLUTE MONOCYTES (AUTO) 0.6 10^3/uL (0.1-1.4); BASOPHILS % (AUTO) 0.2 % (0-2); HEMATOCRIT 27.8 % (36.0-47.0); HEMOGLOBIN 8.9 g/dL (12.0-15.5); LYMPHOCYTES % (AUTO) 7.6 % (13-45); MEAN CORPUSCULAR HEMOGLOBIN 25.9 pg (27.0-33.4); MEAN CORPUSCULAR HGB CONC 32.2 g/dL (32.0-36.0); MEAN CORPUSCULAR VOLUME 81 fl (80-97); MONOCYTES % (AUTO) 10.3 % (3-13); PLATELET COUNT 142 10^3/uL (150-450); RED BLOOD COUNT 3.45 10^6/uL (3.72-5.28); RED CELL DISTRIBUTION WIDTH 17.1 % (11.5-14.0); SEGMENTED NEUTROPHILS % (AUTO) 81.9 % (42-78); TOTAL CELLS COUNTED % (AUTO) 100 %; WHITE BLOOD COUNT 6.1 10^3/uL (4.0-10.5)
[2020-11-02 07:39] LABS: ANION GAP 4 (5-19); BLOOD UREA NITROGEN 32 mg/dL (7-20); CALCIUM 9.1 mg/dL (8.4-10.2); CARBON DIOXIDE 37 mmol/L (22-30); CHLORIDE 97 mmol/L (98-107); GLUCOSE 126 mg/dL (75-110); PHOSPHORUS 3.5 mg/dL (2.5-4.5); POTASSIUM 3.5 mmol/L (3.6-5.0)
[2020-11-02] MEDS: INSULIN LISPRO 100 UNIT/ML 3 ML VIAL SUBCUT SCH ×4 (08:25→22:56)
[2020-11-02] MEDS ORDERED: (PENDING PHARMACY ID) (Budesonide/Formoterol Fumarate 60 PUFF/6 GM Inhaler) IH SCH (10:00)
--- NOTE | 2020-11-02 10:32 | PDOC CONSULTATION ---
Consultation Consult Date: 11/02/20 Provider Consulted: HEATHER SPANGLER JR History of Present Illness Admission Date/PCP: 11/01/20 17:51 PRAVEENA CABEZAS History of Present Illness: BRYAN MOY is a 80 year old female with a past medical history of CHF, chronic respiratory failure, COPD, type 2 diabetes and recent discharge earlier this week for chronic CHF. She was discharged and then had a subsequent fall landing onto her left hip with pain, inability to ambulate. She describes the pain is aching in nature, 8 out of 10, worse with motion improved with pain control medications. She reports that prior to her fall she became hypoxic and dizzy. She denies any syncope fever, head injury. She denies current headache or altered sensorium. She denies any other associated injury. Past Medical History Cardiac Medical History: Reports: Congestive Heart Failure, Hyperlipidema, Hypertension Pulmonary Medical History: Reports: Asthma, Chronic Obstructive Pulmonary Disease (COPD) Neurological Medical History: Denies: Seizures Endocrine Medical History: Reports: Diabetes Mellitus Type 2 Denies: Hyperthyroidism, Hypothyroidism GI Medical History: Reports: Gastroesophageal Reflux Disease Denies: Crohn's Disease, Ulcerative Colitis Musculoskeltal Medical History: Reports: Arthritis Skin Medical History: Denies: Psoriasis Psychiatric Medical History: Denies: Depression Traumatic Medical History: Denies: Traumatic Brain Injury Past Surgical History Past Surgical History: Reports: Appendectomy Social History Smoking Status: Former Smoker Electronic Cigarette use?: No Frequency of Alcohol Use: None Hx Recreational Drug Use: No Drugs: None Hx Prescription Drug Abuse: No - Advance Directive Resuscitation Status: Do Not Resuscitate Family History Family History: Reviewed & Not Pertinent, CAD, DM, Hypertension, Malignancy Parental Family History Reviewed: Yes - CHF, CAD, malignancy. Children Family History Reviewed: Yes Sibling(s) Family History Reviewed.: Yes Medication/Allergy Home Medications: Acetaminophen [Tylenol] 650 mg PO Q4HP PRN 02/11/19 Albuterol Sulfate [Ventolin Hfa 8 gm Mdi (1 Mdi/ER Disp)] 2 puff IH Q4HP PRN 02/11/19 Aspirin [Aspirin 81 mg Chewable Tablet] 81 mg PO DAILY 02/11/19 Melatonin [Melatonin 3 mg Tablet] 3 mg PO QHS 02/11/19 Mylanta Liquid 30 ml PO Q4HP PRN 02/11/19 Omeprazole 40 mg PO DAILY 02/11/19 Budesonide/Formoterol Fumarate [Symbicort HFA 160-4.5 mcg Inhaler 6 gm] 2 puff IH BID 10/26/20 Cyanocobalamin (Vitamin B-12) [Vitamin B-12 1000 mcg Tablet] 500 mcg PO DAILY 10/26/20 Diltiazem HCl [Dilt-Xr] 240 mg PO DAILY 10/26/20 Hydralazine HCl [Apresoline 25 mg Tablet] 25 mg PO Q8 10/26/20 Metformin HCl [Metformin HCl ER] 500 mg PO BID 10/26/20 Olopatadine HCl [Pataday] 1 drop OU DAILY 10/26/20 Sertraline HCl [Zoloft 50 mg Tablet] 12.5 mg PO DAILY 10/26/20 Trazodone HCl [Desyrel 50 mg Tablet] 100 mg PO QHS 10/26/20 Furosemide [Lasix 20 mg Tablet] 30 mg PO BID tablet 10/30/20 Potassium Chloride [Klor-Con 10 Meq Tablet ER] 20 meq PO DAILY #0 tablet.er 10/30/20 Metoprolol Tartrate [Lopressor 25 mg Tablet] 25 mg PO Q12 tablet 10/31/20 Hydrochlorothiazide [Hydrodiuril 25 mg Tablet] 25 mg PO QAM 11/02/20 Lisinopril [Zestril] 40 mg PO DAILY 11/02/20 Allergies/Adverse Reactions: No Known Allergies Allergy (Unverified 08/13/17 09:54) Review of Systems Review of Systems: Constitutional: ABSENT: anorexia, chills, night sweats Cardiovascular: ABSENT: chest pain Respiratory: ABSENT: dyspnea Gastrointestinal: ABSENT: vomiting Genitourinary: ABSENT: dysuria Integumentary: ABSENT: rash Neurological: ABSENT: confusion, memory loss, numbness Psychiatric: ABSENT: hallucinations Hematologic/Lymphatic: ABSENT: easy bleeding All negative as above aside from that reported in the HPI and the following: Edema, symptoms of CHF. Physical Exam Vital Signs: Temp Pulse Resp BP Pulse Ox 98.3 F 72 16 162/61 H 91 L 11/02/20 09:29 11/02/20 09:50 11/02/20 09:50 11/02/20 07:49 11/02/20 09:50 Intake & Output 11/01/20 11/02/20 11/03/20 06:59 06:59 06:59 Intake Total 260 Balance 260 Weight 53.4 kg Physical Exam: General appearance: PRESENT: no acute distress, cooperative, thin, frail, sickly in appearance. Head exam: PRESENT: atraumatic, normocephalic Eye exam: PRESENT: EOMI Ear exam: PRESENT: normal external ear exam Mouth exam: PRESENT: neck supple Neck exam: ABSENT: tracheal deviation Respiratory exam: PRESENT: symmetrical, unlabored. ABSENT: accessory muscle use, wheezes Pulses: PRESENT: normal radial pulses, normal dorsalis pedis pulse Vascular exam: PRESENT: normal capillary refill GI/Abdominal exam: ABSENT: distended, firm Extremities exam: PRESENT: full ROM of bilateral shoulders, elbows wrists, knees, hips and ankles without pain Musculoskeletal exam: PRESENT: full ROM, normal inspection of all 4 extremities aside from that noted below. Neurological exam: PRESENT: alert, awake, oriented to person, oriented to place, oriented to time Psychiatric exam: PRESENT: appropriate affect. ABSENT: agitated Focused psych exam: ABSENT: catatonic Skin exam: PRESENT: intact. ABSENT: dry All as above aside from that noted in the HPI and the following: Left lower extremity -Pulses 2+ distally -Compartments soft -Sensation grossly intact to L3-4-5 S1 -Motor grossly intact to EHL TA gastroc and quad -Leg externally rotated and shortened. Skin intact. Results Laboratory Results: 11/02/20 05:59 11/02/20 05:59 11/01/20 11/01/20 11/01/20 16:05 17:20 17:20 WBC 8.5 RBC 4.05 Hgb 10.4 L Hct 33.1 L MCV 82 MCH 25.6 L MCHC 31.4 L RDW 17.1 H Plt Count 157 Seg Neutrophils % Not Reportable Carbonic Acid 1.46 H HCO3/H2CO3 Ratio 24:1 ABG pH 7.49 H ABG pCO2 48.5 H ABG pO2 63.5 L ABG HCO3 35.9 H ABG O2 Saturation 93.5 L ABG Base Excess 11.1 FiO2 4L Sodium 140.1 Potassium 4.0 Chloride 96 L Carbon Dioxide 37 H Anion Gap 7 BUN 36 H Creatinine 1.06 Est GFR ( Amer) > 60 Glucose 143 H Calcium 9.6 Phosphorus Magnesium Total Bilirubin 1.0 AST 26 Alkaline Phosphatase 57 Total Protein 6.0 L Albumin 3.7 11/02/20 11/02/20 05:59 05:59 WBC 6.1 RBC 3.45 L Hgb 8.9 L Hct 27.8 L MCV 81 MCH 25.9 L MCHC 32.2 RDW 17.1 H Plt Count 142 L Seg Neutrophils % 81.9 H Carbonic Acid HCO3/H2CO3 Ratio ABG pH ABG pCO2 ABG pO2 ABG HCO3 ABG O2 Saturation ABG Base Excess FiO2 Sodium 137.6 Potassium 3.5 L Chloride 97 L Carbon Dioxide 37 H Anion Gap 4 L BUN 32 H Creatinine 0.83 Est GFR ( Amer) > 60 Glucose 126 H Calcium 9.1 Phosphorus 3.5 Magnesium 1.6 Total Bilirubin AST Alkaline Phosphatase Total Protein Albumin 11/01/20 17:20 Troponin I 0.066 NT-Pro-B Natriuret Pep 2050 H Impressions: Chest X-Ray 11/01/20 15:37 IMPRESSION: The amount of fluid in the left pleural space has decreased. The dense opacity in the left retrocardiac space that obscures the contour of the descending thoracic aorta and medial contour of the left hemidiaphragm is unchanged and could represent a combination of residual pleural fluid, atelectasis and/or in the proper clinical setting consolidation. The heart is enlarged and the interstitium is prominent - correlation with clinical findings for signs and symptoms of volume overload is recommended. Head CT 11/01/20 15:37 IMPRESSION: Sequela of chronic ischemia without a superimposed acute intracranial abnormality. EVIDENCE OF ACUTE STROKE: NO. Hip X-Ray 11/01/20 15:37 IMPRESSION: Acute displaced and comminuted intertrochanteric fracture of the left femur with superior displacement of the distal fracture fragment. There is no associated dislocation of the femoroacetabular joint. Assessment & Plan - Diagnosis (1) Fracture, intertrochanteric, left femur Qualifiers: Encounter type: initial encounter Fracture type: closed Fracture alignment: displaced Qualified Code(s): S72.142A - Displaced intertrochanteric fracture of left femur, initial encounter for closed fracture Is this a current diagnosis for this admission?: Yes Plan: Patient has a basicervical fracture of the left hip. She will require operative intervention, potentially today. Preoperative work-up by anesthesia pending Keep n.p.o. at this time Bedrest, Ancef 2 g on-call for the OR preoperatively Hold all chemical DVT prophylaxis at this time.
[2020-11-02] MEDS: ENOXAPARIN SODIUM INJ 40 MG/0.4 ML DISP.SYRIN SUBCUT SCH (11:58)
[2020-11-02] MEDS: METOPROLOL TARTRATE 25 MG TABLET PO SCH ×2 (12:07→22:56)
[2020-11-02] MEDS: SERTRALINE HCL 50 MG TABLET PO SCH (12:07)
[2020-11-02] MEDS: POTASSIUM CHLORIDE 10 MEQ TABLET.ER PO SCH (12:07)
[2020-11-02] MEDS: DOCUSATE SODIUM 100 MG CAPSULE PO SCH (12:07)
[2020-11-02] MEDS: OLOPATADINE HCL 0.1% OPH SOLN 5 ML OU SCH (12:08)
[2020-11-02] MEDS: DILTIAZEM HCL 240 MG CAPSULE.CR PO SCH (12:08)
[2020-11-02] MEDS: FUROSEMIDE 20 MG TABLET PO SCH ×2 (12:08→17:18)
[2020-11-02] MEDS: FLUTICASONE/VILANTEROL 200-25 MCG/DOSE IH SCH (12:09)
[2020-11-02] MEDS ORDERED: FENTANYL CITRATE INJ/PF 100 MCG/2 ML AMPUL ONE (14:30)
[2020-11-02] MEDS ORDERED: MIDAZOLAM 2 MG/2 ML INJ ONE (14:30)
[2020-11-02] MEDS ORDERED: ONDANSETRON HCL INJ/PF 4 MG/2 ML SDV ONE (14:31)
[2020-11-02] MEDS ORDERED: PROPOFOL INJ 200 MG/20 ML VIAL IV ONE (14:31)
[2020-11-02] MEDS ORDERED: EPHEDRINE SULFATE INJ 50 MG/1 ML AMPULE ONE (14:31)
--- NOTE | 2020-11-02 14:55 | PDOC PROGRESS REPORT ---
Subjective Subjective:: BRYAN MOY is a 80 year old female with past medical history significant for chronic diastolic CHF, chronic hypoxemic respiratory failure, COPD, T2DM who presents to the ED after having a fall at her nursing facility where she was discharged from this hospital yesterday. Reportedly, patient took off her oxygen and attempted to walk across her room, subsequently became hypoxemic and dizzy, falling to the floor and fracturing her left hip. Imaging done in ED was consistent with left intertrochanteric closed hip fracture. Dr. Lewis in orthopedic surgery has been contacted and plans to take the patient to the OR in the morning. She will need to be n.p.o. at midnight tonight. Pain management is started. Labs and imaging reviewed. Patient denies any syncope, fever, productive cough or any other new symptoms prior to falling and breaking her hip. 11/02/2020 Patient seems to be comfortable in her pain is primarily controlled. Orthopedic surgery is planning to take her to the OR hopefully today. We will hold Lovenox until after surgery. Patient remains n.p.o. for now. She is adequately maintained on 2 L nasal cannula supplemental oxygen. Patient has no new complaints today. Reason For Visit: FRACTURE, INTERTROCHANTERIC, LEFT FEMUR Physical Exam Vital Signs: Temp Pulse Resp BP Pulse Ox 98.6 F 84 15 157/51 H 93 11/02/20 11:15 11/02/20 11:15 11/02/20 11:15 11/02/20 11:15 11/02/20 11:15 Intake & Output 11/01/20 11/02/20 11/03/20 06:59 06:59 06:59 Intake Total 260 Balance 260 Weight 53.4 kg Exam: General appearance: PRESENT: no acute distress, thin and frail appearing elderly white female, resting comfortably Head exam: PRESENT: atraumatic, normocephalic Eye exam: PRESENT: conjunctiva pink. ABSENT: scleral icterus Mouth exam: PRESENT: moist Respiratory exam: PRESENT: clear to auscultation jackson. ABSENT: rales, rhonchi, wheezes Cardiovascular exam: PRESENT: RRR. ABSENT: diastolic murmur, rubs, systolic murmur GI/Abdominal exam: PRESENT: normal bowel sounds, soft. ABSENT: distended, guarding, mass, organolmegaly, rebound, tenderness Neurological exam: PRESENT: alert, awake, oriented to self Psychiatric exam: PRESENT: appropriate affect, normal mood Skin exam: PRESENT: dry, intact, warm Musculoskeletal: Left leg externally rotated and extremely tender lateral aspect near her hip Results Laboratory Results: 11/02/20 05:59 11/02/20 05:59 11/01/20 11/01/20 11/01/20 16:05 17:20 17:20 WBC 8.5 RBC 4.05 Hgb 10.4 L Hct 33.1 L MCV 82 MCH 25.6 L MCHC 31.4 L RDW 17.1 H Plt Count 157 Seg Neutrophils % Not Reportable Carbonic Acid 1.46 H HCO3/H2CO3 Ratio 24:1 ABG pH 7.49 H ABG pCO2 48.5 H ABG pO2 63.5 L ABG HCO3 35.9 H ABG O2 Saturation 93.5 L ABG Base Excess 11.1 FiO2 4L Sodium 140.1 Potassium 4.0 Chloride 96 L Carbon Dioxide 37 H Anion Gap 7 BUN 36 H Creatinine 1.06 Est GFR ( Amer) > 60 Glucose 143 H Calcium 9.6 Phosphorus Magnesium Total Bilirubin 1.0 AST 26 Alkaline Phosphatase 57 Total Protein 6.0 L Albumin 3.7 11/02/20 11/02/20 05:59 05:59 WBC 6.1 RBC 3.45 L Hgb 8.9 L Hct 27.8 L MCV 81 MCH 25.9 L MCHC 32.2 RDW 17.1 H Plt Count 142 L Seg Neutrophils % 81.9 H Carbonic Acid HCO3/H2CO3 Ratio ABG pH ABG pCO2 ABG pO2 ABG HCO3 ABG O2 Saturation ABG Base Excess FiO2 Sodium 137.6 Potassium 3.5 L Chloride 97 L Carbon Dioxide 37 H Anion Gap 4 L BUN 32 H Creatinine 0.83 Est GFR ( Amer) > 60 Glucose 126 H Calcium 9.1 Phosphorus 3.5 Magnesium 1.6 Total Bilirubin AST Alkaline Phosphatase Total Protein Albumin 11/01/20 17:20 Troponin I 0.066 NT-Pro-B Natriuret Pep 2049 H Impressions: Chest X-Ray 11/01/20 15:37 IMPRESSION: The amount of fluid in the left pleural space has decreased. The dense opacity in the left retrocardiac space that obscures the contour of the descending thoracic aorta and medial contour of the left hemidiaphragm is unchan ged and could represent a combination of residual pleural fluid, atelectasis and/or in the proper clinical setting consolidation. The heart is enlarged and the interstitium is prominent - correlation with clinical findings for signs and symptoms of volume overload is recommended. Head CT 11/01/20 15:37 IMPRESSION: Sequela of chronic ischemia without a superimposed acute intracranial abnormality. EVIDENCE OF ACUTE STROKE: NO. Hip X-Ray 11/01/20 15:37 IMPRESSION: Acute displaced and comminuted intertrochanteric fracture of the left femur with superior displacement of the distal fracture fragment. There is no associated dislocation of the femoroacetabular joint. Assessment and Plan - Diagnosis (1) Fracture, intertrochanteric, left femur Qualifiers: Encounter type: initial encounter Fracture type: closed Fracture alignment: displaced Qualified Code(s): S72.142A - Displaced intertrochanteric fracture of left femur, initial encounter for closed fracture Is this a current diagnosis for this admission?: Yes (2) Acute on chronic respiratory failure with hypoxemia Is this a current diagnosis for this admission?: Yes (3) COPD (chronic obstructive pulmonary disease) Qualifiers: Is this a current diagnosis for this admission?: Yes (4) Diabetes mellitus type 2 in nonobese Is this a current diagnosis for this admission?: Yes (5) Fall Is this a current diagnosis for this admission?: Yes - Plan Summary Summary: Fracture, intertrochanteric, left femur Took off her oxygen at her nursing facility and subsequently became dizzy and fell, fracturing left hip Imaging reviewed, consistent with left intertrochanteric closed hip fracture Orthopedic surgery consulted: Dr. Lewis following Plan for OR 11/02, n.p.o. at midnight on 11/01 Pain management DVT prophylaxis: Lovenox PT/OT, case management Acute on chronic respiratory failure with hypoxemia Due to taking off oxygen, subsequently caused to fall Continue submental oxygen as was prescribed at discharge from previous admission COPD (chronic obstructive pulmonary disease) Chronic COPD -Supplemental O2 to maintain sat of 89-94% -duonebs as needed -bronchial hygiene -no smoking Diabetes mellitus type 2 in nonobese T2DM -accucheks, sliding scale insulin -long acting insulin indicated for HgA1C of 10 or greater -diet counseling -outpt FU with PCP Fall at nursing facility - Time Time Spent with patient: 15-24 minutes Medications reviewed and adjusted accordingly: Yes Anticipated Discharge Disposition: Custodial Facility Anticipated Discharge Timeframe: within 72 hours - Inpatient Certification Based on my medical assessment, after consideration of the patient's comorbidities, presenting symptoms, or acuity I expect that the services needed warrant INPATIENT care.: Yes I certify that my determination is in accordance with my understanding of Medicare's requirements for reasonable and necessary INPATIENT services [42 CFR 412.3e].: Yes Medical Necessity: Significant Comorbidiites Make Outpatient Treatment Too Risky, Need Close Monitoring Due to Risk of Patient Decompensation, Need for IV Antibiotics, Risk of Complication if Not Cared For in Hospital, Risk of Diagnosis Which Will Require Inpatient Eval/Care/Monitoring
[2020-11-02] MEDS ORDERED: BUPIVACAINE HCL 0.25 % INJ/PF (2.5 MG/1 ML) 30 ML VIAL ONE (17:05)
[2020-11-02] MEDS ORDERED: CEFAZOLIN INJ 1 GM VIAL ONE (17:41)
[2020-11-02] MEDS ORDERED: MORPHINE SULFATE 10 MG/ML INJ IV PRN (17:47)
[2020-11-02] MEDS ORDERED: OXYCODONE-ACETAMINOPHEN 5-325 MG TABLET PO PRN ×2 (17:47)
[2020-11-02] MEDS ORDERED: PROMETHAZINE HCL INJ 25 MG/1 ML VIAL IV PRN ×2 (17:47)
[2020-11-02] MEDS ORDERED: DIPHENHYDRAMINE HCL 50 MG/ML VIAL IV PRN (17:47)
[2020-11-02] MEDS ORDERED: FENTANYL CITRATE INJ/PF 100 MCG/2 ML AMPUL IV PRN ×3 (17:47)
--- NOTE | 2020-11-02 18:22 | Operative Report ---
Operative Report DATE OF SURGERY: 11/02/20 PREOPERATIVE DIAGNOSIS: Left intertrochanteric hip fracture POSTOPERATIVE DIAGNOSIS: Left intertrochanteric hip fracture OPERATION: Left hip short cephalomedullary nail SURGEON: HEATHER SPANGLER JR ANESTHESIA: Moderate Sedation - With local COMPLICATIONS: None ESTIMATED BLOOD LOSS: 30 cc PROCEDURE: To the patient's frailty, the decision was made to proceed with a light sedation and local anesthetic. The patient was brought to the operating suite laid supine on the operating table. They are given light sedation. They were positioned on a fracture table. Under fluoroscopy I position the left lower extremity in order to obtain optimized fracture reduction. After this the left lower extremity was prepped. I then proceeded to inject local anesthetic consisting of quarter percent Marcaine plain into the anticipated areas of incision. After doing so the left lower extremity was then prepped again and then draped in standard sterile fashion. 2 g Ancef were provided preoperatively. An appropriate timeout was performed and the site was marked and planned with the assistance of fluoroscopy. A proximal incision was made proximal to the greater trochanter which was gently carried through the abductor fascia. A guidewire was then inserted and evaluated under fluoroscopy to be centered in the femoral canal as well as at the tip of the greater trochanter. After adequate positioning of the guidewire, a reamer was used over the guidewire in order to open the canal for insertion of the short nail. A 11 mm short nail, 125 degree was selected. This was then introduced over the guidewire and impacted in place under fluoroscopy to ensure appropriate positioning and depth. After this a trocar was placed for the femoral screw through the guide. In accordance with the positioning of the trocar, an incision was made laterally and then carried through the deep fascia to allow passage of the trocar to the bone. The trocar was then gently approximated to bone followed by introduction of a guidewire. This guidewire was then advanced into the femoral neck. AP and lateral views were checked to ensure appropriate positioning of the guidewire and the femoral neck. This was then advanced to near center center of the femoral head. After doing this the wire was measured to a 95. We then removed the inner liner of the trocar and inserted a reamer at the appropriate depth. We reamed under fluoroscopy to ensure appropriate positioning of the reamer and appropriate depth measurement. After this the hip screw was selected and advanced over the guidewire again carefully checking on fluoroscopy to ensure that we advanced to the appropriate depth. Upon doing so, we then compressed the fracture through the hip screw. A proximal locking screw was placed in the superior nail. We then turned our attention to the distal interlocking screw. A trocar was advanced through the guide and an incision was made with the appropriate position and carried again through the deep fascia. This trocar was then introduced to the bone. Under fluoroscopy the distal interlock was drilled and the depth was measured. The 2.5 mm length screw was then inserted and ensured to be in good position on both AP and lateral views. After this the guides were then removed and final fluoroscopy was taken. The wounds were then copiously irrigated with sterile saline solution. 2-0 Monocryl was used to close the fascia followed by inverted interrupted 2-0 Monocryl in the subcutaneous tissue followed by yolette superficially. Sterile dressings were then placed the patient was then awakened from anesthesia and transferred to PACU in stable condition.
--- NOTE | 2020-11-02 19:02 | RADIOLOGY REPORT (SQ) ---
EXAM DESCRIPTION: NO CHG FLUORO; HIP LEFT AP/LATERAL IMAGES COMPLETED DATE/TIME: 11/02/2020 6:30 pm REASON FOR STUDY: ORIF L HIP COMPARISON: None. FLUOROSCOPY TIME: 0.5 minutes 11 Images saved to PACS LIMITATIONS: None. PROCEDURE: ORIF left hip FINDINGS: Images from fluoro document the procedure. IMPRESSION: ORIF left hip. Refer to operative note for further information. COMMENT: PQRS 6045F: Fluoroscopy time of the procedure is documented in the report. TECHNICAL DOCUMENTATION: JOB ID: [id number] 2010 [employer]- All Rights Reserved Reading location - IP/workstation name: [email or web address]
--- NOTE | 2020-11-02 19:02 | RADIOLOGY REPORT (SQ) ---
EXAM DESCRIPTION: NO CHG FLUORO; HIP LEFT AP/LATERAL IMAGES COMPLETED DATE/TIME: 11/02/2020 6:30 pm REASON FOR STUDY: ORIF L HIP COMPARISON: None. FLUOROSCOPY TIME: 0.5 minutes 11 Images saved to PACS LIMITATIONS: None. PROCEDURE: ORIF left hip FINDINGS: Images from fluoro document the procedure. IMPRESSION: ORIF left hip. Refer to operative note for further information. COMMENT: PQRS 6045F: Fluoroscopy time of the procedure is documented in the report. TECHNICAL DOCUMENTATION: JOB ID: [id number] 2010 [email or web address]- All Rights Reserved Reading location - IP/workstation name: [email or web address]
--- NOTE | 2020-11-02 19:03 | RADIOLOGY REPORT (SQ) ---
EXAM DESCRIPTION: HIP LEFT AP/LATERAL IMAGES COMPLETED DATE/TIME: 11/02/2020 6:52 pm REASON FOR STUDY: post op COMPARISON: None. NUMBER OF VIEWS: Two views. TECHNIQUE: AP pelvis and additional frog legview of the left hip. LIMITATIONS: None. FINDINGS: Postoperative images show ORIF of the left hip with a medullary chen in the femur and a vince g cannulated screw through the femoral neck. IMPRESSION: ORIF left hip. Refer to operative note for further information. TECHNICAL DOCUMENTATION: JOB ID: [id number] 2010 [employer]- All Rights Reserved Reading location - IP/workstation name: [email or web address]
[2020-11-02] MEDS: IPRATROPIUM/ALBUTEROL 0.5-2.5 MG/3 ML AMPUL NEB PRN (20:39)
[2020-11-02] MEDS ORDERED: CEFAZOLIN 2 GM/D5W RTU 2 GM/50 ML RTUPB IV SCH (22:00)
[2020-11-02 22:49] LABS: ARTERIAL BLOOD BASE EXCESS 7.9 mmol/L; ARTERIAL BLOOD H2CO3 1.48 mmol/L (1.05-1.35); ARTERIAL BLOOD PCO2 49.2 mmHg (35-45); ARTERIAL BLOOD PH 7.44 (7.35-7.45); ARTERIAL BLOOD PO2 61.1 mmHg (80-100); ARTERIAL BLOOD TOTAL CO2 34.5 mmol/L (21-25)
[2020-11-02 22:51] LABS: ARTERIAL BLOOD FIO2 70%
[2020-11-02] MEDS: TRAZODONE HCL 50 MG TABLET PO SCH (22:55)
[2020-11-02] MEDS: MELATONIN 3 MG TABLET PO SCH (22:56)
[2020-11-02] MEDS: CEFAZOLIN SODIUM 2 GM in DEXTROSE 5%-WATER 100 ML IV SCH ×2 (22:57→22:58)
[2020-11-03] MEDS: HYDRALAZINE HCL 25 MG TABLET PO SCH ×3 (05:19→21:42)
[2020-11-03] MEDS: CEFAZOLIN SODIUM 2 GM in DEXTROSE 5%-WATER 100 ML IV SCH ×3 (05:20→15:06)
[2020-11-03] MEDS: PANTOPRAZOLE SODIUM 40 MG TABLET.DR PO SCH (05:20)
[2020-11-03 05:52] LABS: ABSOLUTE LYMPHOCYTES (AUTO) 0.4 10^3/uL (0.5-4.7); ABSOLUTE MONOCYTES (AUTO) 0.8 10^3/uL (0.1-1.4); ABSOLUTE NEUT (AUTO) 5.2 10^3/uL (1.7-8.2); BASOPHILS % (AUTO) 0.6 % (0-2); EOSINOPHILS % (AUTO) 0.1 % (0-6); HEMATOCRIT 26.5 % (36.0-47.0); HEMOGLOBIN 8.5 g/dL (12.0-15.5); LYMPHOCYTES % (AUTO) 6.6 % (13-45); MEAN CORPUSCULAR HEMOGLOBIN 25.9 pg (27.0-33.4); MEAN CORPUSCULAR VOLUME 81 fl (80-97); MONOCYTES % (AUTO) 12.2 % (3-13); PLATELET COUNT 140 10^3/uL (150-450); RED BLOOD COUNT 3.28 10^6/uL (3.72-5.28); RED CELL DISTRIBUTION WIDTH 16.9 % (11.5-14.0); SEGMENTED NEUTROPHILS % (AUTO) 80.5 % (42-78); TOTAL CELLS COUNTED % (AUTO) 100 %; WHITE BLOOD COUNT 6.5 10^3/uL (4.0-10.5)
[2020-11-03 06:16] LABS: BLOOD UREA NITROGEN 26 mg/dL (7-20); CALCIUM 8.7 mg/dL (8.4-10.2); GLUCOSE 132 mg/dL (75-110); POTASSIUM 3.6 mmol/L (3.6-5.0)
[2020-11-03 06:21] LABS: ANION GAP 5 (5-19); CARBON DIOXIDE 34 mmol/L (22-30); CHLORIDE 99 mmol/L (98-107)
[2020-11-03] MEDS: IPRATROPIUM/ALBUTEROL 0.5-2.5 MG/3 ML AMPUL NEB PRN (08:35)
--- NOTE | 2020-11-03 08:38 | PDOC PROGRESS REPORT ---
Subjective Date:: 11/03/20 Subjective:: No acute distress, alert and oriented x3 Left lower extremity -Pulses 2+ distally -Compartments soft -Sensation grossly intact to L3-4-5 S1 -Motor grossly intact to EHL TA gastroc and quad Wound dressings clean dry and intact, mild spotting proximal dressing.- Reason For Visit: FRACTURE, INTERTROCHANTERIC, LEFT FEMUR Physical Exam Vital Signs: Temp Pulse Resp BP Pulse Ox 98.7 F 81 16 148/69 H 92 11/03/20 07:52 11/03/20 07:52 11/03/20 07:52 11/03/20 07:52 11/03/20 07:52 Intake & Output 11/02/20 11/03/20 11/04/20 06:59 06:59 06:59 Intake Total 260 2029 Output Total 350 Balance 260 1680 Weight 53.4 kg 53.2 kg Results Laboratory Results: 11/03/20 04:56 11/03/20 04:56 11/02/20 11/03/20 11/03/20 22:35 04:56 04:56 WBC 6.5 RBC 3.28 L Hgb 8.5 L Hct 26.5 L MCV 81 MCH 25.9 L MCHC 32.0 RDW 16.9 H Plt Count 140 L Seg Neutrophils % 80.5 H Carbonic Acid 1.48 H HCO3/H2CO3 Ratio 22:1 ABG pH 7.44 ABG pCO2 49.2 H ABG pO2 61.1 L ABG HCO3 33.0 H ABG O2 Saturation 92.0 L ABG Base Excess 7.9 FiO2 70% Sodium 137.9 Potassium 3.6 Chloride 99 Carbon Dioxide 34 H Anion Gap 5 BUN 26 H Creatinine 0.85 Est GFR ( Amer) > 60 Glucose 132 H Calcium 8.7 11/01/20 17:20 Troponin I 0.066 NT-Pro-B Natriuret Pep 205 H Impressions: Chest X-Ray 11/01/20 15:37 IMPRESSION: The amount of fluid in the left pleural space has decreased. The dense opacity in the left retrocardiac space that obscures the contour of the descending thoracic aorta and medial contour of the left hemidiaphragm is unchanged and could represent a combination of residual pleural fluid, atelectasis and/or in the proper clinical setting consolidation. The heart is enlarged and the interstitium is prominent - correlation with clinical findings for signs and symptoms of volume overload is recommended. Head CT 11/01/20 15:37 IMPRESSION: Sequela of chronic ischemia without a superimposed acute intracranial abnormality. EVIDENCE OF ACUTE STROKE: NO. Fluoroscopy 11/02/20 00:00 IMPRESSION: ORIF left hip. Refer to operative note for further information. Hip X-Ray 11/02/20 00:00 IMPRESSION: ORIF left hip. Refer to operative note for further information. Assessment & Plan - Diagnosis (1) Fracture, intertrochanteric, left femur Qualifiers: Encounter type: initial encounter Fracture type: closed Fracture alignment: displaced Qualified Code(s): S72.142A - Displaced intertrochanteric fracture of left femur, initial encounter for closed fracture Is this a current diagnosis for this admission?: Yes Plan: - 2 doses of Ancef postoperatively q 8 hours to complete 24 hours perioperatively -Weightbearing as tolerated, no precautions, encourage out of bed TOY for ADL training - PT/OT - Keep knee extended in bed, rolled towel under the ankle to obtain full extension -aspirin 325 daily for DVT prophylaxis for 6 weeks -multimodal pain management to avoid excessive narcotics, including gabapentin, tramadol, Toradol, acetaminophen. -Dressing may be left in place for 3 to 5 days and changed to as needed every other day after. -May shower with the dressing intact, if it starts to come off she should not get the incision wet. - Patient is able for discharge pending medical care, CHF optimization. Will likely need rehab or SNF -Follow-up with Dr. Malick Lewis, orthopedic surgeon at [facility] for surgery, in 10 days. Call for an appointment. . [address], [place] [address] - Time Time Spent with patient: Less than 15 minutes
[2020-11-03] MEDS: INSULIN LISPRO 100 UNIT/ML 3 ML VIAL SUBCUT SCH ×4 (08:42→21:42)
[2020-11-03] MEDS ORDERED: FUROSEMIDE INJ/PF 20 MG/2 ML SDV IV ONE (10:15)
[2020-11-03] MEDS: ACETAMINOPHEN 325 MG TABLET PO PRN ×2 (10:51→18:26)
[2020-11-03] MEDS: FUROSEMIDE 20 MG TABLET PO SCH ×2 (11:17→18:24)
[2020-11-03] MEDS: METOPROLOL TARTRATE 25 MG TABLET PO SCH ×2 (11:17→21:42)
[2020-11-03] MEDS: POTASSIUM CHLORIDE 10 MEQ TABLET.ER PO SCH (11:17)
[2020-11-03] MEDS: SERTRALINE HCL 50 MG TABLET PO SCH (11:17)
[2020-11-03] MEDS: DOCUSATE SODIUM 100 MG CAPSULE PO SCH (11:18)
[2020-11-03] MEDS: DILTIAZEM HCL 240 MG CAPSULE.CR PO SCH (11:18)
[2020-11-03] MEDS: FLUTICASONE/VILANTEROL 200-25 MCG/DOSE IH SCH (11:19)
[2020-11-03] MEDS: OLOPATADINE HCL 0.1% OPH SOLN 5 ML OU SCH (11:19)
--- NOTE | 2020-11-03 11:43 | RADIOLOGY REPORT (SQ) ---
EXAM DESCRIPTION: CHEST 2 VIEWS IMAGES COMPLETED DATE/TIME: 11/03/2020 11:06 am REASON FOR STUDY: possible PNA COMPARISON: AP view of the chest from 11/01/2020. EXAM PARAMETERS: NUMBER OF VIEWS: Two views. TECHNIQUE: PA and lateral views of the chest were obtained. RADIATION DOSE: NA LIMITATIONS: None. FINDINGS: LUNGS AND PLEURA: Increased bilateral basilar predominant pleural and parenchymal opacitie s that obscure the contour of the hemidiaphragm and blunt the costophrenic sulci. The mild diffuse p rominence of the interstitium is unchanged. MEDIASTINUM AND HILAR STRUCTURES: The hilar contours are indistinct. HEART AND VASCULAR STRUCTURES: The cardiac silhouette is enlarged BONES: Osteopenia and accentuated kyphotic angulation of the thoracic spine. HARDWARE: None in the chest. OTHER: No other finding. IMPRESSION: Increased bilateral basilar predominant pleural and parenchymal opacities that could rep resent a combination of pleural fluid, atelectasis and or in the proper clinical setting consolidatio n. TECHNICAL DOCUMENTATION: JOB ID: [id number] 2010 [employer]- All Rights Reserved Reading location - IP/workstation name: [email or web address]
--- NOTE | 2020-11-03 16:05 | PDOC PROGRESS REPORT ---
Subjective Subjective:: BRYAN MOY is a 80 year old female with past medical history significant for chronic diastolic CHF, chronic hypoxemic respiratory failure, COPD, T2DM who presents to the ED after having a fall at her nursing facility where she was discharged from this hospital yesterday. Reportedly, patient took off her oxygen and attempted to walk across her room, subsequently became hypoxemic and dizzy, falling to the floor and fracturing her left hip. Imaging done in ED was consistent with left intertrochanteric closed hip fracture. Dr. Lewis in orthopedic surgery has been contacted and plans to take the patient to the OR in the morning. She will need to be n.p.o. at midnight tonight. Pain management is started. Labs and imaging reviewed. Patient denies any syncope, fever, productive cough or any other new symptoms prior to falling and breaking her hip. 11/02/2020 Patient seems to be comfortable in her pain is primarily controlled. Orthopedic surgery is planning to take her to the OR hopefully today. We will hold Lovenox until after surgery. Patient remains n.p.o. for now. She is adequately maintained on 2 L nasal cannula supplemental oxygen. Patient has no new complaints today. 11/03/2020 Patient underwent hip nail procedure, tolerated procedure well per patient and surgery notes. Patient's blood pressure is elevated and I give her additional dose of IV Lasix for higher oxygen requirements that she supposedly had after surgery, potentially due to IV fluids she was given for the procedure. Rest arted home dose HCTZ and lisinopril. Chest x-ray showed increased bilateral basilar predominant pleural and parenchymal opacities which could be pleural fluid or atelectasis. Plan for discharge to SNF in the next 48 hours. Reason For Visit: FRACTURE, INTERTROCHANTERIC, LEFT FEMUR Physical Exam Vital Signs: Temp Pulse Resp BP Pulse Ox 97.9 F 65 20 153/81 H 93 11/03/20 11:25 11/03/20 14:00 11/03/20 11:25 11/03/20 11:25 11/03/20 12:10 Intake & Output 11/02/20 11/03/20 11/04/20 06:59 06:59 06:59 Intake Total 260 2030 Output Total 350 Balance 260 1680 Weight 53.4 kg 53.2 kg Exam: General appearance: PRESENT: no acute distress, thin and frail appearing elderly white female, states her surgery went well Head exam: PRESENT: atraumatic, normocephalic Eye exam: PRESENT: conjunctiva pink. ABSENT: scleral icterus Mouth exam: PRESENT: moist Respiratory exam: PRESENT: clear to auscultation jackson. ABSENT: rales, rhonchi, wheezes Cardiovascular exam: PRESENT: RRR. ABSENT: diastolic murmur, rubs, systolic murmur GI/Abdominal exam: PRESENT: normal bowel sounds, soft. ABSENT: distended, guarding, mass, organolmegaly, rebound, tenderness Neurological exam: PRESENT: alert, awake, oriented to self Psychiatric exam: PRESENT: appropriate affect, normal mood Skin exam: PRESENT: dry, intact, warm Musculoskeletal: Left lateral hip surgical wound healing and minimally tender Results Laboratory Results: 11/03/20 04:56 11/03/20 04:56 11/02/20 11/03/20 11/03/20 22:35 04:56 04:56 WBC 6.5 RBC 3.28 L Hgb 8.5 L Hct 26.5 L MCV 81 MCH 25.9 L MCHC 32.0 RDW 16.9 H Plt Count 140 L Seg Neutrophils % 80.5 H Carbonic Acid 1.48 H HCO3/H2CO3 Ratio 22:1 ABG pH 7.44 ABG pCO2 49.2 H ABG pO2 61.1 L ABG HCO3 33.0 H ABG O2 Saturation 92.0 L ABG Base Excess 7.9 FiO2 70% Sodium 137.9 Potassium 3.6 Chloride 99 Carbon Dioxide 34 H Anion Gap 5 BUN 26 H Creatinine 0.85 Est GFR ( Amer) > 60 Glucose 132 H Calcium 8.7 11/01/20 17:20 Troponin I 0.066 NT-Pro-B Natriuret Pep 2050 H Impressions: Head CT 11/01/20 15:37 IMPRESSION: Sequela of chronic ischemia without a superimposed acute intracranial abnormality. EVIDENCE OF ACUTE STROKE: NO. Fluoroscopy 11/02/20 00:00 IMPRESSION: ORIF left hip. Refer to operative note for further information. Hip X-Ray 11/02/20 00:00 IMPRESSION: ORIF left hip. Refer to operative note for further information. Chest X-Ray 11/03/20 09:45 IMPRESSION: Increased bilateral basilar predominant pleural and parenchymal opacities that could represent a combination of pleural fluid, atelectasis and or in the proper clinical setting consolidation. Assessment and Plan - Diagnosis (1) Fracture, intertrochanteric, left femur Qualifiers: Encounter type: initial encounter Fracture type: closed Fracture alignment: displaced Qualified Code(s): S72.142A - Displaced intertrochanteric fracture of left femur, initial encounter for closed fracture Is this a current diagnosis for this admission?: Yes (2) Acute on chronic respiratory failure with hypoxemia Is this a current diagnosis for this admission?: Yes (3) COPD (chronic obstructive pulmonary disease) Qualifiers: Is this a current diagnosis for this admission?: Yes (4) Diabetes mellitus type 2 in nonobese Is this a current diagnosis for this admission?: Yes (5) Fall Is this a current diagnosis for this admission?: Yes - Plan Summary Summary: Fracture, intertrochanteric, left femur Took off her oxygen at her nursing facility and subsequently became dizzy and fell, fracturing left hip Imaging reviewed, consistent with left intertrochanteric closed hip fracture Orthopedic surgery consulted: Dr. Lewis following Went to OR 11/02, hip nail procedure performed Pain management DVT prophylaxis: Lovenox PT/OT, case management Acute on chronic respiratory failure with hypoxemia Due to taking off oxygen, subsequently caused to fall Continue submental oxygen as was prescribed at discharge from previous admission Acute diastolic CHF exacerbation 1 dose IV Lasix given, HCTZ restarted Recent echocardiogram showed good systolic function COPD (chronic obstructive pulmonary disease) Chronic COPD -Supplemental O2 to maintain sat of 89-94% -duonebs as needed -bronchial hygiene -no smoking Diabetes mellitus type 2 in nonobese T2DM -accucheks, sliding scale insulin -long acting insulin indicated for HgA1C of 10 or greater -diet counseling -outpt FU with PCP Fall at nursing facility - Time Time Spent with patient: 25-34 minutes Medications reviewed and adjusted accordingly: Yes Anticipated Discharge Disposition: Intermediate Facility Anticipated Discharge Timeframe: within 72 hours - Inpatient Certification Based on my medical assessment, after consideration of the patient's comorbidities, presenting symptoms, or acuity I expect that the services needed warrant INPATIENT care.: Yes I certify that my determination is in accordance with my understanding of Medicare's requirements for reasonable and necessary INPATIENT services [42 CFR 412.3e].: Yes Medical Necessity: Significant Comorbidiites Make Outpatient Treatment Too Risky, Need Close Monitoring Due to Risk of Patient Decompensation, Need for Pain Control, Risk of Complication if Not Cared For in Hospital, Risk of Diagnosis Which Will Require Inpatient Eval/Care/Monitoring
[2020-11-03] MEDS: TRAZODONE HCL 50 MG TABLET PO SCH (21:42)
[2020-11-03] MEDS: MELATONIN 3 MG TABLET PO SCH (21:49)
--- NOTE | 2020-11-03 23:18 | CDI QUERY ---
<DEEPAK WILLOUGHBY - Last Filed: 11/03/20 23:16> CDI Query CDI Review: We are seeking further clarification of documentation to reflect the severity of illness of your patient. Per Op Note: Left intertrochanteric hip fracture OPERATION: Left hip short cephalomedullary nail Labs: H/H on admission: 10.4 / 33.1 12: 8.9 / 27.8 12: 8.5 / 26.5 Based on your medical judgment, can you further clarify in the progress notes the diagnosis associated with these findings: Acute blood loss anemia Acute hemorrhagic anemia Chronic blood loss anemia Acute on chronic blood loss anemia Iron deficiency anemia Dilutional anemia Other anemia: (please specify) None of the above / Not applicable Thank you for your consideration. CARLA Caicedo RN Clinical Safety Glass Installer Physician Advisor [email or web address] <CHRISTIAN WAHL - Last Filed: 11/04/20 08:00> CDI Query Agree with Query: No - There is no mention of anemia in the problem list or other documentation.
[2020-11-04] MEDS: PANTOPRAZOLE SODIUM 40 MG TABLET.DR PO SCH (05:20)
[2020-11-04] MEDS: HYDRALAZINE HCL 25 MG TABLET PO SCH ×4 (05:21→22:07)
[2020-11-04 05:28] LABS: HEMATOCRIT 25.9 % (36.0-47.0); HEMOGLOBIN 8.2 g/dL (12.0-15.5); MEAN CORPUSCULAR HEMOGLOBIN 25.5 pg (27.0-33.4); MEAN CORPUSCULAR HGB CONC 31.6 g/dL (32.0-36.0); MEAN CORPUSCULAR VOLUME 81 fl (80-97); PLATELET COUNT 179 10^3/uL (150-450); RED CELL DISTRIBUTION WIDTH 17.1 % (11.5-14.0); WHITE BLOOD COUNT 7.7 10^3/uL (4.0-10.5)
[2020-11-04 05:40] LABS: ANION GAP 7 (5-19); BLOOD UREA NITROGEN 29 mg/dL (7-20); CALCIUM 8.8 mg/dL (8.4-10.2); CARBON DIOXIDE 33 mmol/L (22-30); CHLORIDE 98 mmol/L (98-107); GLUCOSE 128 mg/dL (75-110); POTASSIUM 3.6 mmol/L (3.6-5.0)
[2020-11-04 06:40] LABS: ABSOLUTE LYMPHOCYTES# (MANUAL) 0.5 10^3/uL (0.5-4.7); ABSOLUTE MONOCYTES # (MANUAL) 0.3 10^3/uL (0.1-1.4); BASOPHILS % (MANUAL) 0 % (0-2); EOSINOPHILS % (MANUAL) 0 % (0-6); LYMPHOCYTES % (MANUAL) 7 % (13-45); MONOCYTES % (MANUAL) 4 % (3-13); SEGMENTED NEUTROPHILS % (MAN) 89 % (42-78); TOTAL CELLS COUNTED 100
[2020-11-04 06:42] LABS: ANISOCYTOSIS SLIGHT; OVALOCYTES SLIGHT; PLATELET COMMENT ADEQUATE; POIKILOCYTOSIS SLIGHT; TOXIC GRANULATION 1+
[2020-11-04] MEDS: DILTIAZEM HCL 240 MG CAPSULE.CR PO SCH (09:35)
[2020-11-04] MEDS: DOCUSATE SODIUM 100 MG CAPSULE PO SCH (09:36)
[2020-11-04] MEDS: FUROSEMIDE 20 MG TABLET PO SCH ×2 (09:36→17:02)
[2020-11-04] MEDS: POTASSIUM CHLORIDE 10 MEQ TABLET.ER PO SCH (09:36)
[2020-11-04] MEDS: SERTRALINE HCL 50 MG TABLET PO SCH (09:36)
[2020-11-04] MEDS: LISINOPRIL 10 MG TABLET PO SCH (09:36)
[2020-11-04] MEDS: ENOXAPARIN SODIUM INJ 40 MG/0.4 ML DISP.SYRIN SUBCUT SCH (09:37)
[2020-11-04] MEDS: METOPROLOL TARTRATE 25 MG TABLET PO SCH ×2 (09:37→22:06)
[2020-11-04] MEDS: HYDROCHLOROTHIAZIDE 25 MG TABLET PO SCH (09:37)
[2020-11-04] MEDS: INSULIN LISPRO 100 UNIT/ML 3 ML VIAL SUBCUT SCH ×4 (09:42→22:02)
[2020-11-04] MEDS: FLUTICASONE/VILANTEROL 200-25 MCG/DOSE IH SCH (09:44)
[2020-11-04] MEDS: OLOPATADINE HCL 0.1% OPH SOLN 5 ML OU SCH (09:44)
[2020-11-04] MEDS ORDERED: (PENDING PHARMACY ID) (Lisinopril [Zestril] 40 MG Tablet) PO SCH (10:00)
--- NOTE | 2020-11-04 13:06 | PDOC PROGRESS REPORT ---
Subjective Date:: 11/04/20 Subjective:: Patient lying in bed. Currently on BiPAP. States pain in the left lower extrem ity has improved. Has begun physical therapy which is somewhat limited up to this point. Reason For Visit: FRACTURE, INTERTROCHANTERIC, LEFT FEMUR Physical Exam Vital Signs: Temp Pulse Resp BP Pulse Ox 98.6 F 83 20 122/53 L 87 L 11/04/20 08:32 11/04/20 08:32 11/04/20 08:32 11/04/20 08:32 11/04/20 08:32 Intake & Output 11/03/20 11/04/20 11/05/20 06:59 06:59 06:59 Intake Total 2030 Output Total 350 Balance 1680 Weight 53.2 kg 54.2 kg Results Laboratory Results: 11/04/20 04:59 11/04/20 04:59 11/04/20 11/04/20 04:59 04:59 WBC 7.7 RBC 3.20 L Hgb 8.2 L Hct 25.9 L MCV 81 MCH 25.5 L MCHC 31.6 L RDW 17.1 H Plt Count 179 Seg Neutrophils % Not Reportable Sodium 137.5 Potassium 3.6 Chloride 98 Carbon Dioxide 33 H Anion Gap 7 BUN 29 H Creatinine 0.88 Est GFR ( Amer) > 60 Glucose 128 H Calcium 8.8 11/01/20 17:20 Troponin I 0.066 NT-Pro-B Natriuret Pep 2050 H Impressions: Head CT 11/01/20 15:37 IMPRESSION: Sequela of chronic ischemia without a superimposed acute intracranial abnormality. EVIDENCE OF ACUTE STROKE: NO. Fluoroscopy 11/02/20 00:00 IMPRESSION: ORIF left hip. Refer to operative note for further information. Hip X-Ray 11/02/20 00:00 IMPRESSION: ORIF left hip. Refer to operative note for further information. Chest X-Ray 11/03/20 09:45 IMPRESSION: Increased bilateral basilar predominant pleural and parenchymal opacities that could represent a combination of pleural fluid, atelectasis and or in the proper clinical setting consolidation. Assessment & Plan - Diagnosis (1) Fracture, intertrochanteric, left femur Qualifiers: Encounter type: initial encounter Fracture type: closed Fracture alignment: displaced Qualified Code(s): S72.142A - Displaced intertrochanteric fracture of left femur, initial encounter for closed fracture Is this a current diagnosis for this admission?: Yes Plan: Status post left cephalomedullary nail -Weightbearing as tolerated, no precautions, encourage out of bed TOY for ADL training - PT/OT - Keep knee extended in bed, rolled towel under the ankle to obtain full extension -aspirin 325 daily for DVT prophylaxis for 6 weeks -multimodal pain management to avoid excessive narcotics, including gabapentin, tramadol, Toradol, acetaminophen. -Dressing may be left in place for 3 to 5 days and changed to as needed every other day after. -May shower with the dressing intact, if it starts to come off she should not get the incision wet. - Patient is able for discharge pending medical care, CHF optimization. Will likely need rehab or SNF -Follow-up with Dr. Malick Lewis, orthopedic surgeon at [facility] for surgery, in 10 days. Call for an appointment. . [address], [place] [address]. Orthopedics will sign off at this time feel free to contact us with any further concerns. - Time Time Spent with patient: Less than 15 minutes
--- NOTE | 2020-11-04 13:44 | PDOC PROGRESS REPORT ---
Subjective Subjective:: BRYAN MOY is a 80 year old female with past medical history significant for chronic diastolic CHF, chronic hypoxemic respiratory failure, COPD, T2DM who presents to the ED after having a fall at her nursing facility where she was discharged from this hospital yesterday. Reportedly, patient took off her oxygen and attempted to walk across her room, subsequently became hypoxemic and dizzy, falling to the floor and fracturing her left hip. Imaging done in ED was consistent with left intertrochanteric closed hip fracture. Dr. Lewis in orthopedic surgery has been contacted and plans to take the patient to the OR in the morning. She will need to be n.p.o. at midnight tonight. Pain management is started. Labs and imaging reviewed. Patient denies any syncope, fever, productive cough or any other new symptoms prior to falling and breaking her hip. 11/02/2020 Patient seems to be comfortable in her pain is primarily controlled. Orthopedic surgery is planning to take her to the OR hopefully today. We will hold Lovenox until after surgery. Patient remains n.p.o. for now. She is adequately maintained on 2 L nasal cannula supplemental oxygen. Patient has no new complaints today. 11/03/2020 Patient underwent hip nail procedure, tolerated procedure well per patient and surgery notes. Patient's blood pressure is elevated and I give her additional dose of IV Lasix for higher oxygen requirements that she supposedly had after surgery, potentially due to IV fluids she was given for the procedure. Rest arted home dose HCTZ and lisinopril. Chest x-ray showed increased bilateral basilar predominant pleural and parenchymal opacities which could be pleural fluid or atelectasis. Plan for discharge to SNF in the next 48 hours. 11/04/2020 Patient is working with physical therapy and will need discharge to SNF. Aspirin is inadequate for DVT prophylaxis. Patient is notably at a high fall risk given the nature of her most recent hip fracture however she is also extremely high risk for DVT due to immobility and recent fracture. Will be absolutely imperative that the SNF the patient is discharged to take great care to ensure the patient does not fall in the future. She must be monitored very closely as she is a bleeding risk on Lovenox. She must keep her oxygen on at all times and I explained this to the patient as well. Hemoglobin is a bit lower likely from surgery. She is currently maintained on 2 to 4 L nasal cannula. She has been refusing her meals today and I have put in for a nut rition assessment. She can have Ensure protein shakes 3 times daily and as needed. Reason For Visit: FRACTURE, INTERTROCHANTERIC, LEFT FEMUR Physical Exam Vital Signs: Temp Pulse Resp BP Pulse Ox 98.8 F 71 20 119/44 L 88 L 11/04/20 11:31 11/04/20 11:31 11/04/20 11:31 11/04/20 11:31 11/04/20 11:31 Intake & Output 11/03/20 11/04/20 11/05/20 06:59 06:59 06:59 Intake Total 2030 Output Total 350 Balance 1680 Weight 53.2 kg 54.2 kg Exam: General appearance: PRESENT: no acute distress, thin and frail appearing elderly white female, states she has no complaints today Head exam: PRESENT: atraumatic, normocephalic Eye exam: PRESENT: conjunctiva pink. ABSENT: scleral icterus Mouth exam: PRESENT: moist Respiratory exam: PRESENT: clear to auscultation jackson. ABSENT: rales, rhonchi, wheezes Cardiovascular exam: PRESENT: RRR. ABSENT: diastolic murmur, rubs, systolic murmur GI/Abdominal exam: PRESENT: normal bowel sounds, soft. ABSENT: distended, guarding, mass, organolmegaly, rebound, tenderness Neurological exam: PRESENT: alert, awake, oriented to self Psychiatric exam: PRESENT: appropriate affect, normal mood Skin exam: PRESENT: dry, intact, warm Musculoskeletal: Left lateral hip surgical wound healing and minimally tender Results Laboratory Results: 11/04/20 04:59 11/04/20 04:59 11/04/20 11/04/20 04:59 04:59 WBC 7.7 RBC 3.20 L Hgb 8.2 L Hct 25.9 L MCV 81 MCH 25.5 L MCHC 31.6 L RDW 17.1 H Plt Count 179 Seg Neutrophils % Not Reportable Sodium 137.5 Potassium 3.6 Chloride 98 Carbon Dioxide 33 H Anion Gap 7 BUN 29 H Creatinine 0.88 Est GFR ( Amer) > 60 Glucose 128 H Calcium 8.8 11/01/20 17:20 Troponin I 0.066 NT-Pro-B Natriuret Pep 2050 H Impressions: Head CT 11/01/20 15:37 IMPRESSION: Sequela of chronic ischemia without a superimposed acute intracranial abnormality. EVIDENCE OF ACUTE STROKE: NO. Fluoroscopy 11/02/20 00:00 IMPRESSION: ORIF left hip. Refer to operative note for further information. Hip X-Ray 11/02/20 00:00 IMPRESSION: ORIF left hip. Refer to operative note for further information. Chest X-Ray 11/03/20 09:45 IMPRESSION: Increased bilateral basilar predominant pleural and parenchymal opacities that could represent a combination of pleural fluid, atelectasis and or in the proper clinical setting consolidation. Assessment and Plan - Diagnosis (1) Fracture, intertrochanteric, left femur Qualifiers: Encounter type: initial encounter Fracture type: closed Fracture alignment: displaced Qualified Code(s): S72.142A - Displaced intertrochanteric fracture of left femur, initial encounter for closed fracture Is this a current diagnosis for this admission?: Yes (2) Acute on chronic respiratory failure with hypoxemia Is this a current diagnosis for this admission?: Yes (3) COPD (chronic obstructive pulmonary disease) Qualifiers: Is this a current diagnosis for this admission?: Yes (4) Diabetes mellitus type 2 in nonobese Is this a current diagnosis for this admission?: Yes (5) Fall Is this a current diagnosis for this admission?: Yes (6) Acute on chronic diastolic CHF (congestive heart failure) Is this a current diagnosis for this admission?: Yes - Plan Summary Summary: Fracture, intertrochanteric, left femur Took off her oxygen at her nursing facility and subsequently became dizzy and fell, fracturing left hip Imaging reviewed, consistent with left intertrochanteric closed hip fracture Orthopedic surgery consulted: Dr. Lewis following Went to OR 11/02, hip nail procedure performed Pain management DVT prophylaxis: Lovenox, it is absolutely imperative that the SNF staff does not allow the patient to fall in the future, discussed in detail with the patient that she must keep her oxygen on at all times and must not get up without assistance PT/OT, case management Acute on chronic respiratory failure with hypoxemia Due to taking off oxygen, subsequently caused to fall Continue submental oxygen as was prescribed at discharge from previous admission Acute diastolic CHF exacerbation 1 dose IV Lasix given, HCTZ restarted Recent echocardiogram showed good systolic function COPD (chronic obstructive pulmonary disease) Chronic COPD -Supplemental O2 to maintain sat of 89-94% -duonebs as needed -bronchial hygiene -no smoking Diabetes mellitus type 2 in nonobese T2DM -accucheks, sliding scale insulin -long acting insulin indicated for HgA1C of 10 or greater -diet counseling -outpt FU with PCP Fall at nursing facility - Time Time Spent with patient: 15-24 minutes Medications reviewed and adjusted accordingly: Yes Anticipated Discharge Disposition: Alf Facility Anticipated Discharge Timeframe: within 48 hours - Inpatient Certification Based on my medical assessment, after consideration of the patient's comorbidities, presenting symptoms, or acuity I expect that the services needed warrant INPATIENT care.: Yes I certify that my determination is in accordance with my understanding of Medicare's requirements for reasonable and necessary INPATIENT services [42 CFR 412.3e].: Yes Medical Necessity: Significant Comorbidiites Make Outpatient Treatment Too Risky, Need Close Monitoring Due to Risk of Patient Decompensation, Need for Pain Control, Risk of Complication if Not Cared For in Hospital, Risk of Diagnosis Which Will Require Inpatient Eval/Care/Monitoring
[2020-11-04] MEDS: MELATONIN 3 MG TABLET PO SCH (22:06)
[2020-11-04] MEDS: TRAZODONE HCL 50 MG TABLET PO SCH (22:06)
[2020-11-04] MEDS: OXYCODONE-ACETAMINOPHEN 5-325 MG TABLET PO PRN (22:10)
[2020-11-05] MEDS ORDERED: RINGERS SOLUTION,LACTATED 1,000 ML IV ONE (01:15)
[2020-11-05] MEDS: HYDRALAZINE HCL 25 MG TABLET PO SCH ×3 (05:01→21:32)
[2020-11-05] MEDS: PANTOPRAZOLE SODIUM 40 MG TABLET.DR PO SCH (05:43)
[2020-11-05] MEDS: HYDROCHLOROTHIAZIDE 25 MG TABLET PO SCH (08:15)
[2020-11-05] MEDS: INSULIN LISPRO 100 UNIT/ML 3 ML VIAL SUBCUT SCH ×4 (08:15→21:32)
[2020-11-05 09:38] LABS: ABSOLUTE EOSINOPHILS # (AUTO) 0.1 10^3/uL (0.0-0.6); ABSOLUTE LYMPHOCYTES (AUTO) 0.6 10^3/uL (0.5-4.7); ABSOLUTE MONOCYTES (AUTO) 0.6 10^3/uL (0.1-1.4); ABSOLUTE NEUT (AUTO) 5.5 10^3/uL (1.7-8.2); BASOPHILS % (AUTO) 0.4 % (0-2); EOSINOPHILS % (AUTO) 1.2 % (0-6); HEMOGLOBIN 8.5 g/dL (12.0-15.5); LYMPHOCYTES % (AUTO) 8.6 % (13-45); MEAN CORPUSCULAR HEMOGLOBIN 25.7 pg (27.0-33.4); MEAN CORPUSCULAR HGB CONC 31.6 g/dL (32.0-36.0); MEAN CORPUSCULAR VOLUME 81 fl (80-97); MONOCYTES % (AUTO) 9.4 % (3-13); PLATELET COUNT 242 10^3/uL (150-450); RED BLOOD COUNT 3.32 10^6/uL (3.72-5.28); RED CELL DISTRIBUTION WIDTH 17.6 % (11.5-14.0); SEGMENTED NEUTROPHILS % (AUTO) 80.4 % (42-78); TOTAL CELLS COUNTED % (AUTO) 100 %; WHITE BLOOD COUNT 6.9 10^3/uL (4.0-10.5)
[2020-11-05] MEDS: LISINOPRIL 10 MG TABLET PO SCH (10:10)
[2020-11-05] MEDS: FUROSEMIDE 20 MG TABLET PO SCH (10:10)
[2020-11-05] MEDS: ACETAMINOPHEN 325 MG TABLET PO PRN ×2 (11:18→18:34)
[2020-11-05] MEDS: POTASSIUM CHLORIDE 10 MEQ TABLET.ER PO SCH (11:18)
[2020-11-05] MEDS: METOPROLOL TARTRATE 25 MG TABLET PO SCH ×2 (11:18→21:33)
[2020-11-05] MEDS: DILTIAZEM HCL 240 MG CAPSULE.CR PO SCH (11:18)
[2020-11-05] MEDS: DOCUSATE SODIUM 100 MG CAPSULE PO SCH (11:19)
[2020-11-05] MEDS: SERTRALINE HCL 50 MG TABLET PO SCH (11:19)
[2020-11-05] MEDS: ENOXAPARIN SODIUM INJ 40 MG/0.4 ML DISP.SYRIN SUBCUT SCH (11:21)
[2020-11-05] MEDS: OLOPATADINE HCL 0.1% OPH SOLN 5 ML OU SCH (11:21)
[2020-11-05] MEDS: FLUTICASONE/VILANTEROL 200-25 MCG/DOSE IH SCH (11:22)
--- NOTE | 2020-11-05 11:39 | PDOC PROGRESS REPORT ---
Subjective Subjective:: BRYAN MOY is a 80 year old female with past medical history significant for chronic diastolic CHF, chronic hypoxemic respiratory failure, COPD, T2DM who presents to the ED after having a fall at her nursing facility where she was discharged from this hospital yesterday. Reportedly, patient took off her oxygen and attempted to walk across her room, subsequently became hypoxemic and dizzy, falling to the floor and fracturing her left hip. Imaging done in ED was consistent with left intertrochanteric closed hip fracture. Dr. Lewis in orthopedic surgery has been contacted and plans to take the patient to the OR in the morning. She will need to be n.p.o. at midnight tonight. Pain management is started. Labs and imaging reviewed. Patient denies any syncope, fever, productive cough or any other new symptoms prior to falling and breaking her hip. 11/02/2020 Patient seems to be comfortable in her pain is primarily controlled. Orthopedic surgery is planning to take her to the OR hopefully today. We will hold Lovenox until after surgery. Patient remains n.p.o. for now. She is adequately maintained on 2 L nasal cannula supplemental oxygen. Patient has no new complaints today. 11/03/2020 Patient underwent hip nail procedure, tolerated procedure well per patient and surgery notes. Patient's blood pressure is elevated and I give her additional dose of IV Lasix for higher oxygen requirements that she supposedly had after surgery, potentially due to IV fluids she was given for the procedure. Rest arted home dose HCTZ and lisinopril. Chest x-ray showed increased bilateral basilar predominant pleural and parenchymal opacities which could be pleural fluid or atelectasis. Plan for discharge to SNF in the next 48 hours. 11/04/2020 Patient is working with physical therapy and will need discharge to SNF. Aspirin is inadequate for DVT prophylaxis. Patient is notably at a high fall risk given the nature of her most recent hip fracture however she is also extremely high risk for DVT due to immobility and recent fracture. Will be absolutely imperative that the SNF the patient is discharged to take great care to ensure the patient does not fall in the future. She must be monitored very closely as she is a bleeding risk on Lovenox. She must keep her oxygen on at all times and I explained this to the patient as well. Hemoglobin is a bit lower likely from surgery. She is currently maintained on 2 to 4 L nasal cannula. She has been refusing her meals today and I have put in for a nut rition assessment. She can have Ensure protein shakes 3 times daily and as needed. 11/05/2020 Patient was placed on a significantly large amount of oxygen overnight reportedly per nursing due to having oxygen saturation in the 50s while the patient was sleeping and mouth breathing overnight. I believe the patient may have obstructive sleep apnea rather than a problem of chronic oxygen delivery. Increasing the oxygen concentration in the setting of chronic known COPD and suspected FARHANA has a potential for causing significant harm in the form of CO2 retention. We will need to continuously and aggressively wean the patient's oxygen to avoid this from happening. I discussed this with nursing today. Patient has been known to frequently removes her supplemental oxygen and try to walk around her room. Patient will need to use CPAP nightly and anytime she sleeps during the day. Her hemoglobin is lower likely from surgery and I will recheck a CBC. Patient actually states she feels fine and has no new complaints today. Reason For Visit: FRACTURE, INTERTROCHANTERIC, LEFT FEMUR Physical Exam Vital Signs: Temp Pulse Resp BP Pulse Ox 97.5 F 57 L 18 112/63 97 11/05/20 05:32 11/05/20 05:32 11/05/20 05:32 11/05/20 10:06 11/05/20 05:32 Intake & Output 11/04/20 11/05/20 11/06/20 06:59 06:59 06:59 Intake Total 1060 Balance 1060 Weight 54.2 kg 51.9 kg Exam: General appearance: PRESENT: no acute distress, thin and frail appearing elderly white female, states she feels fine Head exam: PRESENT: atraumatic, normocephalic Eye exam: PRESENT: conjunctiva pink. ABSENT: scleral icterus Mouth exam: PRESENT: moist Respiratory exam: PRESENT: clear to auscultation jackson. ABSENT: rales, rhonchi, wheezes Cardiovascular exam: PRESENT: RRR. ABSENT: diastolic murmur, rubs, systolic murmur GI/Abdominal exam: PRESENT: normal bowel sounds, soft. ABSENT: distended, guarding, mass, organolmegaly, rebound, tenderness Neurological exam: PRESENT: alert, awake, oriented to self Psychiatric exam: PRESENT: appropriate affect, normal mood Skin exam: PRESENT: dry, intact, warm Musculoskeletal: Left lateral hip surgical wound healing and minimally tender Results Laboratory Results: 11/05/20 08:59 11/04/20 04:59 11/05/20 08:59 WBC 6.9 RBC 3.32 L Hgb 8.5 L Hct 27.0 L MCV 81 MCH 25.7 L MCHC 31.6 L RDW 17.6 H Plt Count 242 Seg Neutrophils % 80.4 H 11/01/20 17:20 Troponin I 0.066 NT-Pro-B Natriuret Pep 2050 H Impressions: Head CT 11/01/20 15:37 IMPRESSION: Sequela of chronic ischemia without a superimposed acute intracranial abnormality. EVIDENCE OF ACUTE STROKE: NO. Fluoroscopy 11/02/20 00:00 IMPRESSION: ORIF left hip. Refer to operative note for further information. Hip X-Ray 11/02/20 00:00 IMPRESSION: ORIF left hip. Refer to operative note for further information. Chest X-Ray 11/03/20 09:45 IMPRESSION: Increased bilateral basilar predominant pleural and parenchymal opacities that could represent a combination of pleural fluid, atelectasis and or in the proper clinical setting consolidation. Assessment and Plan - Diagnosis (1) Fracture, intertrochanteric, left femur Qualifiers: Encounter type: initial encounter Fracture type: closed Fracture alignmen t: displaced Qualified Code(s): S72.142A - Displaced intertrochanteric fracture of left femur, initial encounter for closed fracture Is this a current diagnosis for this admission?: Yes (2) Acute on chronic diastolic CHF (congestive heart failure) Is this a current diagnosis for this admission?: Yes (3) Acute on chronic respiratory failure with hypoxemia Is this a current diagnosis for this admission?: Yes (4) COPD (chronic obstructive pulmonary disease) Qualifiers: Is this a current diagnosis for this admission?: Yes (5) Diabetes mellitus type 2 in nonobese Is this a current diagnosis for this admission?: Yes (6) Fall Is this a current diagnosis for this admission?: Yes - Plan Summary Summary: Fracture, intertrochanteric, left femur Took off her oxygen at her nursing facility and subsequently became dizzy and fell, fracturing left hip Imaging reviewed, consistent with left intertrochanteric closed hip fracture Orthopedic surgery consulted: Dr. Lewis signed off Went to OR 11/02, hip nail procedure performed Pain management DVT prophylaxis: Lovenox to continue for 1 month; it is absolutely imperative that SNF staff does not allow the patient to remove her oxygen and fall in the future, discussed in detail with the patient that she must keep her oxygen on at all times and must not get up without assistance, she voiced understanding PT/OT, case management Acute on chronic respiratory failure with hypoxemia Due to taking off oxygen, subsequently caused to fall Continue submental oxygen as was prescribed at discharge from previous admissi on Acute diastolic CHF exacerbation 1 dose IV Lasix given, changed to oral Lasix Recent echocardiogram showed good systolic function COPD (chronic obstructive pulmonary disease) Chronic COPD -Supplemental O2 to maintain sat of 89-92% -duonebs as needed -bronchial hygiene -no smoking Diabetes mellitus type 2 in nonobese T2DM -accucheks, sliding scale insulin -long acting insulin indicated for HgA1C of 10 or greater -diet counseling -outpt FU with PCP Fall at nursing facility - Time Time Spent with patient: 25-34 minutes Medications reviewed and adjusted accordingly: Yes Anticipated Discharge Disposition: [facility] Facility Anticipated Discharge Timeframe: within 48 hours - Inpatient Certification Based on my medical assessment, after consideration of the patient's comorbidities, presenting symptoms, or acuity I expect that the services needed warrant INPATIENT care.: Yes I certify that my determination is in accordance with my understanding of Medicare's requirements for reasonable and necessary INPATIENT services [42 CFR 412.3e].: Yes Medical Necessity: Significant Comorbidiites Make Outpatient Treatment Too Risky, Need Close Monitoring Due to Risk of Patient Decompensation, Risk of Complication if Not Cared For in Hospital, Risk of Diagnosis Which Will Require Inpatient Eval/Care/Monitoring
[2020-11-05] MEDS: FLUTICASONE/UMECLIDIN/VILANTER 100-62.5-25 MCG/DOSE IH SCH (17:38)
[2020-11-05] MEDS: TRAZODONE HCL 50 MG TABLET PO SCH (21:32)
[2020-11-05] MEDS: MELATONIN 3 MG TABLET PO SCH (21:32)
[2020-11-05] MEDS: OXYCODONE-ACETAMINOPHEN 5-325 MG TABLET PO PRN (21:33)
[2020-11-06] MEDS: PANTOPRAZOLE SODIUM 40 MG TABLET.DR PO SCH (05:39)
[2020-11-06] MEDS: HYDRALAZINE HCL 25 MG TABLET PO SCH ×3 (05:39→21:34)
[2020-11-06] MEDS: OXYCODONE-ACETAMINOPHEN 5-325 MG TABLET PO PRN ×2 (06:41→20:26)
[2020-11-06] MEDS: INSULIN LISPRO 100 UNIT/ML 3 ML VIAL SUBCUT SCH ×4 (07:40→21:36)
[2020-11-06] MEDS: HYDROCHLOROTHIAZIDE 25 MG TABLET PO SCH (08:21)
[2020-11-06] MEDS: ENOXAPARIN SODIUM INJ 40 MG/0.4 ML DISP.SYRIN SUBCUT SCH (09:21)
[2020-11-06] MEDS: OLOPATADINE HCL 0.1% OPH SOLN 5 ML OU SCH (09:21)
[2020-11-06] MEDS: POTASSIUM CHLORIDE 10 MEQ TABLET.ER PO SCH (09:22)
[2020-11-06] MEDS: LISINOPRIL 10 MG TABLET PO SCH (09:22)
[2020-11-06] MEDS: METOPROLOL TARTRATE 25 MG TABLET PO SCH ×2 (09:22→21:34)
[2020-11-06] MEDS: FUROSEMIDE 20 MG TABLET PO SCH (09:22)
[2020-11-06] MEDS: DOCUSATE SODIUM 100 MG CAPSULE PO SCH (09:22)
[2020-11-06] MEDS: DILTIAZEM HCL 240 MG CAPSULE.CR PO SCH (09:22)
[2020-11-06] MEDS: SERTRALINE HCL 50 MG TABLET PO SCH (09:22)
[2020-11-06] MEDS: ACETAMINOPHEN 325 MG TABLET PO PRN ×2 (10:41→14:32)
[2020-11-06] MEDS: FLUTICASONE/UMECLIDIN/VILANTER 100-62.5-25 MCG/DOSE IH SCH (17:00)
--- NOTE | 2020-11-06 18:12 | PDOC PROGRESS REPORT ---
Subjective Subjective:: BRYAN MOY is a 80 year old female with past medical history significant for chronic diastolic CHF, chronic hypoxemic respiratory failure, COPD, T2DM who presents to the ED after having a fall at her nursing facility where she was discharged from this hospital yesterday. Reportedly, patient took off her oxygen and attempted to walk across her room, subsequently became hypoxemic and dizzy, falling to the floor and fracturing her left hip. Imaging done in ED was consistent with left intertrochanteric closed hip fracture. Dr. Lewis in orthopedic surgery has been contacted and plans to take the patient to the OR in the morning. She will need to be n.p.o. at midnight tonight. Pain management is started. Labs and imaging reviewed. Patient denies any syncope, fever, productive cough or any other new symptoms prior to falling and breaking her hip. 11/02/2020 Patient seems to be comfortable in her pain is primarily controlled. Orthopedic surgery is planning to take her to the OR hopefully today. We will hold Lovenox until after surgery. Patient remains n.p.o. for now. She is adequately maintained on 2 L nasal cannula supplemental oxygen. Patient has no new complaints today. 11/03/2020 Patient underwent hip nail procedure, tolerated procedure well per patient and surgery notes. Patient's blood pressure is elevated and I give her additional dose of IV Lasix for higher oxygen requirements that she supposedly had after surgery, potentially due to IV fluids she was given for the procedure. Rest arted home dose HCTZ and lisinopril. Chest x-ray showed increased bilateral basilar predominant pleural and parenchymal opacities which could be pleural fluid or atelectasis. Plan for discharge to SNF in the next 48 hours. 11/04/2020 Patient is working with physical therapy and will need discharge to SNF. Aspirin is inadequate for DVT prophylaxis. Patient is notably at a high fall risk given the nature of her most recent hip fracture however she is also extremely high risk for DVT due to immobility and recent fracture. Will be absolutely imperative that the SNF the patient is discharged to take great care to ensure the patient does not fall in the future. She must be monitored very closely as she is a bleeding risk on Lovenox. She must keep her oxygen on at all times and I explained this to the patient as well. Hemoglobin is a bit lower likely from surgery. She is currently maintained on 2 to 4 L nasal cannula. She has been refusing her meals today and I have put in for a nut rition assessment. She can have Ensure protein shakes 3 times daily and as needed. 11/05/2020 Patient was placed on a significantly large amount of oxygen overnight reportedly per nursing due to having oxygen saturation in the 50s while the patient was sleeping and mouth breathing overnight. I believe the patient may have obstructive sleep apnea rather than a problem of chronic oxygen delivery. Increasing the oxygen concentration in the setting of chronic known COPD and suspected FARHANA has a potential for causing significant harm in the form of CO2 retention. We will need to continuously and aggressively wean the patient's oxygen to avoid this from happening. I discussed this with nursing today. Patient has been known to frequently removes her supplemental oxygen and try to walk around her room. Patient will need to use CPAP nightly and anytime she sleeps during the day. Her hemoglobin is lower likely from surgery and I will recheck a CBC. Patient actually states she feels fine and has no new complaints today. 11/06/2020 Patient states she has less energy today and she does not feel like she is doing quite as well. Of note, she has not been getting up with therapy as often as she should be and I discussed this with her. I told her she must provide them with good effort even if she gets tired and will stop therapy before it is finished. We will need her to do this to show rehab facility that she is able to regain strength and function. I will get a repeat chest x-ray to see how she is doing with her diuresis. Seems to be breathing a bit better each day. Unfortunately, she continues to decline therapy she will not make any meaningful progress towards regaining strength and function that she needs to go back home. Reason For Visit: FRACTURE, INTERTROCHANTERIC, LEFT FEMUR Physical Exam Vital Signs: Temp Pulse Resp BP Pulse Ox 97.7 F 65 18 107/55 L 91 L 11/06/20 16:00 11/06/20 16:00 11/06/20 16:00 11/06/20 16:00 11/06/20 16:00 Intake & Output 11/05/20 11/06/20 11/07/20 06:59 06:59 06:59 Intake Total 1060 740 130 Balance 1060 740 130 Weight 51.9 kg 56.8 kg Exam: General appearance: PRESENT: no acute distress, thin and frail appearing elderly white female, states she feels weaker today Head exam: PRESENT: atraumatic, normocephalic Eye exam: PRESENT: conjunctiva pink. ABSENT: scleral icterus Mouth exam: PRESENT: moist Respiratory exam: PRESENT: clear to auscultation jackson. ABSENT: rales, rhonchi, wheezes Cardiovascular exam: PRESENT: RRR. ABSENT: diastolic murmur, rubs, systolic murmur GI/Abdominal exam: PRESENT: normal bowel sounds, soft. ABSENT: distended, guarding, mass, organolmegaly, rebound, tenderness Neurological exam: PRESENT: alert, awake, oriented to self Psychiatric exam: PRESENT: appropriate affect, normal mood Skin exam: PRESENT: dry, intact, warm Musculoskeletal: Left lateral hip surgical wound healing and minimally tender; pectus carinatum Results Laboratory Results: 11/05/20 08:59 11/04/20 04:59 11/01/20 17:20 Troponin I 0.066 NT-Pro-B Natriuret Pep 2050 H Impressions: Head CT 11/01/20 15:37 IMPRESSION: Sequela of chronic ischemia without a superimposed acute intracranial abnormality. EVIDENCE OF ACUTE STROKE: NO. Fluoroscopy 11/02/20 00:00 IMPRESSION: ORIF left hip. Refer to operative note for further information. Hip X-Ray 11/02/20 00:00 IMPRESSION: ORIF left hip. Refer to operative note for further information. Chest X-Ray 11/03/20 09:45 IMPRESSION: Increased bilateral basilar predominant pleural and parenchymal opacities that could represent a combination of pleural fluid, atelectasis and or in the proper clinical setting consolidation. Assessment and Plan - Diagnosis (1) Fracture, intertrochanteric, left femur Qualifiers: Encounter type: initial encounter Fracture type: closed Fracture alignment: displaced Qualified Code(s): S72.142A - Displaced intertrochanteric fracture of left femur, initial encounter for closed fracture Is this a current diagnosis for this admission?: Yes (2) Acute on chronic diastolic CHF (congestive heart failure) Is this a current diagnosis for this admission?: Yes (3) Acute on chronic respiratory failure with hypoxemia Is this a current diagnosis for this admission?: Yes (4) COPD (chronic obstructive pulmonary disease) Qualifiers: Is this a current diagnosis for this admission?: Yes (5) Diabetes mellitus type 2 in nonobese Is this a current diagnosis for this admission?: Yes (6) Fall Is this a current diagnosis for this admission?: Yes - Plan Summary Summary: Fracture, intertrochanteric, left femur Took off her oxygen at her nursing facility and subsequently became dizzy and fell, fracturing left hip Imaging reviewed, consistent with left intertrochanteric closed hip fracture Orthopedic surgery consulted: Dr. Lewis signed off Went to OR 11/02, hip nail procedure performed Pain management DVT prophylaxis: Lovenox to continue for 1 month; it is absolutely imperative that SNF staff does not allow the patient to remove her oxygen and fall in the future, discussed in detail with the patient that she must keep her oxygen on at all times and must not get up without assistance, she voiced understanding PT/OT, case management Discharge to SNF Acute on chronic respiratory failure with hypoxemia Due to taking off oxygen, subsequently caused to fall Continue submental oxygen as was prescribed at discharge from previous admission Wean supplemental oxygen as able Acute diastolic CHF exacerbation 1 dose IV Lasix given, changed to oral Lasix Recent echocardiogram showed good systolic function Repeat chest x-ray ordered COPD (chronic obstructive pulmonary disease) Chronic COPD -Supplemental O2 to maintain sat of 89-92% -duonebs as needed -bronchial hygiene -no smoking Diabetes mellitus type 2 in nonobese T2DM -accucheks, sliding scale insulin -long acting insulin indicated for HgA1C of 10 or greater -diet counseling -outpt FU with PCP Fall at nursing facility - Time Time Spent with patient: 15-24 minutes Medications reviewed and adjusted accordingly: Yes Anticipated Discharge Disposition: Correction Facility Anticipated Discharge Timeframe: within 48 hours - Inpatient Certification Based on my medical assessment, after consideration of the patient's comorbidities, presenting symptoms, or acuity I expect that the services needed warrant INPATIENT care.: Yes I certify that my determination is in accordance with my understanding of Medicare's requirements for reasonable and necessary INPATIENT services [42 CFR 412.3e].: Yes Medical Necessity: Significant Comorbidiites Make Outpatient Treatment Too Risky, Need Close Monitoring Due to Risk of Patient Decompensation, Need for Pain Control, Risk of Complication if Not Cared For in Hospital, Risk of Diagnosis Which Will Require Inpatient Eval/Care/Monitoring
[2020-11-06] MEDS: TRAZODONE HCL 50 MG TABLET PO SCH (21:36)
[2020-11-06] MEDS: MELATONIN 3 MG TABLET PO SCH (21:36)
[2020-11-07] MEDS: HYDRALAZINE HCL 25 MG TABLET PO SCH ×3 (05:55→21:37)
[2020-11-07] MEDS: PANTOPRAZOLE SODIUM 40 MG TABLET.DR PO SCH (05:55)
--- NOTE | 2020-11-07 08:36 | RADIOLOGY REPORT (SQ) ---
EXAM DESCRIPTION: CHEST 2 VIEWS IMAGES COMPLETED DATE/TIME: 11/06/2020 7:01 pm REASON FOR STUDY: possible PNA vs pulm edema COMPARISON: CTA chest 10/26/2020 Chest films 10/27/2020, 11/01/2020, 11/03/2020 EXAM PARAMETERS: NUMBER OF VIEWS: two views TECHNIQUE: Digital Frontal and Lateral radiographic views of the chest acquired. RADIATION DOSE: NA LIMITATIONS: none FINDINGS: LUNGS AND PLEURA: Bibasilar consolidation is present atelectasis versus pneumonia. Small bilateral pleural effusions are present. No pneumothorax. MEDIASTINUM AND HILAR STRUCTURES: Large retrocardiac hiatal hernia HEART AND VASCULAR STRUCTURES: Stable massive cardiomegaly BONES: Stable thoracic kyphosis HARDWARE: None in the chest. OTHER: No other significant finding. IMPRESSION: Bibasilar consolidation atelectasis versus pneumonia. Small bilateral pleural effusions TECHNICAL DOCUMENTATION: JOB ID: [id number] 2010 [employer]- All Rights Reserved Reading location - IP/workstation name: [email or web address]
[2020-11-07] MEDS: INSULIN LISPRO 100 UNIT/ML 3 ML VIAL SUBCUT SCH ×4 (08:37→21:37)
[2020-11-07] MEDS: HYDROCHLOROTHIAZIDE 25 MG TABLET PO SCH (09:34)
[2020-11-07] MEDS: FUROSEMIDE 20 MG TABLET PO SCH (09:34)
[2020-11-07] MEDS: LISINOPRIL 10 MG TABLET PO SCH (09:34)
[2020-11-07] MEDS: ACETAMINOPHEN 325 MG TABLET PO PRN (09:35)
[2020-11-07] MEDS: DILTIAZEM HCL 240 MG CAPSULE.CR PO SCH (09:35)
[2020-11-07] MEDS: METOPROLOL TARTRATE 25 MG TABLET PO SCH ×2 (09:35→21:37)
[2020-11-07] MEDS: DOCUSATE SODIUM 100 MG CAPSULE PO SCH (09:35)
[2020-11-07] MEDS: POTASSIUM CHLORIDE 10 MEQ TABLET.ER PO SCH (09:35)
[2020-11-07] MEDS: SERTRALINE HCL 50 MG TABLET PO SCH (09:35)
[2020-11-07] MEDS: ENOXAPARIN SODIUM INJ 40 MG/0.4 ML DISP.SYRIN SUBCUT SCH (09:36)
[2020-11-07] MEDS: OLOPATADINE HCL 0.1% OPH SOLN 5 ML OU SCH (09:39)
[2020-11-07] MEDS: IPRATROPIUM/ALBUTEROL 0.5-2.5 MG/3 ML AMPUL NEB PRN (10:44)
[2020-11-07] MEDS: FLUTICASONE/UMECLIDIN/VILANTER 100-62.5-25 MCG/DOSE IH SCH (17:37)
--- NOTE | 2020-11-07 20:06 | PDOC PROGRESS REPORT ---
Subjective Date:: 11/07/20 Subjective:: BRYAN MOY is a 80 year old female with past medical history significant for ch ronic diastolic CHF, chronic hypoxemic respiratory failure, COPD, T2DM who presents to the ED after having a fall at her nursing facility where she was discharged from this hospital yesterday. Reportedly, patient took off her oxygen and attempted to walk across her room, subsequently became hypoxemic and dizzy, falling to the floor and fracturing her left hip. Imaging done in ED was consistent with left intertrochanteric closed hip fracture. Dr. Lewis in orthopedic surgery has been contacted and plans to take the patient to the OR in the morning. She will need to be n.p.o. at midnight tonight. Pain management is started. Labs and imaging reviewed. Patient denies any syncope, fever, p roductive cough or any other new symptoms prior to falling and breaking her hip. -Previous Hospitalist Notes- 11/02/2020 Patient seems to be comfortable in her pain is primarily controlled. Orthopedic surgery is planning to take her to the OR hopefully today. We will hold Lovenox until after surgery. Patient remains n.p.o. for now. She is adequately maintained on 2 L nasal cannula supplemental oxygen. Patient has no new complaints today. 11/03/2020 Patient underwent hip nail procedure, tolerated procedure well per patient and surgery notes. Patient's blood pressure is elevated and I give her additional dose of IV Lasix for higher oxygen requirements that she supposedly had after surgery, potentially due to IV fluids she was given for the procedure. Restarted home dose HCTZ and lisinopril. Chest x-ray showed increased bilateral basilar predominant pleural and parenchymal opacities which could be pleural fluid or atelectasis. Plan for discharge to SNF in the next 48 hours. 11/04/2020 Patient is working with physical therapy and will need discharge to SNF. Aspirin is inadequate for DVT prophylaxis. Patient is notably at a high fall risk given the nature of her most recent hip fracture however she is also extremely high risk for DVT due to immobility and recent fracture. Will be absolutely imperative that the SNF the patient is discharged to take great care to ensure the patient does not fall in the future. She must be monitored very closely as she is a bleeding risk on Lovenox. She must keep her oxygen on at all times and I explained this to the patient as well. Hemoglobin is a bit lower likely from surgery. She is currently maintained on 2 to 4 L nasal jc jefry. She has been refusing her meals today and I have put in for a nutrition assessment. She can have Ensure protein shakes 3 times daily and as needed. 11/05/2020 Patient was placed on a significantly large amount of oxygen overnight reportedly per nursing due to having oxygen saturation in the 50s while the patient was sleeping and mouth breathing overnight. I believe the patient may have obstructive sleep apnea rather than a problem of chronic oxygen delivery. Increasing the oxygen concentration in the setting of chronic known COPD and suspected FARHANA has a potential for causing significant harm in the form of CO2 retention. We will need to continuously and aggressively wean the patient's oxygen to avoid this from happening. I discussed this with nursing today. Patient has been known to frequently removes her supplemental oxygen and try to walk around her room. Patient will need to use CPAP nightly and anytime she sleeps during the day. Her hemoglobin is lower likely from surgery and I will recheck a CBC. Patient actually states she feels fine and has no new complaints today. 11/06/2020 Patient states she has less energy today and she does not feel like she is doing quite as well. Of note, she has not been getting up with therapy as often as she should be and I discussed this with her. I told her she must provide them with good effort even if she gets tired and will stop therapy before it is finished. We will need her to do this to show rehab facility that she is able to regain strength and function. I will get a repeat chest x-ray to see how she is doing with her diuresis. Seems to be breathing a bit better each day. Unfortunately, she continues to decline therapy she will not make any meaningful progress towards regaining strength and function that she needs to go back home. -current attending notes- 11/07/20 Care assumed today. Patient was seen and examined at bedside. She was noted to be desaturating to <85% and was refusing to wear a mask because she feels suffocated. She denies feeling short of breath during this episode. O2 sat went up to 89% after breathing treatments. She has a history of refusing oxygen and would barely participate with physical therapy. We are awaiting SNF placement but if she continued to refuse PT, will have to discuss with her hospice options. She is already DNR. Reason For Visit: FRACTURE, INTERTROCHANTERIC, LEFT FEMUR Physical Exam Vital Signs: Temp Pulse Resp BP Pulse Ox 97.7 F 63 21 H 101/45 L 89 L 11/07/20 15:47 11/07/20 15:47 11/07/20 15:47 11/07/20 15:47 11/07/20 15:47 Intake & Output 11/06/20 11/07/20 11/08/20 06:59 06:59 06:59 Intake Total 740 630 600 Balance 740 630 600 Weight 56.8 kg 56.8 kg General appearance: PRESENT: cooperative, mild distress, thin Head exam: PRESENT: atraumatic, normocephalic Eye exam: PRESENT: EOMI, PERRLA Mouth exam: PRESENT: moist Neck exam: PRESENT: full ROM Respiratory exam: PRESENT: decreased breath sounds, symmetrical. ABSENT: tachypnea, wheezes Cardiovascular exam: PRESENT: RRR, +S1, +S2 Pulses: PRESENT: +2 pedal pulses bilateral GI/Abdominal exam: PRESENT: normal bowel sounds, soft. ABSENT: rebound, tenderness Extremities exam: PRESENT: other - limited ROM due to fracture Musculoskeletal exam: PRESENT: other Neurological exam: PRESENT: alert, awake, oriented to person, oriented to place, oriented to time Psychiatric exam: PRESENT: normal mood Skin exam: PRESENT: normal color Results Laboratory Results: 11/05/20 08:59 11/04/20 04:59 11/01/20 17:20 Troponin I 0.066 NT-Pro-B Natriuret Pep 2050 H Impressions: Head CT 11/01/20 15:37 IMPRESSION: Sequela of chronic ischemia without a superimposed acute intracranial abnormality. EVIDENCE OF ACUTE STROKE: NO. Fluoroscopy 11/02/20 00:00 IMPRESSION: ORIF left hip. Refer to operative note for further information. Hip X-Ray 11/02/20 00:00 IMPRESSION: ORIF left hip. Refer to operative note for further information. Chest X-Ray 11/06/20 18:09 IMPRESSION: Bibasilar consolidation atelectasis versus pneumonia. Small bilateral pleural effusions Assessment and Plan - Diagnosis (1) Fracture, intertrochanteric, left femur Qualifiers: Encounter type: initial encounter Fracture type: closed Fracture alignment: displaced Qualified Code(s): S72.142A - Displaced intertrochanteric fracture of left femur, initial encounter for closed fracture Is this a current diagnosis for this admission?: Yes Plan: - s/p ORIF Took off her oxygen at her nursing facility and subsequently became dizzy and fell, fracturing left hip Imaging reviewed, consistent with left intertrochanteric closed hip fracture Pain management DVT prophylaxis Lovenox to continue for 1 month; it is absolutely imperative that SNF staff does not allow the patient to remove her oxygen and fall in the future, discussed in detail with the patient that she must keep her oxygen on at all times and must not get up without assistance, she voiced understanding PT/OT, case management (2) Acute on chronic respiratory failure with hypoxemia Is this a current diagnosis for this admission?: Yes Plan: Due to taking off oxygen, subsequently caused to fall Continue O2 support to maintain O2 sats between 89-92%. She does not need to be above 95% as she can retain Co2 if we put her on more oxygen (3) Acute on chronic diastolic CHF (congestive heart failure) Is this a current diagnosis for this admission?: Yes Plan: - repeat CXR showed bilateral consolidations atelectasis or pneumonia. Small bilateral pleural effusion - BNP 2049 - continue lasix 20 mg PO daily (4) COPD (chronic obstructive pulmonary disease) Qualifiers: Is this a current diagnosis for this admission?: Yes Plan: Chronic COPD -Supplemental O2 to maintain sat of 89-94% -duonebs as needed -bronchial hygiene -no smoking (5) Diabetes mellitus type 2 in nonobese Is this a current diagnosis for this admission?: Yes Plan: T2DM -accucheks, sliding scale insulin -long acting insulin indicated for HgA1C of 10 or greater -diet counseling -outpt FU with PCP (6) Fall Qualifiers: Encounter type: initial encounter Qualified Code(s): W19.XXXA - Unspecified fall, initial encounter Is this a current diagnosis for this admission?: Yes Plan: - PT/OT on board - awaiting SNF placement - Time Time Spent with patient: 25-34 minutes Medications reviewed and adjusted accordingly: Yes Anticipated Discharge Disposition: Assisted Facility Anticipated Discharge Timeframe: TBD
[2020-11-07] MEDS: TRAZODONE HCL 50 MG TABLET PO SCH (21:36)
[2020-11-07] MEDS: MELATONIN 3 MG TABLET PO SCH (21:36)
[2020-11-08] MEDS: PANTOPRAZOLE SODIUM 40 MG TABLET.DR PO SCH (05:15)
[2020-11-08] MEDS: HYDRALAZINE HCL 25 MG TABLET PO SCH ×2 (05:15→14:27)
[2020-11-08] MEDS: INSULIN LISPRO 100 UNIT/ML 3 ML VIAL SUBCUT SCH ×3 (07:50→17:42)
[2020-11-08] MEDS: POTASSIUM CHLORIDE 10 MEQ TABLET.ER PO SCH (10:05)
[2020-11-08] MEDS: DOCUSATE SODIUM 100 MG CAPSULE PO SCH (10:05)
[2020-11-08] MEDS: LISINOPRIL 10 MG TABLET PO SCH (10:05)
[2020-11-08] MEDS: METOPROLOL TARTRATE 25 MG TABLET PO SCH (10:05)
[2020-11-08] MEDS: SERTRALINE HCL 50 MG TABLET PO SCH (10:06)
[2020-11-08] MEDS: FUROSEMIDE 20 MG TABLET PO SCH (10:07)
[2020-11-08] MEDS: DILTIAZEM HCL 240 MG CAPSULE.CR PO SCH (10:07)
[2020-11-08] MEDS: HYDROCHLOROTHIAZIDE 25 MG TABLET PO SCH (10:07)
[2020-11-08] MEDS: OLOPATADINE HCL 0.1% OPH SOLN 5 ML OU SCH (10:08)
[2020-11-08] MEDS: ENOXAPARIN SODIUM INJ 40 MG/0.4 ML DISP.SYRIN SUBCUT SCH (10:09)
--- NOTE | 2020-11-08 15:04 | PDOC DISCHARGE SUMMARY ---
Impression - Admit/DC Date/PCP Admission Date/Primary Care Provider: 11/01/20 17:51 EHSAN AG, PRAVEENA Discharge Date: 11/08/20 - Discharge Diagnosis (1) Fracture, intertrochanteric, left femur Is this a current diagnosis for this admission?: Yes (2) Acute on chronic respiratory failure with hypoxemia Is this a current diagnosis for this admission?: Yes (3) Acute on chronic diastolic CHF (congestive heart failure) Is this a current diagnosis for this admission?: Yes (4) COPD (chronic obstructive pulmonary disease) Is this a current diagnosis for this admission?: Yes (5) Diabetes mellitus type 2 in nonobese Is this a current diagnosis for this admission?: Yes (6) Fall Is this a current diagnosis for this admission?: Yes - Assessment Summary: Fracture, intertrochanteric, left femur Took off her oxygen at her nursing facility and subsequently became dizzy and fell, fracturing left hip Imaging reviewed, consistent with left intertrochanteric closed hip fracture Orthopedic surgery consulted: Dr. Spangler signed off Went to OR 11/02, hip nail procedure performed Pain management DVT prophylaxis: Lovenox to continue for 1 month; it is absolutely imperative that SNF staff does not allow the patient to remove her oxygen and fall in the future, discussed in detail with the patient that she must keep her oxygen on at all times and must not get up without assistance, she voiced understanding PT/OT, case management Discharge to SNF Acute on chronic respiratory failure with hypoxemia Due to taking off oxygen, subsequently caused to fall Continue submental oxygen as was prescribed at discharge from previous admission Wean supplemental oxygen as able Acute diastolic CHF exacerbation 1 dose IV Lasix given, changed to oral Lasix Recent echocardiogram showed good systolic function COPD (chronic obstructive pulmonary disease) Chronic COPD -Supplemental O2 to maintain sat of 89-92% -duonebs as needed -bronchial hygiene -no smoking Diabetes mellitus type 2 in nonobese T2DM -accucheks, sliding scale insulin -diet counseling -outpt FU with PCP Fall at nursing facility - Additional Information Resuscitation Status: Do Not Resuscitate Referrals: [facility] [Other] HEATHER SPANGLER JR, DO [ACTIVE PROVISIONAL STAFF] - 11/17/20 9:50 am Prescriptions: Enoxaparin Sodium [Lovenox Inj 40 mg/0.4 ml Disp.syrin] 40 mg SUBCUT DAILY 25 Days #25 disp.syrin Oxycodone HCl/Acetaminophen [Percocet 5-325 mg Tablet] 1 tab PO Q4HP PRN 5 Days #20 tablet PRN Reason: Home Medications: Acetaminophen [Tylenol] 650 mg PO Q4HP PRN 02/11/19 Albuterol Sulfate [Ventolin Hfa 8 gm Mdi (1 Mdi/ER Disp)] 2 puff IH Q4HP PRN 02/11/19 Aspirin [Aspirin 81 mg Chewable Tablet] 81 mg PO DAILY 02/11/19 Melatonin [Melatonin 3 mg Tablet] 3 mg PO QHS 02/11/19 Mylanta Liquid 30 ml PO Q4HP PRN 02/11/19 Omeprazole 40 mg PO DAILY 02/11/19 Budesonide/Formoterol Fumarate [Symbicort HFA 160-4.5 mcg Inhaler 6 gm] 2 puff IH BID 10/26/20 Cyanocobalamin (Vitamin B-12) [Vitamin B-12 1000 mcg Tablet] 500 mcg PO DAILY 10/26/20 Diltiazem HCl [Dilt-Xr] 240 mg PO DAILY 10/26/20 Hydralazine HCl [Apresoline 25 mg Tablet] 25 mg PO Q8 10/26/20 Metformin HCl [Metformin HCl ER] 500 mg PO BID 10/26/20 Olopatadine HCl [Pataday] 1 drop OU DAILY 10/26/20 Sertraline HCl [Zoloft 50 mg Tablet] 12.5 mg PO DAILY 10/26/20 Trazodone HCl [Desyrel 50 mg Tablet] 100 mg PO QHS 10/26/20 Furosemide [Lasix 20 mg Tablet] 30 mg PO BID tablet 10/30/20 Potassium Chloride [Klor-Con 10 Meq Tablet ER] 20 meq PO DAILY #0 tablet.er 10/30/20 Metoprolol Tartrate [Lopressor 25 mg Tablet] 25 mg PO Q12 tablet 10/31/20 Hydrochlorothiazide [Hydrodiuril 25 mg Tablet] 25 mg PO QAM 11/02/20 Lisinopril [Zestril] 40 mg PO DAILY 11/02/20 Enoxaparin Sodium [Lovenox Inj 40 mg/0.4 ml Disp.syrin] 40 mg SUBCUT DAILY 25 Days #25 disp.syrin 11/08/20 Oxycodone HCl/Acetaminophen [Percocet 5-325 mg Tablet] 1 tab PO Q4HP PRN 5 Days #20 tablet 11/08/20 History of Present Illiness History of Present Illness: BRYAN MOY is a 80 year old female, with past medical history significant for chronic diastolic CHF, chronic hypoxemic respiratory failure, COPD, T2DM who presents to the ED after having a fall at her nursing facility where she was discharged from this hospital yesterday. Reportedly, patient took off her oxygen and attempted to walk across her room, subsequently became hypoxemic and dizzy, falling to the floor and fracturing her left hip. Imaging done in ED was consistent with left intertrochanteric closed hip fracture. Dr. Spangler in orthopedic surgery has been contacted and plans to take the patient to the OR in the morning. She will need to be n.p.o. at midnight tonight. Pain management is started. Labs and imaging reviewed. Patient denies any syncope, fever, productive cough or any other new symptoms prior to falling and breaking her hip. Hospital Course Hospital Course: -Previous Hospitalist Notes- 11/02/2020 Patient seems to be comfortable in her pain is primarily controlled. Orthopedic surgery is planning to take her to the OR hopefully today. We will hold Lovenox until after surgery. Patient remains n.p.o. for now. She is adequately maintained on 2 L nasal cannula supplemental oxygen. Patient has no new complaints today. 11/03/2020 Patient underwent hip nail procedure, tolerated procedure well per patient and surgery notes. Patient's blood pressure is elevated and I give her additional dose of IV Lasix for higher oxygen requirements that she supposedly had after surgery, potentially due to IV fluids she was given for the procedure. Restarted home dose HCTZ and lisinopril. Chest x-ray showed increased bilateral basilar predominant pleural and parenchymal opacities which could be pleural fluid or atelectasis. Plan for discharge to SNF in the next 48 hours. 11/04/2020 Patient is working with physical therapy and will need discharge to SNF. Aspirin is inadequate for DVT prophylaxis. Patient is notably at a high fall risk given the nature of her most recent hip fracture however she is also extremely high risk for DVT due to immobility and recent fracture. Will be absolutely imperative that the SNF the patient is discharged to take great care to ensure the patient does not fall in the future. She must be monitored very closely as she is a bleeding risk on Lovenox. She must keep her oxygen on at all times and I explained this to the patient as well. Hemoglobin is a bit lower likely from surgery. She is currently maintained on 2 to 4 L nasal cannula. She has been refusing her meals today and I have put in for a nutrition assessment. She can have Ensure protein shakes 3 times daily and as needed. 11/05/2020 Patient was placed on a significantly large amount of oxygen overnight reported ly per nursing due to having oxygen saturation in the 50s while the patient was sleeping and mouth breathing overnight. I believe the patient may have obstructive sleep apnea rather than a problem of chronic oxygen delivery. Increasing the oxygen concentration in the setting of chronic known COPD and suspected FARHANA has a potential for causing significant harm in the form of CO2 retention. We will need to continuously and aggressively wean the patient's oxygen to avoid this from happening. I discussed this with nursing today. Patient has been known to frequently removes her supplemental oxygen and try to walk around her room. Patient will need to use CPAP nightly and anytime she sleeps during the day. Her hemoglobin is lower likely from surgery and I will recheck a CBC. Patient actually states she feels fine and has no new complaints today. 11/06/2020 Patient states she has less energy today and she does not feel like she is doing quite as well. Of note, she has not been getting up with therapy as often as she should be and I discussed this with her. I told her she must provide them with good effort even if she gets tired and will stop therapy before it is finished. We will need her to do this to show rehab facility that she is able to regain strength and function. I will get a repeat chest x-ray to see how she is doing with her diuresis. Seems to be breathing a bit better each day. Unfortunately, she continues to decline therapy she will not make any meaningful progress towards regaining strength and function that she needs to go back home. -current attending notes- 11/07/20 Care assumed today. Patient was seen and examined at bedside. She was noted to be desaturating to <85% and was refusing to wear a mask because she feels suffocated. She denies feeling short of breath during this episode. O2 sat went up to 89% after breathing treatments. She has a history of refusing oxygen and would barely participate with physical therapy. We are awaiting SNF placement but if she continued to refuse PT, will have to discuss with her hospice options. She is already DNR. Physical Exam Vital Signs: Temp Pulse Resp BP Pulse Ox 98.0 F 85 21 H 112/90 H 98 11/08/20 11:08 11/08/20 11:08 11/08/20 11:08 11/08/20 11:08 11/08/20 11:08 Intake & Output 11/07/20 11/08/20 11/09/20 06:59 06:59 06:59 Intake Total 630 600 481 Balance 630 600 481 Weight 56.8 kg 56 kg General appearance: PRESENT: cooperative, mild distress, thin Head exam: PRESENT: atraumatic, normocephalic Eye exam: PRESENT: EOMI, PERRLA Mouth exam: PRESENT: moist Neck exam: PRESENT: full ROM Respiratory exam: PRESENT: decreased breath sounds, symmetrical, unlabored Cardiovascular exam: PRESENT: RRR, +S1, +S2 GI/Abdominal exam: PRESENT: normal bowel sounds, soft. ABSENT: rebound, tenderness Extremities exam: PRESENT: other - limited ROM Neurological exam: PRESENT: alert, awake, oriented to person, oriented to place, oriented to time Psychiatric exam: PRESENT: normal mood Skin exam: PRESENT: normal color Results Laboratory Results: WBC 6.9 10^3/uL (4.0-10.5) 11/05/20 08:59 RBC 3.32 10^6/uL (3.72-5.28) L 11/05/20 08:59 Hgb 8.5 g/dL (12.0-15.5) L 11/05/20 08:59 Hct 27.0 % (36.0-47.0) L 11/05/20 08:59 MCV 81 fl (80-97) 11/05/20 08:59 MCH 25.7 pg (27.0-33.4) L 11/05/20 08:59 MCHC 31.6 g/dL (32.0-36.0) L 11/05/20 08:59 RDW 17.6 % (11.5-14.0) H 11/05/20 08:59 Plt Count 242 10^3/uL (150-450) 11/05/20 08:59 Lymph % (Auto) 8.6 % (13-45) L 11/05/20 08:59 Blaine % (Auto) 9.4 % (3-13) 11/05/20 08:59 Eos % (Auto) 1.2 % (0-6) 11/05/20 08:59 Baso % (Auto) 0.4 % (0-2) 11/05/20 08:59 Absolute Neuts (auto) 5.5 10^3/uL (1.7-8.2) 11/05/20 08:59 Absolute Lymphs (auto) 0.6 10^3/uL (0.5-4.7) 11/05/20 08:59 Absolute Monos (auto) 0.6 10^3/uL (0.1-1.4) 11/05/20 08:59 Absolute Eos (auto) 0.1 10^3/uL (0.0-0.6) 11/05/20 08:59 Absolute Basos (auto) 0.0 10^3/uL (0.0-0.2) 11/05/20 08:59 Total Counted 100 11/04/20 04:59 Seg Neutrophils % 80.4 % (42-78) H 11/05/20 08:59 Seg Neuts % (Manual) 89 % (42-78) H 11/04/20 04:59 Lymphocytes % (Manual) 7 % (13-45) L 11/04/20 04:59 Monocytes % (Manual) 4 % (3-13) 11/04/20 04:59 Eosinophils % (Manual) 0 % (0-6) 11/04/20 04:59 Basophils % (Manual) 0 % (0-2) 11/04/20 04:59 Abs Neuts (Manual) 6.9 10^3/uL (1.7-8.2) 11/04/20 04:59 Abs Lymphs (Manual) 0.5 10^3/uL (0.5-4.7) 11/04/20 04:59 Abs Monocytes (Manual) 0.3 10^3/uL (0.1-1.4) 11/04/20 04:59 Absolute Eos (Manual) 0.0 10^3/uL (0.0-0.6) 11/04/20 04:59 Abs Basophils (Manual) 0.0 10^3/uL (0.0-0.2) 11/04/20 04:59 Toxic Granulation 1+ 11/04/20 04:59 Platelet Comment ADEQUATE 11/04/20 04:59 Poikilocytosis SLIGHT 11/04/20 04:59 Anisocytosis SLIGHT 11/04/20 04:59 Ovalocytes SLIGHT 11/04/20 04:59 PT 15.0 SEC (11.4-15.4) 11/02/20 05:59 INR 1.16 11/02/20 05:59 APTT 27.4 SEC (23.5-35.8) 11/02/20 05:59 Carbonic Acid 1.48 mmol/L (1.05-1.35) H 11/02/20 22:35 HCO3/H2CO3 Ratio 22:1 11/02/20 22:35 ABG pH 7.44 (7.35-7.45) 11/02/20 22:35 ABG pCO2 49.2 mmHg (35-45) H 11/02/20 22:35 ABG pO2 61.1 mmHg (80-100) L 11/02/20 22:35 ABG HCO3 33.0 mmol/L (20-24) H 11/02/20 22:35 ABG Total CO2 34.5 mmol/L (21-25) H 11/02/20 22:35 ABG O2 Saturation 92.0 % (94-98) L 11/02/20 22:35 ABG Base Excess 7.9 mmol/L 11/02/20 22:35 FiO2 70% 11/02/20 22:35 Sodium 137.5 mmol/L (137-145) 11/04/20 04:59 Potassium 3.6 mmol/L (3.6-5.0) 11/04/20 04:59 Chloride 98 mmol/L (98-107) 11/04/20 04:59 Carbon Dioxide 33 mmol/L (22-30) H 11/04/20 04:59 Anion Gap 7 (5-19) 11/04/20 04:59 BUN 29 mg/dL (7-20) H 11/04/20 04:59 Creatinine 0.88 mg/dL (0.52-1.25) 11/04/20 04:59 Est GFR ( Amer) > 60 (>60) 11/04/20 04:59 Est GFR (MDRD) Non-Af > 60 (>60) 11/04/20 04:59 Glucose 128 mg/dL (75-110) H 11/04/20 04:59 POC Glucose 198 mg/dL (70-110) H 11/08/20 11:04 Calcium 8.8 mg/dL (8.4-10.2) 11/04/20 04:59 Phosphorus 3.5 mg/dL (2.5-4.5) 11/02/20 05:59 Magnesium 1.6 mg/dL (1.6-2.3) 11/02/20 05:59 Total Bilirubin 1.0 mg/dL (0.2-1.3) 11/01/20 17:20 Direct Bilirubin 0.2 mg/dL (0.0-0.4) 11/01/20 17:20 Neonat Total Bilirubin Not Reportable 11/01/20 17:20 Neonat Direct Bilirubin Not Reportable 11/01/20 17:20 Neonat Indirect Bili Not Reportable 11/01/20 17:20 AST 26 U/L (14-36) 11/01/20 17:20 ALT 23 U/L (<35) 11/01/20 17:20 Alkaline Phosphatase 57 U/L (38-126) 11/01/20 17:20 Troponin I 0.066 ng/mL 11/01/20 17:20 NT-Pro-B Natriuret Pep 2050 pg/mL (<450) H 11/01/20 17:20 Total Protein 6.0 g/dL (6.3-8.2) L 11/01/20 17:20 Albumin 3.7 g/dL (3.5-5.0) 11/01/20 17:20 COVID-19 Source See comment 11/07/20 21:00 Influenza A (RT-PCR) NEGATIVE (NEGATIVE) 11/01/20 17:40 Influenza B (RT-PCR) NEGATIVE (NEGATIVE) 11/01/20 17:40 RSV (RT-PCR) NEGATIVE (NEGATIVE) 11/01/20 17:40 SARS-CoV-2 Rap RNA(RT-PCR) NEGATIVE (NEGATIVE) 11/01/20 17:40 11/01/20 17:20 Troponin I 0.066 NT-Pro-B Natriuret Pep 2050 H Impressions: Chest X-Ray 11/01/20 15:37 IMPRESSION: The amount of fluid in the left pleural space has decreased. The dense opacity in the left retrocardiac space that obscures the contour of the descending thoracic aorta and medial contour of the left hemidiaphragm is unchanged and could represent a combination of residual pleural fluid, atelectasis and/or in the proper clinical setting consolidation. The heart is enlarged and the interstitium is prominent - correlation with clinical findings for signs and symptoms of volume overload is recommended. Head CT 11/01/20 15:37 IMPRESSION: Sequela of chronic ischemia without a superimposed acute intracranial abnormality. EVIDENCE OF ACUTE STROKE: NO. Hip X-Ray 11/01/20 15:37 IMPRESSION: Acute displaced and comminuted intertrochanteric fracture of the left femur with superior displacement of the distal fracture fragment. There is no associated dislocation of the femoroacetabular joint. Fluoroscopy 11/02/20 00:00 IMPRESSION: ORIF left hip. Refer to operative note for further information. Hip X-Ray 11/02/20 00:00 IMPRESSION: ORIF left hip. Refer to operative note for further information. Hip X-Ray 11/02/20 00:00 IMPRESSION: ORIF left hip. Refer to operative note for further information. Chest X-Ray 11/03/20 09:45 IMPRESSION: Increased bilateral basilar predominant pleural and parenchymal opacities that could represent a combination of pleural fluid, atelectasis and or in the proper clinical setting consolidation. Chest X-Ray 11/06/20 18:09 IMPRESSION: Bibasilar consolidation atelectasis versus pneumonia. Small bilateral pleural effusions Plan Plan of Treatment: - to continue rehab at an acute rehab facility - continue O2 support Time Spent: Less than 30 Minutes Stroke Is this a Stroke Patient?: No Acute Heart Failure Is this a Heart Failure Patient?: No
--- NOTE | 2020-11-08 16:38 | RADIOLOGY REPORT (SQ) ---
EXAM DESCRIPTION: CT HEAD WITHOUT IMAGES COMPLETED DATE/TIME: 11/08/2020 4:27 pm REASON FOR STUDY: fall COMPARISON: 11/01/2020 TECHNIQUE: Axial images acquired through the brain without intravenous contrast. Images reviewed wi th bone, brain and subdural windows. Additional sagittal and coronal reconstructions were generated. Images stored on PACS. All CT scanners at this facility use dose modulation, iterative reconstruction, and/or weight based d osing when appropriate to reduce radiation dose to as low as reasonably achievable (ALARA). [facility]: Dose Right [facility]: CareDose [facility]: Dose Right [facility]: Teradose 4D [facility]: [employer] RADIATION DOSE: CT Rad equipment meets quality standard of care and radiation dose reduction techniq ues were employed. CTDIvol: 50.1 mGy. DLP: 1008 mGy-cm.mGy. LIMITATIONS: None. FINDINGS: VENTRICLES: Prominent. CEREBRUM: No masses. No hemorrhage. No midline shift. Areas of low density in the white matter mos t likely due to chronic micro-vascular ischemic change. Unchanged focal hypoattenuation within the bilateral basal ganglia compatible with prior lacunar infarcts. Additional focal areas of encephalom alacia and hypoattenuation involving the high right frontal and parietal cortex and left occipital lo be compatible with prior infarcts. No evidence of acute large vascular territory infarct. CEREBELLUM: No masses. No hemorrhage. No alteration of density. No evidence for acute infarction. EXTRAAXIAL SPACES: Age-related involutional change. No fluid collections. No masses. ORBITS AND GLOBE: No intra- or extraconal masses. Normal contour of globe without masses. CALVARIUM: No fracture. PARANASAL SINUSES: No fluid or mucosal thickening. SOFT TISSUES: No mass or hematoma. OTHER: No other significant finding. IMPRESSION: No evidence of acute intracranial process. 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 EVIDENCE OF ACUTE STROKE: NO. TECHNICAL DOCUMENTATION: JOB ID: [id number] Quality ID # [id number]: Final reports with documentation of one or more dose reduction techniques (e.g., Au tomated exposure control, adjustment of the mA and/or kV according to patient size, use of iterative reconstruction technique) 2010 [employer]- All Rights Reserved Reading location - IP/workstation name: [email or web address]
--- NOTE | 2020-11-08 16:42 | RADIOLOGY REPORT (SQ) ---
EXAM DESCRIPTION: PELVIS AP IMAGES COMPLETED DATE/TIME: 11/08/2020 4:32 pm REASON FOR STUDY: fall COMPARISON: 11/02/2020 NUMBER OF VIEWS: One view TECHNIQUE: AP Pelvis LIMITATIONS: None. FINDINGS: MINERALIZATION: Decreased. HIPS: Again seen is the left intertrochanteric femur fracture status post dynamic screw fixation. No evidence of new bony abnormality. PELVIS AND SACRUM: No acute fracture or dislocation. No worrisome bone lesions. PUBIS AND ISCHIUM: No acute fracture. LOWER LUMBAR SPINE: Lower lumbar spondylosis. SOFT TISSUES: Decreased subcutaneous gas about the left hip from prior. OTHER: No other significant finding. IMPRESSION: Left intertrochanteric femur fracture status post dynamic intramedullary screw fixation, grossly stable. TECHNICAL DOCUMENTATION: JOB ID: [id number] 2010 [employer]- All Rights Reserved Reading location - IP/workstation name: [email or web address]
[2020-11-08 17:53] VITALS: BP 131/59
[2020-11-08] MEDS: FLUTICASONE/UMECLIDIN/VILANTER 100-62.5-25 MCG/DOSE IH SCH (17:59)
== END 2020-11-08 18:50 | DRG 480 ==
LOC: ER 15:02 → EH 17:51 → 4S 19:25
PROVIDERS: ADMIT Internal Medicine; ATTEND Internal Medicine
PROC: 5A09557 Assistance with Respiratory Ventilation, Greater than 96 Consecutive Hours, Continuous Positive Airway Pressure (ICD-10-PCS; 2020-11-02)
PROC: 0QS746Z Reposition Left Upper Femur with Intramedullary Internal Fixation Device, Percutaneous Endoscopic Approach (ICD-10-PCS; principal; 2020-11-02 14:30)
DX: S72.142A Displaced intertrochanteric fracture of left femur, initial encounter for closed fracture (principal); J96.21 Acute and chronic respiratory failure with hypoxia; I50.33 Acute on chronic diastolic (congestive) heart failure; I11.0 Hypertensive heart disease with heart failure; W19.XXXA Unspecified fall, initial encounter; Y92.128 Other place in nursing home as the place of occurrence of the external cause; J44.9 Chronic obstructive pulmonary disease, unspecified; E11.9 Type 2 diabetes mellitus without complications; F03.90 Unspecified dementia, unspecified severity, without behavioral disturbance, psychotic disturbance, mood disturbance, and anxiety; K21.9 Gastro-esophageal reflux disease without esophagitis; Z20.828 Contact with and (suspected) exposure to other viral communicable diseases; Z87.891 Personal history of nicotine dependence; Z99.81 Dependence on supplemental oxygen; Z66 Do not resuscitate; Z79.899 Other long term (current) drug therapy; Z79.82 Long term (current) use of aspirin; Z79.84 Long term (current) use of oral hypoglycemic drugs; Z82.49 Family history of ischemic heart disease and other diseases of the circulatory system
CPT/HCPCS: 01230; 36415; 36600; 70450; 71045; 71046; 72170; 80048; 80053; 82803; 82962; 83735; 83880; 84100; 84484; 85025; 85610; 85730; 87635; 93005; 93010; 94640; 94660; 99140; 99285; 0241U; C1713; C9803; J0690; J1650; J1815; J1940; J2250; J2270; J2405; J2704; J3010; J3490; J7060; J7120